=== PATIENT | male | born 1955 | race American Indian/Alaskan Native ===

== ENCOUNTER 2018-03-30 06:02 | Inpatient (IN) | payer OTHER, SELFPAY ==
[2018-03-30] VITALS (16 sets, daily range): BP systolic 109–145; BP diastolic 62–75; PULSE 60–94; RESP 15–18; TEMP 36.6–37.4; O2SAT 94–98; BMI 24.3; BMI 23.8; BMI 23.9
--- NOTE | 2018-03-30 06:03 | ED.RN ---
NO OLD EKGS IN MUSE.
--- NOTE | 2018-03-30 06:11 | RAD_ITS ---
STUDY: X-RAY CHEST REASON FOR EXAM: Male, 62 years old. Chest heaviness TECHNIQUE: 1 view COMPARISON: None. FINDINGS: The lungs are clear and expanded. There is no demonstrated pleural abnormality. Normal size heart. Normal mediastinum and uche. Normal visualized pulmonary arteries. Normal visualized aortic arch and descending thoracic aorta. Degenerative changes of the thoracic spine.. Normal visualized ribs, clavicles, and shoulders. There is no demonstrated abnormality of the visualized soft tissue structures of the upper abdomen. RAD/Chest 1 View (Portable) IMPRESSION: No acute findings in the lungs. Electronically Signed: Rigo Hunter MD at 6:44 EST Tel , Service support ,
--- NOTE | 2018-03-30 06:18 | ED.VISSUMM ---
- ER Visit Summary Date of Service: 03/30/18 Chief Complaint: Chest heaviness with radiation to posterior right and left arm, nausea and vomiting and dyspnea History of Present Illness: The patient is a 62 M who is a smoker of 1.5 packs/day presents because of heaviness mid chest described as a brick on his chest with radiation to the posterior right and left arm associated with nausea and vomiting. There is no radiation to the back. There was dyspnea. He also had cold sweats. First episode occurred on Sunday and lasted approximately 1 hour. Described as chest heaviness with nausea. He apparently had calamari that evening. He denies intolerance to greasy or fried foods and has no history of cholelithiasis nor is her family history cholelithiasis. Patient had 2 episodes on Sunday and one episode this morning and reason he presents. He had calamari on Sunday night as well. The 3 episodes that occurred to the day did not radiate to his back. He denies any ocular, visual or auditory symptoms. He denies black or maroon stool. He denies urologic symptoms. He denies history of trauma. He denies neurologic symptoms. Physical Examination: Vital signs remarkable for an elevated blood pressure 145/75. Head is atraumatic normocephalic. Pupils are equal round reactive. Extraocular muscles are intact. TMs are pearly white with landmarks noted. Nares patent with no drainage. Posterior pharynx without erythema or exudate. Uvula is midline. There is no dysphonia or dysphasia. Trachea is midline. There is no stridor with auscultation of the neck. Heart is regular without murmur, gallop or rub. S1 and S2 are normal. Lungs are clear to auscultation with good movement of air bilaterally. Test Results: EKG reveals a sinus rhythm rate of 75 with normal [place] interval, QRS duration, axis and QT interval. ST segments are normal. Portable chest x-ray reveals no acute process. CBC is normal. Hepatic is normal as well as lipase. First troponin is normal. Emergency Department Course and Treatment: To evaluate patient's chest pain EKG was obtained to evaluate for acute ischemia. Chest x-ray to evaluate cardiac silhouette, mediastinum lung parenchyma. CBC was obtained to assess H&H and white count. Basic metabolic panel to assess electrolytes and renal function. Troponin since he had episode on Sunday less than an hour to evaluate any acute ischemic evidence. Patient was pain-free at time of EKG. Treatment Plan: 23-hour observation PCU to evaluate for cardiac versus noncardiac etiology. Disposition: PCU Impression: 1. Chest pressure 2. Tobacco use This note was generated with [employer] dictation software. It may contain incorrect words, spelling, and punctuation that were not noted in review of the chart prior to signing ED Disposition - Plan for ED Patient: Chief Complaint: Chest Pain Referrals: Ej Day MD [Primary Care Provider] -
[2018-03-30 06:22] LABS: Absolute Lymphocyte Count 2.35 X10^3/ul (0.83-4.51); Absolute Neutrophil Count 5.9 X10^3/uL (2.0-7.7); Basophil# 0.05 X10^3/uL; Basophil% 0.5 % (0-1); Eosinophil# 0.31 X10^3/uL; Eosinophils% 3.4 % (0-5); Hematocrit 45.4 % (40-54); Hemoglobin 15.5 g/dl (13.0-16.5); Lymphocyte # 2.35 X10^3/ul (4.0); Lymphocyte % 25.5 % (19-41); Mean Corp Hgb Conc 34.1 g/gl (32-36); Mean Corpuscular Hgb 30.8 pg (27.0-32.0); Mean Corpuscular Volume 90.1 fL (80-94); Mean Platelet Vol. 11.5 fl (6.2-12.0); Monocyte# 0.63 X10^3/uL; Monocyte% 6.8 % (0-10); Neutrophil # 5.85 X10^3/uL (2.7-7.7); Neutrophil % 63.5 % (47-70); Platelet Count 202 K/mm3 (150-450); RBC Distribution Width CV 14.3 % (11.6-14.6); RBC Distribution Width SD 46.9 fl (35.1-43.9); Red Blood Count 5.04 M/mm3 (4.6-6.2); White Blood Count 9.2 K/mm3 (4.4-11.0)
--- NOTE | 2018-03-30 06:23 | ED.DCSUM_ITS ---
- ER Visit Summary Date of Service: 03/30/18 Chief Complaint: Chest heaviness with radiation to posterior right and left arm, nausea and vomiting and dyspnea History of Present Illness: The patient is a 62 M who is a smoker of 1.5 packs/day presents because of heaviness mid chest described as a brick on his chest with radiation to the posterior right and left arm associated with nausea and vomiting. There is no radiation to the back. There was dyspnea. He also had cold sweats. First episode occurred on Sunday and lasted approximately 1 hour. Described as chest heaviness with nausea. He apparently had calamari that evening. He denies intolerance to greasy or fried foods and has no history of cholelithiasis nor is her family history cholelithiasis. Patient had 2 episodes on Sunday and one episode this morning and reason he presents. He had calamari on Sunday night as well. The 3 episodes that occurred to the day did not radiate to his back. He denies any ocular, visual or auditory symptoms. He denies black or maroon stool. He denies urologic symptoms. He denies history of trauma. He denies neurologic symptoms. Physical Examination: Vital signs remarkable for an elevated blood pressure 145/75. Head is atraumatic normocephalic. Pupils are equal round reactive. Extraocular muscles are intact. TMs are pearly white with landmarks noted. Nares patent with no drainage. Posterior pharynx without erythema or exudate. Uvula is midline. There is no dysphonia or dysphasia. Trachea is midline. There is no stridor with auscultation of the neck. Heart is regular without murmur, gallop or rub. S1 and S2 are normal. Lungs are clear to auscultation w ith good movement of air bilaterally. Test Results: EKG reveals a sinus rhythm rate of 75 with normal [place] interval, QRS duration, axis and QT interval. ST segments are normal. Portable chest x-ray reveals no acute process. CBC is normal. Hepatic is normal as well as lipase. First troponin is normal. Emergency Department Course and Treatment: To evaluate patient's chest pain EKG was obtained to evaluate for acute ischemia. Chest x-ray to evaluate cardiac silhouette, mediastinum lung parenchyma. CBC was obtained to assess H&H and white count. Basic metabolic panel to assess electrolytes and renal function. Troponin since he had episode on Sunday less than an hour to evaluate any acute ischemic evidence. Patient was pain-free at time of EKG. Treatment Plan: 23-hour observation PCU to evaluate for cardiac versus noncardiac etiology. Disposition: PCU Impression: 1. Chest pressure 2. Tobacco use This note was generated with [employer] dictation software. It may contain incorrect words, spelling, and punctuation that were not noted in review of the chart prior to signing ED Disposition - Plan for ED Patient: Chief Complaint: Chest Pain Referrals: Ej Day MD [Primary Care Provider] -
[2018-03-30 06:24] LABS: POSITIVE COUNT NO; POSITIVE DIFFERENTIAL NO; POSITIVE MORPHOLOGY NO
[2018-03-30 06:35] LABS: AST(SGOT) 15 U/L (15-37); Alanine Aminotransfer ALT/SGPT 20 U/L (16-61); Albumin, Serum 3.5 g/dL (3.2-5.0); Alkaline Phosphatase 72 U/L (45-117); Anion Gap 8 (5-15); BUN 15 mg/dL (7-18); BUN/Creat Ratio 13.8 RATIO (10-20); Bilirubin, Direct 0.06 mg/dL (0.00-0.30); Calcium,Total 8.9 mg/dL (8.5-10.1); Chloride 108 mmol/L (98-107); Creatinine, Serum 1.09 mg/dL (0.70-1.30); EST Glomerular Filtration Rate 73 mL/min (>60); Est Glom Filt Rate - Afr Amer 89 mL/min (>60); Estimated Creatinine Clearance 76.76 ml/min; Globulin 3.4 g/dL (2.2-4.2); Glucose 106 mg/dL (74-106); Lipase 200 U/L (73-393); Potassium 4.1 mmol/L (3.5-5.1); Protein, Total 6.9 g/dL (6.4-8.2); Sodium Level 144 mmol/L (136-145)
[2018-03-30] MEDS: Nitroglycerin Oint 1 INCH PACKET TRANSDERM. (06:54)
--- NOTE | 2018-03-30 07:10 | PCM.HP.STD ---
Problem List (1) Chest pain Status: Acute (2) Tobacco dependence Status: Chronic History of Present Illness Date of Admission: 03/30/18 Chief Complaint: Chest pain The patient is a 62 year old M in relatively good health on no chronic medications who presented with chest pain. Patient symptoms started prior to him going to bed. He developed pain which was described as pressure located in the retrosternal region radiating to both arms. He also did experience some nausea and vomited 2 times prior to coming. In view of the persistent nature of his symptoms patient finally presented to the emergency department. Patient pain apparently did resolve prior to patient receiving any nitroglycerin. Initial set of cardiac enzymes came back unremarkable subsequently admitted to a monitored bed for further management Past Medical History Past Medical History (Chronic Problems): Chronic Problems Tobacco dependence (Chronic) Allergies No Known Allergies Allergy (Verified 03/30/18 06:05) Home Medications: Ambulatory Orders Medication Instructions Recorded NK 03/30/18 Smoking Status: Current every day smoker - *Family History Maternal History Items: Stroke Review of Systems Constitutional: Denies: Anorexia, Chills, Fever, Night Sweats, Weight Change HEENT: Denies: Head Aches, Sinus Congestion, Sinus Drainage Cardiovascular: Reports: Chest Pain. Denies: Orthopnea, Palpitations, Paroxysmal Noc. Dyspnea Respiratory: Denies: Cough, Shortness of breath at rest, Shortness of breath upon exertion, Sputum production Gastrointestinal: Reports: Nausea, Vomiting. Denies: Abdominal Pain, Hematemesis, Hematochezia, Melena Genitourinary: Denies: Dysuria, Frequency, Hematuria, Urgency Musculoskeletal: Denies: Joint Pain, Joint Tenderness Skin: Denies: Rash Neurological: Denies: Focal weakness, Numbness, Tingling Psychiatric: Denies: Homicidal Ideations, Suicidal Ideations Hematologic/ Lymphatic: Denies: Easy Bruising, Easy Bleeding VTE Information - Inpt Only VTE Present on Admission: No VTE Mechan Device Prophylaxis: Knee High LAINEY Hose VTE Pharm Prophylaxis ordered?: Yes Patient Problems: Active and Suspected Problems Chest pain (Acute) Objective: GENERAL: cooperative HEENT: Atraumatic; moist oral mucosa EYES; Anicteric, Normal Conjunctiva NECK; supple, normal thyroid, no distended JVD. RESPIRATORY: Diminished to auscultation bilaterally, CARDIOVASCULAR: Regular S1 S2, no audible murmurs GI: soft, non-tender, normoactive bowel sounds, : No Renal angle tenderness; EXTREMITIES: No edema, no clubbing, no cyanosis. MUSCULOSKELETAL: No Joint Tenderness; no muscle waisting NEURO: Awake; no lateralizing signs. SKIN: No Rash PSYCH; Normal affect - Physical Exam Vital Signs Temp Pulse Resp BP Pulse Ox 97.8 F 60 15 109/68 95 03/30/18 07:05 03/30/18 07:07 03/30/18 07:07 03/30/18 07:07 03/30/18 07:07 Oxygen Delivery Method Room Air Weight: 79 kg Body Mass Index (BMI) 24.3 Laboratory Tests Past 24 Hrs 03/30/18 03/30/18 06:12 06:12 WBC 9.2 RBC 5.04 Hgb 15.5 Hct 45.4 MCV 90.1 MCH 30.8 MCHC 34.1 RDW 14.3 RDW Differential 46.9 H Plt Count 202 MPV 11.5 Immature Gran % (Auto) 0.300 Neut % (Auto) 63.5 Lymph % (Auto) 25.5 [place] % (Auto) 6.8 Eos % (Auto) 3.4 Baso % (Auto) 0.5 Absolute Neuts (auto) 5.9 Absolute Lymphs (auto) 2.35 Total Counted Not Reportable Sodium 144 Potassium 4.1 Chloride 108 H Carbon Dioxide 28.0 Anion Gap 8 BUN 15 Creatinine 1.09 Estim Creat Clear Calc 76.76 Est GFR (MDRD) Af Amer 89 Est GFR (MDRD) Non-Af 73 BUN/Creatinine Ratio 13.8 Glucose 106 Calcium 8.9 Total Bilirubin 0.20 Direct Bilirubin 0.06 AST 15 ALT 20 Alkaline Phosphatase 72 Troponin I 0.029 Total Protein 6.9 Albumin 3.5 Globulin 3.4 Lipase 200 Assessment/Plan All Active Problems Chest pain (Acute) Patient is a 62-year-old gentleman in relatively good health presented with chest pain 1. Chest pain patient has been admitted to monitored bed with plans to rule out KS with serial cardiac enzymes patient undergo a stress echo if KS is ruled out 2. Tobacco dependence counseled on cessation, offered nicotine patch for tobacco cravings 3. DVT prophylaxis SC Lovenox Code Visit OBSV E&M: 10952 Initial observation care L2
[2018-03-30] MEDS: Aspirin E.C. 81 MG Tablet PO (10:13)
--- NOTE | 2018-03-30 10:51 | ECHOD_ITS ---
Reason For Study: CHEST PAIN Procedure This was a 2D Doppler, Color Flow transthoracic echocardiogram. Technically difficult parasternal windows. Exam performed portable in patient room. Left Ventricle Normal size and thickness. The estimated ejection fraction is 55 %. Normal diastology for age. Mid- Anterior : Mildly hypokinetic. Mid-anteroseptal : Mildly hypokinetic. Anterior Show Low : Mildly hypokinetic. Right Ventricle Normal size and thickness. Normal systolic function. Atria Normal left atrium. Normal right atrium. Normal atrial septum. Mitral Valve The mitral valve is structurally normal. No prolapse or stenosis seen. Tricuspid Valve Normal tricuspid valve. Trivial tricuspid valve insufficiency. Right ventricular systolic pressure estimated to be 23 mmHg. Aortic Valve Normal aortic valve. Trisinus/trileaflet aortic valve. Pulmonic Valve Normal pulmonic valve. Great Vessels Normal aortic root. Normal arch. Normal inferior vena cava. Inferior vena cava collapse with sniff. Pericardium/Pleural No pericardial effusion. MMode/2D Measurements & Calculations LVIDd: 4.1 cm IVSd: 0.99 cm Ao root diam: 3.1 cm LVIDs: 2.9 cm LVPWd: 0.88 cm RVDd: 3.3 cm FS: 29.3 % LAV(MOD-bp): 39.4 ml EDV(MOD-sp4): 104.1 ml EDV(MOD-sp2): 89.6 ml LAV(MOD-bp) Indexed: 20.0 ml/m2 ESV(MOD-sp4): 44.8 ml EF(MOD-sp2): 55.4 % LAV(MOD-sp2): 46.7 ml EF(MOD-sp4): 57.0 % LAV(MOD-sp4): 33.4 ml SV(MOD-sp4): 59.3 ml SV(MOD-sp2): 49.6 ml LA A4 area: 14.9 cm2 LA dimension(2D): 3.0 cm RA A4 area: 14.8 cm2 Time Measurements MV dec time: 0.21 sec Doppler Measurements & Calculations MV E max jefferson: 78.7 cm/sec Lat Peak E' Jefferson: 12.3 cm/sec Med Peak E' Jefferson: 8.8 cm/sec MV A max jefferson: 56.0 cm/sec E/E' lat: 6.4 E/E' med: 9.0 MV E/A: 1.4 Ao V2 max: 148.2 cm/sec LV V1 max: 124.1 cm/sec TR max jefferson: 210.7 cm/sec Ao max P.8 mmHg LV V1 max P.2 mmHg TR max P.0 mmHg Interpretation Summary The estimated ejection fraction is 55 %. Normal diastology for age. Mid-Anterior : Mildly hypokinetic Mid-anteroseptal : Mildly hypokinetic Anterior Show Low : Mildly hypokinetic Trivial tricuspid valve insufficiency. Right ventricular systolic pressure estimated to be 23 mmHg. There is no comparison study available. Ordering Physician: Cayetano Mata Referring Physician: DINESH RAMOS Performed By: Ruthie Tay, CHINYERE, RVT
--- NOTE | 2018-03-30 11:01 | CON.PCM_ITS ---
Problem List (1) Non-STEMI (non-ST elevated myocardial infarction) Status: Acute (2) Chest pain Status: Acute (3) Tobacco dependence Status: Chronic Reason for Consult Date of Consultation: 03/30/18 Reason for Consultation: Chest pain, tobacco abuse, non-STEMI History of Present Illness: The patient is a 62 year old M, current smoker of about 1-1/2 packs/day, approximately [id number] smoking history, quit for about 15 years and then resumed, nondiabetic, positive family history of coronary disease in his brother, nonhypertensive, no previous known coronary disease in the patient. Patient was admitted with new onset midsternal chest pressure described as a brick on his chest radiating to the inner portions of both arms, with no assoc iated shortness of breath. Initial EKG showed normal sinus rhythm, normal axis, normal intervals, no acute ST segment deviations. His initial troponin was 0.02, then increase to 0.285 on a rapid rule out. He was placed on Lovenox as well as nitroglycerin paste. He has had no recurrent anginal symptoms. A stress test was planned however canceled due to his second elevated troponin. On additional history, the patient noted similar midsternal chest pressure symptoms on Sunday of this past week after he had done excessive lifting and raking of leaves in his yard. He has no associated shortness of breath, presyncope, syncope. He denies any flulike symptoms. He has never had a catheterization or a stress test. [] Past Medical History Allergies/Adverse Reactions: Allergies No Known Allergies Allergy (Verified 03/30/18 06:05) Home Medications: Ambulatory Orders Medication Instructions Recorded NK 03/30/18 Past Medical History (Chronic Problems): Chronic Problems Tobacco dependence (Chronic) - *Family History Maternal History Items: Stroke Smoking Status: Current every day smoker Review of Systems - Review of Systems General: Denies: Fever, Night Sweats, Fatigue Cardiovascular: Reports: Chest Discomfort, Chest Discomfort at Rest, Chest Discomfort with Exertion. Denies: Shortness of Breath, Orthopnea, PND, Peripheral Edema, Palpitations, Lightheadedness, Dizziness, Near Syncope, Syncope Respiratory: Denies: Cough, Sputum Production, Hemoptysis Gastrointestinal: Denies: Hematemesis, Hematochezia, Melena Genitourinary: Denies: Dysuria, Hematuria Skin: Denies: Rash Subjectve: Patient laying in bed, no acute distress. Objective: Vital Signs Temp Pulse Resp BP Pulse Ox 98 F 62 18 110/72 97 03/30/18 08:24 03/30/18 08:24 03/30/18 08:24 03/30/18 08:24 03/30/18 08:24 Oxygen Delivery Method Room Air Weight: 171 lb 1.259 oz Body Mass Index (BMI) 23.8 General: Awake, Alert, Oriented x 3 HEENT: PERRL, EOMI, Sclera Non Icteric Neck: Supple, Good ROM, No Lymph Node Enlargement Lungs: Clear to auscultation Cardiovascular: Regular Rhythm, Normal S1, Normal S2, No Murmurs, No Rubs, No Gallops Vascular: No Carotid Bruits, Normal Femoral Pulses, Normal Radial Pulses, Normal Dorsalis Pedal Pulse, Normal Posterior Tibial Pulses Abdomen: Bowel Sounds Present, Soft, Non Tender, No HSM, No Organomegaly Extremities: No Cyanosis, No Clubbing, No edema Neurological: No Focal Motor or Sensory Deficit 03/30/18 06:12: WBC 9.2, RBC 5.04, Hgb 15.5, Hct 45.4, MCV 90.1, MCH 30.8, MCHC 34.1, RDW 14.3, RDW Differential 46.9 H, Plt Count 202, MPV 11.5, Immature Gran % (Auto) 0.300, Neut % (Auto) 63.5, Lymph % (Auto) 25.5, [place] % (Auto) 6.8, Eos % (Auto) 3.4, Baso % (Auto) 0.5, Absolute Neuts (auto) 5.9, Total Counted Not Reportable 03/30/18 06:12: Sodium 144, Potassium 4.1, Chloride 108 H, Carbon Dioxide 28.0, Anion Gap 8, BUN 15, Creatinine 1.09, Est GFR (MDRD) Af Amer 89, Est GFR (MDRD) Non-Af 73, BUN/Creatinine Ratio 13.8, Glucose 106, Calcium 8.9, Total Bilirubin 0.20, Direct Bilirubin 0.06, Troponin I 0.029 03/30/18 09:34: Troponin I 0.285 H Rhythm: EKG: ECHO: Stress Test: Cardiac Cath: PCI: CT Surgery: Holter monitor: EPS: PPM: CXR: Chest CT Scan: Assessment/Plan 1. Unstable angina: The patient presents with 2 episodes of angina, one after heavy exertional work, and 1 while at rest, both associated with midsternal chest pressure, heaviness, with radiation to the inner surfaces of both upper extremities. Initial troponin was negative, then second troponin was 0.285, indicating the need for stress echocardiogram at this time. I recommended the patient continue baby aspirin, increase his Lovenox to 70 mg subcu twice daily, be loaded with Plavix 300 mg x1 now followed by 75 mg a day, and add Lopressor 12.5 mg p.o. twice daily. I recommended given the patient's signs and symptoms that he undergo a diagnostic left heart catheterization this upcoming Sunday. I would not recommend the patient be discharged home as he has had accelerating angina of new onset since Sunday of this past week superimposed upon abnormal troponins. I recommended the patient discontinue all tobacco products, and the patient has agreed to do that. Would also recommend a 2D echo with Doppler to evaluate his LV function, pulmonary pressures, and valvular status. Highly recommended to the patient is that he remain in the hospital until his catheterization this upcoming Sunday. It is an unfortunate timing issue, but he does not reach criteria for acute catheterization at this time. If however the patient has recurrent chest pain symptoms despite maximal medical therapy, I would have a low threshold for urgent catheterization this . 2. Hyperlipidemia: Recommend obtaining a fasting lipid profile. Recommend s tarting statin based medications to lower his LDL less than 70. 3. All questions answered to the patient and his , and the risks/benefits of the catheterization procedure were thoroughly explained to the patient and his , including specific attention to lack of on-site surgical backup, and they have agreed to proceed. 4. Thank you very much for the opportunity to participate in the cardiac care of your patient. Consultation time took place between 1030 and 11:01 AM. Code Visit Inpatient E&M: 03377 Init Hosp L2
[2018-03-30 12:01] LABS: Cholesterol 179 mg/dL (200); High Density Lipoprotein 40 mg/dL; Triglycerides 50 mg/dL; Very Low Density Lipoprotein 10 mg/dL (5-40)
--- NOTE | 2018-03-30 12:14 | NURSING ---
Patient does not want blood thinners. Mother due to blood thinners. Patient is up independently and walking in the halls.
[2018-03-30] MEDS: Clopidogrel Bisulfate 300 MG Tablet PO (12:24)
--- NOTE | 2018-03-30 14:55 | CM.UR ---
See greenkeeper. Met face to face with patient and his . Introduced myself and my role at [facility]. Gave verbal consent for cm assessment. Denies any needs prior to admission and denies that he'll need anything after discharge. States if he needs anything they can take care of it. Unsure of plan. Awaiting Echo results. States he is not going to quit smoking at this time. I explained Dr. Gutierrez said that he agreed to quit smoking. Patient states that he told Dr. gutierrez, I hear you. Meaning he understood what he was saying but he is not in agreement to quit at this time. States he makes his own cigarettes and they are more natural w/o all the excess chemicals that cigarette companies add. Instructed case management will be available should any needs arise. Verb understanding. JIAN Chan, [facility].
[2018-03-31] VITALS (12 sets, daily range): BP systolic 105–125; BP diastolic 65–79; PULSE 52–71; RESP 16–18; TEMP 36.4–36.8; O2SAT 94–99
--- NOTE | 2018-03-31 07:39 | PCM.PN.HOSP ---
Patient Problems: Active and Suspected Problems Chest pain (Acute) Non-STEMI (non-ST elevated myocardial infarction) (Acute) Subjective: Patient is a 62-year-old gentleman admitted with chest pain. He was placed in a monitored bed subsequent serial cardiac enzymes came back consistent with acute non-STEMI. Patient has been seen by Dr. Mata plan is for patient undergo left heart catheterization on 04/01/2018 Objective: GENERAL: cooperative HEENT: Atraumatic; moist oral mucosa EYES; Anicteric, Normal Conjunctiva NECK; supple, normal thyroid, no distended JVD. RESPIRATORY: Diminished to auscultation bilaterally, CARDIOVASCULAR: Regular S1 S2, no audible murmurs GI: soft, non-tender, normoactive bowel sounds, : No Renal angle tenderness; EXTREMITIES: No edema, no clubbing, no cyanosis. MUSCULOSKELETAL: No Joint Tenderness; no muscle waisting NEURO: Awake; no lateralizing signs. SKIN: No Rash PSYCH; Normal affect Vitals/I&O's: Vital Signs Temp Pulse Resp BP Pulse Ox 97.5 F L 54 L 16 112/75 99 03/31/18 03:55 03/31/18 07:30 03/31/18 03:55 03/31/18 03:55 03/31/18 03:55 Oxygen Delivery Method Room Air Weight: 77.6 kg Body Mass Index (BMI) 23.8 Intake and Output for Last 24 Hours 03/29/18 03/30/18 03/31/18 23:59 23:59 23:59 Intake Total 1080 / 1080 Balance 1080 / 1080 Laboratory Results 03/30/18 06:35: TSH 2.40 03/30/18 09:34: Troponin I 0.285 H 03/30/18 09:34: Triglycerides 50, Cholesterol 179, LDL Cholesterol 129, VLDL Cholesterol 10, HDL Cholesterol 40 03/30/18 12:10: Troponin I 0.358 H Current Medications Al Hydroxide/Mg Hydroxide (Mylanta Ii) 30 ml PO Q6H PRN PRN PRN Reason: Gastric burning Aspirin (Ecotrin) 81 mg PO DAILY@0800 [facility] Last Admin: 03/30/18 10:13 Dose: 81 mg Clopidogrel Bisulfate (Plavix) 75 mg PO DAILY [facility] Enoxaparin Sodium (Lovenox) 70 mg SC Q12@0600,1800 [facility] Last Admin: 03/30/18 22:50 Dose: Not Given Magnesium Hydroxide (Milk Of Magnesia) 30 ml PO DAILY PRN PRN Reason: Constipation Metoprolol Tartrate (Lopressor (Beta Jelly)) 12.5 mg PO BID [facility] Last Admin: 03/30/18 22:00 Dose: Not Given Nitroglycerin (Nitrostat) 0.4 mg SUBLINGUAL Q5M PRN PRN Reason: CHEST PAIN Ondansetron HCl (Zofran) 4 mg IV Q8H PRN PRN PRN Reason: NAUSEA Sodium Chloride () 5 - 15 ml IV UD PRN PRN Reason: SALINE FLUSH Zolpidem Tartrate (Ambien (Generic)) 5 mg PO QHS PRN PRN PRN Reason: INSOMNIA Medical Necessity - Tobacco Use Smoking Status: Current every day smoker Assessment/Plan All Active Problems Chest pain (Acute) Non-STEMI (non-ST elevated myocardial infarction) (Acute) Patient is a 62-year-old gentleman admitted with chest pain. He was placed in a monitored bed subsequent serial cardiac enzymes came back consistent with acute non-STEMI. Patient has been seen by Dr. Mata plan is for patient undergo left heart catheterization on 04/01/2018 1. Acute NSTEMI: Admitted to a monitored bed where patient has been managed per protocol with therapeutic Lovenox, beta-blockers Plavix and aspirin and statin therapy.. Consultation was placed to cardiology patient seen by Dr. Mata plan for patient undergo left heart catheterization on [id number] 2. Tobacco dependence counseled on cessation, offered nicotine patch for tobacco cravings 3. History of right inguinal herniorrhaphy in 1999 and 4. DVT prophylaxis SC Lovenox Active Medications Al Hydroxide/Mg Hydroxide (Mylanta Ii) 30 ml PO Q6H PRN PRN PRN Reason: Gastric burning Aspirin (Ecotrin) 81 mg PO DAILY@0800 [facility] Last Admin: 03/31/18 08:51 Dose: 81 mg Clopidogrel Bisulfate (Plavix) 75 mg PO DAILY [facility] Last Admin: 03/31/18 08:51 Dose: 75 mg Enoxaparin Sodium (Lovenox) 70 mg SC Q12@0600,1800 [facility] Last Admin: 03/30/18 22:50 Dose: Not Given Magnesium Hydroxide (Milk Of Magnesia) 30 ml PO DAILY PRN PRN Reason: Constipation Metoprolol Tartrate (Lopressor (Beta Jelly)) 12.5 mg PO BID [facility] Last Admin: 03/31/18 08:51 Dose: Not Given Nitroglycerin (Nitrostat) 0.4 mg SUBLINGUAL Q5M PRN PRN Reason: CHEST PAIN Ondansetron HCl (Zofran) 4 mg IV Q8H PRN PRN PRN Reason: NAUSEA Sodium Chloride () 5 - 15 ml IV UD PRN PRN Reason: SALINE FLUSH Zolpidem Tartrate (Ambien (Generic)) 5 mg PO QHS PRN PRN PRN Reason: INSOMNIA Code Visit Inpatient E&M: 31243 Subs Hosp L3 OBSV E&M: 30894 Subsequent observation care L3
[2018-03-31] MEDS: Clopidogrel Bisulfate 75 MG Tablet PO (08:51)
[2018-03-31] MEDS: Aspirin E.C. 81 MG Tablet PO (08:51)
--- NOTE | 2018-03-31 09:47 | PN.CARD_ITS ---
Subjectve: Patient doing well this morning, no chest pain or 24-hour events. Telemetry showed normal sinus rhythm, no PVCs. Troponin peak of 0.358. Echo yesterday showed mild anterior hypokinesis with an EF around 50-55%. Objective: Vital Signs Temp Pulse Resp BP Pulse Ox 97.7 F L 67 18 105/67 96 03/31/18 08:57 03/31/18 08:57 03/31/18 08:57 03/31/18 08:57 03/31/18 08:57 Oxygen Delivery Method Room Air Weight: 171 lb 1.259 oz Body Mass Index (BMI) 23.8 Intake and Output for Last 24 Hours 03/29/18 03/30/18 03/31/18 23:59 23:59 23:59 Intake Total 1080 / 1080 Balance 1080 / 1080 General: Awake, Alert, Oriented x 3 HEENT: PERRL, EOMI, Sclera Non Icteric Neck: Supple, Good ROM, No Lymph Node Enlargement Lungs: Clear to auscultation Cardiovascular: Regular Rhythm, Normal S1, Normal S2, No Murmurs, No Rubs, No Gallops Vascular: No Carotid Bruits, Normal Femoral Pulses, Normal Radial Pulses, Normal Dorsalis Pedal Pulse, Normal Posterior Tibial Pulses Abdomen: Bowel Sounds Present, Soft, Non Tender, No HSM, No Organomegaly Extremities: No Cyanosis, No Clubbing, No edema Neurological: No Focal Motor or Sensory Deficit 03/30/18 09:34: Troponin I 0.285 H 03/30/18 09:34: Triglycerides 50, Cholesterol 179, LDL Cholesterol 129, VLDL Cholesterol 10, HDL Cholesterol 40 03/30/18 12:10: Troponin I 0.358 H Rhythm: EKG: ECHO: Stress Test: Cardiac Cath: PCI: CT Surgery: Holter monitor: EPS: PPM: CXR: Chest CT Scan: Medical Necessity - Tobacco Use Smoking Status: Current every day smoker Assessment/Plan 1. Unstable angina: The patient presents with 2 episodes of angina, one after heavy exertional work, and 1 while at rest, both associated with midsternal chest pressure, heaviness, with radiation to the inner surfaces of both upper extremities. Initial troponin was negative, then second troponin was 0.285, indicating the need for stress echocardiogram at this time. I recommended the patient continue baby aspirin, increase his Lovenox to 70 mg subcu twice daily, be loaded with Plavix 300 mg x1 on 03/30/18, followed by 75 mg a day, and add Lopressor 12.5 mg p.o. twice daily. I recommended given the patient's signs and symptoms that he undergo a diagnostic left heart catheterization this upcoming Sunday. I would not recommend the patient be discharged home as he has had accelerating angina of new onset since Sunday of this past week superimposed upon abnormal troponins. I recommended the patient discontinue all tobacco products, and the patient has agreed to do that. His 2D echo demonstrates mild mid anterior hypokinesis possibly suggesting LAD occlusive disease. Continue baby aspirin, Plavix, beta- carlos. Highly recommended to the patient is that he remain in the hospital until his catheterization this upcoming Sunday. It is an unfortunate timing issue, but he does not reach criteria for acute catheterization at this time. If however the patient has recurrent chest pain symptoms despite maximal medical therapy, I would have a low threshold for urgent catheterization this weekend. 2. Hyperlipidemia: LDL is 129, HDL is 40. His LDL should be less than 70 given his risk profile. Continue Lipitor. Repeat lipid profile in 6 weeks time. 3. All questions answered to the patient and his , and the risks/benefits of the catheterization procedure were thoroughly explained to the patient and his , including specific attention to lack of on-site surgical backup, and they have agreed to proceed. 4. Thank you very much for the opportunity to participate in the cardiac care of your patient. Catheterization planned for tomorrow morning. Code Visit Inpatient E&M: 46484 Subs Hosp L2
--- NOTE | 2018-03-31 18:30 | NURSING ---
At around 1400 patient [place] a [place] [employer] [place] . He was just getting stir crazy and wanted to get out of room. He has had no chest pain.
[2018-03-31 23:56] LABS: Bacteria 0 SEEN /hpf (None Seen); Mucous, Urine 0 SEEN /hpf (<or=2+); Red Blood Cells-Urine 0 SEEN /hpf (0-5); Squamous Epithelial Cells - UA 0 SEEN /hpf (0-5); White Blood Cells 0 SEEN /hpf (0-5)
[2018-03-31 23:57] LABS: Color, Urine Yellow (Yellow); Glucose, Dipstick Normal (Normal); Ketone-Dipstick Negative (Negative); Leukocyte Esterase-Dipstick Negative /ul (Negative); Nitrite-Dipstick Negative (Negative); Occult Blood-Urine Negative /ul (Negative); Protein-Dipstick Negative (Negative); Specific Gravity, Urine 1.015 (1.002-1.030); Urine Bilirubin Dipstick Negative (Negative); Urine Clarity Clear (Clear); Urine Urobilinogen Normal (Normal)
[2018-04-01] VITALS (33 sets, daily range): BP systolic 99–132; BP diastolic 52–77; PULSE 51–69; RESP 11–24; TEMP 36.5–37.2; O2SAT 92–98
[2018-04-01] MEDS: Aspirin E.C. 81 MG Tablet PO (06:11)
[2018-04-01] MEDS: Clopidogrel Bisulfate 75 MG Tablet PO (06:11)
[2018-04-01] MEDS: 0.9% Normal Saline 1,000 ML 15 ML IV (06:17)
[2018-04-01] MEDS: 0.9% NaCl Peripheral Flush Adult/Peds IV (06:17)
[2018-04-01 06:38] LABS: Absolute Lymphocyte Count 2.69 X10^3/ul (0.83-4.51); Basophil# 0.02 X10^3/uL; Basophil% 0.1 % (0-1); Eosinophils% 1.2 % (0-5); Hematocrit 45.1 % (40-54); Lymphocyte # 2.69 X10^3/ul (4.0); Lymphocyte % 16.7 % (19-41); Mean Corp Hgb Conc 33.3 g/gl (32-36); Mean Corpuscular Hgb 30.1 pg (27.0-32.0); Mean Corpuscular Volume 90.6 fL (80-94); Mean Platelet Vol. 12.3 fl (6.2-12.0); Monocyte# 1.19 X10^3/uL; Monocyte% 7.4 % (0-10); Neutrophil # 11.95 X10^3/uL (2.7-7.7); Neutrophil % 74.2 % (47-70); Platelet Count 202 K/mm3 (150-450); RBC Distribution Width CV 14.3 % (11.6-14.6); Red Blood Count 4.98 M/mm3 (4.6-6.2); White Blood Count 16.1 K/mm3 (4.4-11.0)
[2018-04-01 06:41] LABS: International Normalized Ratio 0.9; POSITIVE COUNT NO; POSITIVE DIFFERENTIAL NO; POSITIVE MORPHOLOGY NO; Prothrombin Time (Protime)PT. 12.4 SECONDS (11.7-14.9)
[2018-04-01 06:47] LABS: Anion Gap 6 (5-15); BUN 15 mg/dL (7-18); Calcium,Total 8.5 mg/dL (8.5-10.1); Chloride 107 mmol/L (98-107); EST Glomerular Filtration Rate 81 mL/min (>60); Est Glom Filt Rate - Afr Amer 98 mL/min (>60); Estimated Creatinine Clearance 83.67 ml/min; Glucose 96 mg/dL (74-106); Potassium 4.1 mmol/L (3.5-5.1); Sodium Level 139 mmol/L (136-145)
--- NOTE | 2018-04-01 09:27 | CL.I_ITS ---
Patient Name: GREG BREWER Study Date: 04/01/2018 Performing: Cayetano Mata MD Ht: 71 inches 180 cm : 1955 Wt: 172.2 lbs 78 kg Age: 62 Gender: male BSA: 1.98 PROCEDURE(S) PERFORMED NS64-RSL/COR/LV DF43-YNS W OR WO PTCA, SINGLE CORONARY ARTERY CLINICAL PROFILE AND CO-MORBIDITIES Patient presents with NSTEMI for urgent cardiac cath Indications: ACS > 24 hrs, New Onset Angina <= 2 months, Suspected CAD, LV Dysfunction Heart Failure: None Stress/Imaging Stress/Image Study Performed: No Angina Classification Anginal Classification w/in 2 Weeks: CCS IV CAD Presentations: Unstable angina. Non-STEMI. Symptom onset Date/Time: 03/30/2018 Time Not Avail able Comorbidities/Risk Factors: Current/Recent Smoker (< 1year) Hypertension Dyslipidemia CONCLUSIONS Single vessel CAD of the mid LAD Normal LV size, wall motion,and systolic function Normal Left Ventricular systolic function Non obstructive coronary arteries Successful PTCA/ISA mid LAD with a 2.5 x 16 Promus Synergy, post dilated proximally with a 3.0 and 3. 5 x 8 NC balloon; 85%-->0%, no dissection. RECOMMENDATIONS Referred for immediate PCI Highly recommend quitting all tobacco products Follow up with primary quality process engineer Risk factor modification ASA Indefinitley Plavix for at least 12 months Routine post interventional care Refer for Outpatient Cardiac Rehab Manual sheath removal per protocol Follow up with Dr. Mata Stress test in 3 weeks to eval LCX and RCA territories. Manual sheath removal as pt is too thin for Mynx closure. DESCRIPTION OF PROCEDURE The patient arrived to the procedure lab. The risks and benefits of the procedure as well as a full d escription of our services here and lack of surgical backup were fully explained to the patient and/o r their significant other prior to the catheterization. The Timeout was completed, verifying the rodger ect patient and procedure. The patient's procedural site was prepped and draped in the usual fashion. Local anesthetic was given subcutaneously to right groin region with Lidocaine 2%. Using a modified Seldinger technique, arterial access was obtained via the right femoral artery, a 4Fr sheath was inse rted. Left Coronary Artery selective angiography was performed in multiple views using a 4 Fr. JL5 c atheter. Right Coronary Artery selective angiography was then performed in multiple views using a 4 F r. 3DRC catheter. Left Ventriculography was performed in GOODWIN projection using a 4 Fr. Pigtail cathete rThe images were reviewed and options discussed. A decision was then made to proceed with an Intervention, IVUS or other adjunct procedure. Arterial sheath was exchanged for a 6 Fr Sheath. EBU 3.5 Guide catheter was inserted and engaged into the LCA. BMW Mcdermott Guide wire was advanced to the LAD. Emerge 2.0 x 12 Balloon catheter was inserted. Balloon catheter was advanced across lesion in the LAD, mid. Angiogram performed pre balloo n dilatation. PTCA balloon inflated at 6 atms for 7 secs. PTCA balloon inflated at 6 atms for 5 secs. Angiogram performed post balloon dilatation. PTCA balloon inflated at 10 atms for 10 secs. Angiogram performed post balloon dilatation. Synergy 2.50 x 16 Drug Eluting stent was inserted. Drug Eluting s tent was advanced across the lesion in the LAD, mid. Angiogram performed pre stent deployment. Angiog chi performed post stent deployment. NC Emerge 3.0 x 8 Balloon catheter was advanced across lesion in the LAD, mid. Angiogram performed pre balloon deployment. Angiogram performed post balloon dilatatio n. NC Euphora 3.5 x 8 Balloon catheter was inserted. Balloon catheter was advanced across lesion in the LAD, mid. Angiogram performed pre balloon dilatation. Angiogram performed post balloon dilatation. The arterial sheath was sutured in place and capped CORONARY ANGIOGRAPHY DOMINANCE: Right Dominant LEFT HEART ASSESSMENT Left Ventricular Ejection Fraction: by LV Gram 65 % Normal Left Ventricular systolic function Normal LV wall motion LEFT MAIN: Angiographically normal LEFT ANTERIOR DECENDING ARTERY: MID LAD: 85 % Stenosis, Mild calcification CIRCUMFLEX ARTERY: Mild luminal irregularities less than 30% RIGHT CORONARY ARTERY: Moderate luminal irregularities up to 50% INTERVENTION INFORMATION LESION SITE: LAD (Mid) Lesion Complexity: Non-High/Non-C, lesion at bifurcation: No, thrombus present: No, lesion length: 16 mm, culprit lesion: Yes Pre Stenosis: 85 % Pre intervention ALTON flow: 3 Post Stenosis: 0 % Post intervention ALTON flow: 3 Lesion Devices: Medtronic 7 Fr EBU3.5 100cm Guide Catheter Uribe .014 BMW Mcdermott Straight 190cm Ba Sci EMERGE MR 2.00x12 BALLOON Ba Sci Synergy MR ISA 2.50x16 Ba Sci NC EMERGE MR 3.00x08 BALLOON Medtronic NC EUPHORA RX 3.5x08 BALLOON COMPLICATIONS No Complications PROCEDURE MEDICATIONS Versed 1 mg IV Oxygen: 2 L/min via nasal cannula Heparin 6000 unit(s) IV 04/01/2018 08:41:08 Nitro 200 mcg IC 04/01/2018 08:42:44 Nitro 200 mcg IC 04/01/2018 08:42:44 IV Bolus: .9 NaCl 600 ml total 04/01/2018 08:34:41 SUMMARY OF HEMODYNAMIC DATA Time AIR REST ECG 08:07:05 AO 104/52 (72) SA 08:33:12 LV 103/-15, 12 08:38:36 LV 101/-17, 8 08:38:43 LVp 97/-18, 1 08:38:50 AOp 100/47 (68) 08:38:55 Signed By Cayetano Mata MD On 04/01/2018 09:26:36 Cayetano Mata MD
[2018-04-01] MEDS: 0.9% Normal Saline 1,000 ML 150 ML IV (10:00)
[2018-04-01 11:10] LABS: ACT Activated Clotting Time 142 sec (74-137)
--- NOTE | 2018-04-01 12:41 | PCM.PN.HOSP ---
Patient Problems: Active and Suspected Problems Chest pain (Acute) Non-STEMI (non-ST elevated myocardial infarction) (Acute) Subjective: Patient was seen and examined. Denies any chest pain. Had a cardiac cath done today, had a lesion in the mid LAD status post ISA. Denies any dizziness or shortness of breath. Cast with modeling analyst, patient will need repeat stress test in 3 weeks to evaluate the left circumflex and RCA territories. Vitals/I&O's: Vital Signs Temp Pulse Resp BP Pulse Ox 98.2 F 56 L 12 104/72 96 04/01/18 12:03 04/01/18 12:29 04/01/18 12:29 04/01/18 12:29 04/01/18 12:29 Oxygen Delivery Method Room Air Weight: 77.6 kg Body Mass Index (BMI) 23.8 Intake and Output for Last 24 Hours 03/30/18 03/31/18 04/01/18 23:59 23:59 23:59 Intake Total 1080 / 1080 620 / 620 485 / 485 Balance 1080 / 1080 620 / 620 485 / 485 General: Alert, Oriented x3, Cooperative, No apparent distress HEENT: Atraumatic, PERRLA, EOMI, Normocephalic Oral: Moist Mucosa Neck: Supple, No JVD, Negative Carotid Bruits Lungs: Clear to auscultation, Normal air movement Cardiovascular: Regular rate, Regular Rhythm, Normal S1, Normal S2, No murmurs Abdomen: Bowel Sounds Present, Soft, Non Tender, Non-Distended, No Hepato-splenomegaly, - - Right groin is slightly tender, some bag in place, post-cath procedures ongoing Extremities: No edema Skin: No rashes, No breakdown Musculoskeletal: No Tenderness to Palpation of Joints or Extremities Lymphatic: No Cervical, Supraclavicular, or Inguinal Adenopathy Neurological: Cranial nerves II-XII grossly intact, Neuro grossly intact Psych/Mental Status: Normal Affect, Appropriate Laboratory Results 03/31/18 23:53: Urine Color Yellow, Urine Clarity Clear, Urine pH 6.0, Ur Specific [place] 1.015, Urine Protein Negative, Urine Glucose (UA) Normal, Urine Ketones Negative, Urine Occult Blood Negative, Urine Nitrite Negative, Urine Bilirubin Negative, Urine Urobilinogen Normal, Ur Leukocyte Esterase Negative, Urine RBC 0 SEEN, Urine WBC 0 SEEN, Ur Squamous Epith Cells 0 SEEN, Urine Bacteria 0 SEEN, Urine Mucus 0 SEEN 04/01/18 05:08: WBC 16.1 H, RBC 4.98, Hgb 15.0, Hct 45.1, MCV 90.6, MCH 30.1, MCHC 33.3, RDW 14.3, RDW Differential 47.0 H, Plt Count 202, MPV 12.3 H, Immature Gran % (Auto) 0.400, Neut % (Auto) 74.2 H, Lymph % (Auto) 16.7 L, [place] % (Auto) 7.4, Eos % (Auto) 1.2, Baso % (Auto) 0.1, Absolute Neuts (auto) 12.0 H, Absolute Lymphs (auto) 2.69, Total Counted Not Reportable 04/01/18 05:08: PT 12.4, INR 0.9, APTT 29.0 04/01/18 05:08: Sodium 139, Potassium 4.1, Chloride 107, Carbon Dioxide 26.0, Anion Gap 6, BUN 15, Creatinine 1.00, Estim Creat Clear Calc 83.67, Est GFR (MDRD) Af Amer 98, Est GFR (MDRD) Non-Af 81, BUN/Creatinine Ratio 15.0, Glucose 96, Calcium 8.5 04/01/18 10:59: Activated Clotting Time 142 H Current Medications Acetaminophen (Tylenol) 650 mg PO Q6H PRN PRN PRN Reason: Mild Pain (0-2/10) Al Hydroxide/Mg Hydroxide (Mylanta Ii) 30 ml PO Q6H PRN PRN PRN Reason: Gastric burning Aspirin (Ecotrin) 81 mg PO DAILY@0800 [facility] Last Admin: 04/01/18 06:11 Dose: 81 mg Atorvastatin Calcium (Lipitor) 80 mg PO QHS [facility] Last Admin: 03/31/18 20:59 Dose: Not Given Atropine Sulfate () 0.5 mg IV UD PRN PRN Reason: HR <50 bpm Clopidogrel Bisulfate (Plavix) 75 mg PO DAILY [facility] Last Admin: 04/01/18 06:11 Dose: 75 mg Diazepam (Valium) 5 mg PO Q6H PRN PRN PRN Reason: BACK SPASMS/ANXIETY Heparin Sodium (Beef Lung) (Heparin 500 Unit/5 Ml (100/Ml)) 500 unit IV UD PRN PRN Reason: HEPARIN FLUSH Sodium Chloride () 1,000 mls @ 15 mls/hr IV .Q48H [facility] Last Admin: 04/01/18 06:17 Dose: 15 mls/hr Sodium Chloride () 250 mls @ 15 mls/hr IV .[id number] PRN PRN Reason: SALINE FLUSH Sodium Chloride () 250 mls @ 15 mls/hr IV .[id number] PRN PRN Reason: SALINE FLUSH Sodium Chloride () 1,000 mls @ 150 mls/hr IV .Q6H40M [facility] Stop: 04/01/18 16:01 Labetalol HCl (Trandate) 5 mg IV X1 PRN PRN Reason: SBP > 160 when pulling sheath Magnesium Hydroxide (Milk Of Magnesia) 30 ml PO DAILY PRN PRN Reason: Constipation Metoclopramide HCl (Reglan) 5 mg IV Q6 PRN PRN Reason: NAUSEA/VOMITING Metoprolol Tartrate (Lopressor (Beta Jelly)) 12.5 mg PO BID [facility] Last Admin: 04/01/18 06:18 Dose: Not Given Morphine Sulfate () 2 mg IV Q4H PRN PRN PRN Reason: Mild back pain (0-2/10) Nitroglycerin (Nitrostat) 0.4 mg SUBLINGUAL Q5M PRN PRN Reason: CHEST PAIN Ondansetron HCl (Zofran) 4 mg IV Q8H PRN PRN PRN Reason: NAUSEA Sodium Chloride () 5 - 15 ml IV UD PRN PRN Reason: SALINE FLUSH Last Admin: 04/01/18 06:17 Dose: 10 ml Sodium Chloride () 500 ml IV BOLUS PRN PRN Reason: VASO-VAGAL PROTOCOL Zolpidem Tartrate (Ambien (Generic)) 5 mg PO QHS PRN PRN PRN Reason: INSOMNIA Medical Necessity - Tobacco Use Smoking Status: Current every day smoker Assessment/Plan All Active Problems Chest pain (Acute) Non-STEMI (non-ST elevated myocardial infarction) (Acute) 62-year-old male with history of nicotine dependence admitted with chest pain and found to have acute NSTEMI. 1. Acute NSTEMI, newly diagnosed CAD, ALTON score of at least 2, status post left heart cath, status post ISA, stable vitals, being monitored in ICU, will continue on post-cath procedures, continue on aspirin, statin, Plavix, beta-jelly, nitro as needed 2. Nicotine dependence, advised to quit 3. DVT prophylaxis SC Juan Code Visit Inpatient E&M: 07886 Subs Hosp L2
[2018-04-02] VITALS (14 sets, daily range): BP systolic 90–122; BP diastolic 52–64; PULSE 47–72; RESP 13–17; TEMP 36.9; O2SAT 95–97
[2018-04-02 04:04] LABS: Hematocrit 40.5 % (40-54); Hemoglobin 13.3 g/dl (13.0-16.5); Mean Corp Hgb Conc 32.8 g/gl (32-36); Mean Corpuscular Hgb 29.7 pg (27.0-32.0); Mean Corpuscular Volume 90.4 fL (80-94); Mean Platelet Vol. 11.5 fl (6.2-12.0); Platelet Count 175 K/mm3 (150-450); RBC Distribution Width CV 14.2 % (11.6-14.6); RBC Distribution Width SD 46.6 fl (35.1-43.9); Red Blood Count 4.48 M/mm3 (4.6-6.2); Scan Indicated on CBC? Y/N NO; White Blood Count 9.2 K/mm3 (4.4-11.0)
[2018-04-02 04:20] LABS: Anion Gap 8 (5-15); BUN 11 mg/dL (7-18); BUN/Creat Ratio 12.3 RATIO (10-20); Calcium,Total 7.9 mg/dL (8.5-10.1); Chloride 109 mmol/L (98-107); Cholesterol 145 mg/dL (200); EST Glomerular Filtration Rate 92 mL/min (>60); Est Glom Filt Rate - Afr Amer 111 mL/min (>60); Estimated Creatinine Clearance 92.96 ml/min; Glucose 92 mg/dL (74-106); High Density Lipoprotein 32 mg/dL; Sodium Level 145 mmol/L (136-145); Triglycerides 99 mg/dL; Very Low Density Lipoprotein 20 mg/dL (5-40)
--- NOTE | 2018-04-02 07:11 | PCM.PN.HOSP ---
Patient Problems: Active and Suspected Problems Chest pain (Acute) Non-STEMI (non-ST elevated myocardial infarction) (Acute) Vitals/I&O's: Vital Signs Temp Pulse Resp BP Pulse Ox 98.4 F 55 L 14 99/55 L 95 04/02/18 00:00 04/02/18 06:00 04/02/18 06:00 04/02/18 06:00 04/02/18 06:00 Oxygen Delivery Method Room Air Weight: 77.5 kg Body Mass Index (BMI) 23.8 Intake and Output for Last 24 Hours 03/31/18 04/01/18 04/02/18 23:59 23:59 23:59 Intake Total 620 / 620 1700 / 1700 600 / 600 Output Total 400 / 400 Balance 620 / 620 1300 / 1300 600 / 600 Laboratory Results 04/01/18 10:59: Activated Clotting Time 142 H 04/02/18 04:00: WBC 9.2, RBC 4.48 L, Hgb 13.3, Hct 40.5, MCV 90.4, MCH 29.7, MCHC 32.8, RDW 14.2, RDW Differential 46.6 H, Plt Count 175, MPV 11.5 04/02/18 04:00: Sodium 145, Potassium 4.0, Chloride 109 H, Carbon Dioxide 28.0, Anion Gap 8, BUN 11, Creatinine 0.90, Estim Creat Clear Calc 92.96, Est GFR (MDRD) Af Amer 111, Est GFR (MDRD) Non-Af 92, BUN/Creatinine Ratio 12.3, Glucose 92, Calcium 7.9 L, Triglycerides 99, Cholesterol 145, LDL Cholesterol 93, VLDL Cholesterol 20, HDL Cholesterol 32 L Current Medications Acetaminophen (Tylenol) 650 mg PO Q6H PRN PRN PRN Reason: Mild Pain (0-2/10) Al Hydroxide/Mg Hydroxide (Mylanta Ii) 30 ml PO Q6H PRN PRN PRN Reason: Gastric burning Aspirin (Ecotrin) 81 mg PO DAILY@0800 [facility] Last Admin: 04/01/18 06:11 Dose: 81 mg Atorvastatin Calcium (Lipitor) 80 mg PO QHS [facility] Last Admin: 04/01/18 20:48 Dose: Not Given Atropine Sulfate () 0.5 mg IV UD PRN PRN Reason: HR <50 bpm Clopidogrel Bisulfate (Plavix) 75 mg PO DAILY [facility] Last Admin: 04/01/18 06:11 Dose: 75 mg Diazepam (Valium) 5 mg PO Q6H PRN PRN PRN Reason: BACK SPASMS/ANXIETY Heparin Sodium (Beef Lung) (Heparin 500 Unit/5 Ml (100/Ml)) 500 unit IV UD PRN PRN Reason: HEPARIN FLUSH Sodium Chloride () 1,000 mls @ 15 mls/hr IV .Q48H [facility] Last Admin: 04/01/18 06:17 Dose: 15 mls/hr Sodium Chloride () 250 mls @ 15 mls/hr IV .[id number] PRN PRN Reason: SALINE FLUSH Sodium Chloride () 250 mls @ 15 mls/hr IV .[id number] PRN PRN Reason: SALINE FLUSH Labetalol HCl (Trandate) 5 mg IV X1 PRN PRN Reason: SBP > 160 when pulling sheath Magnesium Hydroxide (Milk Of Magnesia) 30 ml PO DAILY PRN PRN Reason: Constipation Metoclopramide HCl (Reglan) 5 mg IV Q6 PRN PRN Reason: NAUSEA/VOMITING Metoprolol Tartrate (Lopressor (Beta Jelly)) 12.5 mg PO BID [facility] Last Admin: 04/01/18 20:49 Dose: Not Given Morphine Sulfate () 2 mg IV Q4H PRN PRN PRN Reason: Mild back pain (0-2/10) Nitroglycerin (Nitrostat) 0.4 mg SUBLINGUAL Q5M PRN PRN Reason: CHEST PAIN Ondansetron HCl (Zofran) 4 mg IV Q8H PRN PRN PRN Reason: NAUSEA Sodium Chloride () 5 - 15 ml IV UD PRN PRN Reason: SALINE FLUSH Last Admin: 04/01/18 06:17 Dose: 10 ml Sodium Chloride () 500 ml IV BOLUS PRN PRN Reason: VASO-VAGAL PROTOCOL Zolpidem Tartrate (Ambien (Generic)) 5 mg PO QHS PRN PRN PRN Reason: INSOMNIA Medical Necessity - Tobacco Use Smoking Status: Current every day smoker Assessment/Plan All Active Problems Chest pain (Acute) Non-STEMI (non-ST elevated myocardial infarction) (Acute)
[2018-04-02] MEDS: Clopidogrel Bisulfate 75 MG Tablet PO (09:04)
[2018-04-02] MEDS: Aspirin E.C. 81 MG Tablet PO (09:04)
--- NOTE | 2018-04-02 09:51 | DCINST_ITS ---
- Discharge Diagnoses Current Active Problems: Current Active and Chronic Problems Chest pain (Acute) Tobacco dependence (Chronic) Non-STEMI (non-ST elevated myocardial infarction) (Acute) Reason(s) for Visit for Discharge Instructions: chest pain You will use the following diet at home:: Cardiac Your food should be the consistency of: Regular Your liquids should be the consistency of: Regular/Thin Discharge Activity: Return to Normal Activity Additional Instructions: Take all your medications as prescribed. You should follow-up with Dr. Mata within 2 weeks. Go back to the ED if you develop fdurther chest pain. You will need a stress test and follow-up with Dr. Mata in 3 weeks. Allergies/Adverse Reactions: Allergies No Known Allergies Allergy (Verified 03/30/18 06:05) Medications to take at Discharge Aspirin E.C. [Ecotrin] 81 mg PO DAILY@0800 #30 tab 04/02/18 Atorvastatin Calcium [Lipitor] 80 mg PO QHS #30 tab 04/02/18 Clopidogrel Bisulfate [Clopidogrel] 75 mg PO DAILY #30 tab 04/02/18 Metoprolol Tartrate [Lopressor (beta carlos)] 12.5 mg PO BID #60 tab 04/02/18 The following prescriptions were given: Aspirin E.C. [Ecotrin] 81 mg PO DAILY@0800 #30 tab Atorvastatin Calcium [Lipitor] 80 mg PO QHS #30 tab Clopidogrel Bisulfate [Clopidogrel] 75 mg PO DAILY #30 tab Metoprolol Tartrate [Lopressor (beta carlos)] 12.5 mg PO BID #60 tab Primary Care Physician: Ej Day MD [Primary Care Provider] - Please follow up with your Primary Care Physician in: within 1-2 weeks Test Results: Test results from this visit will be discussed in further detail at your follow- up appointment, if applicable. Please Follow Up With: Cayetano Mata MD When: within 2 weeks Proposed Discharge Date: 04/02/18
--- NOTE | 2018-04-02 09:51 | DS.PCM_ITS ---
Discharge Date and Diagnosis Date of Admission: 03/30/18 Date of Discharge: 04/02/18 - Primary Discharge Diagnosis Active and Suspected Problems Chest pain (Acute) Non-STEMI (non-ST elevated myocardial infarction) (Acute) Nicotine dependence - Secondary Discharge Diagnosis Chronic Problems Tobacco dependence (Chronic) Hospital Course and Treatment Imaging Results: Clinical Impression(s) from Imaging Studies Chest X-Ray 03/30/18 06:11 IMPRESSION: No acute findings in the lungs. Electronically Signed: Rigo Hunter MD at 6:44 EST Tel , Service support , Cardiology Operations: None Procedures: 2-D Echocardiogram, Cardiac catheterization Summary of Care Provided: 62-year-old male with history of nicotine dependence admitted with chest pain and found to have acute NSTEMI. 1. Acute NSTEMI, newly diagnosed CAD, ALTON score of at least 2, status post left heart cath, status post ISA, on aspirin, statin, Plavix, beta-jelly, nitro as needed Follow-up with cardiology in the outpatient and also with cardiac rehab. 2. Nicotine dependence, advised to quit Subjective: The day of discharge, patient felt improved. No pain or swelling in the groin region. Denied dizziness or chest pain or palpitation. No events on telemetry. Objective: Physical exam: General: Alert, Oriented x3, Cooperative, No apparent distress HEENT: Atraumatic, PERRLA, EOMI, Normocephalic Oral: Moist Mucosa Neck: Supple, No JVD, Negative Carotid Bruits Lungs: Clear to auscultation, Normal air movement Cardiovascular: Regular rate, Regular Rhythm, Normal S1, Normal S2, No murmurs Abdomen: Bowel Sounds Present, Soft, Non Tender, Non-Distended, No Hepato- splenomegaly, - - Right groin is slightly tender, some bag in place, post-cath procedures ongoing Extremities: No edema Skin: No rashes, No breakdown Musculoskeletal: No Tenderness to Palpation of Joints or Extremities Lymphatic: No Cervical, Supraclavicular, or Inguinal Adenopathy Neurological: Cranial nerves II-XII grossly intact, Neuro grossly intact Psych/Mental Status: Normal Affect, Appropriate - Physical Exam Vital Signs Temp Pulse Resp BP Pulse Ox 98.4 F 47 L 16 92/60 95 04/02/18 00:00 04/02/18 08:00 04/02/18 08:00 04/02/18 08:00 04/02/18 08:31 Oxygen Delivery Method Room Air Weight: 77.5 kg Body Mass Index (BMI) 23.8 Intake and Output for Last 24 Hours 03/31/18 04/01/18 04/02/18 23:59 23:59 23:59 Intake Total 620 / 620 1700 / 1700 600 / 600 Output Total 400 / 400 Balance 620 / 620 1300 / 1300 600 / 600 Laboratory Tests Past 24 Hrs 04/01/18 04/02/18 04/02/18 10:59 04:00 04:00 WBC 9.2 RBC 4.48 L Hgb 13.3 Hct 40.5 MCV 90.4 MCH 29.7 MCHC 32.8 RDW 14.2 RDW Differential 46.6 H Plt Count 175 MPV 11.5 Activated Clotting Time 142 H Sodium 145 Potassium 4.0 Chloride 109 H Carbon Dioxide 28.0 Anion Gap 8 BUN 11 Creatinine 0.90 Estim Creat Clear Calc 92.96 Est GFR (MDRD) Af Amer 111 Est GFR (MDRD) Non-Af 92 BUN/Creatinine Ratio 12.3 Glucose 92 Calcium 7.9 L Triglycerides 99 Cholesterol 145 LDL Cholesterol 93 VLDL Cholesterol 20 HDL Cholesterol 32 L Discharge Diet: Low fat/ Low Cholesterol, 2000 mg Sodium Diet Discharge Activity: Return to Normal Activity Home Medications: Medications to take at Discharge Aspirin E.C. [Ecotrin] 81 mg PO DAILY@0800 #30 tab 04/02/18 Atorvastatin Calcium [Lipitor] 80 mg PO QHS #30 tab 04/02/18 Clopidogrel Bisulfate [Clopidogrel] 75 mg PO DAILY #30 tab 04/02/18 Metoprolol Tartrate [Lopressor (beta jelly)] 12.5 mg PO BID #60 tab 04/02/18 Following Prescrptions Were Given to Patient: Aspirin E.C. [Ecotrin] 81 mg PO DAILY@0800 #30 tab Atorvastatin Calcium [Lipitor] 80 mg PO QHS #30 tab Clopidogrel Bisulfate [Clopidogrel] 75 mg PO DAILY #30 tab Metoprolol Tartrate [Lopressor (beta jelly)] 12.5 mg PO BID #60 tab Primary Care Physician: Ej Day MD [Primary Care Provider] - Please follow up with your Primary Care Physician in: within 1-2 weeks Please Follow Up With: Cayetano Mata MD When: within 2 weeks Disposition: Home Minutes spent on discharge:: 40 Patient Condition:: Stable Medical Necessity - Tobacco Use Smoking Status: Current every day smoker Tobacco Use: Cigarettes Meaningful Use Info Meaningful Use Diagnoses (Choose all that apply): AMI - AMI Aspirin given w/in 24hrs of arrival?: Yes ASA at discharge?: Yes Statins at discharge?: Yes Rai/ARB at discharge?: No Reason Rai/ARB not ordered:: Hypotension Beta Jelly at discharge?: Yes Done w/ Acute CO measure.: Yes
--- NOTE | 2018-04-02 10:17 | PCM.PN.CARD ---
Subjectve: Patient doing very well this morning, reports feeling much better. No 24-hour events. No chest pain. Telemetry showed normal sinus rhythm, no arrhythmias. EKG today demonstrates normal sinus rhythm with new anterior T wave inversion. Catheterization yesterday showed critical lesion in his mid LAD and underwent successful angioplasty and drug-eluting stenting. Patient had nonobstructive disease of his left circumflex and RCA which will require stress testing in 3 weeks time. Hemoglobin and creatinine are within nominal limits. Right groin is clean/dry/intact without evidence of tenderness, hematoma. Objective: Vital Signs Temp Pulse Resp BP Pulse Ox 98.4 F 47 L 16 92/60 95 04/02/18 00:00 04/02/18 08:00 04/02/18 08:00 04/02/18 08:00 04/02/18 08:31 Oxygen Delivery Method Room Air Weight: 170 lb 13.732 oz Body Mass Index (BMI) 23.8 Intake and Output for Last 24 Hours 03/31/18 04/01/18 04/02/18 23:59 23:59 23:59 Intake Total 620 / 620 1700 / 1700 600 / 600 Output Total 400 / 400 Balance 620 / 620 1300 / 1300 600 / 600 General: Awake, Alert, Oriented x 3 HEENT: PERRL, EOMI, Sclera Non Icteric Neck: Supple, Good ROM, No Lymph Node Enlargement Lungs: Clear to auscultation Cardiovascular: Regular Rhythm, Normal S1, Normal S2, No Murmurs, No Rubs, No Gallops Vascular: No Carotid Bruits, Normal Femoral Pulses, Normal Radial Pulses, Normal Dorsalis Pedal Pulse, Normal Posterior Tibial Pulses Abdomen: Bowel Sounds Present, Soft, Non Tender, No HSM, No Organomegaly Extremities: No Cyanosis, No Clubbing, No edema Neurological: No Focal Motor or Sensory Deficit 04/02/18 04:00: WBC 9.2, RBC 4.48 L, Hgb 13.3, Hct 40.5, MCV 90.4, MCH 29.7, MCHC 32.8, RDW 14.2, RDW Differential 46.6 H, Plt Count 175, MPV 11.5 04/02/18 04:00: Sodium 145, Potassium 4.0, Chloride 109 H, Carbon Dioxide 28.0, Anion Gap 8, BUN 11, Creatinine 0.90, Est GFR (MDRD) Af Amer 111, Est GFR (MDRD) Non-Af 92, BUN/Creatinine Ratio 12.3, Glucose 92, Calcium 7.9 L, Triglycerides 99, Cholesterol 145, LDL Cholesterol 93, VLDL Cholesterol 20, HDL Cholesterol 32 L Rhythm: EKG: ECHO: Stress Test: Cardiac Cath: PCI: CT Surgery: Holter monitor: EPS: PPM: CXR: Chest CT Scan: Medical Necessity - Tobacco Use Smoking Status: Current every day smoker Assessment/Plan 1. Unstable angina: The patient presents with 2 episodes of angina, one after heavy exertional work, and 1 while at rest, both associated with midsternal chest pressure, heaviness, with radiation to the inner surfaces of both upper extremities. Initial troponin was negative, then second troponin was 0.285, indicating the need for stress echocardiogram at this time. Patient underwent catheterization yesterday which demonstrated critical lesion in his mid LAD consistent with his abnormalities on his echocardiogram. He underwent angioplasty and drug-eluting stenting to his mid LAD with an excellent result. He had minimal disease in his left circumflex and RCA and will undergo a stress test in 3 weeks time to evaluate their patency. If this is grossly abnormal for ischemia in the inferior lateral mendosa, I have a low threshold for repeat catheterization and elective angioplasty. Patient declines taking antihypertensive medications but has at least agreed to baby aspirin and Plavix going forward. I also underscored the importance of taking antilipid therapy as his LDL is greater than 129, and would recommend an LDL less than 70. Patient is agreed to take statin based medications. I recommended the patient discontinue all tobacco products, and the patient has agreed to do that. His 2D echo demonstrates mild mid anterior hypokinesis possibly suggesting LAD occlusive disease. Continue baby aspirin, Plavix. Patient's heart rate and blood pressure were well controlled in the absence of beta-carlos. I agree to DC beta-carlos. Patient may be discharged home today and follow-up with Dr. Mata going forward. 2. Hyperlipidemia: LDL is 129, HDL is 40. His LDL should be less than 70 given his risk profile. Continue Lipitor. Repeat lipid profile in 6 weeks time. 3. All questions answered to the patient and his , and the risks/benefits of the catheterization procedure were thoroughly explained to the patient and his , including specific attention to lack of on-site surgical backup, and they have agreed to proceed. 4. Thank you very much for the opportunity to participate in the cardiac care of your patient. Discussed with primary hospitalist. Code Visit Inpatient E&M: 00193 Subs Hosp L2
[2018-04-03 07:10] LABS: ACT Activated Clotting Time 202 sec (74-137)
--- NOTE | 2018-04-03 09:32 | CRPHASE1 ---
Patient Data/Charges Reason Not Completed:: Patient had been discharged. Attempted to contact patient, no answer. Left message. Cardiac Rehab booklet maield to patient anyway just as backup if he had not received one at discharge. Risk Factors/Lifestyle Laboratory Values: Cardiac Rehab Phase I Labs Triglycerides 99 mg/dL (-199) 04/02/18 04:00 Cholesterol 145 mg/dL (200) 04/02/18 04:00 LDL Cholesterol 93 mg/dL (0-130) 04/02/18 04:00 HDL Cholesterol 32 mg/dL (40-) L 04/02/18 04:00
--- NOTE | 2018-04-03 09:34 | CRPH1.INSTRU ---
General Education CAD and cardiac anatomy and function:: Not instructed - Risk Factors identified in booklet mailed to patient. Explanation of diagnoses and procedures:: Not instructed Sign/Symptoms of IA:: Not instructed Antiplatelet therapy: Not instructed Proper use of NTG-SL: Not instructed Emergency procedures and activation of EMS: Not instructed Compliance of all prescribed medications: Not instructed Smoking Patient Nicotine/Smoking Risk Factors Are:: Cigarettes Recommendations Include:: Smoking cessation strategies/Smoking packet, Second-hand smoke recommendation, Participation in a smoking cessation program Nicotine/Smoking Response Code:: Patient communicates acknowledgment Dyslipidemia Patient Dyslipidemia Risk Factors Are:: Total Cholesterol - 145, Triglycerides - 99, HDL - 32, LDL - 93 Recommendations Include:: Lipid profile provided Dyslipidemia Response Code:: Not instructed
--- NOTE | 2018-04-03 09:39 | CRPH1.INST_ITS ---
General Education CAD and cardiac anatomy and function:: Not instructed - Risk Factors identified in booklet mailed to patient. Explanation of diagnoses and procedures:: Not instructed Sign/Symptoms of GA:: Not instructed Antiplatelet therapy: Not instructed Proper use of NTG-SL: Not instructed Emergency procedures and activation of EMS: Not instructed Compliance of all prescribed medications: Not instructed Smoking Patient Nicotine/Smoking Risk Factors Are:: Cigarettes Recommendations Include:: Smoking cessation strategies/Smoking packet, Second- hand smoke recommendation, Participation in a smoking cessation program Nicotine/Smoking Response Code:: Patient communicates acknowledgment Dyslipidemia Patient Dyslipidemia Risk Factors Are:: Total Cholesterol - 145, Triglycerides - 99, HDL - 32, LDL - 93 Recommendations Include:: Lipid profile provided Dyslipidemia Response Code:: Not instructed
== END 2018-04-02 11:10 | disposition home or self-care (01) | DRG 247 ==
LOC: ED 07:48 → PCU 07:56 → ICU 04-01 08:45
PROVIDERS: Emergency Medicine; Internal Medicine Cardiovascular Disease; Admitting Provider Internal Medicine; Emergency Provider Emergency Medicine; Family Provider Family Medicine; PCP Family Medicine; Visit Provider Internal Medicine
DX: I21.4 Non-ST elevation (NSTEMI) myocardial infarction (principal); E78.5 Hyperlipidemia, unspecified; F17.210 Nicotine dependence, cigarettes, uncomplicated; I25.110 Atherosclerotic heart disease of native coronary artery with unstable angina pectoris
CPT/HCPCS: 36415; 71045; 80048; 80061; 80076; 81001; 83690; 84443; 84484; 85025; 85027; 85347; 85610; 85730; 92928; 93005; 93306; 93458; 99152; 99153; 99285; 99406; J7030; Q9967; A4216; C1725; C1769; C1874; C1887; C1894; C9600

== ENCOUNTER → 2018-04-24 12:30 | Outpatient (CLI) | payer OTHER, SELFPAY ==
[2018-04-16 08:35] VITALS: BMI 25.0
--- NOTE | 2018-04-24 12:31 | STE_ITS ---
Reason For Study: CAD/ASHD Stress Results Protocol: Stress Echocardiogram Maximum Predicted HR: 160 bpm Target HR: 136 bpm % Maximum Predicted HR: 90 % DurationHeart Rate Stage (mm:ss) (bpm) BP BASELINE 68 124/76 SANDRA PROTOCOL- STAGE 1 3:00 106 138/80 SANDRA PROTOCOL- STAGE 2 3:00 120 152/74 SANDRA PROTOCOL- STAGE 3 3:00 136 154/70 SANDRA PROTOCOL- STAGE 4 1:01 144 / RECOVERY 90 126/72 Stress Duration: 10:01 mm:ss Maximum Stress HR: 144 bpm Baseline Echocardiogram Findings The estimated ejection fraction is 65 %. Stress Echo Wall motion Data Resting WM Intermediate WM Stress WM Resting Wall Motion Wall Motion Stress No regional wall motion No regional wall motion abnormalities noted. abnormalities noted. EKG Data Normal intervals are noted. The patient exercised according to the regular Sandra protocol for a total duration of 10:01. The maximum heart rate attained was 144 beats per minute. This was 90% of maximum predicted heart rate. The patient exercised into stage 4 of the Sandra protocol. During stress, there were no ST or T wave changes noted to suggest ischemia. No clinical angina was noted. No arrhythmias noted. Interpretation Summary The estimated ejection fraction is 65 %. Normal, adequate, treadmill echocardiogram. Negative for ischemia by EKG and echocardiographic anterior. No anginal symptoms noted. No arrhythmias noted. Appropriate blood pressure response to exercise. Average exercise capacity for age. Test terminated due to the attainment of target heart rate. Final LVEF is 75%. No complications. Ordering Physician: Cayetano Mata Referring Physician: Cayetano Mata Performed By: Kennedi Ruff RDCS
--- OUTSIDE RECORDS SUMMARY | 2018-06-29 08:28 | XMS RPT_ITS ---
:1955 Author Organization OHIP Support Name Relationship Address Phone POOJA BREWERNDA Unavailable [address] + [place] [address] R Unavailable Unavailable Unavailable BREWER, IGOR Unavailable [address] + [place] [address] R Unavailable Unavailable Unavailable BREWER, IGOR Unavailable [address] + [place] [address] R Unavailable Unavailable Unavailable BREWER, IGOR Unavailable [address] + [place] [address] R Unavailable Unavailable Unavailable BREWER, IGOR Unavailable [address] + [place] [address] R Unavailable Unavailable Unavailable BREWER, IGOR Unavailable [address] + [place] [address] R Unavailable Unavailable Unavailable BREWER, IGOR Unavailable [address] + [place] [address] R Unavailable Unavailable Unavailable BREWER, IGRO Unavailable [address] + [place] [address] R Unavailable Unavailable Unavailable BREWER, IGOR Unavailable [address] + [place] [address] R Unavailable Unavailable Unavailable BREWER, IGOR Unavailable [address] + [place] [address] R Unavailable Unavailable Unavailable BREWER, IGOR Unavailable [address] + [place] [address] R Unavailable Unavailable Unavailable BREWER, IGOR Unavailable [address] + [place] [address] R Unavailable Unavailable Unavailable Care Team Providers Name Role Phone Dinesh Day Primary Care Unavailable Vahid Pang Admitting Unavailable Cayetano Mata Consulting Unavailable Paintsil, Redby Attending Unavailable Kittoe, Vahid Attending Unavailable Barb, [place] Primary Care Unavailable Kittoe, Vahid Admitting Unavailable Cayetano Mata Attending Unavailable Barb, [place] Primary Care Unavailable Cayetano Mata Consulting Unavailable Kittoe, Vahid Consulting Unavailable Kittoe, Vahid Admitting Unavailable Kittoe, Vahid Attending Unavailable Barb, [place] Primary Care Unavailable Cayetano Mata Consulting Unavailable Kitt[place], Vahid Consulting Unavailable Kittoe, Vahid Admitting Unavailable Cayetano Mata Attending Unavailable Barb, [place] Primary Care Unavailable Cayetano Mata Consulting Unavailable Kittoe, Vahid Consulting Unavailable [place], Vahid Admitting Unavailable Paintsil, Redby Attending Unavailable Barb, [place] Primary Care Unavailable Cayetano Mata Consulting Unavailable Paintsil, [place] Consulting Unavailable [place], Vahid Admitting Unavailable Cayetano Mata Attending Unavailable Barb, [facility] Care Unavailable Cayetano Mata Consulting Unavailable Paintsil, [place] Consulting Unavailable Kittoe, Vahid Admitting Unavailable Paintsil, Redby Attending Unavailable Barb, [place] Primary Care Unavailable Cayetano Mata Consulting Unavailable Paintsil, [place] Consulting Unavailable Cayetano Mata Attending Unavailable Barb, Dinesh Referring Unavailable Cayetano Mata Attending Unavailable Kittoe, Vahid Referring Unavailable Cayetano Mata Attending Unavailable Paintsil, Redby Referring Unavailable Cayetano Mata Attending Unavailable Cayetano Mata Referring Unavailable [facility], [facility] Care Unavailable PROBLEMS PROBLEMS DATE TYPE CONDITION / CODE ATTENDING STATUS SOURCE 04/16/2018 Unknown I25.2 - Old myocardial Cayetano Mata Active [place] infarction / Community I25.2(ICD-10) Hospital Repository 04/16/2018 Unknown Z95.5 - Presence of Cayetano Mata Active [place] coronary angioplasty Community implant and graft / Hospital Z95.5(ICD-10) Repository 04/16/2018 Unknown I25.10 - Cayetano Mata Active [place] Atherosclerotic heart Community disease of [place] Hospital coronary artery Repository without angina pectoris / I25.10(ICD-10) 04/16/2018 Unknown E78.5 - Cayetano Mata Active [place] Hyperlipidemia, Community unspecified / Hospital E78.5(ICD-10) Repository 04/16/2018 Unknown F17.200 - Nicotine Cayetano Mata Active [place] dependence, Community unspecified, Hospital uncomplicated / Repository F17.200(ICD-10) 04/23/2018 Unknown R94.31 - Abnormal Cayetano Mata Active [place] electrocardiogram Community [ECG] [EKG] / Hospital R94.31(ICD-10) Repository 04/23/2018 Unknown R07.9 - Chest pain, Cayetano Mata unspecified / Community R07.9(ICD-10) Hospital Repository PROCEDURES PROCEDURES No Procedure Records FoundRESULTS RESULTS STRESS TEST ECHO W/O Observed: 04/24/2018 Status: F Source: [place] CONTRAST 3:46 PM [facility] HOSPITAL REPOSITORY [facility] Cardiovascular Services [address] [place] [address] Stress Test Echo w/o Contrast MR#: [id number] Acct: [id number] Name: GREG BREWER Rep #: [id number] : 1955 62 From: Cayetano Mata MD Primary Care: Dinesh Day MD Status: REG CLI Ordering Dr: Cayetano Mata MD Sex: M N Reason For Study: CAD/ASHD Stress Results Protocol: Stress Echocardiogram Maximum Predicted HR: 160 bpm Target HR: 136 bpm % Maximum Predicted HR: 90 % DurationHeart Rate Stage (mm:ss) (bpm) BP BASELINE 68 124/76 GERONIMO PROTOCOL- STAGE 1 3:00 106 138/80 GERONIMO PROTOCOL- STAGE 2 3:00 120 152/74 GERONIMO PROTOCOL- STAGE 3 3:00 136 154/70 GERONIMO PROTOCOL- STAGE 4 1:01 144 / RECOVERY 90 126/72 Stress Duration: 10:01 mm:ss Maximum Stress HR: 144 bpm Baseline Echocardiogram Findings The estimated ejection fraction is 65 %. Stress Echo Wall motion Data Resting WM Intermediate WM Stress WM Resting Wall Motion Wall Motion Stress No regional wall motion No regional wall motion abnormalities noted. abnormalities noted. EKG Data Normal intervals are noted. The patient exercised according to the regular Geronimo protocol for a total duration of 10:01. The maximum heart rate attained was 144 beats per minute. This was 90% of maximum predicted heart rate. The patient exercised into stage 4 of the Geronimo protocol. During stress, there were no ST or T wave changes noted to suggest ischemia. No clinical angina was noted. No arrhythmias noted. Interpretation Summary The estimated ejection fraction is 65 %. Normal, adequate, treadmill echocardiogram. Negative for ischemia by EKG and echocardiographic anterior. No anginal symptoms noted. No arrhythmias noted. Appropriate blood pressure response to exercise. Average exercise capacity for age. Test terminated due to the attainment of target heart rate. Final LVEF is 75%. No complications. Ordering Physician: Cayetano Mata Referring Physician: Cayetano Mata Performed By: Kennedi Ruff RDCS 04/24/18 1545 Date Cayetano Mata MD CC: Cayetano Mata MD; Dinesh Day MD Date Dictated: 04/24/18 1246 Date Transcribed: 04/24/18 1545 Esthetician Facialist: Signed CARDIOLOGY VISIT Observed: 04/16/2018 Status: F Source: [place] 9:26 AM [facility] [place] [facility] [address] [place] [address]. [address] [place] [address] OFFICE VISIT Date of Service: 04/16/18 MR#: [id number] Acct: [id number] Name: GREG BREWER Rep #: [id number] : 1955 Provider: Cayetano Mata MD Age/Sex: 62/M [place] [facility] [place] Signed HPI HPI Chief Complaint: Routine f/u Details: GREG BREWER, is a 62 M with hypertension, hypercholesterolemia, tobacco dependence, who presents to the office today for follow-up of his chest pain presentation on 03/30/18. At that time the patient presented with chest pain and had a non-ST elevation myocardial infarction. He underwent left heart catheterization on 04/01/18 which demonstrated nonobstructive coronary disease of his left circumflex and RCA but a critical lesion in his mid LAD. He underwent successful angioplasty and drug-eluting stenting receiving a 2.5 ex-16 Promus Synergy drug-eluting stent, postdilated to 3.0 and 3.5 mm proximally. Patient requires a stress echocardiogram to evaluate lesions in his left circumflex and RCA per his EF at that time was 65%. Patient discontinued his metoprolol and Lipitor on his own as he is part , and does not believe in medicines. Patient states that his cholesterol was normal prior to his UT, and does not comprehend why he has to take Lipitor. Also his blood pressure was normal and does not comprehend as to why he needs to take Lopressor. I thoroughly explained the patient the concepts as to why Lipitor metoprolol have markedly decreased recurrent coronary artery issues, and he once again declines. He wishes to try moving T in an attempt to lower his cholesterol. And is willing to do cardiac rehab, presuming he does not require an additional stent In our office today's blood pressure is 110/60, pulse is 72 and regular. Physical exam is as below. His lipids as of 04/02/18 showing LDL of 93 and HDL 32. Repeat lipids are pending Intake Vital Signs04/16/18 Height 5 ft 11 in 04/16/18 Weight: 179 lb 04/16/18 Body Mass Index (BMI) 25.0 04/16/18 Blood Pressure 110/60 04/16/18 Blood Pressure Location Lt brachial Intake Visit Reasons: 2 WK S/P PCI [employer] Dean Required: No Is patient in pain?: No Allergies No Known Allergies Allergy (Verified 04/16/18 08:51) Medications Aspirin E.C. [Ecotrin] 81 mg PO DAILY@0800 #30 tab 04/02/18 [Rx] Clopidogrel Bisulfate [Clopidogrel] 75 mg PO DAILY #30 tab 04/02/18 [Rx] [facility] Medical History History of non-ST elevation myocardial infarction (NSTEMI) (Chronic 04/01/18) Hyperlipidemia (Chronic) Atherosclerotic heart disease of [place] coronary artery without angina pectoris (Chronic) Chest pain (Resolved) Tobacco dependence (Chronic) Non-STEMI (non-ST elevated myocardial infarction) (Resolved) Surgical History Stented coronary artery (Chronic 04/01/18) Family History Brother CAD (coronary artery disease) Social History Smoking Status: Current every day smoker ROS Const Const: Positive for other (No chest pain, feels well. Smokes very little now, trying to quit.); negative for fatigue, weakness, body ache, fever(s), headache(s), chills, frequent falls, night sweats, daytime sleepiness, difficulty sleeping, excessive sweating, weight gain, weight loss, increased appetite, poor appetite or anorexia Eyes Eyes: Negative for blind spots, loss of peripheral vision, transient loss of vision, blurry vision, change in vision, double vision, floaters, tunnel vision or other ENT ENT: Negative for headache(s), dizziness, hearing loss, tinnitus, Nosebleed/epistaxis, balance problems, post nasal drip, lip swelling, tongue swelling, bleeding gums, hoarseness, neck pain, dry mouth or other Cardio Chest Pain: No Palpitations: No Edema: None Muscle aches with walking: None Resp Respiratory: Positive for Cough (right now has a cold); negative for SOB with activity, SOB at rest, SOB orthopnea\SOB lying down, Coughing up blood/hemoptysis, chest congestion, pain on inspiration, snoring, stridor, wheezing, crackles, paroxysmal nocturnal dyspnea or other GI GI: Negative nausea, vomiting, heartburn, constipation, belching, bloating, cramping, vomiting blood/hematemesis, bright, red blood in stools, black,tarry stools, loose stools, Difficulty Swallowing or other : Negative for hematuria, frequent nighttime urination/ nocturia, erectile dysfunction or abnormal vaginal bleeding Musc Musc: Negative for balance problems, muscle aches/ myalgia, muscle weakness or joint pain Skin Skin: Negative redness, non-healing lesions, rash, unusual bruising, skin ulcer, wounds, jaundice or other Neuro Neuro: Negative for weakness, headache(s), frequent falls, blurry vision, double vision, dizziness, lightheadedness, near syncope, syncope, orthostatic symptoms, confusion, memory loss, restless legs, vertigo, seizures, lack of coordination or other [place] Hematologic/Lymphatic: Negative for easy bleeding, easy bruising, enlarged lymph nodes or other Endo Endo: Negative for fatigue, excessive sweating, cold intolerance, heat intolerance, flushing, increased thirst/drinking, increased hunger, hair loss, hair growth or other Psych Psych: Negative for anxiety, depression, thoughts of harming anyone, thoughts of harming yourself, visual hallucinations, panic attacks or audible hallucinations Allergy Allergy/Immunology: Negative for lip swelling, Negative for tongue swelling, Negative for rash, Negative for throat swelling, Negative for hives Cardiology Exam Const Appearance: cooperative, healthy appearing and no acute distress Nutritional Appearance: well nourished Orientation: alert, oriented x3 and oriented to person Head Head: normal to inspection, atraumatic and normocephalic Nose: external nose normal Face and Sinus: face symmetric Mouth: oral mucosae normal Eyes General: appearance normal, both eyes and all related structures Eyelids: eyelids normal Conjunctivae: conjunctivae normal Pupils: PERRL and normal by confrontation EOM: EOM intact bilaterally Neck Neck: normal visual inspection and full ROM Carotids: normal carotid upstroke Chest Chest inspection: normal inspection of the chest Auscultation: Bilateral: Clear to Auscultation Cardio Palpation: normal PMI Rate: regular rate Rhythm: regular rhythm Heart sounds: S1 normal and S2 normal GI GI: normal to inspection, no hepatosplenomegaly and bowel sounds present Neuro General: alert, oriented x3, awake, CN's II-XI intact bilaterally and moves all extremities Skin Skin: no rashes or lesions noted Extremities Pulses: Normal: Right Femoral Pulse, Left Femoral Pulse, Right Dorsalis Pedis Pulse, Left Dorsalis Pedis Pulse, Right Posterior Tibial Pulse, Left Posterior Tibial Pulse, Right Radial Pulse, Left Radial Pulse Lower Extremity Edema: None: Bilateral Psych Psychological: normal affect Assessment AND Plan 1. Atherosclerotic heart disease of [place] coronary artery without angina pectoris I25.10 ISA to mid LAD (2.5 X 16 Promus Synergy) Plan 1. Coronary artery disease: Patient status post angioplasty and drug-eluting stenting to his mid LAD, and is waiting stress echocardiogram to evaluate his left circumflex and RCA. Assuming they do not require intervention, he will then be released for cardiac rehab. I strongly encouraged the patient to continue his baby aspirin and Plavix, and he has agreed. I also strongly encouraged the patient to resume his Lipitor and Lopressor and despite a lengthy discussion, he declines at this time. Patient is willing to try his mood T natural homeo pathic medications and repeat his lipid profile in 3 months time, and is willing to take Lopressor should his blood pressure increase in cardiac rehab. I believe this is reasonable, but my preference would be for medical therapy. Orders Orders: 2. Hyperlipidemia E78.5 Plan 2. Hyperlipidemia: Again the patient declines Lipitor at this time although he had no side effects from it. He is refusing based upon his status and desire to pursue homeopathic therapy. We will pursue homeopathic therapy and repeat lipid profile in 6 months time. If his LDL has not reduced by 50% I would strongly consider resuming Lipitor Orders Orders: 3. Tobacco dependence F17.200 Plan . 3. Tobacco dependence: The patient has reduced his tobacco dependence to about 3 cigarettes a day and is continuing to try and quit. 4. Return office in 6 months This note was generated using a voice recognition system and there may be incorrect words, spelling or punctuation that were not noted when reviewing the office note prior to saving. Plan Detail Other Orders Orders: Follow Up +6M (Adolfo) Coding Level of Care Code Off vis,est,level 3 Diagnoses Atherosclerotic heart disease of [place] coronary artery without angina pectoris I25.10 Hyperlipidemia E78.5 Tobacco dependence F17.200 Coding Level of Care Code Off vis,est,level 3 Diagnoses Atherosclerotic heart disease of [place] coronary artery without angina pectoris I25.10 Hyperlipidemia E78.5 Tobacco dependence F17.200 Supplemental Info Supplemental Information Labs LDL Cholesterol 93 mg/dL (0-130) 04/02/18 HDL Cholesterol 32 mg/dL (40-) L 04/02/18 Triglycerides 99 mg/dL (-199) 04/02/18 VLDL Cholesterol 20 mg/dL (5-40) 04/02/18 Diagnostics Echocardiogram 03/30/18 Chest X-Ray 03/30/18 04/16/18 1821 <Electronically signed by Cayetano Mata MD> Date Cayetano Mata MD Cosigner Signature: Date (if applicable) CC: Dinesh Day MD DISCHARGE SUMMARY Observed: 04/03/2018 Status: F Source: [place] 4:[place] [facility] [place] [facility] Medical Records Department [address] [place] [address] Discharge Summary 04/02/18 0951 MR#: [id number] Acct: [id number] Name: GREG BREWER Rep #: [id number] : 1955 62 From: Yashira Santillan MD PCP: Dinesh Day MD Status: DIS IN Y Location: ICU [id number] Discharge Date and Diagnosis Date of Admission: 03/30/18 Date of Discharge: 04/02/18 - Primary Discharge Diagnosis Active and Suspected Problems Chest pain (Acute) Non-STEMI (non-ST elevated myocardial infarction) (Acute) Nicotine dependence - Secondary Discharge Diagnosis Chronic Problems Tobacco dependence (Chronic) Hospital Course and Treatment Imaging Results: Clinical Impression(s) from Imaging Studies Chest X-Ray 03/30/18 06:11 IMPRESSION: No acute findings in the lungs. Electronically Signed: Rigo Hunter MD at 6:44 EST Tel , Service support , Cardiology Operations: None Procedures: 2-D Echocardiogram, Cardiac catheterization Summary of Care Provided: 62-year-old male with history of nicotine dependence admitted with chest pain and found to have acute NSTEMI. 1. Acute NSTEMI, newly diagnosed CAD, ALTON score of at least 2, status post left heart cath, status post ISA, on aspirin, statin, Plavix, beta-jelly, nitro as needed Follow-up with cardiology in the outpatient and also with cardiac rehab. 2. Nicotine dependence, advised to quit Subjective: The day of discharge, patient felt improved. No pain or swelling in the groin region. Denied dizziness or chest pain or palpitation. No events on telemetry. Objective: Physical exam: General: Alert, Oriented x3, Cooperative, No apparent distress HEENT: Atraumatic, PERRLA, EOMI, Normocephalic Oral: Moist Mucosa Neck: Supple, No JVD, Negative Carotid Bruits Lungs: Clear to auscultation, Normal air movement Cardiovascular: Regular rate, Regular Rhythm, Normal S1, Normal S2, No murmurs Abdomen: Bowel Sounds Present, Soft, Non Tender, Non-Distended, No Hepato-splenomegaly, - - Right groin is slightly tender, some bag in place, post-cath procedures ongoing Extremities: No edema Skin: No rashes, No breakdown Musculoskeletal: No Tenderness to Palpation of Joints or Extremities Lymphatic: No Cervical, Supraclavicular, or Inguinal Adenopathy Neurological: Cranial nerves II-XII grossly intact, Neuro grossly intact Psych/Mental Status: Normal Affect, Appropriate - Physical Exam Vital Signs Temp Pulse Resp BP Pulse Ox 98.4 F 47 L 16 92/60 95 04/02/18 00:00 04/02/18 08:00 04/02/18 08:00 04/02/18 08:00 04/02/18 08:31 Oxygen Delivery Method Room Air Weight: 77.5 kg Body Mass Index (BMI) 23.8 Intake and Output for Last 24 Hours Intake Total 620 / 620 1700 / 1700 600 / 600 Output Total 400 / 400 Balance 620 / 620 1300 / 1300 600 / 600 Laboratory Tests Past 24 Hrs WBC 9.2 RBC 4.48 L Discharge Diet: Low fat/ Low Cholesterol, 2000 mg Sodium Diet Discharge Activity: Return to Normal Activity Home Medications: Medications to take at Discharge Aspirin E.C. [Ecotrin] 81 mg PO DAILY@0800 #30 tab 04/02/18 Atorvastatin Calcium [Lipitor] 80 mg PO QHS #30 tab 04/02/18 Clopidogrel Bisulfate [Clopidogrel] 75 mg PO DAILY #30 tab 04/02/18 Metoprolol Tartrate [Lopressor (beta jelly)] 12.5 mg PO BID #60 tab 04/02/18 Following Prescrptions Were Given to Patient: Aspirin E.C. [Ecotrin] 81 mg PO DAILY@0800 #30 tab Atorvastatin Calcium [Lipitor] 80 mg PO QHS #30 tab Clopidogrel Bisulfate [Clopidogrel] 75 mg PO DAILY #30 tab Metoprolol Tartrate [Lopressor (beta jelly)] 12.5 mg PO BID #60 tab Primary Care Physician: Dinesh Day MD [Primary Care Provider] - Please follow up with your Primary Care Physician in: within 1-2 weeks Please Follow Up With: Cayetano Mata MD When: within 2 weeks Disposition: Home Minutes spent on discharge:: 40 Patient Condition:: Stable Medical Necessity - Tobacco Use Smoking Status: Current every day smoker Tobacco Use: Cigarettes Meaningful Use Info Meaningful Use Diagnoses (Choose all that apply): AMI - AMI Aspirin given w/in 24hrs of arrival?: Yes ASA at discharge?: Yes Statins at discharge?: Yes Rai/ARB at discharge?: No Reason Rai/ARB not ordered:: Hypotension Beta Jelly at discharge?: Yes Done w/ Acute UT measure.: Yes 04/03/18 1608 <Electronically signed by Yashira Santillan MD> Date Yashira Santillan MD Cosigner Signature (if applicable): Date CC: Yashira Santillan MD; Dinesh Day MD Signed DISCHARGE INSTRUCTION Observed: 04/02/2018 Status: F Source: [place] 9:52 [facility] [place] RE[place]IT[place] [facility] Medical Records Department [address] [place] [id number] Instructions for Home/Discharge Instructions 04/02/18 0948 MR#: [id number] Acct: [id number] Name: GREG BREWER Rep #: [id number] : 1955 62 From: Yashira Santillan MD PCP: Dinesh Day MD Status: ADM IN ADDENDUM by Yashira Santillan MD on 04/02/18 at 0952 You are strongly advised to quit smoking. 04/02/18 0952 Date Yashira Santillan MD cc: Cayetano Mata MD; Dinesh Day MD * Signed - Discharge Diagnoses Current Active Problems: Current Active and Chronic Problems Chest pain (Acute) Tobacco dependence (Chronic) Non-STEMI (non-ST elevated myocardial infarction) (Acute) Reason(s) for Visit for Discharge Instructions: chest pain You will use the following diet at home:: Cardiac Your food should be the consistency of: Regular Your liquids should be the consistency of: Regular/Thin Discharge Activity: Return to Normal Activity Additional Instructions: Take all your medications as prescribed. You should follow-up with Dr. Mata within 2 weeks. Go back to the ED if you develop fdurther chest pain. You will need a stress test and follow-up with Dr. Mata in 3 weeks. Allergies/Adverse Reactions: Allergies No Known Allergies Allergy (Verified 03/30/18 06:05) Medications to take at Discharge Aspirin E.C. [Ecotrin] 81 mg PO DAILY@0800 #30 tab 04/02/18 Atorvastatin Calcium [Lipitor] 80 mg PO QHS #30 tab 04/02/18 Clopidogrel Bisulfate [Clopidogrel] 75 mg PO DAILY #30 tab 04/02/18 Metoprolol Tartrate [Lopressor (beta jelly)] 12.5 mg PO BID #60 tab 04/02/18 The following prescriptions were given: Aspirin E.C. [Ecotrin] 81 mg PO DAILY@0800 #30 tab Atorvastatin Calcium [Lipitor] 80 mg PO QHS #30 tab Clopidogrel Bisulfate [Clopidogrel] 75 mg PO DAILY #30 tab Metoprolol Tartrate [Lopressor (beta jelly)] 12.5 mg PO BID #60 tab Primary Care Physician: Dinesh Day MD [Primary Care Provider] - Please follow up with your Primary Care Physician in: within 1-2 weeks Test Results: Test results from this visit will be discussed in further detail at your follow-up appointment, if applicable. Please Follow Up With: Cayetano Mata MD When: within 2 weeks Proposed Discharge Date: 04/02/18 04/02/18 0951 <Electronically signed by Yashira Santillan MD> Date Yashira Santillan MD CC: Cayetano Mata MD; Dinesh Day MD Signed CBC-COMPLETE BLOOD CNT Collected: 04/02/2018 Status: F Source: [place] NO DIFF 4:00 AM [facility] [place] CODE TESTS RESULT OUT OF RANGE REFERENCE UNITS LAB L100.1000 4.4-11.0 K/mm3 Normal WBC 9.2 LAB L100.1200 4.6-6.2 M/mm3 Low RBC 4.48 LAB L100.1300 13.0-16.5 g/dl Normal HGB 13.3 LAB L100.1400 40-54 % Normal HCT 40.5 LAB L100.1500 80-94 fL Normal MCV 90.4 LAB L100.1600 27.0-32.0 pg Normal MCH 29.7 LAB L100.1700 32-36 g/gl Normal MCHC 32.8 LAB L100.1810 11.6-14.6 % Normal RDW CV 14.2 LAB L100.1820 35.1-43.9 fl High RDW SD 46.6 LAB L100.1900 150-450 K/mm3 Normal PLT 175 LAB L100.2000 6.2-12.0 fl Normal MPV 11.5 Performed By: #### L100.0500 #### [facility] [address] [place], [address] BASIC METABOLIC Collected: 04/02/2018 Status: F Source: [place] PROFILE (BMP) 4:00 AM [facility] [place] TYPE CODE TESTS RESULT OUT OF RANGE REFERENCE UNITS LAB L501.0100 74-106 mg/dL Normal GLU 92 Result Comment: Please note revised GLUCOSE reference range effective 2017. LAB L501.1000 7-18 mg/dL Normal BUN 11 LAB L501.1100 0.70-1.30 mg/dL Normal CREAT,SERUM 0.90 Result Comment: The validity of the calculated GFR AND GFRAA in patients over 70 years has not been determined. Clinical correlation is essential. LAB L501.1110 >60 mL/min Normal EST GFR 92 Result Comment: Non- GFR Calc LAB L501.1115 >60 mL/min Normal EST GFR - AA 111 Result Comment: GFR Calc LAB L501.1255 ml/min Normal Estimated CRCL 92.96 LAB L501.1300 10-20 RATIO Normal BUN/CRE 12.3 LAB L501.2200 8.5-10 mg/dL Low .1 CA 7.9 LAB L501.5300 136-14 mmol/L Normal 5 NA 145 LAB L501.5600 3.5-5. mmol/L Normal 1 K 4.0 LAB L501.5900 98-107 mmol/L High CL 109 LAB L501.6100 21.0-3 mmol/L Normal 2.0 CO2 28.0 LAB L501.6200 5-15 Normal GAP 8 Performed By: #### L500.2500, L500.4100 #### [facility] [address] [place], [place], [address] LIPID PROFILE Collected: 04/02/2018 Status: F Source: 4:00 AM [facility] [place] TYPE CODE TESTS RESULT OUT OF RANGE REFERENCE UNITS LAB L501.4900 200 mg/dL Normal CHOL 145 Result Comment: <200 mg/dL Desirable 200-240 mg/dL Borderline >240 mg/dL High Risk LAB L501.5000 mg/dL Normal TRIG 99 Result Comment: The drugs N-Acetylcysteine and Metamizole may falsely depress this assay. Serum Triglycerides Reference Interval Normal <150 mg/dL Borderline high 150 - 199 mg/dL High 200 - 499 mg/dL Very High > or = 500 mg/dL LAB L501.6400 mg/dL Low HDL 32 Result Comment: The drugs N-Acetylcysteine and Metamizole may falsely depress this assay. Reference Range HDL <40 mg/dL Low HDL Cholesterol HDL >or= 60 mg/dL High HDL Cholesterol LAB L501.6500 0-130 mg/dL Normal LDL 93 LAB L501.6600 5-40 mg/dL Normal VLDL 20 Performed By: #### L500.2500, L500.4100 #### [facility] [address], [place], [address] ACT ACTIVATED CLOTTING Collected: 04/01/2018 Status: F Source: TIME 10:59 AM [facility] [place] TYPE CODE TESTS RESULT OUT OF RANGE REFERENCE UNITS LAB L9100.0100 74-137 sec High ACTk CLOT 142 TIME Performed By: #### L9100.0100 #### [facility] Point of Care [address] [place] [address] ACT ACTIVATED CLOTTING Collected: 04/01/2018 Status: F Source: TIME 9:04 AM [facility] TYPE CODE TESTS RESULT OUT OF RANGE REFERENCE UNITS LAB L9100.0100 74-137 sec High ACTk CLOT 202 TIME Performed By: #### L9100.0100 #### [facility] Point [place] [address] CBC W/DIFF, AUTOMATED Collected: 04/01/2018 Status: F Source: [place] 5:08 AM [facility] [place] TYPE CODE TESTS RESULT OUT OF RANGE REFERENCE UNITS LAB L100.1000 4.4-11.0 K/mm3 High WBC 16.1 LAB L100.1200 4.6-6.2 M/mm3 Normal RBC 4.98 LAB L100.1300 13.0-16.5 g/dl Normal HGB 15.0 LAB L100.1400 40-54 % Normal HCT 45.1 LAB L100.1500 80-94 fL Normal MCV 90.6 LAB L100.1600 27.0-32.0 pg Normal MCH 30.1 LAB L100.1700 32-36 g/gl Normal MCHC 33.3 LAB L100.1810 11.6-14.6 % Normal RDW CV 14.3 LAB L100.1820 35.1-43.9 fl High RDW SD 47.0 LAB L100.1900 150-450 K/mm3 Normal PLT 202 LAB L100.2000 6.2-12.0 fl High MPV 12.3 LAB L100.2100 47-70 % High NEUT% 74.2 LAB L100.2200 19-41 % Low LY% 16.7 LAB L100.2300 0-10 % Normal MONO% 7.4 LAB L100.2400 0-5 % Normal EO% 1.2 LAB L100.2500 0-1 % Normal BASO% 0.1 LAB L100.2550 0.0-0.9 % Normal IM GRAN % 0.400 Result Comment: IG% - Immature Granulocytes (promyelocytes, myelocytes and metamyelocytes) > 1% indicates that a LEFT SHIFT is Present. LAB L100.2620 2.0-7.7 X10 3/uL High Absolute Neut 12.0 LAB L100.2720 0.83-4.51 X10 3/ul Normal Absolute Lymph 2.69 Performed By: #### L100.0100 #### [facility] [address] [place], [address] BASIC METABOLIC Collected: 04/01/2018 Status: F Source: [place]PH[place] PROFILE (BMP) 5:08 AM [facility] [place] TYPE CODE TESTS RESULT OUT OF RANGE REFERENCE UNITS LAB L501.0100 74-106 mg/dL Normal GLU 96 Result Comment: Please note revised GLUCOSE reference range effective 2017. LAB L501.1000 7-18 mg/dL Normal BUN 15 LAB L501.1100 0.70-1.30 mg/dL Normal CREAT,SERUM 1.00 Result Comment: The validity of the calculated GFR AND GFRAA in patients over 70 years has not been determined. Clinical correlation is essential. LAB L501.1110 >60 mL/min Normal EST GFR 81 Result Comment: Non- GFR Calc LAB L501.1115 >60 mL/min Normal EST GFR - AA 98 Result Comment: GFR Calc LAB L501.1255 ml/min Normal Estimated CRCL 83.67 LAB L501.1300 10-20 RATIO Normal BUN/CRE 15.0 LAB L501.2200 8.5-10 mg/dL Normal .1 CA 8.5 LAB L501.5300 136-14 mmol/L Normal 5 NA 139 LAB L501.5600 3.5-5. mmol/L Normal 1 K 4.1 LAB L501.5900 98-107 mmol/L Normal CL 107 LAB L501.6100 21.0-3 mmol/L Normal 2.0 CO2 26.0 LAB L501.6200 5-15 Normal GAP 6 Performed By: #### L500.2500, L300.3900, L300.4310 #### [facility] [address] [place], [address] PROTHROMBIN TIME W/INR Collected: 04/01/2018 Status: F Source: [place] 5:08 AM [facility] [place] TYPE CODE TESTS RESULT OUT OF RANGE REFERENCE UNITS LAB L300.4150 11.7-14.9 SECONDS Normal PROTIME 12.4 LAB L300.4200 Normal INR 0.9 Performed By: #### L500.2500, L300.3900, L300.4310 #### [facility] [address] [place], [address] PARTIAL THROMBOPLAST Collected: 04/01/2018 Status: F Source: [place] TIME 5:08 AM [facility] [place] TYPE CODE TESTS RESULT OUT OF RANGE REFERENCE UNITS LAB L300.4310 24.1-36.2 Seconds Normal PTT 29.0 Performed By: #### L500.2500, L300.3900, L300.4310 #### [facility] [address] [place], [address] URINALYSIS, COMPLETE Collected: 03/31/2018 Status: F Source: [place] 11:53 PM [facility] Order Comment: Order Date: 03/31/18 How was Urine Obtained? 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 DIPSTX 1.015 LAB L400.3550 5.0 - 8.0 pH UR Normal 6.0 LAB L400.3600 Negative mg/dl PROT Normal DIPSTX Negative LAB L400.3700 Normal mg/dl Normal UROBILI Normal LAB L400.3750 Negative Normal NITRITE UR Negative LAB L400.3780 Negative /ul Normal OCCULT BLOOD-UR Negative LAB L400.3800 Negative /ul LEUK Normal ESTERASE Negative LAB L400.4050 0-5 /hpf WBC 0 Normal SEEN LAB L400.4100 0-5 /hpf 0 Normal RBC-UA SEEN LAB L400.4150 0-5 /hpf SQUAM 0 Normal EPI SEEN LAB L400.4300 None Seen /hpf 0 Normal BACTERIA SEEN LAB L400.4350 <or=2+ /hpf 0 Normal MUCUS, URINE SEEN Performed By: #### L400.0001 #### [facility] [address] [place], [address] ECHOCARDIOGRAM COMPLETE Observed: 03/30/2018 Status: F Source: [place] 2:02 PM [facility] [place] [facility] Cardiovascular Services [address] [place] [address] Echo Complete 03/30/18 1113 MR#: [id number] Acct: [id number] Name: GREG BREWER Rep #: [id number] : 1955 62 From: Cayetano Mata MD Attending Dr: Vahid Pang MD Status: ADM DANILO Ordering Dr: Cayetano Mata MD Date: 03/30/18 Location: [facility] Sex: M C Admitted: 03/30/18 Reason For Study: CHEST PAIN Procedure This was a 2D Doppler, Color Flow transthoracic echocardiogram. Technically difficult parasternal windows. Exam performed portable in patient room. Left Ventricle Normal size and thickness. The estimated ejection fraction is 55 %. Normal diastology for age. Mid- Anterior : Mildly hypokinetic. Mid-anteroseptal : Mildly hypokinetic. Anterior Sigel : Mildly hypokinetic. Right Ventricle Normal size and thickness. Normal systolic function. Atria Normal left atrium. Normal right atrium. Normal atrial septum. Mitral Valve The mitral valve is structurally normal. No prolapse or stenosis seen. Tricuspid Valve Normal tricuspid valve. Trivial tricuspid valve insufficiency. Right ventricular systolic pressure estimated to be 23 mmHg. Aortic Valve Normal aortic valve. Trisinus/trileaflet aortic valve. Pulmonic Valve Normal pulmonic valve. Great Vessels Normal aortic root. Normal arch. Normal inferior vena cava. Inferior vena cava collapse with sniff. Pericardium/Pleural No pericardial effusion. MMode/2D Measurements AND Calculations LVIDd: 4.1 cm IVSd: 0.99 cm Ao root diam: 3.1 cm LVIDs: 2.9 cm LVPWd: 0.88 cm RVDd: 3.3 cm FS: 29.3 % LAV(MOD-bp): 39.4 ml EDV(MOD-sp4): 104.1 ml EDV(MOD-sp2): 89.6 ml LAV(MOD-bp) Indexed: 20.0 ml/m2 ESV(MOD-sp4): 44.8 ml EF(MOD-sp2): 55.4 % LAV(MOD-sp2): 46.7 ml EF(MOD-sp4): 57.0 % LAV(MOD-sp4): 33.4 ml SV(MOD-sp4): 59.3 ml SV(MOD-sp2): 49.6 ml LA A4 area: 14.9 cm2 LA dimension(2D): 3.0 cm RA A4 area: 14.8 cm2 Time Measurements MV dec time: 0.21 sec Doppler Measurements AND Calculations MV E max jefferson: 78.7 cm/sec Lat Peak E' Jefferson: 12.3 cm/sec Med Peak E' Jefferson: 8.8 cm/sec MV A max jefferson: 56.0 cm/sec E/E' lat: 6.4 E/E' med: 9.0 MV E/A: 1.4 Ao V2 max: 148.2 cm/sec LV V1 max: 124.1 cm/sec TR max jefferson: 210.7 cm/sec Ao max P.8 mmHg LV V1 max P.2 mmHg TR max P.0 mmHg Interpretation Summary The estimated ejection fraction is 55 %. Normal diastology for age. Mid-Anterior : Mildly hypokinetic Mid-anteroseptal : Mildly hypokinetic Anterior Sigel : Mildly hypokinetic Trivial tricuspid valve insufficiency. Right ventricular systolic pressure estimated to be 23 mmHg. There is no comparison study available. Ordering Physician: Cayetano Mata Referring Physician: DINESH DAY Performed By: Ruthie Tay, CHINYERE, RVT 03/30/18 1402 Date Cayetano Mata MD CC: Cayetano Mata MD; Vahid Pang MD; Dinesh Day MD Date Dictated: 03/30/18 1113 Date Transcribed: 03/30/181401 Esthetician Facialist: Signed TROPONIN-I Collected: 03/30/2018 Status: F Source: [place] 12:10 PM [facility] Order Comment: 'TROP' Serial specimen #1, #2 or #3: 3 TYPE CODE TESTS RESULT OUT OF RANGE REFERENCE UNITS LAB L501.4010 <0.045 ng/mL High 0.358 TROPONIN-I Result Comment: TROPONIN-I EXPECTED VALUES <0.045 Negative 0.045 - 0.590 Consistent with Cardiac Damage > OR = 0.600 Critical Value Not every elevated troponin is indicative of UT. These values should be used with clinical judgement in examining the patient's clinical picture for diagnosis. To establish a diagnosis of UT versus myocardial injury, there must be a demonstrated rise and/or fall in the troponin values, in addition to ischemic symptoms, EKG changes, new regional wall motion abnormality, and/or angiographical evidence. PLEASE NOTE: REFERENCE RANGES EDITED 17 Performed By: #### L501.4010 #### [facility] [address] [place], [address] CONSULTATION Observed: 03/30/2018 Status: F Source: [place] 11:02 AM [facility] [place] [facility] Medical Records Department [address] [place] [address] Consultation 03/30/18 1052 MR#: [id number] Acct: [id number] Name: GRGE BREWER Rep #: [id number] : 1955 62 From: Cayetano Mata MD PCP: Dinesh Day MD Status: ADM DANILO Y Location: [place] [address] Problem List (1) Non-STEMI (non-ST elevated myocardial infarction) Status: Acute (2) Chest pain Status: Acute (3) Tobacco dependence Status: Chronic Reason for Consult Date of Consultation: 03/30/18 Reason for Consultation: Chest pain, tobacco abuse, non-STEMI History of Present Illness: The patient is a 62 year old M, current smoker of about 1- 1/2 packs/day, approximately [id number] smoking history, quit for about 15 years and then resumed, nondiabetic, positive family history of coronary disease in his brother, nonhypertensive, no previous known coronary disease in the patient. Patient was admitted with new onset midsternal chest pressure described as a brick on his chest radiating to the inner portions of both arms, with no associated shortness of breath. Initial EKG showed normal sinus rhythm, normal axis, normal intervals, no acute ST segment deviations. His initial troponin was 0.02, then increase to 0.285 on a rapid rule out. He was placed on Lovenox as well as nitroglycerin paste. He has had no recurrent anginal symptoms. A stress test was planned however canceled due to his second elevated troponin. On additional history, the patient noted similar midsternal chest pressure symptoms on Sunday of this past week after he had done excessive lifting and raking of leaves in his yard. He has no associated shortness of breath, presyncope, syncope. He denies any flulike symptoms. He has never had a catheterization or a stress test. [] Past Medical History Allergies/Adverse Reactions: Allergies No Known Allergies Allergy (Verified 03/30/18 06:05) Home Medications: Ambulatory Orders Medication Instructions Recorded NK 03/30/18 Past Medical History (Chronic Problems): Chronic Problems Tobacco dependence (Chronic) - *Family History Maternal History Items: Stroke Smoking Status: Current every day smoker Review of Systems - Review of Systems General: Denies: Fever, Night Sweats, Fatigue Cardiovascular: Reports: Chest Discomfort, Chest Discomfort at Rest, Chest Discomfort with Exertion. Denies: Shortness of Breath, Orthopnea, PND, Peripheral Edema, Palpitations, Lightheadedness, Dizziness, Near Syncope, Syncope Respiratory: Denies: Cough, Sputum Production, Hemoptysis Gastrointestinal: Denies: Hematemesis, Hematochezia, Melena Genitourinary: Denies: Dysuria, Hematuria Skin: Denies: Rash Subjectve: Patient laying in bed, no acute distress. Objective: Vital Signs Temp Pulse Resp BP Pulse Ox 98 F 62 18 110/72 97 03/30/18 08:24 03/30/18 08:24 03/30/18 08:24 03/30/18 08:24 03/30/18 08:24 Oxygen Delivery Method Room Air Weight: 171 lb 1.259 oz Body Mass Index (BMI) 23.8 General: Awake, Alert, Oriented x 3 HEENT: PERRL, EOMI, Sclera Non Icteric Neck: Supple, Good ROM, No Lymph Node Enlargement Lungs: Clear to auscultation Cardiovascular: Regular Rhythm, Normal S1, Normal S2, No Murmurs, No Rubs, No Gallops Vascular: No Carotid Bruits, Normal Femoral Pulses, Normal Radial Pulses, Normal Dorsalis Pedal Pulse, Normal Posterior Tibial Pulses Abdomen: Bowel Sounds Present, Soft, Non Tender, No HSM, No Organomegaly Extremities: No Cyanosis, No Clubbing, No edema Neurological: No Focal Motor or Sensory Deficit 03/30/18 06:12: WBC 9.2, RBC 5.04, Hgb 15.5, Hct 45.4, MCV 90.1, MCH 30.8, MCHC 34.1, RDW 14.3, RDW Differential 46.9 H, Plt Count 202, MPV 11.5, Immature Gran % (Auto) 0.300, Neut % (Auto) 63.5, Lymph % (Auto) 25.5, [place] % (Auto) 6.8, Eos % (Auto) 3.4, Baso % (Auto) 0.5, Absolute Neuts (auto) 5.9, Total Counted Not Reportable 03/30/18 06:12: Sodium 144, Potassium 4.1, Chloride 108 H, Carbon Dioxide 28.0, Anion Gap 8, BUN 15, Creatinine 1.09, Est GFR (MDRD) Af Amer 89, Est GFR (MDRD) Non-Af 73, BUN/Creatinine Ratio 13.8, Glucose 106, Calcium 8.9, Total Bilirubin 0.20, Direct Bilirubin 0.06, Troponin I 0.029 03/30/18 09:34: Troponin I 0.285 H Rhythm: EKG: ECHO: Stress Test: Cardiac Cath: PCI: CT Surgery: Holter monitor: EPS: PPM: CXR: Chest CT Scan: Assessment/Plan 1. Unstable angina: The patient presents with 2 episodes of angina, one after heavy exertional work, and 1 while at rest, both associated with midsternal chest pressure, heaviness, with radiation to the inner surfaces of both upper extremities. Initial troponin was negative, then second troponin was 0.285, indicating the need for stress echocardiogram at this time. I recommended the patient continue baby aspirin, increase his Lovenox to 70 mg subcu twice daily, be loaded with Plavix 300 mg x1 now followed by 75 mg a day, and add Lopressor 12.5 mg p.o. twice daily. I recommended given the patient's signs and symptoms that he undergo a diagnostic left heart catheterization this upcoming Sunday. I would not recommend the patient be discharged home as he has had accelerating angina of new onset since Sunday of this past week superimposed upon abnormal troponins. I recommended the patient discontinue all tobacco products, and the patient has agreed to do that. Would also recommend a 2D echo with Doppler to evaluate his LV function, pulmonary pressures, and valvular status. Highly recommended to the patient is that he remain in the hospital until his catheterization this upcoming Sunday. It is an unfortunate timing issue, but he does not reach criteria for acute catheterization at this time. If however the patient has recurrent chest pain symptoms despite maximal medical therapy, I would have a low threshold for urgent catheterization this weekend. 2. Hyperlipidemia: Recommend obtaining a fasting lipid profile. Recommend starting statin based medications to lower his LDL less than 70. 3. All questions answered to the patient and his , and the risks/benefits of the catheterization procedure were thoroughly explained to the patient and his , including specific attention to lack of on-site surgical backup, and they have agreed to proceed. 4. Thank you very much for the opportunity to participate in the cardiac care of your patient. Consultation time took place between 1030 and 11:01 AM. Code Visit Inpatient E AND M: 18810 Init Hosp L2 03/30/18 1102 <Electronically signed by Cayetano Mata MD> Date Cayetano Mata MD Cosigner Signature (if applicable): Date CC: Cayetano Mata MD; Dinesh Day MD Signed TROPONIN-I Collected: 03/30/2018 Status: F Source: [place] 9:34 AM [facility] Order Comment: 'TROP' Serial specimen #1, #2 or #3: 2 TYPE CODE TESTS RESULT OUT OF RANGE REFERENCE UNITS LAB L501.4010 <0.045 ng/mL High 0.285 TROPONIN-I Result Comment: TROPONIN-I EXPECTED VALUES <0.045 Negative 0.045 - 0.590 Consistent with Cardiac Damage > OR = 0.600 Critical Value Not every elevated troponin is indicative of UT. These values should be used with clinical judgement in examining the patient's clinical picture for diagnosis. To establish a diagnosis of UT versus myocardial injury, there must be a demonstrated rise and/or fall in the troponin values, in addition to ischemic symptoms, EKG changes, new regional wall motion abnormality, and/or angiographical evidence. PLEASE NOTE: REFERENCE RANGES EDITED 17 Performed By: #### L501.4010 #### [facility] [place], [address] LIPID PROFILE Collected: 03/30/2018 Status: F Source: [place] 9:34 AM [facility] [place] TYPE CODE TESTS RESULT OUT OF RANGE REFERENCE UNITS LAB L501.4900 200 mg/dL Normal CHOL 179 Result Comment: <200 mg/dL Desirable 200-240 mg/dL Borderline >240 mg/dL High Risk LAB L501.5000 mg/dL Normal TRIG 50 Result Comment: The drugs N-Acetylcysteine and Metamizole may falsely depress this assay. Serum Triglycerides Reference Interval Normal <150 mg/dL Borderline high 150 - 199 mg/dL High 200 - 499 mg/dL Very High > or = 500 mg/dL LAB L501.6400 mg/dL Normal HDL 40 Result Comment: The drugs N-Acetylcysteine and Metamizole may falsely depress this assay. Reference Range HDL <40 mg/dL Low HDL Cholesterol HDL >or= 60 mg/dL High HDL Cholesterol LAB L501.6500 0-130 mg/dL Normal LDL 129 LAB L501.6600 5-40 mg/dL Normal VLDL 10 Performed By: #### L500.4100 #### [facility] [address] [place], [address] HISTORY AND PHYSICAL Observed: 03/30/2018 Status: F Source: [place] EXAM 7:54 AM [facility] Medical Records Department [address] [facility] [place] [address] History and Physical 03/30/18 0710 MR#: [id number] Acct: [id number] Name: GREG BREWER Rep #: [id number] : 1955 62 From: Vahid Pang MD PCP: Dinesh Day MD Status: REG ER Y Location: ED Problem List (1) Chest pain Status: Acute (2) Tobacco dependence Status: Chronic History of Present Illness Date of Admission: 03/30/18 Chief Complaint: Chest pain The patient is a 62 year old M in relatively good health on no chronic medications who presented with chest pain. Patient symptoms started prior to him going to bed. He developed pain which was described as pressure located in the retrosternal region radiating to both arms. He also did experience some nausea and vomited 2 times prior to coming. In view of the persistent nature of his symptoms patient finally presented to the emergency department. Patient pain apparently did resolve prior to patient receiving any nitroglycerin. Initial set of cardiac enzymes came back unremarkable subsequently admitted to a monitored bed for further management Past Medical History Past Medical History (Chronic Problems): Chronic Problems Tobacco dependence (Chronic) Allergies No Known Allergies Allergy (Verified 03/30/18 06:05) Home Medications: Ambulatory Orders Medication Instructions Recorded NK 03/30/18 Smoking Status: Current every day smoker - *Family History Maternal History Items: Stroke Review of Systems Constitutional: Denies: Anorexia, Chills, Fever, Night Sweats, Weight Change HEENT: Denies: Head Aches, Sinus Congestion, Sinus Drainage Cardiovascular: Reports: Chest Pain. Denies: Orthopnea, Palpitations, Paroxysmal Noc. Dyspnea Respiratory: Denies: Cough, Shortness of breath at rest, Shortness of breath upon exertion, Sputum production Gastrointestinal: Reports: Nausea, Vomiting. Denies: Abdominal Pain, Hematemesis, Hematochezia, Melena Genitourinary: Denies: Dysuria, Frequency, Hematuria, Urgency Musculoskeletal: Denies: Joint Pain, Joint Tenderness Skin: Denies: Rash Neurological: Denies: Focal weakness, Numbness, Tingling Psychiatric: Denies: Homicidal Ideations, Suicidal Ideations Hematologic/ Lymphatic: Denies: Easy Bruising, Easy Bleeding VTE Information - Inpt Only VTE Present on Admission: No VTE Mechan Device Prophylaxis: Knee High LAINEY Hose VTE Pharm Prophylaxis ordered?: Yes Patient Problems: Active and Suspected Problems Chest pain (Acute) Objective: GENERAL: cooperative HEENT: Atraumatic; moist oral mucosa EYES; Anicteric, Normal Conjunctiva NECK; supple, normal thyroid, no distended JVD. RESPIRATORY: Diminished to auscultation bilaterally, CARDIOVASCULAR: Regular S1 S2, no audible murmurs GI: soft, non-tender, normoactive bowel sounds, : No Renal angle tenderness; EXTREMITIES: No edema, no clubbing, no cyanosis. MUSCULOSKELETAL: No Joint Tenderness; no muscle waisting NEURO: Awake; no lateralizing signs. SKIN: No Rash PSYCH; Normal affect - Physical Exam Vital Signs Temp Pulse Resp BP Pulse Ox 97.8 F 60 15 109/68 95 03/30/18 07:05 03/30/18 07:07 03/30/18 07:07 03/30/18 07:07 03/30/18 07:07 Oxygen Delivery Method Room Air Weight: 79 kg Body Mass Index (BMI) 24.3 Laboratory Tests Past 24 Hrs WBC 9.2 RBC 5.04 Hgb 15.5 Hct 45.4 MCV 90.1 MCH 30.8 Assessment/Plan All Active Problems Chest pain (Acute) Patient is a 62-year-old gentleman in relatively good health presented with chest pain 1. Chest pain patient has been admitted to monitored bed with plans to rule out UT with serial cardiac enzymes patient undergo a stress echo if UT is ruled out 2. Tobacco dependence counseled on cessation, offered nicotine patch for tobacco cravings 3. DVT prophylaxis SC Lovenox Code Visit OBSV E AND M: [id number] Initial observation care L2 03/30/18 0754 <Electronically signed by Vahid Pang MD> Date Vahid Pang MD Cosigner Signature: Date (if applicable) CC: Vahid Pang MD; Dinesh Day MD Signed EMERGENCY DEPARTMENT Observed: 03/30/2018 Status: C Source: [place] SUMMARY 7:50 AM [facility] [place] Medical Records Department [address] [place] [address] Emergency Department Summary 03/30/1818 MR#: [id number] Acct: [id number] Name: GREG BREWER Rep #: [id number] : 1955 62 From: Ramirez Carrington MD PCP: Dinesh Day MD Status: REG ER ADDENDUM by Cayetano Turner DO on 03/30/18 at 0750 Patient was seen in the emergency department by Dr. Pang for the hospitalist service. He will be admitted to U for chest pain. Date Cayetano Turner DO cc: Dinesh Day MD * Addendum - ER Visit Summary Date of Service: 03/30/18 Chief Complaint: Chest heaviness with radiation to posterior right and left arm, nausea and vomiting and dyspnea History of Present Illness: The patient is a 62 M who is a smoker of 1.5 packs/day presents because of heaviness mid chest described as a brick on his chest with radiation to the posterior right and left arm associated with nausea and vomiting. There is no radiation to the back. There was dyspnea. He also had cold sweats. First episode occurred on Sunday and lasted approximately 1 hour. Described as chest heaviness with nausea. He apparently had calamari that evening. He denies intolerance to greasy or fried foods and has no history of cholelithiasis nor is her family history cholelithiasis. Patient had 2 episodes on Sunday and one episode this morning and reason he presents. He had calamari on Sunday night as well. The 3 episodes that occurred to the day did not radiate to his back. He denies any ocular, visual or auditory symptoms. He denies black or maroon stool. He denies urologic symptoms. He denies history of trauma. He denies neurologic symptoms. Physical Examination: Vital signs remarkable for an elevated blood pressure 145/75. Head is atraumatic normocephalic. Pupils are equal round reactive. Extraocular muscles are intact. TMs are pearly white with landmarks noted. Nares patent with no drainage. Posterior pharynx without erythema or exudate. Uvula is midline. There is no dysphonia or dysphasia. Trachea is midline. There is no stridor with auscultation of the neck. Heart is regular without murmur, gallop or rub. S1 and S2 are normal. Lungs are clear to auscultation with good movement of air bilaterally. Test Results: EKG reveals a sinus rhythm rate of 75 with normal SC interval, QRS duration, axis and QT interval. ST segments are normal. Portable chest x-ray reveals no acute process. CBC is normal. Hepatic is normal as well as lipase. First troponin is normal. Emergency Department Course and Treatment: To evaluate patient's chest pain EKG was obtained to evaluate for acute ischemia. Chest x-ray to evaluate cardiac silhouette, mediastinum lung parenchyma. CBC was obtained to assess H AND H and white count. Basic metabolic panel to assess electrolytes and renal function. Troponin since he had episode on Sunday less than an hour to evaluate any acute ischemic evidence. Patient was pain-free at time of EKG. Treatment Plan: 23-hour observation PCU to evaluate for cardiac versus noncardiac etiology. Disposition: PCU Impression: 1. Chest pressure 2. Tobacco use This note was generated with [employer] dictation software. It may contain incorrect words, spelling, and punctuation that were not noted in review of the chart prior to signing ED Disposition - Plan for ED Patient: Chief Complaint: Chest Pain Referrals: Dinesh Day MD [Primary Care Provider] - What to do if you have Problems For any increased pain, shortness of breath, bleeding, nausea or vomiting, chest pain, or any unexpected problems, contact your Primary Care Provider. Call [facility] ([phone]) or report to the closest Emergency Room. Call 911 if necessary. 03/30/18 0650 <Electronically signed by Ramirez Carrington MD> Date Ramirez Carrington MD Cosigner Signature (If Indicated): Date CC: Dinesh Day MD THYROID STIM HORMONE Collected: 03/30/2018 Status: F Source: [place] ([facility]) 6:35 [place] [facility] [place] CODE TESTS RESULT OUT OF RANGE REFERENCE UNITS LAB L501.9520 0.358-3.74 uIU/mL Normal TSH 2.40 Performed By: #### L501.9520 #### [facility] [address] [place], [place], [address] CHEST 1 VIEW Observed: 03/30/2018 Status: F Source: [place] (PORTABLE) 6:13 AM [facility] [place] [facility] Imaging Services [address] [place] [address] Chest 1 View (Portable) MR#: [id number] Acct: [id number] Name: GREG BREWER Rep #: [id number] : 1955 M 62 From: Rigo Hunter MD PCP: Dinesh Day MD Status: REG ER Study: Chest 1 View (Portable) Date of Exam: 03/30/18 Exam# [id number] Ordering Dr: Ramirez Carrington MD STUDY: X-RAY CHEST REASON FOR EXAM: Male, 62 years old. Chest heaviness TECHNIQUE: 1 view COMPARISON: None. FINDINGS: The lungs are clear and expanded. There is no demonstrated pleural abnormality. Normal size heart. Normal mediastinum and uche. Normal visualized pulmonary arteries. Normal visualized aortic arch and descending thoracic aorta. Degenerative changes of the thoracic spine.. Normal visualized ribs, clavicles, and shoulders. There is no demonstrated abnormality of the visualized soft tissue structures of the upper abdomen. RAD/Chest 1 View (Portable) IMPRESSION: No acute findings in the lungs. Electronically Signed: Rigo Hunter MD at 6:44 EST Tel , Service support , CC: Dinesh Day MD; Ramirez Carrington MD Esthetician Facialist: Signed CBC W/DIFF, AUTOMATED Collected: 03/30/2018 Status: F Source: [place] 6:12 AM [facility] [place] TYPE CODE TESTS RESULT OUT OF RANGE REFERENCE UNITS LAB L100.1000 4.4-11.0 K/mm3 Normal WBC 9.2 LAB L100.1200 4.6-6.2 M/mm3 Normal RBC 5.04 LAB L100.1300 13.0-16.5 g/dl Normal HGB 15.5 LAB L100.1400 40-54 % Normal HCT 45.4 LAB L100.1500 80-94 fL Normal MCV 90.1 LAB L100.1600 27.0-32.0 pg Normal MCH 30.8 LAB L100.1700 32-36 g/gl Normal MCHC 34.1 LAB L100.1810 11.6-14.6 % Normal RDW CV 14.3 LAB L100.1820 35.1-43.9 fl High RDW SD 46.9 LAB L100.1900 150-450 K/mm3 Normal PLT 202 LAB L100.2000 6.2-12.0 fl Normal MPV 11.5 LAB L100.2100 47-70 % Normal NEUT% 63.5 LAB L100.2200 19-41 % Normal LY% 25.5 LAB L100.2300 0-10 % Normal MONO% 6.8 LAB L100.2400 0-5 % Normal EO% 3.4 LAB L100.2500 0-1 % Normal BASO% 0.5 LAB L100.2550 0.0-0.9 % Normal IM GRAN % 0.300 Result Comment: IG% - Immature Granulocytes (promyelocytes, myelocytes and metamyelocytes) > 1% indicates that a LEFT SHIFT is Present. LAB L100.2620 2.0-7.7 X10 3/uL Normal Absolute Neut 5.9 LAB L100.2720 0.83-4.51 X10 3/ul Normal Absolute Lymph 2.35 Performed By: #### L100.0100 #### [facility] [address] [place], [place], [address] BASIC METABOLIC Collected: 03/30/2018 Status: F Source: [facility] PROFILE ([facility]) 6:12 AM [facility] [place] CODE TESTS RESULT OUT OF RANGE REFERENCE UNITS LAB L501.0100 74-106 mg/dL Normal GLU 106 Result Comment: Fasting Glucose result from 100 to 125 mg/dL suggests IMPAIRED HOMEOSTASIS per A.D.A. criteria. Please note revised GLUCOSE reference range effective 2017. LAB L501.1000 7-18 mg/dL Normal BUN 15 LAB L501.1100 0.70-1.30 mg/dL Normal CREAT,SERUM 1.09 Result Comment: The validity of the calculated GFR AND GFRAA in patients over 70 years has not been determined. Clinical correlation is essential. LAB L501.1110 >60 mL/min Normal EST GFR 73 Result Comment: Non- GFR Calc LAB L501.1115 >60 mL/min Normal EST GFR - AA 89 Result Comment: GFR Calc LAB L501.1255 ml/min Normal Estimated CRCL 76.76 LAB L501.1300 10-20 RATIO Normal BUN/CRE 13.8 LAB L501.2200 8.5-10 mg/dL Normal .1 CA 8.9 LAB L501.5300 136-14 mmol/L Normal 5 NA 144 LAB L501.5600 3.5-5. mmol/L Normal 1 K 4.1 LAB L501.5900 98-107 mmol/L High CL 108 LAB L501.6100 21.0-3 mmol/L Normal 2.0 CO2 28.0 LAB L501.6200 5-15 Normal GAP 8 Performed By: #### L500.2500, L500.3400, L501.2450, L501.4010 #### [facility] [address] [place], [address] LIVER PROFILE Collected: 03/30/2018 Status: F Source: [place] 6:12 AM [facility] [place] TYPE CODE TESTS RESULT OUT OF RANGE REFERENCE UNITS LAB L501.1500 6.4-8.2 g/dL Normal T PROT 6.9 LAB L501.1800 3.2-5.0 g/dL Normal ALB 3.5 LAB L501.1950 2.2-4.2 g/dL Normal GLOB 3.4 LAB L501.4100 15-37 U/L Normal AST 15 LAB L501.4305 45-117 U/L Normal ALK P 72 LAB L501.4405 16-61 U/L Normal ALT 20 LAB L501.4600 0.20-1.00 mg/dL Normal T BILI 0.20 LAB L501.4700 0.00-0.30 mg/dL Normal D BILI 0.06 Performed By: #### L500.2500, L500.3400, L501.2450, L501.4010 #### [facility] [address] [place], [address] LIPASE Collected: 03/30/2018 Status: F Source: [place] 6:12 AM [facility] [place] TYPE CODE TESTS RESULT OUT OF RANGE REFERENCE UNITS LAB L501.2450 73-393 U/L Normal LIPASE 200 Performed By: #### L500.2500, L500.3400, L501.2450, L501.4010 #### [facility] [address] [place], [address] TROPONIN-I Collected: 03/30/2018 Status: F Source: [place] 6:12 AM [facility] [place] TYPE CODE TESTS RESULT OUT OF RANGE REFERENCE UNITS LAB L501.4010 <0.045 ng/mL Normal 0.029 TROPONIN-I Result Comment: TROPONIN-I EXPECTED VALUES <0.045 Negative 0.045 - 0.590 Consistent with Cardiac Damage > OR = 0.600 Critical Value Not every elevated troponin is indicative of UT. These values should be used with clinical judgement in examining the patient's clinical picture for diagnosis. To establish a diagnosis of UT versus myocardial injury, there must be a demonstrated rise and/or fall in the troponin values, in addition to ischemic symptoms, EKG changes, new regional wall motion abnormality, and/or angiographical evidence. PLEASE NOTE: REFERENCE RANGES EDITED 17 Performed By: #### L500.2500, L500.3400, L501.2450, L501.4010 #### [facility] [address] [place], [address] ALLERGIES ALLERGIES DATE TYPE / CODE NAME / CODE REACTION SEVERITY SOURCE 04/16/2018 Drug No Known Unknown [facility] Allergy/4160 Allergies/F00 Hospital 86794(SNOMED 8680386(RXNOR Repository CT) M) ENCOUNTERS ENCOUNTERS ADMIT/DISCHARGE ACCOUNT ADMITTING ENCOUNTER LOCATION SOURCE NUMBER CLASS 04/24/2018 [id number] Ambulatory [place] 8 [facility] ing:[facility] Repository 04/16/2018/ [id number] Ambulatory BMSBuilding:B [place] 9 9 MS.G [facility] [place] [facility] [place], [place] Repository 04/01/2018/ [id number] [facility] ing:ICURoom: Repository [id number]: 1 04/01/2018 [id number] Vahid Pang Ambulatory BMSBuilding:B [place] 9 MS.WIP [facility] [place] [facility] [place] [place] Repository 04/01/2018 [id number] Vahid Pang Ambulatory BMSBuilding:B [place] 8 MS.CF.[facility] Repository 04/01/2018 [id number] Vahid Pang Ambulatory BMSBuilding:B [place] 9 MS.Pending sale to [facility] Repository 04/01/2018/ [id number] Ambulatory BMSBuilding:W [place] [facility] Repository 03/30/2018 [id number] Ambulatory BMSBuilding:W [place] [facility] Repository 03/30/2018 [id number] Ambulatory BMSBuilding:B [place] 8 MS.Pending sale to [facility] Repository 03/30/2018 [id number] Vahid Pang Ambulatory BMSBuilding:B [place] 2 MS.CF.[facility] Repository 03/30/2018 [id number] Vahid Pang Ambulatory BMSBuilding:B [place] 4 MS.Pending sale to [facility] Repository 03/30/2018 [id number] Vahid Pang Ambulatory BMSBuilding:B [place] 0 MS.CF.[facility] Repository PAYERS PAYERS ENCOUNTER GUARANTOR PAYER SUBSCRIBER SOURCE 04/24/2018 GREG Meeks Primary IGOR S [place] [id number] [facility] REJIDDOB: [facility] Number: [id number], [place] [id number] Repository [address]Slv: (330) Date:3475-60-66LE [phone] () [id number] AALIYAH DEAN [address]PS: 04/24/2018 Secondary NOT GIVENUNK [place] Insurance:SELF PAY [facility] Number: Effective Repository Date:2018-04-16 04/16/2018 GREG Meeks Primary IGOR S [place] [id number] [facility] Number: [id number], [place] [id number] Repository [address]Edl: (330) Date:7180-39-14DE [phone] () [id number] AALIYAH DEAN [address]AC: 04/16/2018 Secondary NOT GIVENUNK [place] Insurance:SELF PAY On [facility] Number: Effective Repository Date:2018-04-16 04/01/2018 GREG Meeks Primary IGOR S [place] [id number] Insurance:AETNAPolicy MAYNARDDOB: Community [place] Number: [id number], [place] [id number] Repository [address]Gxt: (330) Date:9813-20-45KQ [phone] (HP) [id number] [address]LW: 04/01/2018 Secondary NOT GIVENUNK [place] Insurance:SELF PAY On License [facility] Number: Effective Repository Date:2018-03-30 04/01/2018 GREG Meeks Primary IGOR S [place] [id number] Insurance:AETNAPolicy MAYNARDDOB: [facility] Number: [id number], [place] [id number] Repository [address]Mff: (330) Date:9920-04-41QK [phone] (HP) [id number] [place] [address]YY: 04/01/2018 Secondary NOT GIVENUNK [place] Insurance:SELF PAY On License [facility] Number: Effective Repository Date:2018-04-01 04/01/2018 GREG Meeks Primary IGOR S [place] [id number] Insurance:AETNAPolicy MAYNARDDOB: [facility] Number: [id number], [place] [id number] Repository [address]Hgc: (330) Date:9344-43-61DS [phone] (HP) [id number] [place] [address]PG: 04/01/2018 Secondary NOT GIVENUNK [place] Insurance:SELF PAY On License [facility] Number: Effective Repository Date:2018-04-01 04/01/2018 GREG Meeks Primary IGOR S [place] [id number] Insurance:AETNAPolicy MAYNARDDOB: [facility] Number: [id number], [place] [id number] Repository [address]Epv: (330) Date:3310-78-34ZF [phone] (HP) [id number] AALIYAH DEAN [address]PB: 04/01/2018 Secondary NOT GIVENUNK [place] Insurance:SELF PAY On License [facility] Number: Effective Repository Date:2018-04-01 04/01/2018 GREG E Primary IGOR S [place] [id number] Insurance:AETNAPolicy MAYNARDDOB: [facility] Number: [id number], [place] [id number] Repository [address]Tdy: (330) Date:5728-74-61KG [phone] (HP) [id number] AALIYAH DEAN [address]DU: 04/01/2018 Secondary NOT GIVENUNK [place] Insurance:SELF PAY On License [facility] Number: Effective Repository Date:2018-04-01 03/30/2018 GREG E Primary IGOR S [place] [id number] Insurance:AETNAPolicy MAYNARDDOB: [facility] [place] Number: [id number], [place] [id number] Repository [address]Fbz: (330) Date:0524-12-72HD [phone] (HP) [id number] AALIYAH DEAN [address]AZ: 03/30/2018 Secondary NOT GIVENUNK [place] Insurance:SELF PAY [facility] Number: Effective Repository Date:2018-03-30 03/30/2018 GREG E Primary IGOR S [place] [id number] Insurance:AETNAPolicy MAYNARDDOB: [facility] Number: [id number], [place] [id number] Repository [address]Clr: (330) Date:4348-75-03GK [phone] (HP) [id number] BLACKMAN [address]XO: 03/30/2018 Secondary NOT GIVENUNK [place] Insurance:SELF PAY On [facility] Number: Effective Repository Date:2018-03-30 03/30/2018 GREG Meeks Primary IGOR S [place] [id number] Insurance:AETNAPolicy MAYNARDDOB: [facility] Number: [id number], [place] [id number] Repository [address]Gxt: (330) Date:8225-92-71ZJ [phone] (HP) [id number] AALIYAH DEAN [address]JV: 03/30/2018 Secondary NOT GIVENUNK [place] Insurance:SELF PAY On [facility] Number: Effective Repository Date:2018-03-30 03/30/2018 GREG Meeks Primary IGOR S [place] [id number] Insurance:AETNAPolicy MAYNARDDOB: [facility] Number: [id number], [place] [id number] Repository [address]Hus: (330) Date:3434-10-52GL [phone] (HP) [id number] AALIYAH DEAN [address]WD: 03/30/2018 Secondary NOT GIVENUNK [place] Insurance:SELF PAY On [facility] Number: Effective Repository Date:2018-03-30 03/30/2018 GREG Meeks Primary IGOR S [place] [id number] Insurance:AETNAPolicy MAYNARDDOB: [facility] Number: [id number], [place] [id number] Repository [address]Mzl: (330) Date:5688-75-55LL [phone] (HP) [id number] AALIYAH DEAN [address]VG: 03/30/2018 Secondary NOT GIVENUNK [place] Insurance:SELF PAY On [facility] Number: Effective Repository Date:2018-03-30
== END ==
PROVIDERS: Family Provider Family Medicine; PCP Family Medicine; Referring Provider Internal Medicine Cardiovascular Disease; Visit Provider Internal Medicine Cardiovascular Disease
DX: I25.10 Atherosclerotic heart disease of native coronary artery without angina pectoris (principal); I25.2 Old myocardial infarction; Z95.5 Presence of coronary angioplasty implant and graft
CPT/HCPCS: 93017; 93350

== ENCOUNTER → 2020-11-26 09:08 | Outpatient (CLI) | payer OTHER, SELFPAY ==
--- NOTE | 2020-11-26 09:11 | CDU_ITS ---
Reason For Study: Transient vision loss right eye Rt. Velocities/BP Lt. Velocities/BP Prox CCA 112.5/20 cm/sec. Prox CCA 120.3/31.7 cm/sec. Mid CCA 95.6/21.3 cm/sec. Mid CCA 94.3/22.6 cm/sec. Dist CCA 65.6/18.6 cm/sec. Dist CCA 77.3/21.2 cm/sec. Prox ICA 61.7/13.4 cm/sec. Prox ICA 63/19.9 cm/sec. Mid ICA 68.2/21.3 cm/sec. Mid ICA 78.6/31.73 cm/sec. Dist ICA 89.1/31.7 cm/sec. Dist ICA 79.9/30.4 cm/sec. Rt. ICA/CCA = 0.9. Lt. ICA/CCA = 0.8. Prox ECA 102.1/20 cm/sec. Prox ECA 86.4/13.4 cm/sec. Rt. Vert. 48.6/13.4 cm/sec. Lt. Vert. 46.6/14.5 cm/sec. Right Extracranial There is intimal thickening but no significant atherosclerotic plaque noted in the right common carotid artery. There is heterogeneous, irregular atherosclerotic plaque noted in the right internal carotid artery. There is intimal thickening but no significant atherosclerotic plaque noted in the right external carotid artery. Antegrade flow is noted in the right vertebral artery. Left Extracranial There is intimal thickening but no significant atherosclerotic plaque noted in the left common carotid artery. There is heterogeneous, irregular atherosclerotic plaque noted in the left internal carotid artery. There is intimal thickening but no significant atherosclerotic plaque noted in the left external carotid artery. Antegrade flow is noted in the left vertebral artery. Procedure Carotid Duplex 90982. This is a Carotid Duplex examination using B-mode, color flow and specral Doppler. Exam performed in department. VL/Carotid Duplex Ultrasound Interpretation Summary Mild (<50%) stenosis right extracranial internal carotid. Mild (<50%) stenosis left extracranial internal carotid. Flow within the vertebral arteries is antegrade bilaterally. Ordering Physician: Haroldo Bright Referring Physician: Ej Day Performed By: Myrna Cary RVT
[2020-11-26 10:17] LABS: Absolute Lymphocyte Count 2.58 X10^3/uL (0.83-4.51); Basophil# 0.07 X10^3/uL; Basophil% 0.8 % (0-1); Eosinophil# 0.32 X10^3/uL; Eosinophils% 3.7 % (0-5); Hematocrit 47.4 % (40-54); Hemoglobin 15.4 g/dL (13.0-16.5); Lymphocyte # 2.58 X10^3/ul (0.83-4.51); Lymphocyte % 29.9 % (19-41); Mean Corp Hgb Conc 32.5 g/dL (32-36); Mean Corpuscular Hgb 29.7 pg (27.0-32.0); Mean Corpuscular Volume 91.5 fL (80-94); Monocyte# 0.61 X10^3/uL; Monocyte% 7.1 % (0-10); NRBC Flagged by Analyzer 0 % (0-5); Platelet Count 215 K/mm3 (150-450); RBC Distribution Width CV 14.3 % (11.6-14.6); Red Blood Count 5.18 M/mm3 (4.6-6.2); White Blood Count 8.6 K/mm3 (4.4-11.0)
== END ==
PROVIDERS: PCP Family Medicine; Referring Provider Ophthalmology; Visit Provider Ophthalmology
DX: H53.121 Transient visual loss, right eye (principal)
CPT/HCPCS: 36415; 85025; 93880

== ENCOUNTER 2024-09-30 18:35 | Inpatient (IN) | payer OTHER, SELFPAY ==
[2024-09-30] VITALS (11 sets, daily range): BP systolic 119–143; BP diastolic 62–91; PULSE 64–88; RESP 14–28; TEMP 36.4–36.9; O2SAT 94–100; BMI 27.0; BMI 23.6
--- NOTE | 2024-09-30 18:39 | EDS_ITS ---
HPI History of Present Illness Chief Complaint: Chest Pain Detail of Chief Complaint: Acute ST elevation PR and heat exhaustion Informant: patient Onset/Context/Timing Onset: Today and Hours Context: Sudden Onset Timing: Continuous Quality: Chest pressure Location: Midsternal Current Severity: Moderate Maximum Severity: Severe Worsened by: Not applicable Relieved by: Nothing Associated Symptoms Associated Symptoms: Patient called squad for heat exposure Narrative Narrative: Patient is 68-year-old male. He has history of atherosclerotic disease per his old records with history of non-ST elevation PR March 2018. He has hyperlipidemia. Is a smoker of 1 pack/day. Squad was called because of the heat cramps heat exhaustion from being out in the hot environment. [place] was [place] the baseball field and this started. He was lifting a trash can when he developed midsternal chest pressure heaviness. He began came sick to his stomach and slight shortness of breath. Prior similar symptoms: No Recent [facility] Medical History (Updated 09/30/24 @ 18:[address] Ramirez Carrington MD) History of non-ST elevation myocardial infarction (NSTEMI) (04/01/18) Hyperlipidemia Atherosclerotic heart disease of hoh coronary artery without angina pectoris Non-STEMI (non-ST elevated myocardial infarction) Tobacco dependence Chest pain Home Medications ?Medication ?Instructions ?Recorded ?Last Taken ?Type aspirin 81 mg tablet,delayed 81 mg PO DAILY@0800 #30 t abs 04/02/18 Unknown Rx release clopidogrel 75 mg tablet 75 mg PO DAILY #30 tabs 04/10 07/26 Unknown Rx Allergy/AdvReac Type Severity Reaction Status Date / Time No Known Allergies Allergy Verified 09/30/24 18:36 Family History Brother CAD (coronary artery disease) Surgical History Stented coronary artery (04/01/18) Social History Smoking Status: Current every day smoker ROS ROS ED Constitutional Constitutional ED: Reports weight loss Cardiovascular Cardiovascular: Reports chest pain Respiratory/Chest Respiratory/Chest: Reports dyspnea Gastrointestinal Gastrointestinal: Reports nausea Integumentary Reports rash Psychiatric Psychiatric: Reports anxiety Hematologic/Lymphatic Hematologic/Lymphatic: Reports systems reviewed and no addt'l complaints, except as documented EXAM Physical Exam Const Vital Signs: 09/30/24 18:36 09/30/24 18:41 09/30/24 18:41 Temperature 97.8 F Temperature Source Oral Respiratory Rate 28 H Respiratory Effort Normal Blood Pressure 143/73 H Blood Pressure Mean 96 Pulse Ox 98 Oxygen Delivery Method Room Air Room Air Positive well nourished and well developed Constitutional Narrative: Patient appears uncomfortable. He is sweating profusely because he was out in the hot weather. General Appearance ED: well developed HEENT Reports dry mucous membranes HEENT Narrative: Poor dentition with multiple missing teeth Mouth ED: Yes dry mucous membranes Mouth: dry mucous membranes Eyes PERRL and EOMs intact bilaterally General Eye ED: Negative for pale conjunctiva or scleral icterus Neck no lymphadenopathy, supple and no JVD Chest Wall inspection of chest normal and palpation of chest normal Resp normal respiratory effort and clear to auscultation bilaterally Cardio regular rate, regular rhythm, S1 normal heart sound, S2 normal heart sound and no murmurs GI normal to inspection, nondistended, normoactive bowel sounds, non-tender, non- distended and no masses; Negative for hepatosplenomegaly Back/Spine no CVA tenderness Extremity normal to inspection General Extremety ED: Negative for edema or tenderness General Extremity: Negative for edema Neuro oriented x3 and CN's II-XII intact bilaterally Sensorium / Orientation: alert Psych mental status grossly normal Skin Skin Narrative: Patient is sweating profusely because of exposure to the hot environment. MDM MDM MDM Narrative Medical decision making narrative: Since Call was related to heat symptoms and patient clinics dehydrated 1 L of normal saline was ordered. He received 4 baby aspirin by squad. He was treated with heparin and Brilinta. STEMI was called based on prehospital EKG. Spoke with Dr. Dia. He was made aware of patient's EKG findings. I was unable to give him any demographic past history since patient had not arrived by the time he called back. Lab Data Labs: Laboratory Results - last 24 hr 09/30/24 18:40 WBC 16.8 H RBC 5.45 Hgb 16.3 Hct 48.1 MCV 88.3 MCH 29.9 MCHC 33.9 RDW Std Deviation 44.2 H RDW Coeff of Farhat 13.9 Plt Count 233 MPV 11.7 Immature Gran % (Auto) 0.800 Neut % (Auto) 74.6 H Lymph % (Auto) 18.0 L Candler % (Auto) 5.8 Eos % (Auto) 0.3 Baso % (Auto) 0.5 Absolute Neuts (auto) 12.5 H Absolute Lymphs (auto) 3.03 Nucleated RBC % 0 EKG Initial EKG: Attestation: I personally reviewed and interpreted this EKG as follows: Comments: Acute ST elevation anterior PR with premature beat and possible lateral involvement. Rate is 73. NJ interval is 130 ms Rickers 301 ms. QT duration 68 ms. Treatment and Re-Evaluation :: Aspirin per squad, heparin and Brilinta in the ED and IV fluids for heat related symptoms. Critical Care Time Critical Care Time: Yes Critical care time (excluding procedures): 30-74 minutes (20), Including time spent: (History, physical, documentation, review of prior records, treatment for acute PR and heat related injury), Discussing w/Patient &/or Family/Contracts Director, Discussing w/Consultants (Dr. Dia), Arranging Admission or Transfer, Performing Direct Patient Care at Bedside and - (Patient left for Drawer Maker at 1900.) Discharge Plan Dx/Rx/DC Orders Clinical Impression: Acute ST elevation myocardial infarction (STEMI) of anterior wall, Tobacco dependence, Hyperlipidemia, Exhaustion, heat, due to water depletion, Heat cramp, initial encounter, History of coronary artery disease Disposition Disposition: Acute Care [facility]
[2024-09-30] MEDS: 0.9% Normal Saline (1000mL) 1,000 ML 999 ML IV (18:44)
[2024-09-30] MEDS: TICAGRELOR 90 MG TABLET 180 MG PO (18:45)
[2024-09-30] MEDS: Morphine 2 MG/ML Syringe IV (18:45)
[2024-09-30] MEDS: Ondansetron 4 MG/2 ML Vial IV (18:46)
[2024-09-30 18:49] LABS: Absolute Lymphocyte Count 3.03 X10^3/uL (0.83-4.51); Absolute Neutrophil Count 12.5 X10^3/uL (2.0-7.7); Basophil# 0.09 X10^3/uL; Basophil% 0.5 % (0-1); Eosinophil# 0.05 X10^3/uL; Eosinophils% 0.3 % (0-5); Hematocrit 48.1 % (40-54); Hemoglobin 16.3 g/dL (13.0-16.5); Lymphocyte # 3.03 X10^3/ul (0.83-4.51); Mean Corp Hgb Conc 33.9 g/dL (32-36); Mean Corpuscular Hgb 29.9 pg (27.0-32.0); Mean Corpuscular Volume 88.3 fL (80-94); Mean Platelet Vol. 11.7 fl (6.2-12.0); Monocyte# 0.98 X10^3/uL; Monocyte% 5.8 % (0-10); NRBC Flagged by Analyzer 0 % (0-5); Neutrophil # 12.51 X10^3/uL (2.7-7.7); Neutrophil % 74.6 % (47-70); Platelet Count 233 K/mm3 (150-450); RBC Distribution Width CV 13.9 % (11.6-14.6); RBC Distribution Width SD 44.2 fl (35.1-43.9); Red Blood Count 5.45 M/mm3 (4.6-6.2); White Blood Count 16.8 K/mm3 (4.4-11.0)
[2024-09-30 19:06] LABS: Anion Gap 16 (5-15); BUN 14 mg/dL (4-19); BUN/Creat Ratio 7.6 RATIO (10-20); Calcium,Total 9.6 mg/dL (7.6-11.0); Carbon Dioxide 18.9 mmol/L (21.0-32.0); Chloride 105 mmol/L (98-108); Creatinine, Serum 1.79 mg/dL (0.70-1.20); EST Glomerular Filtration Rate 41 (>60); Estimated Creatinine Clearance 37.95 ml/min (50-250); Glucose 148 mg/dL (70-99); Potassium 4.9 mmol/L (3.3-5.1); Sodium Level 140 mmol/L (133-145)
[2024-09-30 19:09] LABS: Partial Thromboplast Time 21.7 Seconds (24.1-36.2)
--- NOTE | 2024-09-30 19:15 | HP.PCM.HOS_ITS ---
HPI - General General Date of Admission: 09/30/24 Date of Service: 09/30/24 Chief Complaint: Chest pain HPI Narrative The patient is a 68 y/o M w/ PMHx: Tobacco use, CAD s/p PCI last in 2017 w/ ISA mid LAD, HTN, HLD and from previous cardiology notes at follow-up in 2018 he had discontinued both his statin and metoprolol therapy of note with continued tobacco usage who now Chantelle presents to the [facility] ED on 09/26/2024 with history of onset of midsternal chest discomfort described as a pressure-like sensation/heaviness with nausea and emesis as well as dyspnea and diaphoresis noted to range from moderate to severe with 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 In the ED given presentation with confirmed anterolateral STEMI STEMI alert prehospital initiation with cardiology discussions with Dr. Dia treated with heparin bolus, aspirin per EMS and Brilinta load. Workup in the ED included T97.8, heart rate 73, BP 143/73, respiratory rate 28, 98% on room air, CBC with WBC 16.8, hemoglobin 16.3, platelet 233 with left shift, BMP with carbon oxide 18.9, anion gap 16, BUN/creatinine 14/1.79, GFR 41, glucose 148, EKG with confirmation of anterior lateral STEMI. 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 [facility] Medical History (Updated 09/30/24 @ 22:[address] Sophie Lebron MD) HTN (hypertension) History of non-ST elevation myocardial infarction (NSTEMI) (04/01/18) Hyperlipidemia Atherosclerotic heart disease of [place] coronary artery without angina pectoris Non-STEMI (non-ST elevated myocardial infarction) Tobacco dependence Home Medications ?Medication ?Instructions ?Recorded ?Last Taken ?Type aspirin 81 mg tablet,delayed 81 mg PO DAILY@0800 #30 t abs 04/02/18 Unknown Rx release clopidogrel 75 mg tablet 75 mg PO DAILY #30 tabs 04/10 07/26 Unknown Rx Allergy/AdvReac Type Severity Reaction Status Date / Time No Known Allergies Allergy Verified 09/30/24 18:36 Family History (Updated 09/30/24 @ 22:[address] Sophie Lebron MD) Brother CAD (coronary artery disease) Father Demyelinating disease Mother Heart disease Hypertension Heart failure Surgical History Stented coronary artery (04/01/18) Social History (Updated 09/30/24 @ 22:[address] Sophie Lebron MD) household members: spouse Smoking Status: Current every day smoker tobacco type: cigarettes Smoking packs per day: 1 Smoking cigarettes per day: 20.0 how long ago did patient quit smoking: Smoked since 11 y/o, quit ~ 25 yrs in between. Notes intention to stop. quit status: quit date established alcohol intake: never substance use type: does not use ROS ROS Narrative Admission Review of Systems: CONSTITUTIONAL: No weight loss, fever, chills, + weakness or fatigue. HEENT: Eyes: No visual loss, blurred vision, double vision or yellow sclerae. Ears, Nose, Throat: No hearing loss, sneezing, congestion, runny nose or sore throat. SKIN: No rash or itching, lesions, wounds. CARDIOVASCULAR: + Chest pain. No palpitations, edema, orthopnea, syncopal events. RESPIRATORY: + Dyspnea. No cough or sputum, wheezing, hemoptysis. GASTROINTESTINAL: + anorexia, nausea, vomiting. No diarrhea, abdominal pain, melena, BRBPR. GENITOURINARY: No dysuria, frequency, urgency or retention. NEUROLOGICAL: No headache, dizziness, syncope, paralysis, ataxia, numbness or tingling in the extremities, focal weakness, change in bowel or bladder control, seizure. MUSCULOSKELETAL: + muscle, back pain, joint pain or stiffness. HEMATOLOGIC: No anemia, bleeding or bruising. LYMPHATICS: No enlarged nodes. No history of splenectomy. PSYCHIATRIC: No history of depression or anxiety. ENDOCRINOLOGIC: + History of diaphoresis. No cold or heat intolerance. No polyuria or polydipsia. ALLERGIES: No history of asthma, hives, eczema or rhinitis. Vital Signs Vital Signs Vital Signs: 09/30/24 18:36 09/30/24 18:41 09/30/24 18:41 Temperature 97.8 F Temperature Source Oral Pulse Rate Respiratory Rate 28 H Respiratory Effort Normal Blood Pressure 143/73 H Blood Pressure Mean 96 Pulse Ox 98 Oxygen Delivery Method Room Air Room Air 09/30/24 18:50 Temperature Temperature Source Pulse Rate 73 Respiratory Rate 22 H Respiratory Effort Blood Pressure 125/62 H Blood Pressure Mean 83 Pulse Ox 100 Oxygen Delivery Method Room Air Weight Weight: 172 lb 9.951 oz Body Mass Index (BMI) 27.0 Physical Exam Narrative Physical Examination: General: Awake, alert, oriented x 3 and cooperative, seated upright in the bed, fatigued appearing, currently denies chest pain. Skin: Normal color, normal turgor, no icterus, no cyanosis except occasional stage ecchymoses. HEENT: AT/NC, EOMI, PERRLA, mildly dry MM, no carotid bruits or JVD noted. Lungs: CTA bilaterally, moderate effort, mild decrease BL bases, no rales, ronchi or wheezing. Heart: Regular rate and rhythm; no gallop, rub audible. Abdomen: Soft, NTTP, ND, mildly hyperactive BS, no appreciated HSM. Extremities: No cyanosis, clubbing, or edema. Neurological: Patient awake, alert, oriented as noted, cognitive function intact; pupils equally reactive to light and accommodation, cranial nerves grossly normal, moving all 4 extremities, no focal deficits, strength moderately to severely globally decreased secondary to acute presentation. Psychiatric: Affect appears fatigued otherwise normal, no acute evidence of depressive or anxiety feelings. Results Lab / Micro Data 09/30/24 18:40 09/30/24 18:40 Labs: Laboratory Results - last 24 hr 09/30/24 18:40: WBC 16.8 H, RBC 5.45, Hgb 16.3, Hct 48.1, MCV 88.3, MCH 29.9, MCHC 33.9, RDW Std Deviation 44.2 H, RDW Coeff of Farhat 13.9, Plt Count 233, MPV 11.7, Immature Gran % (Auto) 0.800, Neut % (Auto) 74.6 H, Lymph % (Auto) 18.0 L, [place] % (Auto) 5.8, Eos % (Auto) 0.3, Baso % (Auto) 0.5, Absolute Neuts (auto) 12.5 H, Absolute Lymphs (auto) 3.03, Nucleated RBC % 0, PT 13.0, INR 1.0, APTT 21.7 L, Sodium 140, Potassium 4.9, Chloride 105, Carbon Dioxide 18.9 L, Anion Gap 16 H, BUN 14, Creatinine 1.79 H, Estim Creat Clear Calc 37.95 L, Est GFR (MDRD) Non-Af 41 L, BUN/Creatinine Ratio 7.6 L, Glucose 148 H, Calcium 9.6 Assessment & Plan Assessment/Plan (1) Coronary artery disease: PLAN: Plan The patient is a 68 y/o M w/ PMHx: Tobacco use, CAD s/p PCI last in 2018 w/ ISA mid LAD, HTN, HLD and from previous cardiology notes at follow-up in 2018 he had discontinued both his statin and metoprolol therapy of note with continued tobacco usage who now Chantelle presents to the [facility] ED on 09/26/2024 with history of onset of midsternal chest discomfort described as a pressure-like sensation/heaviness with nausea and emesis as well as dyspnea and diaphoresis noted to range from moderate to severe with been 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 #1. Chest Pain w/ Acute anterolateral STEMI with history of CAD status post previous PCI ISA mid LAD 2017 unfortunately noncompliant with medications: EKG in ED w/ concern for anterolateral STEMI, initial troponin 9. Will admit to the ICU following transition from cardiac catheterization lab, will maintain on a monitored bed, continue serial cardiac enzymes and EKGs. Obtain magnesium level upon admission. Patient bolused with heparin in the ED. Continue medical management w/ asa, add BB with metoprolol versus Coreg per cardiology discretion, add high-dose statin w/ AM FLP. ECHO requested. Cardiology performing cardiac catheterization emergently as noted, will continue to follow. Will judiciously hydrate given contrast usage. #2. Leukocytosis: Admission CBC with WC 16.8 with left shift however suspect significant dehydration given he been working outside all day, will judiciously hydrate, repeat CBC in AM. Low suspicion for infection. #3. Acute kidney injury: Secondary to dehydration as noted above. Admission BUN/Cr 14/1.79, GFR 41, prior baseline creatinine noted to be primarily 0.9-1.0, will judiciously hydrate, hold nephrotoxic medications and repeat chemistry in AM. If cardiology has concerns arise during cardiac catheterization for potential risk for overload then may need to decrease the amount of fluids given. #4. Hypertension: Per cardiology discretion will reinitiate beta-carlos therapy, defer to Coreg versus metoprolol per their discretion, possible low- dose TIFFANIE inhibitor addition but again will defer to cardiology discretion. PRN hydralazine. #5. Hyperlipidemia: Will add high-dose statin therapy, FLP in AM. #6. Tobacco Abuse: Encouraged cessation, inpatient consultation per RT, NR if desired. #7. DVT prophylaxis: Lovenox. #8. CODE status: Patient does not have healthcare power of assistant prosecuting attorney or living will in place but notes his will be his medical decision-maker if necessary. Discussed CODE status at length including difference between FULL code, DNR-CCA and DNR-CC status. Following discussions about the differences in these status, requested Full Code status. Charges/Coding Visit Charges Inpatient E&M: 07784 Init Hosp L3
[2024-09-30 19:23] LABS: Troponin T High Sensitivity 9 ng/L (<=22)
--- NOTE | 2024-09-30 19:29 | EKG12_ITS ---
Test Reason : Blood Pressure : */* mmHG Vent. Rate : 74 BPM Atrial Rate : 74 BPM P-R Int : 182 ms QRS Dur : 78 ms QT Int : 360 ms P-R-T Axes : 49 -33 12 degrees QTcB Int : 399 ms Critical Test Result: STEMI Normal sinus rhythm Left axis deviation Anteroseptal AZ, acute ACUTE AZ / STEMI Abnormal ECG When compared with ECG of 02-Apr-2018 04:33, Significant changes have occurred Confirmed by BRIAN ESTRADA, GEE ([id number]), news copy editor KAROLINA GAMBOA ([id number]) on 10/01/2024 1:23:33 PM Referred By: Presley Dia Confirmed By: GEE TORRES MD
[2024-09-30 20:05] LABS: ACT Activated Clotting Time 228 sec (74-137)
--- NOTE | 2024-09-30 20:13 | CON.PCM.CA_ITS ---
Assessment & Plan Assessment/Plan (1) Acute ST elevation myocardial infarction (STEMI) of anterior wall: PLAN: Patient was taken emergently to the cardiac catheterization lab. Coronary angiography revealed in-stent thrombosis of the previously deployed stent to the mid LAD. Successful percutaneous revascularization was performed with balloon angioplasty and 2 drug-eluting stents. Excellent results were noted with moravian of ALTON-3 flow. Continue aspirin lifelong. Clopidogrel treatment for at least 1 year. Risk factor modification. (2) Coronary artery disease: PLAN: Patient has residual lesions in his left circumflex and RCA. For staged PCI. (3) Left ventricular systolic dysfunction (LVSD): PLAN: Secondary to #1 above. Beta-blockers, ACEI, SGLT2 inhibitors, spironolactone, diuretics. (4) Nicotine dependence: PLAN: Counseled to quit. (5) Non-compliance: PLAN: Patient not compliant with regular medical follow-up or with his medications. Emphasized the need for regular cardiac and and medical follow-up and the necessity of taking his medications regularly. HPI Consult Data Date of Consult: 09/30/24 HPI Narrative Reason for Consultation: Acute anterior ME HPI Narrative: 68-year-old gentleman with past medical history significant for coronary artery disease status post drug-eluting stent to the mid LAD in 2018. Noncompliant with medications. EMS was called with complaints of acute onset anterior chest discomfort earlier this evening. An ECG was done. It showed acute anterior ST elevation myocardial infarction. Subsequently a STEMI alert was called. [facility] Medical History (Updated 09/30/24 @ 20:[address] Presley Dia MD) History of non-ST elevation myocardial infarction (NSTEMI) (04/01/18) Hyperlipidemia Atherosclerotic heart disease of [place] coronary artery without angina pectoris Non-STEMI (non-ST elevated myocardial infarction) Tobacco dependence Chest pain Home Medications ?Medication ?Instructions ?Recorded ?Last Taken ?Type aspirin 81 mg tablet,delayed 81 mg PO DAILY@0800 #30 t abs 04/02/18 Unknown Rx release clopidogrel 75 mg tablet 75 mg PO DAILY #30 tabs 04/10 07/26 Unknown Rx Allergy/AdvReac Type Severity Reaction Status Date / Time No Known Allergies Allergy Verified 09/30/24 18:36 Family History Brother CAD (coronary artery disease) Surgical History Stented coronary artery (04/01/18) Social History Smoking Status: Current every day smoker tobacco type: cigarettes Physical Exam Narrative Appeared anxious, in acute discomfort. Heart sounds 1 and 2 noted. Chest with decreased air entry bilaterally. Alert oriented x 3. No ankle edema. Risk Stratification Risk Stratification Applicable: No Objective Data Vital Signs: Vital Signs Temp Pulse Resp BP Pulse Ox O2 Del Method 97.8 F 64 18 120/72 99 Room Air 09/30/24 19:16 09/30/24 19:16 09/30/24 19:16 09/30/24 19:16 09/30/24 19:16 09/30/24 19:06 Oxygen Delivery Method Room Air Weight: 172 lb 9.951 oz Body Mass Index (BMI) 27.0 Intake & Output: Intake and Output for Last 24 Hours 09/28/24 09/29/24 09/30/24 23:59 23:59 23:59 Intake Total 0 / 0 Balance 0 / 0 Lab / Micro Data Attestation: I reviewed the patient's lab results. 09/30/24 18:40 09/30/24 18:40 Labs: Laboratory Results - last 24 hr 09/30/24 18:40: WBC 16.8 H, RBC 5.45, Hgb 16.3, Hct 48.1, MCV 88.3, MCH 29.9, MCHC 33.9, RDW Std Deviation 44.2 H, RDW Coeff of [place]hat 13.9, Plt Count 233, MPV 11.7, Immature Gran % (Auto) 0.800, Neut % (Auto) 74.6 H, Lymph % (Auto) 18.0 L, [place] % (Auto) 5.8, Eos % (Auto) 0.3, Baso % (Auto) 0.5, Absolute Neuts (auto) 12.5 H, Absolute Lymphs (auto) 3.03, Nucleated RBC % 0, PT 13.0, INR 1.0, APTT 21.7 L, Sodium 140, Potassium 4.9, Chloride 105, Carbon Dioxide 18.9 L, Anion Gap 16 H, BUN 14, Creatinine 1.79 H, Estim Creat Clear Calc 37.95 L, Est GFR (MDRD) Non-Af 41 L, BUN/Creatinine Ratio 7.6 L, Glucose 148 H, Calcium 9.6, Troponin T High Sens 9 09/30/24 18:54: Activated Clotting Time 228 H Cardiology Labs/Tests 09/30/24 18:40: WBC 16.8 H, RBC 5.45, Hgb 16.3, Hct 48.1, MCV 88.3, MCH 29.9, MCHC 33.9, Plt Count 233, MPV 11.7, Immature Gran % (Auto) 0.800, Neut % (Auto) 74.6 H, Lymph % (Auto) 18.0 L, [place] % (Auto) 5.8, Eos % (Auto) 0.3, Baso % (Auto) 0.5, Absolute Neuts (auto) 12.5 H, Nucleated RBC % 0, PT 13.0, INR 1.0, A PTT 21.7 L, Sodium 140, Potassium 4.9, Chloride 105, Carbon Dioxide 18.9 L, A nion Gap 16 H, BUN 14, Creatinine 1.79 H, Est GFR (MDRD) Non-Af 41 L, B UN/Creatinine Ratio 7.6 L, Glucose 148 H, Calcium 9.6 Rhythm: EKG: Changes consistent with acute anterolateral ST elevation myocardial infarction ECHO: Stress Test: Cardiac Cath: PCI: CT Surgery: Holter monitor: EPS: PPM: CXR: Chest CT Scan:
--- NOTE | 2024-09-30 21:27 | ECHOCS_ITS ---
Reason For Study Reason For Study: STEMI Procedure This was a 2D Doppler, Color Flow transthoracic echocardiogram. Contrast injection was performed. Exam performed portable in ICU/CCU. Left Ventricle Normal size and thickness. Anterior, apical and septal akinesis. Estimated LVEF 40%. Stage I diastolic dysfunction. Possible small LV apical thrombus. Right Ventricle Normal right ventricle. Atria The left and right atria are normal. Mitral Valve Trivial mitral valve insufficiency. Tricuspid Valve Trivial tricuspid valve insufficiency. Normal pulmonary artery pressure. Aortic Valve Trisinus/trileaflet aortic valve. Trivial aortic valve insufficiency. Pulmonic Valve The pulmonic valve is not well visualized. Great Vessels Normal sized aortic root. Pericardium/Pleural No pericardial effusion. Medication Diluted definity 1.5ml given slow IV push to enhance endocardial definition. MMode/2D Measurements & Calculations LVIDd: 4.1 cm IVSd: 1.1 cm LVOT diam: 1.9 cm LVIDs: 2.5 cm LVPWd: 1.0 cm RVDd: 3.8 cm FS: 37.5 % LVOT area: 3.0 cm2 asc Aorta Diam: 3.3 cm LAV(MOD-bp): 34.3 ml LVAd ap4: 36.5 cm2 LAV(MOD-bp) Indexed: 17.5 ml/m2 LVLd ap4: 9.0 cm LAV(MOD-sp2): 39.5 ml EDV(MOD-sp4): 119.4 ml LAV(MOD-sp4): 30.1 ml EDV(sp4-el): 126.0 ml LVAs ap4: 26.9 cm2 LVLs ap4: 8.5 cm ESV(MOD-sp4): 70.1 ml ESV(sp4-el): 72.4 ml EF(MOD-sp4): 41.3 % EF(sp4-el): 42.6 % LVAd ap2: 35.5 cm2 SV(MOD-sp4): 49.4 ml SV(MOD-sp2): 38.5 ml LVLd ap2: 8.8 cm SI(MOD-sp4): 25.1 ml/m2 SI(MOD-sp2): 19.6 ml/m2 EDV(MOD-sp2): 114.2 ml EDV(sp2-el): 121.2 ml LVAs ap2: 28.1 cm2 LVLs ap2: 8.4 cm ESV(MOD-sp2): 75.7 ml ESV(sp2-el): 79.3 ml EF(MOD-sp2): 33.7 % SV(sp4-el): 53.6 ml Ao sinus diam: 3.[address] Junction: 2.8 cm LA dimension(2D): 3.7 cm LA A4 area: 13.3 cm2 RA A4 area: 10.0 cm2 TAPSE: 1.8 cm Time Measurements MV dec time: 0.19 sec Doppler Measurements & Calculations MV E max [place]: 81.4 cm/sec Lat Peak E' [place]: 12.5 cm/sec Med Peak E' [place]: 11.3 cm/sec MV A max jefferson: 85.3 cm/sec E/E' lat: 6.5 E/E' med: 7.2 MV E/A: 0.95 MV dec slope: 434.2 cm/sec2 Ao V2 max: 142.7 cm/sec LV V1 max: 126.5 cm/sec Ao max P.1 mmHg LV V1 max P.4 mmHg Ao V2 mean: 110.7 cm/sec LV V1 mean P.3 mmHg Ao mean P.2 mmHg LV V1 mean: 83.7 cm/sec Ao V2 VTI: 27.8 cm LV V1 VTI: 25.3 cm AV (velocity ratio): 0.91 KRISTINA(I,D): 2.7 cm2 KRISTINA(V,D): 2.6 cm2 SV(LVOT): 75.0 ml PA V2 max: 110.2 cm/sec TR max jefferson: 237.5 cm/sec TR max P.6 mmHg ECHO/Echo Complete W/ Contrast Interpretation Summary Anterior, apical and septal akinesis. Estimated LVEF 40%. Stage I diastolic dys function. Possible small LV apical thrombus. Ordering Physician: Sophie Lebron Referring Physician: Noé Kaur Performed By: Tika Sparrow RDCS
[2024-09-30 21:39] LABS: Magnesium 2.1 mg/dL (1.5-2.2)
[2024-09-30 22:19] LABS: Troponin T High Sens 2 HR 2056 ng/L (<=22)
[2024-09-30] MEDS: 0.9% Normal Saline (1000mL) 1,000 ML 75 ML IV (22:36)
[2024-09-30] MEDS: Atorvastatin Calcium 80 MG Tablet PO (22:37)
[2024-09-30] MEDS: Carvedilol 3.125 MG TABLET PO (22:37)
[2024-10-01] VITALS (16 sets, daily range): BP systolic 105–133; BP diastolic 60–99; PULSE 67–86; RESP 13–24; TEMP 36.4–36.9; O2SAT 94–98; BMI 23.3
[2024-10-01 00:36] LABS: Troponin T High Sens 4 HR 3329 ng/L (<=22)
[2024-10-01] MEDS: Clopidogrel Bisulfate 300 MG Tablet PO (02:54)
[2024-10-01] MEDS: Acetaminophen 325 MG Tablet 650 MG PO ×3 (03:03→21:20)
[2024-10-01 05:01] LABS: Absolute Lymphocyte Count 1.81 X10^3/uL (0.83-4.51); Absolute Neutrophil Count 10.2 X10^3/uL (2.0-7.7); Basophil# 0.04 X10^3/uL; Basophil% 0.3 % (0-1); Eosinophil# 0.02 X10^3/uL; Eosinophils% 0.2 % (0-5); Hematocrit 42.9 % (40-54); Hemoglobin 14.7 g/dL (13.0-16.5); Lymphocyte # 1.81 X10^3/ul (0.83-4.51); Lymphocyte % 13.8 % (19-41); Mean Corp Hgb Conc 34.3 g/dL (32-36); Mean Corpuscular Hgb 30.1 pg (27.0-32.0); Mean Corpuscular Volume 87.9 fL (80-94); Mean Platelet Vol. 11.6 fl (6.2-12.0); Monocyte# 0.99 X10^3/uL; Monocyte% 7.5 % (0-10); NRBC Flagged by Analyzer 0 % (0-5); Neutrophil % 77.7 % (47-70); Platelet Count 208 K/mm3 (150-450); RBC Distribution Width CV 13.9 % (11.6-14.6); RBC Distribution Width SD 44.8 fl (35.1-43.9); Red Blood Count 4.88 M/mm3 (4.6-6.2); White Blood Count 13.1 K/mm3 (4.4-11.0)
[2024-10-01 05:42] LABS: ALB/GLOB Ratio 1.6 RATIO (0.9-2.4); AST(SGOT) 265 U/L (<=37); Alanine Aminotransfer ALT/SGPT 48 U/L (<=46); Albumin, Serum 3.8 g/dL (3.4-4.8); Alkaline Phosphatase 77 U/L (40-129); Anion Gap 12 (5-15); BUN 15 mg/dL (4-19); BUN/Creat Ratio 12.4 RATIO (10-20); Calcium,Total 9.2 mg/dL (7.6-11.0); Carbon Dioxide 21.7 mmol/L (21.0-32.0); Chloride 105 mmol/L (98-108); Creatinine, Serum 1.19 mg/dL (0.70-1.20); EST Glomerular Filtration Rate 67 (>60); Estimated Creatinine Clearance 65.04 ml/min (50-250); Globulin 2.4 g/dL (2.2-4.2); Glucose 129 mg/dL (70-99); Potassium 4.1 mmol/L (3.3-5.1); Protein, Total 6.2 g/dL (5.9-8.4); Sodium Level 139 mmol/L (133-145); Total Bilirubin 0.29 mg/dL (0.00-1.30)
[2024-10-01 06:19] LABS: Cholesterol 166 mg/dL (<=200); High Density Lipoprotein 34 mg/dL; Low Density Lipoprotein Calc. 103 mg/dL; Triglycerides 148 mg/dL; Very Low Density Lipoprotein 30 mg/dL (5-40); cholesterol:hdl ratio screen 4.94
[2024-10-01 06:21] LABS: Hemoglobin A1c 5.7 % (<=5.6)
--- NOTE | 2024-10-01 07:00 | EKG12_ITS ---
Test Reason : am ekg Blood Pressure : */* mmHG Vent. Rate : 70 BPM Atrial Rate : 70 BPM P-R Int : 142 ms QRS Dur : 90 ms QT Int : 394 ms P-R-T Axes : 56 -51 59 degrees QTcB Int : 425 ms Normal sinus rhythm Left axis deviation Low voltage QRS Cannot rule out Anteroseptal infarct , age undetermined Abnormal ECG When compared with ECG of 30-Sep-2024 20:14, MANUAL COMPARISON REQUIRED DATA IS UNCONFIRMED Confirmed by BRIAN ESTRADA, GEE ([id number]), subeditor KAROLINA GAMBOA ([id number]) on 10/01/2024 1:21:49 PM Referred By: Presley Dia Confirmed By: GEE TORRES MD
--- NOTE | 2024-10-01 08:46 | PCM.PN.CARD ---
Subjective Subjective Denies any complaint. No chest pain. No shortness of breath. Objective Data Vital Signs: Vital Signs Temp Pulse Resp BP Pulse Ox O2 Del Method 97.6 F L 82 24 H 124/84 H 98 Room Air 10/01/24 04:00 10/01/24 07:00 10/01/24 07:00 10/01/24 07:00 10/01/24 07:00 10/01/24 07:00 Oxygen Delivery Method Room Air Weight: 167 lb 1.766 oz Body Mass Index (BMI) 23.3 Intake & Output: Intake and Output for Last 24 Hours 09/29/24 09/30/24 10/01/24 23:59 23:59 23:59 Intake Total 1000 / 1000 Output Total 350 / 350 Balance 1000 / 1000 -350 / -350 Lab / Micro Data Attestation: I reviewed the patient's lab results. 10/01/24 04:30 10/01/24 04:30 Labs: Laboratory Results - last 24 hr 09/30/24 18:40: WBC 16.8 H, RBC 5.45, Hgb 16.3, Hct 48.1, MCV 88.3, MCH 29.9, MCHC 33.9, RDW Std Deviation 44.2 H, RDW Coeff of [place]hat 13.9, Plt Count 233, MPV 11.7, Immature Gran % (Auto) 0.800, Neut % (Auto) 74.6 H, Lymph % (Auto) 18.0 L, [place] % (Auto) 5.8, Eos % (Auto) 0.3, Baso % (Auto) 0.5, Absolute Neuts (auto) 12.5 H, Absolute Lymphs (auto) 3.03, Nucleated RBC % 0, PT 13.0, INR 1.0, APTT 21.7 L, Sodium 140, Potassium 4.9, Chloride 105, Carbon Dioxide 18.9 L, Anion Gap 16 H, BUN 14, Creatinine 1.79 H, Estim Creat Clear Calc 37.95 L, Est GFR (MDRD) Non-Af 41 L, BUN/Creatinine Ratio 7.6 L, Glucose 148 H, Calcium 9.6, Magnesium 2.1, Troponin T High Sens 9 09/30/24 18:54: Activated Clotting Time 228 H 09/30/24 21:40: Troponin T Hi Sens 2 Hr 2056 H* 09/30/24 23:15: Troponin T Hi Sens 4Hr 3329 H* 10/01/24 04:30: WBC 13.1 H, RBC 4.88, Hgb 14.7, Hct 42.9, MCV 87.9, MCH 30.1, MCHC 34.3, RDW Std Deviation 44.8 H, RDW Coeff of [place]hat 13.9, Plt Count 208, MPV 11.6, Immature Gran % (Auto) 0.500, Neut % (Auto) 77.7 H, Lymph % (Auto) 13.8 L, [place] % (Auto) 7.5, Eos % (Auto) 0.2, Baso % (Auto) 0.3, Absolute Neuts (auto) 10.2 H, Absolute Lymphs (auto) 1.81, Nucleated RBC % 0, Sodium 139, Potassium 4.1, Chloride 105, Carbon Dioxide 21.7, Anion Gap 12, BUN 15, Creatinine 1.19, Estim Creat Clear Calc 65.04, Est GFR (MDRD) Non-Af 67, BUN/Creatinine Ratio 12.4, Glucose 129 H, Hemoglobin A1c 5.7, Calcium 9.2, Total Bilirubin 0.29, AST 265 H, ALT 48 H, Alkaline Phosphatase 77, Total Protein 6.2, Albumin 3.8, Globulin 2.4, Albumin/Globulin Ratio 1.6, Triglycerides 148, Cholesterol 166, LDL Cholesterol, Calc 103, VLDL Cholesterol 30, HDL Cholesterol 34 L, Cholesterol/HDL Ratio 4.94 Rhythm Strip Rhythm Strip: Sinus Rhythm Cardiology Labs/Tests 09/30/24 18:40: WBC 16.8 H, RBC 5.45, Hgb 16.3, Hct 48.1, MCV 88.3, MCH 29.9, MCHC 33.9, Plt Count 233, MPV 11.7, Immature Gran % (Auto) 0.800, Neut % (Auto) 74.6 H, Lymph % (Auto) 18.0 L, [place] % (Auto) 5.8, Eos % (Auto) 0.3, Baso % (Auto) 0.5, Absolute Neuts (auto) 12.5 H, Nucleated RBC % 0, PT 13.0, INR 1.0, APTT 21.7 L, Sodium 140, Potassium 4.9, Chloride 105, Carbon Dioxide 18.9 L, Anion Gap 16 H, BUN 14, Creatinine 1.79 H, Est GFR (MDRD) Non-Af 41 L, BUN/Creatinine Ratio 7.6 L, Glucose 148 H, Calcium 9.6, Magnesium 2.1 10/01/24 04:30: WBC 13.1 H, RBC 4.88, Hgb 14.7, Hct 42.9, MCV 87.9, MCH 30.1, MCHC 34.3, Plt Count 208, MPV 11.6, Immature Gran % (Auto) 0.500, Neut % (Auto) 77.7 H, Lymph % (Auto) 13.8 L, [place] % (Auto) 7.5, Eos % (Auto) 0.2, Baso % (Auto) 0.3, Absolute Neuts (auto) 10.2 H, Nucleated RBC % 0, Sodium 139, Potassium 4.1, Chloride 105, Carbon Dioxide 21.7, Anion Gap 12, BUN 15, Creatinine 1.19, Est GFR (MDRD) Non-Af 67, BUN/Creatinine Ratio 12.4, Glucose 129 H, Hemoglobin A1c 5.7, Calcium 9.2, Total Bilirubin 0.29, Triglycerides 148, Cholesterol 166, VLDL Cholesterol 30, HDL Cholesterol 34 L, Cholesterol/HDL Ratio 4.94 Rhythm: EKG: Sinus rhythm with PACs. STs resolved. ECHO: Stress Test: Cardiac Cath: PCI: CT Surgery: Holter monitor: EPS: PPM: CXR: Chest CT Scan: Physical Exam Narrative Comfortable. No apparent distress. Heart sounds 1 and 2 normal. No murmurs or rubs. Chest clear to auscultation bilaterally. Alert oriented x 3. No ankle edema. Assessment & Plan Assessment/Plan (1) Acute ST elevation myocardial infarction (STEMI) of anterior wall: PLAN: Patient was taken emergently to the cardiac catheterization lab. Coronary angiography revealed in-stent thrombosis of the previously deployed stent to the mid LAD. Successful percutaneous revascularization was performed with balloon angioplasty and 2 drug-eluting stents. Excellent results were noted with denominational of ALTON-3 flow. Continue aspirin lifelong. Clopidogrel treatment for at least 1 year. Risk factor modification. (2) Coronary artery disease: PLAN: For staged PCI to left circumflex and RCA. Will plan on doing PCI to left circumflex tomorrow. (3) Left ventricular systolic dysfunction (LVSD): PLAN: Secondary to #1 above. Beta-blockers, ACEI, SGLT2 inhibitors, spironolactone, diuretics. (4) Nicotine dependence: PLAN: Counseled to quit. (5) Non-compliance: PLAN: Patient assures that he will start taking his medications regularly and also be compliant with regular medical follow-up.
[2024-10-01] MEDS: Empagliflozin 10 MG Tablet PO (09:20)
[2024-10-01] MEDS: Lisinopril 2.5 MG Tablet PO (09:20)
[2024-10-01] MEDS: Enoxaparin 40 MG/0.4 ML Syringe SC (09:21)
[2024-10-01] MEDS: Aspirin 81 MG TAB.CHEW PO (09:21)
[2024-10-01] MEDS: Furosemide 40 MG Tablet PO (09:21)
[2024-10-01] MEDS: Carvedilol 3.125 MG TABLET PO ×2 (09:21→17:58)
[2024-10-01] MEDS: Spironolactone 25 MG Tablet 12.5 MG PO (09:21)
--- NOTE | 2024-10-01 10:53 | CASEMGMT ---
JIAN MÁRQUEZ Assessment Face to Face with patient for initial transition planning/care coordination assessment. JIAN MÁRQUEZ introduced self and role at [facility], pt voices understanding. Pt is A&Ox4 and is resting comfortably in bed and is calm. Care providers, pharmacy, and demographics verified. Admitting dx: STEMI LACE Strata: 1 PCP: Noé Kaur Specialists: TAZ Preferred Pharmacy: [facility]. Pt educated about the potential for an anticoag Rx and using WCP for meds to bed. Pt states that he prefers to go through [facility] Insurance: [employer] Prescription Benefit: Yes LNOK: Bel (W) Living Arrangements: Pt lives with his in a 2 story home with a basement and a FFSU and 3 steps to enter ADLs/IADLs: Indep. 6-click score is 24 Transportation: Self, . Denies concerns DME: [employer]. Denies further uses or needs currently HHC/SNF: Denies hx or needs Pt?s goal: Home Plan: Anticipate home with no additional needs e/f for new anticoag Rx. Pt states that he has plenty of family support around his area and that his also provides great support. Pt denies the need for any HH or OP Tx. Pt states that he feels safe returning home with his once medically ready and denies further questions or concerns at this time. Ivelisse Summers RN, CM
--- NOTE | 2024-10-01 11:01 | ECQM.STEMI ---
STEMI STEMI ED Door Time / Other REG STEMI EKG Time (1) Acute ST elevation myocardial infarction (STEMI) of anterior wall: Acute 09/30/24 18:35 Balloon/Aspiration Date-Time Date of Balloon/Aspiration:: 09/30/24 Time of Balloon/Aspiration:: 19:20
[2024-10-01] MEDS: Rivaroxaban 20 MG Tablet PO (13:16)
--- NOTE | 2024-10-01 14:44 | PN.HOSP_ITS ---
Reason for Visit Reason for Visit: Diagnoses Nicotine dependence, unspecified, uncomplicated (09/30/24) ST elevation (STEMI) myocardial infarction involving other coronary artery of anterior wall (09/30/24) Atherosclerotic heart disease of [place] coronary artery without angina pectoris (09/30/24) Other ill-defined heart diseases (09/30/24) Patient's noncompliance with other medical treatment and regimen due to unspecified reason (09/30/24) Subjective Subjective Patient was seen and examined today, nursing states that he did not want to take Plavix, he also stated he did not believe he had a heart attack. I talked with the patient about this and he has agreed to take Plavix, cardiology called me and told me that there was evidence of thrombus on his echocardiogram and that the recommended patient go on Xarelto. I recommended that the patient's aspirin be stopped. I made these changes, it is presently planned that the patient will not undergo another cardiac catheterization tomorrow. There was concerns about the patient's compliance according to cardiology. Objective Data Objective Data Vital Signs: Vital Signs Temp Pulse Resp BP Pulse Ox O2 Del Method 97.9 F 80 23 H 113/84 H 96 Room Air 10/01/24 08:00 10/01/24 11:00 10/01/24 11:00 10/01/24 11:00 10/01/24 12:12 10/01/24 12:12 Oxygen Delivery Method Room Air Weight: 75.8 kg Body Mass Index (BMI) 23.3 Intake & Output: Intake and Output for Last 24 Hours 09/29/24 09/30/24 10/01/24 23:59 23:59 23:59 Intake Total 1000 / 1000 1000 / 1000 Output Total 600 / 600 Balance 1000 / 1000 400 / 400 Lab / Micro Data 10/01/24 04:30 10/01/24 04:30 Labs: Laboratory Results - last 24 hr 09/30/24 18:40: WBC 16.8 H, RBC 5.45, Hgb 16.3, Hct 48.1, MCV 88.3, MCH 29.9, MCHC 33.9, RDW Std Deviation 44.2 H, RDW Coeff of [place]hat 13.9, Plt Count 233, MPV 11.7, Immature Gran % (Auto) 0.800, Neut % (Auto) 74.6 H, Lymph % (Auto) 18.0 L, [place] % (Auto) 5.8, Eos % (Auto) 0.3, Baso % (Auto) 0.5, Absolute Neuts (auto) 12.5 H, Absolute Lymphs (auto) 3.03, Nucleated RBC % 0, PT 13.0, INR 1.0, APTT 21.7 L, Sodium 140, Potassium 4.9, Chloride 105, Carbon Dioxide 18.9 L, Anion Gap 16 H, BUN 14, Creatinine 1.79 H, Estim Creat Clear Calc 37.95 L, Est GFR (MDRD) Non-Af 41 L, BUN/Creatinine Ratio 7.6 L, Glucose 148 H, Calcium 9.6, Magnesium 2.1, Troponin T High Sens 9 09/30/24 18:54: Activated Clotting Time 228 H 09/30/24 21:40: Troponin T Hi Sens 2 Hr 2056 H* 09/30/24 23:15: Troponin T Hi Sens 4Hr 3329 H* 10/01/24 04:30: WBC 13.1 H, RBC 4.88, Hgb 14.7, Hct 42.9, MCV 87.9, MCH 30.1, MCHC 34.3, RDW Std Deviation 44.8 H, RDW Coeff of Farhat 13.9, Plt Count 208, MPV 11.6, Immature Gran % (Auto) 0.500, Neut % (Auto) 77.7 H, Lymph % (Auto) 13.8 L, Valencia % (Auto) 7.5, Eos % (Auto) 0.2, Baso % (Auto) 0.3, Absolute Neuts (auto) 10.2 H, Absolute Lymphs (auto) 1.81, Nucleated RBC % 0, Sodium 139, Potassium 4.1, Chloride 105, Carbon Dioxide 21.7, Anion Gap 12, BUN 15, Creatinine 1.19, Estim Creat Clear Calc 65.04, Est GFR (MDRD) Non-Af 67, BUN/Creatinine Ratio 12.4, Glucose 129 H, Hemoglobin A1c 5.7, Calcium 9.2, Total Bilirubin 0.29, AST 265 H, ALT 48 H, Alkaline Phosphatase 77, Total Protein 6.2, Albumin 3.8, Globulin 2.4, Albumin/Globulin Ratio 1.6, Triglycerides 148, Cholesterol 166, LDL Cholesterol, Calc 103, VLDL Cholesterol 30, HDL Cholesterol 34 L, Cholesterol/HDL Ratio 4.94 Radiography Diagnostic Testing: Radiology Impression Echocardiogram 09/30/24 21:27 Interpretation Summary Anterior, apical and septal akinesis. Estimated LVEF 40%. Stage I diastolic dysfunction. Possible small LV apical thrombus. Ordering Physician: Sophie Lebron Referring Physician: Noé Kaur Performed By: Tika Sparrow RDCS Rhythm Strip Rhythm Strip: Sinus Rhythm Physical Exam Const alert, oriented x3, no apparent distress, average body habitus and healthy appearing General Appearance: cooperative, well kempt and well developed Orientation / Consciousness: awake, oriented to person, oriented to place and oriented to time HEENT normocephalic, head/scalp atraumatic and moist oral mucous membranes Eyes PERRL, EOMs intact bilaterally and conjunctivae normal Neck supple, no JVD, thyroid normal and no carotid bruits General: trachea midline Resp normal respiratory effort, no retractions, no use of accessory muscles and clear to auscultation bilaterally Auscultation: Negative for rales, rhonchi or wheezes Cardio regular rate, regular rhythm, S1 normal heart sound, S2 normal heart sound, no murmurs, no rub and no gallops GI normal to inspection, nondistended, normoactive bowel sounds, soft to palpation, non-tender and non-distended Extremity no clubbing, cyanosis or edema Skin no rashes or lesions noted General Skin Exam: no breakdown Neuro oriented x3, CN's II-XII intact bilaterally, moves all extremities, no focal motor deficits and no sensory deficits noted Sensorium / Orientation: awake and alert Speech: speech normal Psych affect normal Assessment & Plan Assessment/Plan (1) Acute ST elevation myocardial infarction (STEMI) of anterior wall: PLAN: Plan 1. Acute anterior wall [place] (STEMI)-due to occlusive coronary disease in the LAD- patient is status post ISA placement in the LAD, for now he will take Plavix as an antiplatelet drug, he will take no aspirin due to the fact he will be on Xarelto #2 thrombus of the left ventricle-patient was placed on Xarelto today #3 ischemic cardiomyopathy-patient's ejection fraction is 40%, he will be discharged on a beta-carlos and an TIFFANIE inhibitor. #4 hyperlipidemia-patient is on a statin #5 occlusive coronary disease in the left circumflex and proximal and mid RCA- patient will need to return in the near future for intervention on these areas Total clinical time spent by myself addressing the patient's medical issues, reviewing all of his data, and collaborating with patient's care team: 35 minutes Charges/Coding Visit Charges Inpatient E&M: 15994 Subs Hosp L2
--- NOTE | 2024-10-01 14:46 | CRPHASE1 ---
Patient Communication Patient Information Former Patient:: Phase I and Phase II PHII Cardiac Rehab Discussed with Patient:: Yes Guide to Cardiac Rehab Given to Patient:: Yes Cardiac Rehab Facility Choice List Given to Patient:: Yes Communication to Cardiac Rehab Choice Program [facility] CR PHII:: Communication Given to CR Ruby Software Developer:: Presley Dia Phase II Cardiac Rehab:: Yes Sessions:: 36 sessions - 3 days/wk, 12 weeks Cardiac Rehabilitation Info Program Information Cardiac Rehabilitation Program Information: Cardiac Rehab The cardiac rehab team at [facility] consists of highly skilled exercise physiologists, nurses, respiratory therapists and physicians working together with you. Our purpose is to help you have a full recovery and achieve the goals you set for yourself. Over the years many of our patients have returned to activities they assumed they would never do again! We can help restore your confidence and motivation to make lifestyle changes that can have a significant impact on your health and quality of life! We can help answer questions and concerns you may have about exercise, lifestyle, medications, diet, stress and anxiety which are common following a hospitalization. WE monitor ECG and vital signs during exercise and discuss your progress with you and report to your physician(s). Cardiac Rehab is proven to help reduce readmissions, improve functional capacity and lower recurrence of problems with your heart. Our Cardiac Rehab program is Certified by the [place] [employer]-Vascular and Pulmonary Rehabilitation (AACVPR) and Accredited by the [place] [employer] through our [facility]. You can contact us at . We invite you to call us with your questions or to get started in our program. If you have other questions or concerns be sure to ask your physician/provider during your follow-up visit. WE look forward to seeing you!
--- NOTE | 2024-10-01 14:48 | CRPH1.INSTRU ---
General Education Discussed with Patient CAD and cardiac anatomy and function:: Patient communicates acknowledgment Explanation of diagnoses and procedures:: Patient communicates acknowledgment Sign/Symptoms of NH:: Patient communicates acknowledgment Antiplatelet therapy: Patient communicates acknowledgment Proper use of NTG-SL: Patient communicates acknowledgment Emergency procedures and activation of EMS: Patient communicates acknowledgment Compliance of all prescribed medications: Patient communicates acknowledgment Smoking Risk Factors Patient Nicotine/Smoking Risk Factors Are:: Cigarettes Recommendations Recommendations Include:: Smoking cessation strategies/Smoking packet, Participation in a smoking cessation program and Previous smoker; encourage continued cessation Response Code Nicotine/Smoking Response Code:: Patient communicates acknowledgment Dyslipidemia Risk Factors Patient Dyslipidemia Risk Factors Are:: Total Cholesterol, Triglycerides, HDL and LDL Recommendations Recommendations Include:: Lipid profile provided, Reviewed NCEP/ATP guidelines and Therapeutic Lifestyle Change dietary guidelines Response Code Dyslipidemia Response Code:: Patient communicates acknowledgment Overweight/Obesity Risk Factors Patient Overweight/Obesity Risk Factors Are:: Obesity - > or = 30 Recommendations Recommendations Include:: Weight loss of 5-10%, Reduced calorie diet and Exercise 5-7 times/week Response Code Overweight/Obesity:: Patient communicates acknowledgment, Patient returns demonstration and Family returns demonstration Hypertension Recommendations Recommendations Include:: Maintain BP <130/85, DASH dietary guidelines, Decrease/maintain normal body weight and Moderation of ETOH Response Code Hypertension:: Patient communicates acknowledgment Diabetes Risk Factors Patient Diabetes Risk Factors Are:: No documented hx of diabetes Metabolic Syndrome Risk Factors Patient Metabolic Syndrome Risk Factors Are [3 of 5]:: Fasting blood sugar > 100 mg/dL, Waist circumference > 35 [female] or 40 [male], High triglyceride >150, Hypertension and Low HDL <40 [male] or < 50 [female] Recommendations Recommendations Include:: Reinforce compliance to risk factor modifications and Encouraged follow-up with Primary Care Physician Response Code Metabolic Syndrome Response Code:: Patient communicates acknowledgment Sedentary Risk Factors Patient Sedentary Risk Factors Are:: Lack of regular exercise Recommendations Recommendations Include:: Aerobic exercise 5-7 times/week for 20-30 minutes continuously, Benefits of regular exercise, Discussed home walking program and Monitored Outpatient Cardiac Rehab Response Code Sedentary Response Code:: Patient communicates acknowledgment Stress Risk Factors Patient Stress Risk Factors Are:: Patient denies stress as a risk factor Recommendations Recommendations Include:: Identification of stressors, and assessment of coping skills and Stress management techniques Response Code Stress Response Code:: Patient communicates acknowledgment
[2024-10-01 17:30] LABS: ACT Activated Clotting Time 158 sec (74-137)
[2024-10-01] MEDS: 0.9% Saline Lock 10 ML Syringe IV (21:17)
[2024-10-01] MEDS: Atorvastatin Calcium 80 MG Tablet PO (21:25)
[2024-10-02 03:36] VITALS: BP 100/72; PULSE 71; RESP 18; TEMP 36.7; O2SAT 96
[2024-10-02 05:38] VITALS: BMI 23.0
[2024-10-02 06:20] VITALS: BP 98/68; PULSE 74; RESP 17; TEMP 37.2; O2SAT 96
[2024-10-02] MEDS: Clopidogrel Bisulfate 75 MG Tablet PO (07:37)
--- NOTE | 2024-10-02 08:49 | PCM.PN.CARD ---
Subjective Subjective Denies any complaints. No chest pains. No shortness of breath. Objective Data Vital Signs: Vital Signs Temp Pulse Resp BP Pulse Ox O2 Del Method 98.9 F 74 17 98/68 96 Room Air 10/02/24 06:20 10/02/24 06:20 10/02/24 06:20 10/02/24 06:20 10/02/24 06:20 10/02/24 07:48 Oxygen Delivery Method Room Air Weight: 165 lb 2.02 oz Body Mass Index (BMI) 23.0 Intake & Output: Intake and Output for Last 24 Hours 09/30/24 10/01/24 10/02/24 23:59 23:59 23:59 Intake Total 1000 / 1000 1000 / 1000 Output Total 1300 / 1300 Balance 1000 / 1000 -300 / -300 Lab / Micro Data 10/01/24 04:30 10/01/24 04:30 Labs: Laboratory Results - last 24 hr 09/30/24 18:20: Activated Clotting Time 158 H Rhythm Strip Rhythm Strip: Sinus Rhythm Cardiology Labs/Tests Rhythm: EKG: ECHO: Stress Test: Cardiac Cath: PCI: CT Surgery: Holter monitor: EPS: PPM: CXR: Chest CT Scan: Radiography Diagnostic Testing: Radiology Impression Echocardiogram 09/30/24 21:27 Interpretation Summary Anterior, apical and septal akinesis. Estimated LVEF 40%. Stage I diastolic dysfunction. Possible small LV apical thrombus. Ordering Physician: Sophie Lebron Referring Physician: Noé Kaur Performed By: Tika Sparrow AYSHA Physical Exam Narrative Comfortable. No apparent distress. Heart sounds 1 and 2 normal. No murmurs or rubs. Chest clear to auscultation bilaterally. Alert oriented x 3. No ankle edema. Assessment & Plan Assessment/Plan (1) Acute ST elevation myocardial infarction (STEMI) of anterior wall: PLAN: Status post PCI to the LAD. Continue clopidogrel. Started on rivaroxaban for LV apical thrombus. (2) Coronary artery disease: PLAN: For staged PCI to left circumflex and RCA as outpatient. Patient counseled that he has to prove compliance with his medications. (3) LV (left ventricular) mural thrombus following TX: PLAN: Started on rivaroxaban. Not a good candidate for warfarin because of compliance questions. (4) Left ventricular systolic dysfunction (LVSD): PLAN: Secondary to #1 above. Beta-blockers, ACEI, SGLT2 inhibitors, spironolactone, diuretics. (5) Nicotine dependence: PLAN: Counseled to quit. (6) Non-compliance: PLAN: Per hospitalist, yesterday again the patient expressed that he may not take his clopidogrel. However patient since counseled. Emphasized compliance with medications and regular medical follow-up. PLAN: Plan May discharge home today. Follow-up in the office in 2 weeks.
[2024-10-02 10:19] VITALS: BP 100/63; PULSE 82; RESP 18; TEMP 36.1; O2SAT 94
[2024-10-02] MEDS: Furosemide 40 MG Tablet PO (10:20)
[2024-10-02] MEDS: Spironolactone 25 MG Tablet 12.5 MG PO (10:20)
[2024-10-02] MEDS: Lisinopril 2.5 MG Tablet PO (10:20)
[2024-10-02] MEDS: Carvedilol 3.125 MG TABLET PO (10:20)
[2024-10-02] MEDS: Empagliflozin 10 MG Tablet PO (10:21)
--- NOTE | 2024-10-02 11:08 | DCINST_ITS ---
Discharge Instructions Diet Discharge Diet: No restrictions DC O2, CPAP, BIPAP needs Home O2 Discharge instructions: No Dressing / Incision Discharge Activity: Return to Normal Activity Weight Bearing Status: Full weight bearing Follow Up Care Test Results: Test results from this visit will be discussed in further detail at your follow- up appointment, if applicable. Discharge Plan Admission Admit Date/Time: 09/30/24 19:25 Primary Reason for Your Visit: acute heart attack Attending Provider: Noé Michelle Primary Care Provider: Noé Kaur Consulting Providers: Sophie Lebron; Presley Dia Discharge Orders/Prescriptions Prescriptions: New furosemide 40 mg Tablet 40 mg PO DAILY Qty: 30 0RF clopidogrel 75 mg Tablet 75 mg PO DAILY Qty: 30 0RF spironolactone 25 mg Tablet 12.5 mg PO DAILY Qty: 15 0RF lisinopril 2.5 mg Tablet 2.5 mg PO DAILY Qty: 30 0RF Xarelto 20 mg Tablet 20 mg PO DINNER Qty: 30 0RF Jardiance 10 mg Tablet 10 mg PO DAILY Qty: 30 0RF atorvastatin [Lipitor] 40 mg tablet 40 mg PO DAILY Qty: 30 0RF metoprolol succinate 25 mg tablet extended release 24 hr 25 mg PO DAILY Qty: 30 0RF Discontinued aspirin 81 MG tablet 81 mg PO DAILY@0800 Qty: 30 0RF clopidogrel 75 mg tablet 75 mg PO DAILY Qty: 30 11RF Referrals / Follow Up: Presley Dia MD [Med Staff - Active Staff] - See Referral Note (in three weeks) Noé Kaur DO [Primary Care Provider] - Within 1 Month Ej Day MD [Non-Staff] - Disposition Disposition (needs filled in before D/C Order can be placed): Home, Self Care
--- NOTE | 2024-10-02 11:21 | PCM.DC.SUM ---
Providers Date of Admission: 09/30/24 Date of Discharge: 10/02/24 Primary Care Physician: Dr. Noé Kaur, Consultations 09/30/24 21:27 Consult: Cardiology Routine Consulting Provider: Presley Dia Reason for Consult: STEMI EMERGENT Consult: Yes MD Notified: Yes Date Notified: 09/30/24 Time Notified: 19:27 Method of Notification: ED Physician Initiated Reason For Visit: STEMI Diagnosis Discharge Diagnosis (1) Acute ST elevation myocardial infarction (STEMI) of anterior wall: Status: Acute Code(s): I21.09 - ST elevation (STEMI) myocardial infarction involving other coronary artery of anterior wall (2) Coronary artery disease: Status: Acute Code(s): I25.10 - Atherosclerotic heart disease of [place] coronary artery without angina pectoris (3) LV (left ventricular) mural thrombus following RI: Status: Acute Code(s): I23.6 - Thrombosis of atrium, auricular appendage, and ventricle as current complications following acute myocardial infarction (4) Left ventricular systolic dysfunction (LVSD): Status: Acute Code(s): I51.89 - Other ill-defined heart diseases (5) Nicotine dependence: Status: Acute Code(s): F17.200 - Nicotine dependence, unspecified, uncomplicated (6) Non-compliance: Status: Acute Code(s): Z91.199 - Patient's noncompliance with other medical treatment and regimen due to unspecified reason Plan 1. Acute anterior wall RI (STEMI)-due to occlusive coronary disease in the LAD-patient is status post ISA placement in the LAD, for now he will take Plavix as an antiplatelet drug, he will take no aspirin due to the fact he will be on Xarelto #2 thrombus of the left ventricle-patient was placed on Xarelto today #3 ischemic cardiomyopathy-patient's ejection fraction is 40%, he will be discharged on a beta-jelly and an RAI inhibitor. #4 hyperlipidemia-patient is on a statin #5 occlusive coronary disease in the left circumflex and proximal and mid RCA-patient will need to return in the near future for intervention on these areas #6 noncompliance with medical treatment Total clinical time spent by myself addressing the patient's medical issues, reviewing all of his data, and collaborating with patient's care team: 35 minutes Medications at Discharge Home Medications atorvastatin 40 mg tablet (Lipitor) 40 mg PO DAILY #30 tabs 10/02/24 clopidogrel 75 mg tablet 75 mg PO DAILY #30 tabs 10/02/24 empagliflozin 10 mg tablet (Jardiance) 10 mg PO DAILY #30 tabs 10/02/24 furosemide 40 mg tablet 40 mg PO DAILY #30 tabs 10/02/24 lisinopril 2.5 mg tablet 2.5 mg PO DAILY #30 tabs 10/02/24 metoprolol succinate 25 mg tablet,extended release 24 hr 25 mg PO DAILY #30 tabs 10/02/24 rivaroxaban 20 mg tablet (Xarelto) 20 mg PO DINNER #30 tabs 10/02/24 spironolactone 25 mg tablet 12.5 mg (1/2 x 25 mg) PO DAILY #15 tabs 10/02/24 Hospital Course Operations None Procedures 2-D Echocardiogram and Cardiac catheterization (With ISA placement in the LAD) Summary of Care Provided Minutes Spent on Discharge: 33 Hospital Course: This 68-year-old white male was seen in the emergency room at [facility] with complaints of chest pain, EKG was obtained which showed acute ST elevations and a STEMI was called. Patient was taken to the [facility] and there was noted to be occlusive coronary disease in the LAD which was stented with a ISA, there was also noted to be occlusive disease in the left circumflex and mid and proximal RCA. Patient was admitted to ICU and observed. Echocardiogram was obtained which showed reduced ejection fraction of 40% with a ventricular thrombus. I had a long conversations with the patient concerning medications-he had been noncompliant with medications and office visits previous to this hospitalization. On 10/02/2024, patient was seen and examined: On examination he appeared in good health and spirits. Vital signs as documented. Skin warm and dry and without overt rashes. Neck without JVD, neck was supple, trachea midline, thyroid was normal. Lungs clear bilaterally, normal air movement was noted. Heart exam notable for regular rhythm, normal sounds and absence of murmurs, rubs or gallops. Abdomen unremarkable and without evidence of organomegaly, masses, or abdominal aortic enlargement. Bowel sounds are present, abdomen is not distended. Extremities nonedematous, no cyanosis was noted, no clubbing was noted. Neuro: Cranial nerves II through XII are grossly intact, no focal motor deficits were noted, sensation to light touch and pinprick intact, motor exam 5/5 throughout. Psych: Patient is alert and oriented x3, he does not appear anxious or depressed, he does not appear agitated. Initially a second cardiac catheterization was considered for 10/02/2024, but cardiology decided to bring the patient back at a later date to perform another catheterization after the patient was on medication. There was a question that the patient would not be compliant with taking medications, again I spent some time with the patient and his discussing the need for the medications and why it was important to take them as directed. On 10/02/2024, patient was seen and examined and discharged home in stable condition Weight / BMI Weight Weight: 74.9 kg Body Mass Index (BMI) 23.0 ABG / Lab / Microbiology Data 10/01/24 04:30 10/01/24 04:30 Laboratory: Laboratory Results - last 24 hr 09/30/24 18:20: Activated Clotting Time 158 H Radiography Diagnostic Testing: Radiology Impression Echocardiogram 09/30/24 21:27 Interpretation Summary Anterior, apical and septal akinesis. Estimated LVEF 40%. Stage I diastolic dysfunction. Possible small LV apical thrombus. Ordering Physician: Sophie Lebron Referring Physician: Noé Kaur Performed By: Tika Sparrow RDCS D/C Instructions Discharge Diet: No restrictions Weight Bearing Status: Full weight bearing DC O2, CPAP, BIPAP Needs Home O2 Discharge instructions: No Meaningful Use Info Meaningful Use Meaningful Use Diagnoses (Choose all that apply): AMI AMI/Post PCI/Angioplasty Aspirin given w/in 24hrs of arrival?: Yes ASA at discharge?: No Reason ASA not ordered:: Drug Interaction (Patient was placed on Xarelto and Plavix) Antiplatelet Therapy at Discharge:: Yes Statins at discharge?: Yes Rai/ARB at discharge?: Yes Beta Jelly at discharge?: Yes Done w/ Acute RI measure.: Yes Documented LVEF (%): 40 Ischemic Stroke Statin Dosing Therapy Reference: STATIN DOSE THERAPY REFERENCE: * Patients > 75 years receive moderate or high dose statin therapy. * Patients 75 years or YOUNGER should receive HIGH intensity statin dose unless contraindicated. You will be required to document reason for non-treatment if statin daily dose does not meet guidelines. HIGH DOSE STATIN THERAPY DAILY Atorvastatin > than or = to 40 mg Rosuvastatin > than or = to 20 mg Amlodipine + Atorvastatin > than or = to 2.5/40 mg Ezetimibe + Simvastatin 10/80 mg Simvastatin 80mg Discharge Plan Admission Admit Date/Time: 09/30/24 19:25 Primary Reason for Your Visit: acute heart attack Attending Provider: Noé Michelle Primary Care Provider: Noé Kaur Consulting Providers: Sophie Lebron; Presley Dia Discharge Orders/Prescriptions Prescriptions: New furosemide 40 mg Tablet 40 mg PO DAILY Qty: 30 0RF clopidogrel 75 mg Tablet 75 mg PO DAILY Qty: 30 0RF spironolactone 25 mg Tablet 12.5 mg PO DAILY Qty: 15 0RF lisinopril 2.5 mg Tablet 2.5 mg PO DAILY Qty: 30 0RF Xarelto 20 mg Tablet 20 mg PO DINNER Qty: 30 0RF Jardiance 10 mg Tablet 10 mg PO DAILY Qty: 30 0RF atorvastatin [Lipitor] 40 mg tablet 40 mg PO DAILY Qty: 30 0RF metoprolol succinate 25 mg tablet extended release 24 hr 25 mg PO DAILY Qty: 30 0RF Discontinued aspirin 81 MG tablet 81 mg PO DAILY@0800 Qty: 30 0RF clopidogrel 75 mg tablet 75 mg PO DAILY Qty: 30 11RF Referrals / Follow Up: Presley Dia MD [Med Staff - Active Staff] - 10/21/24 1:00 pm (Appointment is with [facility] Batsheva Lala ) Noé Kaur DO [Primary Care Provider] - Within 1 Month Ej Day MD [Non-Staff] - Disposition Disposition (needs filled in before D/C Order can be placed): Home, Self Care Charges/Coding Visit Charges Inpatient E&M: 82176 Disch Hosp >30min
--- NOTE | 2024-10-02 12:09 | CASEMGMT ---
Patient has order for discharge. Patient discharging on Jardiance and Xarelto, RN CM called [facility] and no copay needed. RN CM in to discuss needs at discharge. Patient denies needs or help at discharge. Patient had no further questions or concerns.
[2024-10-02 14:30] VITALS: BP 94/61; PULSE 79; RESP 18; TEMP 36.8; O2SAT 97
--- NOTE | 2024-11-17 09:45 | CL.I_ITS ---
Patient Name: GREG BREWER Study Date: 09/30/2024 Performing: Presley Dia MD Ht: 67 inches 170.18 cm : 1955 Wt: 174.98 lbs 79.37 kg Age: 68 Gender: male BSA: 1.91 PROCEDURE(S) PERFORMED DC01-(42666)LHC/COR/LV IC16-([id number])AMI, ISA OR PTCA, ARTERY/GRAFT, SINGLE VESSEL CLINICAL PROFILE AND CO-MORBIDITIES Indications: ACS <= 24 hrs Heart Failure: None CAD Presentations: STEMI. Symptom onset Date/Time: 05/13/2024 Time Not Available CONCLUSIONS 100% in-stent thrombosis mid LAD 80-90% Mid LCX LVEF 35% Successful PTCA/ISA Mid LAD using [place] 3.5x8 mm (post-dilated RECOMMENDATIONS ASA Indefinitley P2Y12 inhibitors for atleast 6 months Staged PCI to LCX/RCA DESCRIPTION OF PROCEDURE The patient arrived to the procedure lab. The risks and benefits of the procedure as well as a full description of our services here and lack of surgical backup were fully explained to the patient and/or their significant other prior to the catheterization. The Timeout was completed, verifying the correct patient and procedure. The patient's procedural site was prepped and draped in the usual fashion. Local anesthetic was given subcutaneously to right radial region with Lidocaine 2%. Using a modified Seldinger technique, arterial access was obtained via the right radial artery, a 6Fr sheath was inserted.. Left Coronary Artery selective angiography was performed in multiple views using a 6 Fr.. Right Coronary Artery selective angiography was then performed in multiple views using a 5 Fr. JR 4 catheter. Left Ventriculography was performed in GOODWIN projection using a 5 Fr. Pigtail catheter. LV to AO pullback pressures were then recorded XB3 Guide catheter was inserted and engaged into the LCA. EMERGE 2.5 X 12 Balloon catheter was advanced across lesion in the LAD, mid. RUNTHROUGH Guide wire was advanced to the LAD. PTCA balloon inflated at 6 atms for 10 secs. PTCA balloon inflated at 10 atms for 10 secs. Angiogram performed post balloon dilatation. RAUL 3.0 X 38 Drug Eluting stent was advanced across the lesion in the LAD, mid. Angiogram performed post stent deployment. NC EMERGE 3.0 X 20 Balloon catheter was inserted post stent. Angiogram performed post balloon dilatation. RAUL 3.5 X 8 Drug Eluting stent was advanced across the lesion in the LAD, mid. Angiogram performed post stent deployment. NC EUPHORA 3.75 X 6 Balloon catheter was inserted post stent. Angiogram performed post stent deployment. The arterial sheath was pulled and a TR Band was applied for hemostasis CORONARY ANGIOGRAPHY DOMINANCE: Right Dominant LEFT HEART ASSESSMENT Left Ventricular Ejection Fraction: by LV Gram 35 % LVEDP: 33 mmHg LEFT MAIN: Angiographically normal LEFT ANTERIOR DESCENDING ARTERY: LAD: Thrombus 100% Mid lesion in LAD RIGHT CORONARY ARTERY: RCA: Tubular 80% Proximal lesion in RCA Tubular 70% Mid lesion in RCA INTERVENTION INFORMATION LESION SITE: LAD (Mid) Lesion Complexity: High/C, thrombus present: Yes, lesion length: 44 mm, culprit lesion: Yes, In-stent Thrombosis: Yes Pre Stenosis: 100 % Pre intervention ALTON flow: 3 PROCEDURE: Drug Eluting Stent with pre and post dilatation Post Stenosis: 0 % Post intervention ALTON flow: 3 Lesion Devices: Terumo .014 180cm Runthrough Extra Floppy straight Cordis 6 Fr XB3.0 100cm Guide Catheter Ba Sci EMERGE MR 2.50x12 BALLOON Medtronic 3.0 x 38 RAUL FRONTIER ISA Ba Sci NC EMERGE MR 3.00x20 BALLOON Medtronic 3.5 x 08 RAUL FRONTIER ISA COMPLICATIONS No Complications PROCEDURE MEDICATIONS Versed 2 mg IV Fentanyl 50 mcg IV Fentanyl 50 mcg IV Oxygen: 2 L/min via nasal cannula Heparin 3000 unit(s) IV 09/30/2024 19:22:51 Heparin 5000 unit(s) IV 09/30/2024 19:23:07 Heparin 3000 unit(s) IV 09/30/2024 19:57:44 Lasix 40 mg IV 09/30/2024 20:09:59 Verapamil 2.5mg, Ntg 200mcgs, given IA 09/30/2024 19:15:33 SUMMARY OF HEMODYNAMIC DATA Time AIR REST LV 105/20, 34 19:48:14 LV 110/20, 33 19:48:22 LV 100/25, 49 19:48:46 LVp 107/25, 39 19:48:52 AOp 0/0 (50) 19:48:59 AO 131/72 (98) SA 20:10:40 20:10:40 Signed By Presley Dia MD On 09/30/2024 20:12:13 Signed By Presley Dia MD On 09/30/2024 20:11:39 Presley Dia MD
== END 2024-10-02 15:30 | disposition home or self-care (01) | DRG 322 ==
LOC: ED 18:47 → ICU 18:51 → PCU 10-01 19:00
PROVIDERS: Internal Medicine; Admitting Provider Family Medicine; Emergency Provider Emergency Medicine; PCP Family Medicine; Referring Provider Internal Medicine Cardiovascular Disease; Visit Provider Internal Medicine
DX: I21.09 ST elevation (STEMI) myocardial infarction involving other coronary artery of anterior wall (principal); I23.6 Thrombosis of atrium, auricular appendage, and ventricle as current complications following acute myocardial infarction; N17.9 Acute kidney failure, unspecified; I10 Essential (primary) hypertension; E16.2 Hypoglycemia, unspecified; F17.210 Nicotine dependence, cigarettes, uncomplicated; I25.10 Atherosclerotic heart disease of native coronary artery without angina pectoris; I25.5 Ischemic cardiomyopathy; I25.2 Old myocardial infarction; E78.5 Hyperlipidemia, unspecified; Z82.49 Family history of ischemic heart disease and other diseases of the circulatory system; Z95.5 Presence of coronary angioplasty implant and graft; Z91.199 Patient's noncompliance with other medical treatment and regimen due to unspecified reason
CPT/HCPCS: 80048; 80053; 80061; 83036; 83735; 84484; 85025; 85347; 85610; 85730; 92941; 93005; 93306; 93458; 94668; 97803; 99152; 99153; 99285; C1725; Q9957; Q9967; A4216; C1769; C1874; C1887; C1894; C8929; C9606; J1938; J2405

== ENCOUNTER 2024-10-19 23:34 | Emergency (ER) | payer OTHER, SELFPAY ==
[2024-10-19 23:34] VITALS: BP 111/70; PULSE 77; RESP 16; TEMP 36.9; O2SAT 96; BMI 23.8
[2024-10-20 00:24] LABS: Mucous, Urine 0 SEEN /hpf (<or=2+); Squamous Epithelial Cells - UA 0 SEEN /hpf (0-5)
[2024-10-20 00:45] LABS: Color, Urine Red (Yellow); Glucose, Dipstick Normal (Normal); Ketone-Dipstick Negative (Negative); Leukocyte Esterase-Dipstick Negative /ul (Negative); Nitrite-Dipstick Negative (Negative); Occult Blood-Urine 150 /ul (Negative); Protein-Dipstick 500 mg/dl (Negative); Specific Gravity, Urine 1.015 (1.002-1.030); Urine Bilirubin Dipstick Negative (Negative)
[2024-10-20] MEDS: Lidocaine Jelly 2% 20 ML Syringe (URO-JET) 1 APPLIC TOPICAL (00:49)
[2024-10-20 00:56] LABS: Hematocrit 42.3 % (40-54); Hemoglobin 14.2 g/dL (13.0-16.5); Immature Granulocytes Count 0.110 X10^3/uL (0.0-0.0); Mean Corp Hgb Conc 33.6 g/dL (32-36); Mean Corpuscular Volume 88.9 fL (80-94); Mean Platelet Vol. 10.9 fl (6.2-12.0); NRBC Flagged by Analyzer 0 % (0-5); POSITIVE MORPHOLOGY YES; Platelet Count 266 K/mm3 (150-450); RBC Distribution Width CV 13.0 % (11.6-14.6); RBC Distribution Width SD 42.4 fl (35.1-43.9); Red Blood Count 4.76 M/mm3 (4.6-6.2); White Blood Count 11.3 K/mm3 (4.4-11.0)
[2024-10-20 01:06] LABS: Prothrombin Time (Protime)PT. 17.0 SECONDS (11.7-14.9)
[2024-10-20 01:07] LABS: Partial Thromboplast Time 33.1 Seconds (24.1-36.2)
[2024-10-20 01:13] LABS: Red Blood Cells-Urine > 100 SEEN /hpf (0-5); Transitional Epithelial - Ur 5-10 SEEN /hpf (0-5)
[2024-10-20 01:15] LABS: Differential Indicated SCAN CRITERIA MET
[2024-10-20 01:25] LABS: Anion Gap 11 (5-15); BUN 22 mg/dL (4-19); BUN/Creat Ratio 17.0 RATIO (10-20); Calcium,Total 9.1 mg/dL (7.6-11.0); Carbon Dioxide 25.3 mmol/L (21.0-32.0); Chloride 98 mmol/L (98-108); Estimated Creatinine Clearance 59.53 ml/min (50-250); Glucose 100 mg/dL (70-99); Potassium 4.0 mmol/L (3.3-5.1)
[2024-10-20 01:49] LABS: Differential Comment SCANNED
[2024-10-20 02:03] VITALS: BP 110/60; PULSE 62; RESP 16; O2SAT 99
--- NOTE | 2024-10-20 02:23 | ED.RN ---
3-way catheter insertion done by this RN and multiple attempts made to irrigate bladder. Unable to get return and discomfort noted by patient. Another RN in room to attempt irrigation, same results. Attempted to deflate balloon and advance catheter with no change. Removed previous 22F 3-way catheter and inserted 26F 3-way catheter. Again, difficulty irrigating and getting return. Deflated balloon to 10 ml instead of 30 ml and return noted, patient stating he was finally getting relief. Notified Dr Sagastume and order received for [facility].
--- OUTSIDE RECORDS SUMMARY | 2024-10-20 02:26 | XMS RPT_ITS | CCD ---
Author Organization [facility] Care Team Providers Care Coil Builder Name Role Phone Zeb ESTRADA, Dr. Guzmán Emergency Provider South ESTRADA, Dr. Sherwood Referring Provider Foreign ESTRADA, Dr. Baker Admit Provider Dr. Olivia Carrasquillo MD Attending Provider Dr. Noé Kaur DO Primary Care Provider Dr. Ramirez Carrington MD Emergency Provider South ESTRADA, Dr. Sherwood Referring Provider Dr. Presley Dia MD Other Provider Dr. Noé Kaur DO Primary Care Provider Dr. Sophie Lebron MD Admit Provider Dr. Sophie Lebron MD Other Provider Dr. Noé Michelle DO Attending Provider Dr. Presley Dia MD Attending Provider Dr. Olivia Carrasquillo MD Admit Provider Dr. Olivia Carrasquillo MD Other Provider Dr. Noé Michelle DO Other Provider Néo Kaur Primary Care Unavailable Olivia Carrasquillo Consulting Unavailable Olivia Carrasquillo Admitting Unavailable South, Presley Attending Unavailable South, Presley Referring Unavailable Noé Kaur Primary Care Unavailable Sophie Lebron Admitting Unavailable Sophie Lebron Attending Unavailable South, Presley Consulting Unavailable South, Presley Referring Unavailable Sophie Lebron Consulting Unavailable Presley Dia Attending Unavailable Noé Michelle Consulting Unavailable Noé Michelle Attending Unavailable Noé Kaur Primary Care Unavailable Sophie Lebron Admitting Unavailable Sophie Lebron Consulting Unavailable Noé Michelle Attending Unavailable Presley Dia Referring Unavailable Presley Dia Consulting Unavailable Medications Current Medications Medication Drug Class(es) Dates Sig (Normalized) Sig (Original) atorvastatin 40 mg oral tablet (3 sources) HMG-CoA Reductase Inhibitor Start: 10-02-2024 take 1 tablet by mouth once daily Atorvastatin (Lipitor) 40 mg tablet Active 40 mg PO DAILY October 02, 2024 12:00am Start: 04-02-2018 End: 04-16-2018 take 1 tablet by mouth at bedtime Atorvastatin 80 MG tablet Discontinued 80 mg PO AT BEDTIME April 02, 2018 1:00am April 16, 2018 9:52am clopidogrel 75 mg oral tablet (5 sources) P2Y12 Platelet Inhibitor Start: 04-02-2018 End: 10-02-2024 take 1 tablet by mouth once daily Clopidogrel 75 mg Tablet Active 75 mg PO DAILY October 02, 2024 12:00am empagliflozin 10 mg oral tablet (1 source) Sodium-Glucose Cotransporter 2 Inhibitor Start: 10-02-2024 take 1 tablet by mouth once daily Empagliflozin (Jardiance) 10 mg Tablet Active 10 mg PO DAILY October 02, 2024 12:00am furosemide 40 mg oral tablet (1 source) Loop Diuretic Start: 10-02-2024 take 1 tablet by mouth once daily Furosemide 40 mg Tablet Active 40 mg PO DAILY October 02, 2024 12:00am lisinopril 2.5 mg oral tablet (1 source) Angiotensin Converting Enzyme Inhibitor Start: 10-02-2024 take 1 tablet by mouth once daily Lisinopril 2.5 mg Tablet Active 2.5 mg PO DAILY October 02, 2024 12:00am 24 hr metoprolol succinate 25 mg extended release oral tablet (3 sources) beta-Adrenergic Jelly Start: 10-02-2024 take 1 tablet by mouth once daily Metoprolol Succinate 25 mg tablet extended release 24 hr Active 25 mg PO DAILY October 02, 2024 12:00am Start: 04-02-2018 End: 04-16-2018 Metoprolol Tartrate 25 MG ta blet Discontinued 12.5 mg PO TWICE A DAY 60 April 02, 2018 1:00am April 16, 2018 9:52am rivaroxaban 20 mg oral tablet (1 source) Factor Xa Inhibitor Start: 10-02-2024 take 1 tablet by mouth at dinner Rivaroxaban (Xarelto) 20 mg Tablet Active 20 mg PO WITH DINNER October 02, 2024 12:00am spironolactone 25 mg oral tablet (1 source) Aldosterone Antagonist Start: 10-02-2024 Spironolactone 25 mg Tablet Active 12.5 mg PO DAILY October 02, 2024 12:00am Completed/Discontinued Medications Medication Drug Class(es) Dates Sig (Normalized) Sig (Original) aspirin 81 mg delayed release oral tablet (2 sources) Platelet Aggregation Inhibitor, Nonsteroidal Anti-inflammatory Drug Start: 04-02-2018 End: 10-02-2024 take 1 tablet by mouth once daily Aspirin 81 MG tablet Discontinued 81 mg PO DAILY@0800 30 April 02, 2018 1:00am October 02, 2024 11:09am Problems Active Problems Problem Classification Problem Date Documented Da te Episodic/Chronic Acute myocardial infarction (8 sources) Myocardial infarction; Translations: [Non-ST elevation (NSTEMI) myocardial infarction] Onset: 09-30-2024 04-11-2018 Chronic Coronary atherosclerosis and other heart disease (7 sources) History of non-ST segment elevation myocardial infarction; Translations: [Old myocardial infarction] Onset: 04-01-2018 04-11-2018 Chronic Comment on above: ISA to mid LAD (2.5 X 16 [employer]) Disorders of lipid metabolism (4 sources) Hyperlipidemia; Translations: [Hyperlipidemia, unspecified] 04-03-2018 Chronic Nonspecific chest pain (2 sources) Chest pain; Translations: [Chest pain, unspecified] 04-03-2018 Episodic Other and ill-defined heart disease (2 sources) Left ventricular systolic dysfunction; Translations: [Other ill-defined heart diseases] 09-30-2024 Chronic Other and ill-defined heart disease (2 sources) Mural thrombus of left ventricle; Translations: [Thrombosis of atrium, auricular appendage, and ventricle as current complications following acute myocardial infarction] 10-02-2024 Chronic Other and ill-defined heart disease (1 source) Other ill-defined heart diseases; Translations: [Other ill-defined heart diseases] Onset: 10-15-2024 Chronic Other and ill-defined heart disease (1 source) Thrombosis of atrium, auricular appendage, and ventricle as current complications following acute myocardial infarction; Translations: [Thrombosis of atrium, auricular appendage, and ventricle as current complications following acute myocardial infarction] Onset: 10-15-2024 Chronic Other circulatory disease (4 sources) H/O: heart disorder; Translations: [Personal history of other diseases of the circulatory system] 09-30-2024 Episodic Other injuries and conditions due to external causes (4 sources) Heat cramp; Translations: [Heat cramp, initial encounter] 09-30-2024 Episodic Other injuries and conditions due to external causes (4 sources) Heat exhaustion co-occurrent and due to anhidrosis; Translations: [Heat exhaustion, anhydrotic, initial encounter] 09-30-2024 Episodic Residual codes; unclassified (2 sources) Noncompliance with treatment; Translations: [Noncompliance] 09-30-2024 Episodic Substance-related disorders (7 sources) Tobacco dependence syndrome; Translations: [Nicotine dependence, unspecified, uncomplicated] Onset: 10-15-2024 04-03-2018 Chronic Unclassified (1 source) Appointment is with SAVINGS TELLER Batsheva Lala Unclassified (1 source) Patient's noncompliance with other medical treatment and regimen due to unspecified reason; Translations: [Patient's noncompliance with other medical treatment and regimen due to unspecified reason] Onset: 10-15-2024 Past or Other Problems Problem Classification Problem Date Documented Da te Episodic/Chronic Coronary atherosclerosis and other heart disease (2 sources) Stented coronary artery; Translations: [Presence of coronary angioplasty implant and graft] Onset: 04-01-2018 04-03-2018 Episodic Comment on above: ISA to mid LAD (2.5 X 16 Prom[employer]) Results Test Name Value Interpretation Reference Range Facility Discharge Instructionon 09-08 Discharge Instruction [facility] Medical Records Department [address] [place] [address] Instructions for Home/Discharge Instructions 10/02/24 1108 MR#: [id number] Acct: [id number] Name: GREG BREWER Rep #: [id number] : 1955 68 From: Noé Michelle DO PCP: Dr. Noé Kaur DO Status:ADM IN Discharge Instructions Diet Discharge Diet: No restrictions DC O2, CPAP, BIPAP needs Home O2 Discharge instructions: No Dressing / Incision Discharge Activity: Return to Normal Activity Weight Bearing Status: Full weight bearing Follow Up Care Test Results: Test results from this visit will be discussed in further detail at your follow-up appointment, if applicable. Discharge Plan Admission Admit Date/Time: 09/30/24 19:25 Primary Reason for Your Visit: acute heart attack Attending Provider: Noé Michelle Primary Care Provider: Noé Kaur Consulting Providers: Sophie Lebron; Presley Dia Discharge Orders/Prescriptions Prescriptions: New furosemide 40 mg Tablet 40 mg PO DAILY Qty: 30 0RF clopidogrel 75 mg Tablet 75 mg PO DAILY Qty: 30 0RF spironolactone 25 mg Tablet 12.5 mg PO DAILY Qty: 15 0RF lisinopril 2.5 mg Tablet 2.5 mg PO DAILY Qty: 30 0RF Xarelto 20 mg Tablet 20 mg PO DINNER Qty: 30 0RF Jardiance 10 mg Tablet 10 mg PO DAILY Qty: 30 0RF atorvastatin [Lipitor] 40 mg tablet 40 mg PO DAILY Qty: 30 0RF metoprolol succinate 25 mg tablet extended release 24 hr 25 mg PO DAILY Qty: 30 0RF Discontinued aspirin 81 MG tablet 81 mg PO DAILY@0800 Qty: 30 0RF clopidogrel 75 mg tablet 75 mg PO DAILY Qty: 30 11RF Referrals / Follow Up: Presley Dia MD [Med Staff - Active Staff] - See Referral Note (in three weeks) Noé Kaur DO [Primary Care Provider] - Within 1 Month Ej Day MD [Non-Staff] - Disposition Disposition (needs filled in before D/C Order can be placed): Home, Self Care 10/02/24 1121 Noé Michelle DO CC: Dr. Presley Dia MD; Dr. Sophie Lebron MD; Dr. Noé Kaur DO Signed Normal [facility] 12 Lead EKGon 10-01-2024 12 Lead EKG [facility] [address] [place] [address] 12 Lead EKG 10/01/24 0515 MR#: [id number] Acct: [id number] Name: GREG BREWER Rep #: [id number] : 1955 68 From: Matt Cody MD Attending Dr: Dr. Noé Michelle DO Status: A DM IN Ordering Dr: Sophie Lebron MD Date: 10/01/24 Location: ICU Sex: M N Admitted: 09/30/24 Test Reason : am ekg Blood Pressure : */* mmHG Vent. Rate : 70 BPM Atrial Rate : 70 BPM P-R Int : 142 ms QRS Dur : 90 ms QT Int : 394 ms P-R-T Axes : 56 -51 59 degrees QTcB Int : 425 ms Normal sinus rhythm Left axis deviation Low voltage QRS Cannot rule out Anteroseptal infarct , age undetermined Abnormal ECG When compared with ECG of 30-Sep-2024 20:14, MANUAL COMPARISON REQUIRED DATA IS UNCONFIRMED Confirmed by BRIAN ESTRADA, MATT ([id number]), photograph editor KAROLINA GAMBOA ([id number]) on 10/01/2024 1:21:49 PM Referred By: Presley Dia Confirmed By: MATT CODY MD 10/01/24 1321 Date Matt Cody MD CC: Dr. Presley Dia MD; Dr. Sophie Lebron MD; Dr. Noé Kaur DO; Dr. Noé Michelle DO Signed Normal [facility] ACT Activated Clotting Timeo n 10-01-2024 ACTk CLOT TIME 158 sec High 74-137 [facility] Comment on above: Performed By: #### L [id number] #### [facility] Laboratory [address] [place], [address] Absolute lymphocyte countOrd ered By: Sophie Lebron on 10-01-2024 Lymphocytes Auto (Unsp spec) [#/Vol] 1.81 10*3/uL 0.83-4.51 [facility] Absolute neutrophil countOrd ered By: Sophie Lebron on 10-01-2024 Neutrophils (Bld) [#/Vol] 10.2 10*3/uL High 2.0-7.7 [facility] Anion gap in Serum or Plasma Ordered By: Sophie Lebron on 10-01-2024 Anion gap [Moles/Vol] 12 mmol/L 5- [facility] Automated lymphocyte count a s percentage of total leukocytesOrdered By: Sophie Bernardino on 10-01-2024 Lymphocytes/100 WBC Auto (Unsp spec) 13.8 % Low - [facility] BUN/creatinine ratioOrdered By: Sophie Bernardino on 10-01-2024 Urea nitrogen/Creatinine [Mass ratio] 12.4 mg/mg 10- [facility] Basophil percentageOrdered B y: Bernardino on 10-01-2024 Basophils/100 WBC (Bld) 0.3 % 0-1 [facility] Bilirubin, totalOrdered By: Sophie Bernardino on 10-01-2024 Bilirubin [Mass/Vol] 0.29 mg/dL 0.00-1.30 [facility] CBC W/Diff, Automatedon 09-08 Absolute Lymph 1.81 X10 3/uL Normal 0.83-4.51 [facility] Comment on above: Performed By: #### L [id number] #### [facility] Laboratory [address] [place], [address] Absolute Neut 10.2 X10 3/uL High 2.0-7.7 [facility] Comment on above: Performed By: #### L [id number] #### [facility] [address] [place], [address] Basophils/100 WBC (Bld) 0.3 % Normal 0-1 [facility] Comment on above: Performed By: #### L [id number] #### [facility] [address] [place], [address] Eosinophils/100 WBC (Bld) 0.2 % Normal 0-5 [facility] Comment on above: Performed By: #### L [id number] #### [facility] Laboratory [address] [place], [address] Erythrocyte distribution width (RBC) [Ratio] 13.9 % Normal 11.6-14.6 [facility] Comment on above: Performed By: #### L [id number] #### [facility] Laboratory [address] [place], [address] Hematocrit (Bld) [Volume fraction] 42.9 % Normal 40-54 [facility] Comment on above: Performed By: #### L [id number] #### [facility] [address] [place], [address] Hemoglobin (Bld) [Mass/Vol] 14.7 g/dL Normal 13.0-16.5 [facility] Comment on above: Performed By: #### L [id number] #### [facility] [address] [place], [address] IG% 0.500 Normal 0.0-0.9 [facility] Comment on above: Result Comment: IG% - Immature Granulocytes (promyelocytes, myelocytes and metamyelocytes) > 1% indicates that a LEFT SHIFT is Present. Performed By: #### L [id number] #### [facility] Laboratory [address] [place], [address] Lymphocytes/100 WBC (Bld) 13.8 % Low 19-41 [facility] Comment on above: Performed By: #### L [id number] #### [facility] Laboratory [address] [place], [address] MCH (RBC) [Entitic mass] 30.1 pg Normal 27.0-32.0 [facility] Comment on above: Performed By: #### L [id number] #### [facility] [address] [place], [address] MCHC (RBC) [Mass/Vol] 34.3 g/dL Normal 32-36 [facility] Comment on above: Performed By: #### L [id number] #### [facility] [address] [place], [address] MCV (RBC) [Entitic vol] 87.9 fL Normal 80-94 [facility] Comment on above: Performed By: #### L [id number] #### [facility] Laboratory [address] [place], [address] Monocytes/100 WBC (Bld) 7.5 % Normal 0-10 [facility] Comment on above: Performed By: #### L [id number] #### [facility] [address] [place], [address] Neutrophils/100 WBC (Bld) 77.7 % High 47-70 [facility] Comment on above: Performed By: #### L 499.0043 #### [facility] Laboratory [address] [place], [address] Nucleated RBC (Bld) [#/Vol] 0 10*3/uL Normal 0-5 [facility] Comment on above: Performed By: #### L [id number] #### [facility] Laboratory [address] [place], [address] Platelet mean volume (Bld) [Entitic vol] 11.6 fL Normal 6.2-12.0 [facility] Comment on above: Performed By: #### L [id number] #### [facility] Laboratory [address] [place], [address] Platelets (Bld) [#/Vol] 208 10*3/uL Normal 150-450 [facility] Comment on above: Performed By: #### L [id number] #### [facility] Laboratory [address] [place], [address] RBC (Bld) [#/Vol] 4.88 10*6/uL Normal 4.6-6.2 [facility] Comment on above: Performed By: #### L [id number] #### [facility] Laboratory [address] [place], [place], [address] RDW SD 44.8 fl High 35.1-43.9 [facility] Comment on above: Performed By: #### L [id number] #### [facility] Laboratory [address] [place], [place], [address] WBC (Bld) [#/Vol] 13.1 10*3/uL High 4.4-11.0 [facility] Comment on above: Performed By: #### L [id number] #### [facility] Laboratory [address] [place], [place], [address] Calculated very low density lipoprotein (VLDL) cholesterol measurementOrdered By: Sophie Lebron on 10-01-2024 Calculated very low density lipoprotein (VLDL) cholesterol measurement 30 mg/dL 5-40 [facility] Carbon dioxide, total [Moles /volume] in Central venous bloodOrdered By: Sophie Lebron on 10-01-2024 CO2 [Moles/Vol] 21.7 mmol/L 21.0-32.0 [facility] Cardiac rehabilitation repor tOrdered By: Lianne Luna on 10-01-2024 Study report [facility] Card[facility] [address] [place] [address] CR: Phase I Assessment MR#: [id number] Acct: [id number] Name: GREG BREWER Rep #:[id number] : 1955 68 From: Lianne Luna PCP: Dr. Noé Kaur, DO DOS: 09/30 Patient Communication Patient Information Former Patient:: Phase I and Phase II PHII Cardiac Rehab Discussed with Patient:: Yes Guide to Cardiac Rehab Given to Patient:: Yes Cardiac Rehab Facility Choice List Given to Patient:: Yes Communication to Cardiac Rehab Choice Program [facility] CR PHII:: Communication Given to CR Pen Maker:: Presley Dia Phase II Cardiac Rehab:: Yes Sessions:: 36 sessions - 3 days/wk, 12 weeks Cardiac Rehabilitation Info Program Information Cardiac Rehabilitation Program Information: Cardiac Rehab The cardiac rehab team at [facility] consists of highly skilled exercise physiologists, nurses, respiratory therapists and physicians working together with you. Our purpose is to help you have a full recovery and achieve the goals you set for yourself. Over the years many of our patients have returned to activities they assumed they would never do again! We can help restore your confidence and motivation to make lifestyle changes that can have a significant impact on your health and quality of life! We can help answer questions and concerns you may have about exercise, lifestyle, medications, diet, stress and anxiety which are common following a hospitalization. WE monitor ECG and vital signs during exercise and discuss your progress with you and report toyour physician(s). Cardiac Rehab is proven to help reduce readmissions, improve functional capacityand lower recurrence of problems with your heart. Our Cardiac Rehab program is Certified by the [place] [employer] Pulmonary [employer] (AACVPR) and Accredited by the [place] [employer] through our [facility]. You can contact us at . We invite you to call us with your questions or to get started in our program. If you have other questions or concerns be sure to ask your physician/provider during your follow-up visit. WE look forward to seeing you! 10/01/24 1448 Date Lianne Luna Outcome assessment reviewed. Exercise plan approved as documented. Treatment plan and goals support patient needs/abilities. Continue with current plan. I certify the patient demonstrates improvement and remains willing and capable of participation. the patient continues to benefit from cardiac rehab services/training. The patient may continue at current intensity, endurance andmodality and progress per protocol. Cosigner Signature: Date CC: ~ Signed [facility] Chloride assayOrdered By: Bridgette Lebron on 10-01-2024 Chloride [Moles/Vol] 105 mmol/L 98-108 [facility] Comprehensive Metabolic Prof ilon 10-01-2024 Albumin [Mass/Vol] 3.8 g/dL Normal 3.4-4.8 [facility] Comment on above: Performed By: #### L 500.4100, L500.4050 #### [facility] Laboratory [address] [place], [address] Albumin/Globulin [Mass ratio] 1.6 {ratio} Normal 0.9-2.4 [facility] Comment on above: Performed By: #### L 500.4100, L500.4050 #### [facility] Laboratory [address] [place], [address] ALK PHOS 77 U/L Normal 40-129 [facility] Comment on above: Performed By: #### L 500.4100, [id number] #### [facility] Laboratory [address] [place], [address] ALT [Catalytic activity/Vol] 48 U/L High <=46 [facility] Comment on above: Performed By: #### L 500.4100, [id number] #### [facility] Laboratory [address] [place], [address] AST [Catalytic activity/Vol] 265 U/L High <=37 [facility] Comment on above: Performed By: #### L 500.4100, [id number] #### [facility] Laboratory [address] [place], [address] Bilirubin [Mass/Vol] 0.29 mg/dL Normal 0.00-1.30 [facility] Comment on above: Performed By: #### L 500.4100, [id number] #### [facility] Laboratory [address] [place], [address] BUN/CRE 12.4 RATIO Normal 10-20 [facility] Comment on above: Performed By: #### L 500.4100, [id number] #### [facility] Laboratory [address] [place], [address] Calcium [Mass/Vol] 9.2 mg/dL Normal 7.6-11.0 [facility] Comment on above: Performed By: #### L 500.4100, [id number] #### [facility] Laboratory [address] [place], [address] Chloride [Moles/Vol] 105 mmol/L Normal 98-108 [facility] Comment on above: Performed By: #### L 500.4100, [id number] #### [facility] Laboratory [address] [place], [address] CO2 [Moles/Vol] 21.7 mmol/L Normal 21.0-32.0 [facility] Comment on above: Performed By: #### L 500.4100, [id number] #### [facility] Laboratory [address] [place], [address] Creatinine [Mass/Vol] 1.19 mg/dL Normal 0.70-1.20 [facility] Comment on above: Performed By: #### L 500.4100, [id number] #### [facility] [address] [place], [address] ECRCL 65.04 ml/min Normal 50-250 [facility] Comment on above: Performed By: #### L 500.4100, [id number] #### [facility] [address] [place], [address] GAP 12 Normal 5-15 [facility] Comment on above: Performed By: #### L 500.4100, [id number] #### [facility] Laboratory [address] [place], [address] GFR/1.73 sq M.predicted among non-blacks MDRD (S/P/Bld) [Vol rate/Area] 67 mL/min/{1.73_m2} Normal >60 [facility] Comment on above: Result Comment: mL/m in/1.73m2 CKD-EPI Creatinine Equation (2020) Performed By: #### L 500.4100, [id number] #### [facility] Laboratory [address] [place], [address] Globulin (S) [Mass/Vol] 2.4 g/dL Normal 2.2-4.2 [facility] Comment on above: Performed By: #### L 500.4100, [id number] #### [facility] Laboratory [address] [place], [address] Glucose [Mass/Vol] 129 mg/dL High 70-99 [facility] Comment on above: Performed By: #### L 500.4100, L500.4050 #### [facility] [address] [place], [address] Potassium [Moles/Vol] 4.1 mmol/L Normal 3.3-5.1 [facility] Comment on above: Performed By: #### L 500.4100, L500.4050 #### [facility] [address] [place], [address] Sodium [Moles/Vol] 139 mmol/L Normal 133-145 [facility] Comment on above: Performed By: #### L 500.4100, L500.4050 #### [facility] [address] [place], [address] T PROT 6.2 g/dL Normal 5.9-8.4 [facility] Comment on above: Performed By: #### L 500.4100, L500.4050 #### [facility] [address] [place], [address] Urea nitrogen [Mass/Vol] 15 mg/dL Normal 4-19 [facility] Comment on above: Performed By: #### L 500.4100, L500.4050 #### [facility] [address] [place], [address] Echocardiogram study reportO rdered By: Presley Dia on 10-01-2024 Study report [facility] [place] [address] Echo Complete W/ Contrast 10/01/24 0832 MR#: [id number] Acct: [id number] Name: GREG BREWER Rep #:[id number] : 1955 68 From: Presley Dia MD Attending Dr: Dr. Noé Michelle, DO Status: ADM IN Ordering Dr: Sophie Lebron MD Date: 09/30/24 Location: ICU Sex: M N Admitted: 09/30/24 Reason For Study Reason For Study: STEMI Procedure This was a 2D Doppler, Color Flow transthoracic echocardiogram. Contrast injection was performed. Exam performed portable in ICU/CCU. Left Ventricle Normal size and thickness. Anterior, apical and septal akinesis. Estimated LVEF 40%. Stage I diastolic dysfunction. Possible small LV apical thrombus. Right Ventricle Normal right ventricle. Atria The left and right atria are normal. Mitral Valve Trivial mitral valve insufficiency. Tricuspid Valve Trivial tricuspid valve insufficiency. Normal pulmonary artery pressure. Aortic Valve Trisinus/trileaflet aortic valve. Trivial aortic valve insufficiency. Pulmonic Valve The pulmonic valve is not well visualized. Great Vessels Normal sized aortic root. Pericardium/Pleural No pericardial effusion. Medication Diluted definity 1.5ml given slow IV push to enhance endocardial definition. MMode/2D Measurements & Calculations LVIDd: 4.1 cm IVSd: 1.1 cm LVOT diam: 1.9 cm LVIDs: 2.5 cm LVPWd: 1.0 cm RVDd: 3.8 cm FS: 37.5 % LVOT area: 3.0 cm2 asc Aorta Diam: 3.3 cm LAV(MOD-bp): 34.3 ml LVAd ap4: 36.5 cm2 LAV(MOD-bp) Indexed: 17.5 ml/m2 LVLd ap4: 9.0 cm LAV(MOD-sp2): 39.5 ml EDV(MOD-sp4): 119.4 ml LAV(MOD-sp4): 30.1 ml EDV(sp4-el): 126.0 ml LVAs ap4: 26.9 cm2 LVLs ap4: 8.5 cm ESV(MOD-sp4): 70.1 ml ESV(sp4-el): 72.4 ml EF(MOD-sp4): 41.3 % EF(sp4-el): 42.6 % LVAd ap2: 35.5 cm2 SV(MOD-sp4): 49.4 ml SV(MOD-sp2): 38.5 ml LVLd ap2: 8.8 cm SI(MOD-sp4): 25.1 ml/m2 SI(MOD-sp2): 19.6 ml/m2 EDV(MOD-sp2): 114.2 ml EDV(sp2-el): 121.2 ml LVAs ap2: 28.1 cm2 LVLs ap2: 8.4 cm ESV(MOD-sp2): 75.7 ml ESV(sp2-el): 79.3 ml EF(MOD-sp2): 33.7 % SV(sp4-el): 53.6 ml Ao sinus diam: 3.[address] Junction: 2.8 cm LA dimension(2D): 3.7 cm LA A4 area: 13.3 cm2 RA A4 area: 10.0 cm2 TAPSE: 1.8 cm Time Measurements MV dec time: 0.19 sec Doppler Measurements & Calculations MV E max jefferson: 81.4 cm/sec Lat Peak E' Jefferson: 12.5 cm/sec Med Peak E' Jefferson: 11.3 cm/sec MV A max jefferson: 85.3 cm/sec E/E' lat: 6.5 E/E' med: 7.2 MV E/A: 0.95 MV dec slope: 434.2 cm/sec2 Ao V2 max: 142.7 cm/sec LV V1 max: 126.5 cm/sec Ao max P.1 mmHg LV V1 max P.4 mmHg Ao V2 mean: 110.7 cm/sec LV V1 mean P.3 mmHg Ao mean P.2 mmHg LV V1 mean: 83.7 cm/sec Ao V2 VTI: 27.8 cm LV V1 VTI: 25.3 cm AV (velocity ratio): 0.91 KRISTINA(I,D): 2.7 cm2 KRISTINA(V,D): 2.6 cm2 SV(LVOT): 75.0 ml PA V2 max: 110.2 cm/sec TR max jefferson: 237.5 cm/sec TR max P.6 mmHg ECHO/Echo Complete W/ Contrast Interpretation Summary Anterior, apical and septal akinesis. Estimated LVEF 40%. Stage I diastolic dysfunction. Possible small LV apical thrombus. Ordering Physician: Sophie Lebron Referring Physician: Noé Kaur Performed By: Tika Sparrow, [facility] 10/01/24 1132 Date _ Presley Dia MD CC: Dr. Presley Dia MD; Dr. Sophie Lebron MD; Dr. Noé Kaur DO; Dr. Noé Michelle DO ~ Date Dictated: 10/01/24 0832 Date Transcribed: 10/01/24 113 Manufacturing Baker: James [facility] Work Phone: Electrocardiogram reportOrde red By: Matt Cody on 10-01-2024 EKG study [facility] [address] [place] [address] 12 Lead EKG 09/30/242013 MR#: [id number] Acct: [id number] Name: GREG BREWER Rep #:[id number] : 1955 68 From: Matt Cody MD Attending Dr: Dr. Noé Michelle DO Status: ADM IN Ordering Dr: Sophie Lebron MD Date: 09/30/24 Location: ICU Sex: M N Admitted: 09/30/24 Test Reason : Blood Pressure : */* mmHG Vent. Rate : 74 BPM Atrial Rate : 74 BPM P-R Int : 182 ms QRS Dur : 78 ms QT Int : 360 ms P-R-T Axes : 49 -33 12 degrees QTcB Int : 399 ms Critical Test Result: STEMI Normal sinus rhythm Left axis deviation Anteroseptal VA, acute ACUTE VA / STEMI Abnormal ECG When compared with ECG of 02-Apr-2018 04:33, Significant changes have occurred Confirmed by BRIAN ESTRADA, MATT ([id number]), photograph editor KAROLINA GAMBOA ([id number]) on 51:23:33 PM Referred By: Presley Dia Confirmed By: MATT CODY MD 10/01/24 1323 Date _ Matt Cody MD CC: Dr. Presley Dia MD; Dr. Sophie Lebron MD; Dr. Noé Kaur DO; Dr. Noé Michelle DO ~ Signed [facility] Other Phone: EKG study [facility] [address] [place] [address] 12 Lead EKG 10/01/24514 MR#: [id number] Acct: [id number] Name: GREG BREWER Rep #:[id number] : 1955 68 From: Matt Cody MD Attending Dr: Dr. Noé Michelle DO Status: ADM IN Ordering Dr: Sophie Lebron MD Date: 10/01/24 Location: ICU Sex: M N Admitted: 09/30/24 Test Reason : am ekg Blood Pressure : */* mmHG Vent. Rate : 70 BPM Atrial Rate : 70 BPM P-R Int : 142 ms QRS Dur : 90 ms QT Int : 394 ms P-R-T Axes : 56 -51 59 degrees QTcB Int : 425 ms Normal sinus rhythm Left axis deviation Low voltage QRS Cannot rule out Anteroseptal infarct , age undetermined Abnormal ECG When compared with ECG of 30-Sep-2024 20:14, MANUAL COMPARISON REQUIRED DATA IS UNCONFIRMED Confirmed by BRIAN ESTRADA, MATT ([id number]), photograph editor KAROLINA GAMBOA ([id number]) on 51:21:49 PM Referred By: Presley Dia Confirmed By: MATT CODY MD 10/01/24 1321 Date _ Matt Cody MD CC: Dr. Presley Dia MD; Dr. Sophie Lebron MD; Dr. Noé Kaur DO; Dr. Noé Michelle DO ~ Signed [facility] Other Phone: Eosinophil percentageOrdered By: Sophie Lebron on 10-01-2024 Eosinophils/100 WBC (Bld) 0.2 % 0-5 [facility] Erythrocyte distribution wid th ratioOrdered By: Sophie Lebron on 10-01-2024 Erythrocyte distribution width (RBC) [Ratio] 13.9 % 11.6-14.6 [facility] Erythrocyte distribution wid th standard deviationOrdered By: Sophie Bernardino on 10-01-2024 Erythrocyte distribution width (RBC) [Ratio] 44.8 fl High 35.1-43.9 [facility] Glomerular filtration rate ( GFR) estimation/1.73 sq m using serum, plasma, or whole bOrdered By: Sophie Lebron on 10-01-2024 GFR/1.73 sq M.predicted among non-blacks MDRD (S/P/Bld) [Vol rate/Area] 67 mL/min/{1.73_m2} >60 [facility] Comment on above: mL/min/1.73m2 CKD-EP I Creatinine Equation (2020) Hematocrit Auto (Bld) [Volum e fraction]Ordered By: Sophie Lebron on 10-01-2024 Hematocrit (Bld) [Volume fraction] 42.9 % 40-54 [facility] Hemoglobin A1con 10-01-2024 HbA1c (Bld) [Mass fraction] 5.7 % Normal <=5.6 [facility] Comment on above: Result Comment: Norm al < 5.7 % Prediabetic 5.7 - 6.4 % Diabetic >or= 6.5 % Please note range changes. Performed By: #### L 501.9985 #### [facility] [address] [place], [place], [id number] Hemoglobin A1c percentageOrd ered By: Sophie Bernardino on 10-01-2024 HbA1c (Bld) [Mass fraction] 5.7 % <5.7 [facility] Comment on above: Normal < 5.7 % Predi abetic 5.7 - 6.4 % Diabetic >or= 6.5 % Please note range changes. Hemoglobin measurementOrdere d By: Sophie Bernardino on 10-01-2024 Hemoglobin (Bld) [Mass/Vol] 14.7 g/dL 13.0-16.5 [facility] Immature granulocytes/100 WB C Auto (Bld)Ordered By: Sophie Bernardino on 10-01-2024 Immature granulocytes/100 WBC (Bld) 0.500 % 0.0-0.9 [facility] Comment on above: IG% - Immature Granu locytes (promyelocytes, myelocytes and metamyelocytes) > 1% indicates that a LEFT SHIFT is Present. L499.0043on 10-01-2024 Trop T High Sen 3329 ng/L Invalid Interpretation Code <=22 [facility] Comment on above: Result Comment: Crit ical Result(s) Called at: 0035 by:??PHILIPPE MG TO JIAN NAILS. Results read back by same. Performed By: #### L 499.0043 #### [facility] [address] [place], [address] LDL calc ser/plasOrdered By: Sophie Lebron on 10-01-2024 Cholesterol in LDL [Mass/Vol] 103 mg/dL [facility] Comment on above: Dtrvohunfx=452-349 m g/dL & Higher Lsxg=241 mg/dL or greater Laboratory - Chemistry and C hemistry - challengeOrdered By: Sophie Lebron on 10-01-2024 AST [Catalytic activity/Vol] 265 U/L High <38 [facility] Lipid Profileon 10-01-2024 CHOL:HDL 4.94 Normal [facility] Comment on above: Performed By: #### L 500.4100, L500.4050 #### [facility] [address] [place], [place], [id number] (463) Cholesterol [Mass/Vol] 166 mg/dL Normal <=200 [facility] Comment on above: Result Comment: Chol esterol level, Desirable <200 mg/dL Borderline high cholesterol 200-239 mg/dL High cholesterol >=240 mg/dL Recommendations of the NCEP Adult Treatment Panel for the following risk-cutoff thresholds for the [place] population. Performed By: #### L 500.4100, L500.4050 #### [facility] [address] [place], [address] Cholesterol in HDL [Mass/Vol] 34 mg/dL Low [facility] Comment on above: Result Comment: Dorothy onal Cholesterol Education Program (NCEP) guidelines: <40 mg/dL: Low HDL-cholesterol (major risk factor for CHD) >= 60 mg/dL: High HDL-cholesterol (negative risk factor for CHD) HDL-cholesterol is affected by a number of factors, e.g. smoking, exercise, hormones, sex and age. Performed By: #### L 500.4100, L500.4050 #### [facility] [address] [place], [address] Cholesterol in LDL [Mass/Vol] 103 mg/dL Normal [facility] Comment on above: Result Comment: Bord zhpewg=989-920 mg/dL Higher Iopm=246 mg/dL or greater Performed By: #### L 500.4100, L500.4050 #### [facility] [address] [place], [address] Cholesterol in VLDL [Mass/Vol] 30 mg/dL Normal 5-40 [facility] Comment on above: Performed By: #### L 500.4100, L500.4050 #### [facility] [address] [place], [address] Triglyceride [Mass/Vol] 148 mg/dL Normal [facility] Comment on above: Result Comment: The drugs N-Acetylcysteine and Metamizole may falsely depress this assay. Normal range: <150 mg/dL Borderline High: 150-199 mg/dL High: 200-499 mg/dL Very High: >500 mg/dL Performed By: #### L 500.4100, L500.4050 #### [facility] [address] [place], [address] MCV (mean corpuscular volume ) determinationOrdered By: Sophie Lebron on 10-01-2024 MCV (RBC) [Entitic vol] 87.9 fL 80-94 [facility] MR/QUALITYon 10-01-2024 MR/QUALITY [facility] Medical Records Department [address] [place] [address] Quality Report 10/01/24 1101 MR#: [id number] Acct: [id number] Name: GREG BREWER Rep #: [id number] : 1955 68 From: Eliazar Bynum PCP: Dr. Noé Kaur, DO Status:ADM IN Y Location: ICU ICU08-1 STEMI STEMI ED Door Time / Other REG STEMI EKG Time (1) Acute ST elevation myocardial infarction (STEMI) of anterior wall: Acute 09/30/24 18:35 Balloon/Aspiration Date-Time Date of Balloon/Aspiration:: 09/30/24 Time of Balloon/Aspiration:: 19:20 10/01/24 1102 Date Eliazar Roberts Signature (if applicable): Date CC: Signed Normal [facility] Mean corpuscular hemoglobin (MCH) determinationOrdered By: Sophie Bernardino on 10-01-2024 MCH (RBC) [Entitic mass] 30.1 pg 27.0-32.0 [facility] Mean corpuscular hemoglobin concentration (MCHC) determinationOrdered By: White on 10-01-2024 MCHC (RBC) [Mass/Vol] 34.3 g/dL 32-36 [facility] Mean platelet volume determi nationOrdered By: White on 10-01-2024 Platelet mean volume (Bld) [Entitic vol] 11.6 fL 6.2-12.0 [facility] Monocyte percentageOrdered B y: White on 10-01-2024 Monocytes/100 WBC (Bld) 7.5 % 0-10 [facility] Neutrophil percentageOrdered By: White on 10-01-2024 Neutrophils/100 WBC (Bld) 77.7 % High 47-70 [facility] Nucleated red blood cell per centageOrdered By: White on 10-01-2024 Nucleated RBC/100 WBC (Bld) [Ratio] 0 % 0-5 [facility] Platelet countOrdered By: Bridgette Lebron on 10-01-2024 Platelets (Bld) [#/Vol] 208 10*3/uL 150-450 [facility] Potassium measurement (mass/ volume)Ordered By: Bernardino on 10-01-2024 Potassium (Unsp spec) [Mass/Vol] 4.1 mmol/L 3.3-5.1 [facility] RBC Auto (Bld) [#/Vol]Ordere d By: White on 10-01-2024 RBC (Bld) [#/Vol] 4.88 10*6/uL 4.6-6.2 [facility] Screening total cholesterol/ high density lipoprotein (HDL) cholesterol ratioOrdered By: Sophie Lebron on 10-01-2024 Cholesterol.total/Monica sterol in HDL [Mass ratio] 4.94 {ratio} [facility] Serum creatinine measurement (mass/volume)Ordered By: Sophie Lebron on 10-01-2024 Creatinine [Mass/Vol] 1.19 mg/dL 0.70-1.20 [facility] Serum globulin measurementOr dered By: Sophie Lebron on 10-01-2024 Globulin (S) [Mass/Vol] 2.4 g/dL 2.2-4.2 [facility] Serum glucose measurement (m ass/volume)Ordered By: Sophie Lebron on 10-01-2024 Glucose [Mass/Vol] 129 mg/dL High 70-99 [facility] Serum or plasma alanine moreno otransferase (ALT) measurementOrdered By: Sophie Lebron on 10-01-2024 ALT [Catalytic activity/Vol] 48 U/L High <47 [facility] Serum or plasma albumin milagro urement (mass/volume)Ordered By: Sophie Lebron on 10-01-2024 Albumin [Mass/Vol] 3.8 g/dL 3.4-4.8 [facility] Serum or plasma albumin/glob ulin mass ratioOrdered By: Sophie Lebron on 10-01-2024 Albumin/Globulin [Mass ratio] 1.6 {ratio} 0.9-2.4 [facility] Serum or plasma alkaline jerad sphatase measurementOrdered By: Sophie Lebron 10-01-2024 ALP [Catalytic activity/Vol] 77 U/L 40-129 [facility] Serum or plasma calcium milagro urement (mass/volume)Ordered By: Sophie Lebron 10-01-2024 Calcium [Mass/Vol] 9.2 mg/dL 7.6-11.0 [facility] Serum or plasma cholesterol in HDL measurement (mass/volume)Ordered By: Sophie Lebron on 10-01-2024 Cholesterol in HDL [Mass/Vol] 34 mg/dL Low >40 [facility] Comment on above: National Cholesterol Education Program (NCEP) guidelines:<40 mg/dL: Low HDL-cholesterol (major risk factor for CHD)>= 60 mg/dL: High HDL-cholesterol (negative risk factor for CHD)HDL-cholesterol is affected by a number of factors, e.g. smoking, exercise, hormones, sex and age. Serum or plasma cholesterol measurement (mass/volume)Ordered By: Sophie Lebron on 10-01-2024 Cholesterol [Mass/Vol] 166 mg/dL <201 [facility] Comment on above: Cholesterol level, D esirable <200 mg/dLBorderline high cholesterol 200-239 mg/dLHigh cholesterol >=240 mg/dLRecommendations of the NCEP Adult Treatment Panel for the following risk-cutoff thresholds for the [place] population. Serum or plasma urea nitroge n measurement (mass/volume)Ordered By: Sophie Lebron on 10-01-2024 Urea nitrogen [Mass/Vol] 15 mg/dL 4-19 [facility] Sodium levelOrdered By: Arletteu mn Bernardino on 10-01-2024 Sodium [Moles/Vol] 139 mmol/L 133-145 [facility] Total proteinOrdered By: Arlette umn Bernardino on 10-01-2024 Protein [Mass/Vol] 6.2 g/dL 5.9-8.4 [facility] Triglycerides measurementOrd ered By: oSphie Lebron on 10-01-2024 Triglyceride [Mass/Vol] 148 mg/dL <199 [facility] Comment on above: The drugs N-Acetylcy steine and Metamizole may falsely depress this assay. Normal range: <150 mg/dLBorderline High: 150-199 mg/dLHigh: 200-499 mg/dLVery High: >500 mg/dL White blood cell (WBC) count Ordered By: Sophie Lebron on 10-01-2024 WBC (Bld) [#/Vol] 13.1 10*3/uL High 4.4-11.0 [facility] 12 Lead EKGon 09-30-2024 12 Lead EKG [facility] [address] [place] [address] 12 Lead EKG 09/30/242013 MR#: [id number] Acct: [id number] Name: GREG BREWER Rep #: [id number] : 1955 68 From: Matt Cody MD Attending Dr: Dr. Noé Michelle, DO Status: A DM IN Ordering Dr: Sophie Lebron MD Date: 09/30/24 Location: ICU Sex: M N Admitted: 09/30/24 Test Reason : Blood Pressure : */* mmHG Vent. Rate : 74 BPM Atrial Rate : 74 BPM P-R Int : 182 ms QRS Dur : 78 ms QT Int : 360 ms P-R-T Axes : 49 -33 12 degrees QTcB Int : 399 ms Critical Test Result: STEMI Normal sinus rhythm Left axis deviation Anteroseptal VA, acute ACUTE VA / STEMI Abnormal ECG When compared with ECG of 02-Apr-2018 04:33, Significant changes have occurred Confirmed by MATT CODY MD ([id number]), photograph editor KAROLINA GAMBOA ([id number]) on 10/01/2024 1:23:33 PM Referred By: Presley Dia Confirmed By: MATT CODY MD 10/01/24 1323 Date Matt Cody MD CC: Dr. Presley Dia MD; Dr. Sophie Lebron MD; Dr. Noé Kaur DO; Dr. Noé Michelle DO Signed Normal [facility] ACT Activated Clotting Timeo n 09-30-2024 ACTk CLOT TIME 228 sec High 74-137 [facility] Comment on above: Performed By: #### L 499.0043 #### [facility] [address] [place], [address] Absolute lymphocyte countOrd ered By: Ramirez Carrington on 09-30-2024 Lymphocytes Auto (Unsp spec) [#/Vol] 3.03 10*3/uL 0.83-4.51 [facility] Absolute neutrophil countOrd ered By: Ramirezkerrie Carrington on 09-30-2024 Neutrophils (Bld) [#/Vol] 12.5 10*3/uL High 2.0-7.7 [facility] Activated partial thrombopla stin time (aPTT) in platelet poor plasma by coagulation aOrdered By: Ramirez Carrington on 09-30-2024 aPTT Coag (PPP) [Time] 21.7 s Low 24.1-36.2 [facility] Anion gap in Serum or Plasma Ordered By: Ramirezkerrie Carrington on 09-30-2024 Anion gap [Moles/Vol] 16 mmol/L High 5-15 [facility] Automated lymphocyte count a s percentage of total leukocytesOrdered By: Ramirez Carrington on 09-30-2024 Lymphocytes/100 WBC Auto (Unsp spec) 18.0 % Low 19-41 [facility] BUN/creatinine ratioOrdered By: Ramirez Carrington on 09-30-2024 Urea nitrogen/Creatinine [Mass ratio] 7.6 mg/mg Low 10-20 [facility] Basic Metabolic Profile (BMP )on 09-30-2024 BUN/CRE 7.6 RATIO Low 10-20 [facility] Comment on above: Performed By: #### L 501.5200 #### [facility] [address] [place], [address] Calcium [Mass/Vol] 9.6 mg/dL Normal 7.6-11.0 [facility] Comment on above: Performed By: #### L 501.5200 #### [facility] [address] [place], [address] Chloride [Moles/Vol] 105 mmol/L Normal 98-108 [facility] Comment on above: Performed By: #### L 501.5200 #### [facility] [address] [place], [address] CO2 [Moles/Vol] 18.9 mmol/L Low 21.0-32.0 [facility] Comment on above: Performed By: #### L 501.5200 #### [facility] [address] [place], [address] Creatinine [Mass/Vol] 1.79 mg/dL High 0.70-1.20 [facility] Comment on above: Performed By: #### L 501.5200 #### [facility] [address] [place], [address] ECRCL 37.95 ml/min Low 50-250 [facility] Comment on above: Performed By: #### L 501.5200 #### [facility] [address] [place], [address] GAP 16 High 5-15 [facility] Comment on above: Performed By: #### L 501.5200 #### [facility] [address] [place], [address] GFR/1.73 sq M.predicted among non-blacks MDRD (S/P/Bld) [Vol rate/Area] 41 mL/min/{1.73_m2} Low >60 [facility] Comment on above: Result Comment: mL/m in/1.73m2 CKD-EPI Creatinine Equation (2020) Performed By: #### L 501.5200 #### [facility] [address] [place], [address] Glucose [Mass/Vol] 148 mg/dL High 70-99 [facility] Comment on above: Performed By: #### L 501.5200 #### [facility] [address] [place], [address] Potassium [Moles/Vol] 4.9 mmol/L Normal 3.3-5.1 [facility] Comment on above: Performed By: #### L 501.5200 #### [facility] [address] [place], [address] Sodium [Moles/Vol] 140 mmol/L Normal 133-145 [facility] Comment on above: Performed By: #### L 501.5200 #### [facility] [address] [place], [address] Urea nitrogen [Mass/Vol] 14 mg/dL Normal 4-19 [facility] Comment on above: Performed By: #### L 501.5200 #### [facility] [address] [place], [address] Basophil percentageOrdered B y: Ramirez Carrington on 09-30-2024 Basophils/100 WBC (Bld) 0.5 % 0-1 [facility] CBC W/Diff, Automatedon 09-08 Absolute Lymph 3.03 X10 3/uL Normal 0.83-4.51 [facility] Comment on above: Performed By: #### L 501.5200 #### [facility] [address] [place], [address] Absolute Neut 12.5 X10 3/uL High 2.0-7.7 [facility] Comment on above: Performed By: #### L 501.5200 #### [facility] [address] [place], [address] Basophils/100 WBC (Bld) 0.5 % Normal 0-1 [facility] Comment on above: Performed By: #### L 501.5200 #### [facility] [address] [place], [address] Eosinophils/100 WBC (Bld) 0.3 % Normal 0-5 [facility] Comment on above: Performed By: #### L [id number] #### [facility] Laboratory [address] [place], [address] Erythrocyte distribution width (RBC) [Ratio] 13.9 % Normal 11.6-14.6 [facility] Comment on above: Performed By: #### L [id number] #### [facility] [address] [place], [address] Hematocrit (Bld) [Volume fraction] 48.1 % Normal 40-54 [facility] Comment on above: Performed By: #### L [id number] #### [facility] [address] [place], [address] Hemoglobin (Bld) [Mass/Vol] 16.3 g/dL Normal 13.0-16.5 [facility] Comment on above: Performed By: #### L 501.5200 #### [facility] [address] [place], [address] IG% 0.800 Normal 0.0-0.9 [facility] Comment on above: Result Comment: IG% - Immature Granulocytes (promyelocytes, myelocytes and metamyelocytes) > 1% indicates that a LEFT SHIFT is Present. Performed By: #### L [id number] #### [facility] [address] [place], [address] Lymphocytes/100 WBC (Bld) 18.0 % Low 19-41 [facility] Comment on above: Performed By: #### L [id number] #### [facility] [address] [place], [address] MCH (RBC) [Entitic mass] 29.9 pg Normal 27.0-32.0 [facility] Comment on above: Performed By: #### L 501.0 #### [facility] [address] [place], [address] MCHC (RBC) [Mass/Vol] 33.9 g/dL Normal 32-36 [facility] Comment on above: Performed By: #### L [id number] #### [facility] [address] [place], [address] MCV (RBC) [Entitic vol] 88.3 fL Normal 80-94 [facility] Comment on above: Performed By: #### L [id number] #### [facility] [address] [place], [address] Monocytes/100 WBC (Bld) 5.8 % Normal 0-10 [facility] Comment on above: Performed By: #### L [id number] #### [facility] [address] [place], [address] Neutrophils/100 WBC (Bld) 74.6 % High 47-70 [facility] Comment on above: Performed By: #### L [id number] #### [facility] [address] [place], [address] Nucleated RBC (Bld) [#/Vol] 0 10*3/uL Normal 0-5 [facility] Comment on above: Performed By: #### L [id number] #### [facility] [address] [place], [address] Platelet mean volume (Bld) [Entitic vol] 11.7 fL Normal 6.2-12.0 [facility] Comment on above: Performed By: #### L [id number] #### [facility] [address] [place], [address] Platelets (Bld) [#/Vol] 233 10*3/uL Normal 150-450 [facility] Comment on above: Performed By: #### L [id number] #### [facility] [address] [place], [address] RBC (Bld) [#/Vol] 5.45 10*6/uL Normal 4.6-6.2 [facility] Comment on above: Performed By: #### L [id number] #### [facility] [address] [place], [address] RDW SD 44.2 fl High 35.1-43.9 [facility] Comment on above: Performed By: #### L [id number] #### [facility] [address] [place], [address] WBC (Bld) [#/Vol] 16.8 10*3/uL High 4.4-11.0 [facility] Comment on above: Performed By: #### L [id number] #### [facility] [address] [place], [address] Carbon dioxide, total [Moles /volume] in Central venous bloodOrdered By: Ramirez Carrington on 09-30-2024 CO2 [Moles/Vol] 18.9 mmol/L Low 21.0-32.0 [facility] Chloride assayOrdered By: Ug o Carrington on 09-30-2024 Chloride [Moles/Vol] 105 mmol/L 98-108 [facility] Consultation - Cardiologyon 09-30-2024 Consultation - Cardiology [facility] Medical Records Department [address] [place] [address] Consultation - Cardiology 09/30/242012 MR#: [id number] Acct: [id number] Name: GREG BREWER Rep #: [id number] : 1955 68 From: Presley Dia MD PCP: Dr. Noé Kaur, DO Status:ADM IN Location: ICU ICU08-1 Assessment Plan Assessment/Plan (1) Acute ST elevation myocardial infarction (STEMI) of anterior wall: PLAN: Patient was taken emergently to the cardiac catheterization lab. Coronary angiography revealed in-stent thrombosis of the previously deployed stent to the mid LAD. Successful percutaneous revascularization was performed with balloon angioplasty and 2 drug-eluting stents. Excellent results were noted with pentecostal of ALTON-3 flow. Continue aspirin lifelong. Clopidogrel treatment for at least 1 year. Risk factor modification. (2) Coronary artery disease: PLAN: Patient has residual lesions in his left circumflex and RCA. For staged PCI. (3) Left ventricular systolic dysfunction (LVSD): PLAN: Secondary to #1 above. Beta-blockers, ACEI, SGLT2 inhibitors, spironolactone, diuretics. (4) Nicotine dependence: PLAN: Counseled to quit. (5) Non-compliance: PLAN: Patient not compliant with regular medical follow-up or with his medications. Emphasized the need for regular cardiac and and medical follow-up and the necessity of taking his medications regularly. HPI Consult Data Date of Consult: 09/30/24 HPI Narrative Reason for Consultation: Acute anterior VA HPI Narrative: 68-year-old gentleman with past medical history significant for coronary artery disease status post drug-eluting stent to the mid LAD in 2018. Noncompliant with medications. EMS was called with complaints of acute onset anterior chest discomfort earlier this evening. An ECG was done. It showed acute anterior ST elevation myocardial infarction. Subsequently a STEMI alert was called. [facility] Medical History (Updated 09/30/24 @ 20:[address] Presley Dia MD) History of non-ST elevation myocardial infarction (NSTEMI) (04/01/18) Hyperlipidemia Atherosclerotic heart disease of pechanga coronary artery without angina pectoris Non-STEMI (non-ST elevated myocardial infarction) Tobacco dependence Chest pain Home Medications ???Medication ???Instructions ???Recorded ???Last Taken ???Type aspirin 81 mg tablet,delayed 81 mg PO DAILY@0800 #30 tabs 04/02 Unknown Rx release clopidogrel 75 mg tablet 75 mg PO DAILY #30 tabs 05/02/18 U nknown Rx Allergy/AdvReac Type Severity Reaction Status Date / Time No Known Allergies Allergy Verified 09/30/24 18:36 Family History Brother CAD (coronary artery disease) Surgical History Stented coronary artery (04/01/18) Social History Smoking Status: Current every day smoker tobacco type: cigarettes Physical Exam Narrative Appeared anxious, in acute discomfort. Heart sounds 1 and 2 noted. Chest with decreased air entry bilaterally. Alert oriented x 3. No ankle edema. Risk Stratification Risk Stratification Applicable: No Objective Data Vital Signs: Vital Signs Temp Pulse Resp BP Pulse Ox O2 Del Method 97.8 F 64 18 120/72 99 Room Air 09/30/24 19:16 09/30/24 19:16 09/30/24 19:16 09/30/24 19:16 09/30/24 19:16 09/30/24 19:06 Oxygen Delivery Method Room Air Weight: 172 lb 9.951 oz Body Mass Index (BMI) 27.0 Intake Output: Intake and Output for Last 24 Hours 09/28/24 09/29/24 09/30/24 23:59 23:59 23:59 Intake Total 0 / 0 Balance 0 / 0 Lab / Micro Data Attestation: I reviewed the patient's lab results. 09/30/24 18:40 09/30/24 18:40 Labs: Laboratory Results - last 24 hr 09/30/24 18:40: WBC 16.8 H, RBC 5.45, Hgb 16.3, Hct 48.1, MCV 88.3, MCH 29.9, MCHC 33.9, RDW Std Deviation 44.2 H, RDW Coeff of Farhat 13.9, Plt Count 233, MPV 11.7, Immature Gran % (Auto) 0.800, Neut % (Auto) 74.6 H, Lymph % (Auto) 18.0 L, Ware % (Auto) 5.8, Eos % (Auto) 0.3, Baso % (Auto) 0.5, A bsolute Neuts (auto) 12.5 H, Absolute Lymphs (auto) 3.03, Nucleated RBC % 0, PT 13.0, INR 1.0, APTT 21.7 L, Sodium 140, Potassium 4.9, Chloride 105, Carbon Dioxide 18.9 L, Anion Gap 16 H, BUN 14, C reatinine 1.79 H, Estim Creat Clear Calc 37.95 L, Est GFR (MDRD) Non-Af 41 L, BUN/Creatinine Ratio 7.6 L, Glucose 148 H, Calcium 9.6, Troponin T High Sens 9 09/30/24 18:54: Activated Clotting Time 228 H Cardiology Labs/Tests 09/30/24 18:40: WBC 16.8 H, RBC 5.45, Hgb 16.3, Hct 48.1, MCV 88.3, MCH 29.9, MCHC 33.9, Plt Count 233, MPV 11.7, Immature Gran % (Auto) 0.800, Neut % (Auto) 74.6 H, Lymph % (Auto) 18.0 L, Ware % (Auto) 5.8, Eos % (Auto) 0.3, Baso % (Auto) 0.5, Absolute Neuts (auto) 12.5 H, Nucleat (more content not included)... Normal [facility] Echo Complete W/ Contraston 09-30-2024 Echo Complete W/ Contrast [facility] Cardi[facility] Services [address] [place] [address] Echo Complete W/ Contrast 10/01/24 0832 MR#: [id number] Acct: [id number] Name: GREG BREWER Ab Rep #: [id number] : 1955 68 From: Presley Dia MD Attending Dr: Dr. Noé Michelle, DO Status: A DM IN Ordering Dr: Sophie Lebron MD Date: 09/30/24 Location: ICU Sex: M N Admitted: 09/30/24 Reason For Study Reason For Study: STEMI Procedure This was a 2D Doppler, Color Flow transthoracic echocardiogram. Contrast injection was performed. Exam performed portable in ICU/CCU. Left Ventricle Normal size and thickness. Anterior, apical and septal akinesis. Estimated LVEF 40%. Stage I diastolic dysfunction. Possible small LV apical thrombus. Right Ventricle Normal right ventricle. Atria The left and right atria are normal. Mitral Valve Trivial mitral valve insufficiency. Tricuspid Valve Trivial tricuspid valve insufficiency. Normal pulmonary artery pressure. Aortic Valve Trisinus/trileaflet aortic valve. Trivial aortic valve insufficiency. Pulmonic Valve The pulmonic valve is not well visualized. Great Vessels Normal sized aortic root. Pericardium/Pleural No pericardial effusion. Medication Diluted definity 1.5ml given slow IV push to enhance endocardial definition. MMode/2D Measurements Calculations LVIDd: 4.1 cm IVSd: 1.1 cm LVOT diam: 1.9 cm LVIDs: 2.5 cm LVPWd: 1.0 cm RVDd: 3.8 cm FS: 37.5 % LVOT area: 3.0 cm2 asc Aorta Diam: 3.3 cm LAV(MOD-bp): 34.3 ml LVAd ap4: 36.5 cm2 LAV(MOD-bp) Indexed: 17.5 ml/m2 LVLd ap4: 9.0 cm LAV(MOD-sp2): 39.5 ml EDV(MOD-sp4): 119.4 ml LAV(MOD-sp4): 30.1 ml EDV(sp4-el): 126.0 ml LVAs ap4: 26.9 cm2 LVLs ap4: 8.5 cm ESV(MOD-sp4): 70.1 ml ESV(sp4-el): 72.4 ml EF(MOD-sp4): 41.3 % EF(sp4-el): 42.6 % LVAd ap2: 35.5 cm2 SV(MOD-sp4): 49.4 ml SV(MOD-sp2): 38.5 ml LVLd ap2: 8.8 cm SI(MOD-sp4): 25.1 ml/m2 SI(MOD-sp2): 19.6 ml/m2 EDV(MOD-sp2): 114.2 ml EDV(sp2-el): 121.2 ml LVAs ap2: 28.1 cm2 LVLs ap2: 8.4 cm ESV(MOD-sp2): 75.7 ml ESV(sp2-el): 79.3 ml EF(MOD-sp2): 33.7 % SV(sp4-el): 53.6 ml Ao sinus diam: 3.[address] Junction: 2.8 cm LA dimension(2D): 3.7 cm LA A4 area: 13.3 cm2 RA A4 area: 10.0 cm2 TAPSE: 1.8 cm Time Measurements MV dec time: 0.19 sec Doppler Measurements Calculations MV E max jefferson: 81.4 cm/sec Lat Peak E' Jefferson: 12.5 cm/sec Med Peak E' Jefferson: 11.3 cm/sec MV A max jefferson: 85.3 cm/sec E/E' lat: 6.5 E/E' med: 7.2 MV E/A: 0.95 MV dec slope: 434.2 cm/sec2 Ao V2 max: 142.7 cm/sec LV V1 max: 126.5 cm/sec Ao max P.1 mmHg LV V1 max P.4 mmHg Ao V2 mean: 110.7 cm/sec LV V1 mean P.3 mmHg Ao mean P.2 mmHg LV V1 mean: 83.7 cm/sec Ao V2 VTI: 27.8 cm LV V1 VTI: 25.3 cm AV (velocity ratio): 0.91 KRISTINA(I,D): 2.7 cm2 KRISTINA(V,D): 2.6 cm2 SV(LVOT): 75.0 ml PA V2 max: 110.2 cm/sec TR max jefferson: 237.5 cm/sec TR max P.6 mmHg ECHO/Echo Complete W/ Contrast Interpretation Summary Anterior, apical and septal akinesis. Estimated LVEF 40%. Stage I diastolic dysfunction. Possible small LV apical thrombus. Ordering Physician: Sophie Lebron Referring Physician: Noé Kaur Performed By: Tika Sparrow RDCS 10/01/24 1132 Date Presley Dia MD CC: Dr. Presley Dia MD; Dr. Sophie Lebron MD; Dr. Noé Kaur DO; Dr. Noé Michelle DO Date Dictated: 10/01/24 0832 Date Transcribed: 10/01/24 1132 Manufacturing Baker: Signed Normal [facility] Emergency Department Summary on 09-30-2024 Emergency Department Summary [facility] Medical Records Department [address] [place] [address] Emergency Department Summary 09/30/24 MR#: [id number] Acct: [id number] Name: GREG BREWER Rep #: [id number] : 1955 68 From: Ramirez Carrington MD PCP: Dr. Ej Day MD Status:ADM IN Location: ICU ICU08-1 HPI History of Present Illness Chief Complaint: Chest Pain Detail of Chief Complaint: Acute ST elevation VA and heat exhaustion Informant: patient Onset/Context/Timing Onset: Today and Hours Context: Sudden Onset Timing: Continuous Quality: Chest pressure Location: Midsternal Current Severity: Moderate Maximum Severity: Severe Worsened by: Not applicable Relieved by: Nothing Associated Symptoms Associated Symptoms: Patient called squad for heat exposure Narrative Narrative: Patient is 68-year-old male. He has history of atherosclerotic disease per his old records with history of non-ST elevation VA March 2018. He has hyperlipidemia. Is a smoker of 1 pack/day. Squad was called because of the heat cramps heat exhaustion from being out in the hot environment. He was at the baseball field and this started. He was lifting a trash can when he developed midsternal chest pressure heaviness. He began came sick to his stomach and slight shortness of breath. Prior similar symptoms: No Recent Illness/Hospitalizati on: No [facility] Medical History (Updated 09/30/24 @ 18:[address] 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 Non-STEMI (non-ST elevated myocardial infarction) Tobacco dependence Chest pain Home Medications ???Medication ???Instructions ???Recorded ???Last Taken ???Type aspirin 81 mg tablet,delayed 81 mg PO DAILY@0800 #30 tabs 04/02 Unknown Rx release clopidogrel 75 mg tablet 75 mg PO DAILY #30 tabs 05/02/18 U nknown Rx Allergy/AdvReac Type Severity Reaction Status Date / Time No Known Allergies Allergy Verified 09/30/24 18:36 Family History Brother CAD (coronary artery disease) Surgical History Stented coronary artery (04/01/18) Social History Smoking Status: Current every day smoker ROS ROS ED Constitutional Constitutional ED: Reports weight loss Cardiovascular Cardiovascular: Reports chest pain Respiratory/Chest Respiratory/Chest: Reports dyspnea Gastrointestinal Gastrointestinal: Reports nausea Integumentary Reports rash Psychiatric Psychiatric: Reports anxiety Hematologic/Lymphatic Hematologic/Lymphatic : Reports systems reviewed and no addt'l complaints, except as documented EXAM Physical Exam Const Vital Signs: 09/30/24 18:36 09/30/24 18:41 09/30/24 18:41 Temperature 97.8 F Temperature Source Oral Respiratory Rate 28 H Respiratory Effort Normal Blood Pressure 143/73 H Blood Pressure Mean 96 Pulse Ox 98 Oxygen Delivery Method Room Air Room Air Positive well nourished and well developed Constitutional Narrative: Patient appears uncomfortable. He is sweating profusely because he was out in the hot weather. General Appearance ED: well developed HEENT Reports dry mucous membranes HEENT Narrative: Poor dentition with multiple missing teeth Mouth ED: Yes dry mucous membranes Mouth: dry mucous membranes Eyes PERRL and EOMs intact bilaterally General Eye ED: Negative for pale conjunctiva or scleral icterus Neck no lymphadenopathy, supple and no JVD Chest Wall inspection of chest normal and palpation of chest normal Resp normal respiratory effort and clear to auscultation bilaterally Cardio regular rate, regular rhythm, S1 normal heart sound, S2 normal heart sound and no murmurs GI normal to inspection, nondistended, normoactive bowel sounds, non-tender, non-distended and no masses; Negative for hepatosplenomegaly Back/Spine no CVA tenderness Extremity normal to inspection General Extremety ED: Negative for edema or tenderness General Extremity: Negative for edema Neuro oriented x3 and CN's II-XII intact bilaterally Sensorium / Orientation: alert Psych mental status grossly normal Skin Skin Narrative: Patient is sweating profusely because of exposure to the hot environment. MDM MDM MDM Narrative Medical decision making narrative: Since Call was related to heat symptoms and patient clinics dehydrated 1 L of normal saline was ordered. He received 4 baby aspirin by squad. He was treated with heparin and Brilinta. STEMI was called based on prehospital EKG. Spoke with Dr. Dia. He was made aware of patient's EKG findings. I was unable to give him any (more content not included)... Normal [facility] Eosinophil percentageOrdered By: Ramirez Carrington on 09-30-2024 Eosinophils/100 WBC (Bld) 0.3 % 0-5 [facility] Erythrocyte distribution wid th ratioOrdered By: Ramirez Carrington on 09-30-2024 Erythrocyte distribution width (RBC) [Ratio] 13.9 % 11.6-14.6 [facility] Erythrocyte distribution wid th standard deviationOrdered By: Ramirez Carrington on 09-30-2024 Erythrocyte distribution width (RBC) [Ratio] 44.2 fl High 35.1-43.9 [facility] Glomerular filtration rate ( GFR) estimation/1.73 sq m using serum, plasma, or whole bOrdered By: Ramirez Carrington on 09-30-2024 GFR/1.73 sq M.predicted among non-blacks MDRD (S/P/Bld) [Vol rate/Area] 41 mL/min/{1.73_m2} Low >60 [facility] Comment on above: mL/min/1.73m2 CKD-EP I Creatinine Equation (2020) H AND P Exam - Hospitaliston 09-30-2024 H&P Exam - Hospitalist [facility] Medical Records Department [address] [place] [address] H P Exam - Hospitalist 09/30/241914 MR#: [id number] Acct: [id number] Name: GREG BREWER Rep #: [id number] : 1955 68 From: Sophie Lebron MD PCP: Dr. Noé Kaur, DO Status:ADM IN [facility] - General General Date of Admission: 09/30/24 Date of Service: 09/30/24 Chief Complaint: Chest pain HPI Narrative The patient is a 68 y/o M w/ PMHx: Tobacco use, CAD s/p PCI last in 2018 w/ ISA mid LAD, HTN, HLD and from previous cardiology notes at follow-up in 2018 he had discontinued both his statin and metoprolol therapy of note with continued tobacco usage who now Chantelle presents to the [facility] ED on 09/26/2024 with history of onset of midsternal chest discomfort described as a pressure-like sensation/heaviness with nausea and emesis as well as dyspnea and diaphoresis noted to range from moderate to severe with 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 In the ED given presentation with confirmed anterolateral STEMI STEMI alert prehospital initiation with cardiology discussions with Dr. Dia treated with heparin bolus, aspirin per EMS and Brilinta load. Workup in the ED included T97.8, heart rate 73, BP 143/73, respiratory rate 28, 98% on room air, CBC with WBC 16.8, hemoglobin 16.3, platelet 233 with left shift, BMP with carbon oxide 18.9, anion gap 16, BUN/creatinine 14/1.79, GFR 41, glucose 148, EKG with confirmation of anterior lateral STEMI. Patient transition once cardiac catheterization lab ready to the cardiac mobile home laborer for intervention per cardiology. [facility] Medical History (Updated 09/30/24 @ 22:[address] 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 Sophie Lebron MD) Brother CAD (coronary artery disease) Father Demyelinating disease Mother Heart disease Hypertension Heart failure Surgical History Stented coronary artery (04/01/18) Social History (Updated 09/30/24 @ 22:[address] Sophie Lebron MD) household members: spouse Smoking Status: Current every day smoker tobacco type: cigarettes Smoking packs per day: 1 Smoking cigarettes per day: 20.0 how long ago did patient quit smoking: Smoked since 11 y/o, quit 25 yrs in between. Notes intention to stop. quit status: quit date established alcohol intake: never substance use type: does not use ROS ROS Narrative Admission Review of Systems: CONSTITUTIONAL: No weight loss, fever, chills, + weakness or fatigue. HEENT: Eyes: No visual loss, blurred vision, double vision or yellow sclerae. Ears, Nose, Throat: No hearing loss, sneezing, congestion, runny nose or sore throat. SKIN: No rash or itching, lesions, wounds. CARDIOVASCULAR: + Chest pain. No palpitations, edema, orthopnea, syncopal events. RESPIRATORY: + Dyspnea. No cough or sputum, wheezing, hemoptysis. GASTROINTESTINAL: + anorexia, nausea, vomiting. No diarrhea, abdominal pain, melena, BRBPR. GENITOURINARY: No dysuria, frequency, urgency or retention. NEUROLOGICAL: No headache, dizziness, syncope, paralysis, ataxia, numbness or tingling in the extremities, focal weakness, change in bowel or bladder control, seizure. MUSCULOSKELETAL: + muscle, back pain, joint pain or stiffness. HEMATOLOGIC: No anemia, bleeding or bruising. LYMPHATICS: No enlarged nodes. No history of splenectomy. PSYCHIATRIC: No history of depression or anxiety. ENDOCRINOLOGIC: + History of diaphoresis. No cold or heat intolerance. No polyuria or polydipsia. ALLERGIES: No history of asthma, hives, eczema or rhinitis. Vital Signs Vital Signs Vital Signs: 09/30/24 18:36 09/30/24 18:41 09/30/24 18:41 Temperature 97.8 F Temperature Source Oral Pulse Rate Respiratory Rate 28 H Respiratory Effort Normal Blood Pressure 143/73 H Blood Pressure Mean 96 Pulse Ox 98 Oxygen Delivery Method Room Air Room Air 09/30/24 18:50 Temperature (more content not included)... Normal [facility] Hematocrit Auto (Bld) [Volum e fraction]Ordered By: Ramirez Carrington on 09-30-2024 Hematocrit (Bld) [Volume fraction] 48.1 % 40-54 [facility] Hemoglobin measurementOrdere d By: Ramirezkerrie Carrington on 09-30-2024 Hemoglobin (Bld) [Mass/Vol] 16.3 g/dL 13.0-16.5 [facility] Immature granulocytes/100 WB C Auto (Bld)Ordered By: Ramirez Carrington on 09-30-2024 Immature granulocytes/100 WBC (Bld) 0.800 % 0.0-0.9 [facility] Comment on above: IG% - Immature Granu locytes (promyelocytes, myelocytes and metamyelocytes) > 1% indicates that a LEFT SHIFT is Present. International normalized rat io (INR) calculationOrdered By: Ramirez Carrington on 09-30-2024 INR Coag (Bld) [Relative time] 1.0 {INR} [facility] [id number] 09-30-2024 Trop T High Sen 2056 ng/L Invalid Interpretation Code <=22 [facility] Comment on above: Result Comment: Crit ical Result(s) Called ANGEL PAL at: 2218 by: MAURILIO??Results read back by same. Performed By: #### L 499.0042 #### [facility] [address] [place], [address] L501.4021on 09-30-2024 Trop T High Sen 9 ng/L Normal <=22 [facility] Comment on above: Performed By: #### L 499.0043 #### [facility] [address] [place], [address] MCV (mean corpuscular volume ) determinationOrdered By: Ramirez Carrington on 09-30-2024 MCV (RBC) [Entitic vol] 88.3 fL 80-94 [facility] Magnesiumon 09-30-2024 Magnesium [Mass/Vol] 2.1 mg/dL Normal 1.5-2.2 [facility] Comment on above: Order Comment: Comme nts: may add to ED labs Performed By: #### L 501.5200 #### [facility] [address] [place], [address] Magnesium measurement (mass/ volume)Ordered By: Sophie Lebron on 09-30-2024 Magnesium (Unsp spec) [Mass/Vol] 2.1 mg/dL 1.5-2.2 [facility] Mean corpuscular hemoglobin (MCH) determinationOrdered By: Ramirez Carrington on 09-30-2024 MCH (RBC) [Entitic mass] 29.9 pg 27.0-32.0 [facility] Mean corpuscular hemoglobin concentration (MCHC) determinationOrdered By: Ramirez Carrington on 09-30-2024 MCHC (RBC) [Mass/Vol] 33.9 g/dL 32-36 [facility] Mean platelet volume determi nationOrdered By: Ramirez Carrington on 09-30-2024 Platelet mean volume (Bld) [Entitic vol] 11.7 fL 6.2-12.0 [facility] Monocyte percentageOrdered B y: Ramirez Carrington on 09-30-2024 Monocytes/100 WBC (Bld) 5.8 % 0-10 [facility] Neutrophil percentageOrdered By: Ramirezkerrie Carrington on 09-30-2024 Neutrophils/100 WBC (Bld) 74.6 % High 47-70 [facility] Nucleated red blood cell per centageOrdered By: Ramirezkerrie Carrington on 09-30-2024 Nucleated RBC/100 WBC (Bld) [Ratio] 0 % 0-5 [facility] Partial Thromboplast Timeon 09-30-2024 aPTT Coag (Bld) [Time] 21.7 s Low 24.1-36.2 [facility] Comment on above: Performed By: #### L 622.8068 #### [facility] [address], [place], [id number] Platelet countOrdered By: kerrie Carrington on 09-30-2024 Platelets (Bld) [#/Vol] 233 10*3/uL 150-450 [facility] Potassium measurement (mass/ volume)Ordered By: Ramirezkerrie Fryo on 09-30-2024 Potassium (Unsp spec) [Mass/Vol] 4.9 mmol/L 3.3-5.1 [facility] Prothrombin Time w/INRon INR Coag (PPP) [Relative time] 1.0 {INR} Normal [facility] Comment on above: Performed By: #### L 703.0307 #### [facility] [address] [place], [place], [id number] PT Coag (PPP) [Time] 13.0 s Normal 11.7-14.9 [facility] Comment on above: Performed By: #### L 512.5078 #### [facility] [address] [place], [address] Prothrombin timeOrdered By: Ramirez Carrington on 09-30-2024 PT Coag (PPP) [Time] 13.0 s 11.7-14.9 [facility] RBC Auto (Bld) [#/Vol]Ordere d By: Ramirez Carrington on 09-30-2024 RBC (Bld) [#/Vol] 5.45 10*6/uL 4.6-6.2 [facility] Serum creatinine measurement (mass/volume)Ordered By: Ramirezkerrie Carrington on 09-30-2024 Creatinine [Mass/Vol] 1.79 mg/dL High 0.70-1.20 [facility] Serum glucose measurement (m ass/volume)Ordered By: Ramirezkerrie Carrington on 09-30-2024 Glucose [Mass/Vol] 148 mg/dL High 70-99 [facility] Serum or plasma calcium milagro urement (mass/volume)Ordered By: Ramirez Carrington on 09-30-2024 Calcium [Mass/Vol] 9.6 mg/dL 7.6-11.0 [facility] Serum or plasma urea nitroge n measurement (mass/volume)Ordered By: Ramirezkerrie Carrington on 09-30-2024 Urea nitrogen [Mass/Vol] 14 mg/dL 4-19 [facility] S[facility]Or[facility]24 Sodium [Moles/Vol] 140 mmol/L 133-145 [facility] Troponin T.cardiac [Mass/vol ume] in Serum or Plasma by High sensitivity methodOrdered By: Ramirez Carrington on 09-30-2024 Troponin T.cardiac High sensitivity method [Mass/Vol] 3329 ng/L High <22 [facility] Comment on above: Critical Result(s) C alled at: 0035 by: PHILIPPE MG TO JIAN NAILS. Results read back by same. Troponin T.cardiac High sensitivity method [Mass/Vol] 2056 ng/L High <22 [facility] Comment on above: Critical Result(s) C alled ANGEL PAL at: 2218 by: MAURILIO Results read back by same. Troponin T.cardiac High sensitivity method [Mass/Vol] 9 ng/L <22 [facility] White blood cell (WBC) count Ordered By: Ramirez Carrington on 09-30-2024 WBC (Bld) [#/Vol] 16.8 10*3/uL High 4.4-11.0 [facility] Vital Signs Date Time Vital Sign Value Performing Clinician Hei lity 10-02-2024 14:30-0400 Body temperature 98.2 [degF] Dr. Ramirez Carrington MD Work Phone: 4(902)108-657588 [place] [address] 10-02-2024 14:30-0400 Diastolic blood pressure 61 mm[Hg] Dr. Ramirez Carrington MD Work Phone: 5(290)687-607688 [place] [address] 10-02-2024 14:30-0400 Heart rate 79 /min Dr. Ramirez Carrington MD Work Phone: 5(425)178-962088 [place] [address] 10-02-2024 14:30-0400 Respiratory rate 18 /min Dr. Ramirez Carrington MD Work Phone: 2(596)991-985388 [place] [address] 10-02-2024 14:30-0400 SaO2% (BldA) [Mass fraction] 97 % Dr. Ramirez Carrington MD Work Phone: 8(865)518-157888 [place] [address] 10-02-2024 14:30-0400 Systolic blood pressure 94 mm[Hg] Dr. Ramirez Carrington MD Work Phone: 4(127)015-378188 [place] [address] 10-02-2024 14:13-0400 Body height 180.[address] Ramirez Carrington MD Work Phone: 5(779)367-763588 [place] [address] 10-02-2024 14:13-0400 Body weight 74.[address] Ramirez Carrington MD Work Phone: 6(467)162-044788 [place] [address] 10-02-2024 05:38-0400 Body mass index (BMI) [Ratio] 23 kg/m2 Dr. Ramirez Carrington MD Work Phone: 6(188)759-912788 [place] [address] 09-30-2024 19:16-0400 Body temperature 97.8 [degF] Dr. Ramirez Carrington MD Work Phone: 7(031)959-280788 [place] [address] 09-30-2024 19:16-0400 Diastolic blood pressure 72 mm[Hg] Dr. Ramirez Carrington MD Work Phone: 8(660)435-793088 [place] [address] 09-30-2024 19:16-0400 Heart rate 64 /min Dr. Ramirez Carrington MD Work Phone: 4(201)163-158088 [place] [address] 09-30-2024 19:16-0400 Respiratory rate 18 /min Dr. Ramirez Carrington MD Work Phone: 2(536)043-593088 [place] [address] 09-30-2024 19:16-0400 SaO2% (BldA) [Mass fraction] 99 % Dr. Ramirez Carrington MD Work Phone: 1(759)244-621288 [place] [address] 09-30-2024 19:16-0400 Systolic blood pressure 120 mm[Hg] Dr. Ramirez Carrington MD Work Phone: 1(045)869-738988 [place] [address] 09-30-2024 18:36-0400 Body height 170.[address] Ramirez Carrington MD Work Phone: 0(187)424-674388 [place] [address] 09-30-2024 18:36-0400 Body mass index (BMI) [Ratio] 27 kg/m2 Dr. Ramirez Carrington MD Work Phone: 2([phone])809-608188 [place] [address] 09-30-2024 18:36-0400 Body weight 78.[address] Ramirez Carrington MD Work Phone: 9(497)211-056088 [place] [address] Encounters Encounter Date Encounter Type Care Provider Facility Start: 10-02-2024 Non-patient / Non-visit Dr. Presley alexander MD -[facility] Start: 10-01-2024 Non-patient / Non-visit Dr. Noé Jose DO [facility] Work Phone: Start: 10-01-2024 Non-patient / Non-visit Dr. Presley alexander MD -[facility] Start: 09-30-2024 Non-patient / Non-visit Dr. Presley alexander MD -[facility] Start: 09-30-2024 End: 10-02-2024 Evaluation and management of inpatient Dr. Olivia Carrasquillo MD -Intensive Care Unit Work Phone: Start: 09-30-2024 ambulatory [facility] Facility: [facility] Procedures Date Procedure Procedure Detail Performing Clinician Start: 10-01-[address] Ramirez Carrington MD Work Phone: Start: 09-30-2024 Coagulation time, activated Dr. Ramirez Carrington MD Work Phone: Start: 09-30-[address] Ramirez Carrington MD Work Phone: Plan of Treatment Date Care Activity Detail Author Start: 10-02-2024 Patient discharge [facility] Start: 10-01-2024 [facility] Start: 10-01-2024 Catheterization of vein [facility] Start: 10-01-2024 Notification of physician [facility] Start: 10-01-2024 Preoperative care [facility] Start: 10-01-2024 [facility] Start: 09-30-2024 Ambulation without limitation [facility] Start: 09-30-2024 Assessment of risk o f venous thromboembolism [facility] Start: 09-30-2024 Cardiac monitoring [facility] Start: 09-30-2024 Cardiac rehabilitation - phase 1 [facility] Start: 09-30-2024 Cardiac rehabilitation - phase 2 [facility] Start: 09-30-2024 Continuous pulse oximetry [facility] Start: 09-30-2024 Dietary regime [facility] Start: 09-30-2024 Incentive spirometry [facility] Start: 09-30-2024 Insertion of cathete r into peripheral vein [facility] Start: 09-30-2024 Introduction of urinary catheter [facility] Start: 09-30-2024 Measuring intake and output [facility] Start: 09-30-2024 Notification of physician [facility] Start: 09-30-2024 Patient discharge [facility] Start: 09-30-2024 Patient education [facility] Start: 09-30-2024 Patient referral to dietitian [facility] Start: 09-30-2024 Providing care accor ding to standard [facility] Start: 09-30-2024 Provision of activity privileges [facility] Start: 09-30-2024 Pulse taking [facility] Start: 09-30-2024 Referral to remelt furnace expediter [facility] Start: 09-30-2024 Tobacco use cessation education [facility] Start: 09-30-2024 Vital signs measurements [facility] Start: 09-30-2024 Following clinical p athway protocol [facility] Start: 09-30-2024 End: 09-30-2024 [facility] Start: 09-30-2024 Admission procedure [facility] Start: 09-30-2024 Catheterization of left heart [facility] Start: 09-30-2024 Hospital admission, emergency, from emergency room, medical nature [facility] Start: 09-30-2024 [facility] Patient referral [facility] Work Phone: Troponin T.cardiac [ Mass/volume] in Serum or Plasma by High sensitivity method [facility] Troponin T.cardiac [ Mass/volume] in Serum or Plasma by High sensitivity method [facility] Troponin T.cardiac [ Mass/volume] in Serum or Plasma by High sensitivity method [facility] Payers Date Payer Category Payer Private Health Insurance [id number] 2024 Self-pay Unknown [id number] Unknown [id number] 2.16.8 [id number] Unknown [id number] 2.16.8 [id number] Unknown [id number] 2.16.8 [id number] Unknown [id number] 2.16.8 [id number] Unknown [id number] 2.16.8 [id number] Unknown [id number] 2.16.8 [id number] Unknown [id number] 2.16.8 [id number] Social History Date Type Detail Facility Start: 09-30-2024 End: 09-30-2024 Tobacco smoking status NHIS Smokes tobacco daily (finding) [facility] Start: 04-03-2018 Tobacco Use Tobacco Use [facility] Start: 1955 Sex Assigned At Male [facility] Medical Equipment Procedure Code Equipment Code Equipment Origin al Text Equipment Identifier Dates Drug-eluting coronary artery stent, [id number] lymer-coated ()[id number] FDA Start: 10-01-2024 Drug-eluting coronary artery stent, [id number] lymer-coated ()[id number] FDA Start: 10-01-2024 Goals Date Patient Goal Desired Activity /State Functional Status Date Assessment Result Facility 10-02-2024 Functional status Ambulates [facility] Work Phone: Mental Status Date Assessment Result Facility 10-02-2024 Cognitive function Voice/Name [facility] Work Phone: 09-30-2024 Cognitive function Voice/Name [facility] Work Phone: Clinical Notes 09-30-2024 to 10-02-2024 Note Date & Type Note Facility 10-02-2024 Discharge summary Note Date/Time October 02, 2024 11:21am [facility] Medical Records Department [address] [place] [address] Instructions for Home/Discharge Instructions 10/02/24 1108 MR#: [id number] Acct: [id number] Name: GREG BREWER Rep #:[id number] : 1955 68 From: Noé Michelle DO PCP: Dr. Noé Kaur, DO Status:ADM IN Discharge Instructions Diet Discharge Diet: No restrictions DC O2, CPAP, BIPAP needs Home O2 Discharge instructions: No Dressing / Incision Discharge Activity: Return to Normal Activity Weight Bearing Status: Full weight bearing Follow Up Care Test Results: Test results from this visit will be discussed in further detail at your follow-up appointment, if applicable. Discharge Plan Admission Admit Date/Time: 09/30/24 19:25 Primary Reason for Your Visit: acute heart attack Attending Provider: Noé Michelle Primary Care Provider: Noé Kaur Consulting Providers: Sophie Lebron; Presley Dai Discharge Orders/Prescriptions Prescriptions: New furosemide 40 mg Tablet 40 mg PO DAILY Qty: 30 0RF clopidogrel 75 mg Tablet 75 mg PO DAILY Qty: 30 0RF spironolactone 25 mg Tablet 12.5 mg PO DAILY Qty: 15 0RF lisinopril 2.5 mg Tablet 2.5 mg PO DAILY Qty: 30 0RF Xarelto 20 mg Tablet 20 mg PO DINNER Qty: 30 0RF Jardiance 10 mg Tablet 10 mg PO DAILY Qty: 30 0RF atorvastatin [Lipitor] 40 mg tablet 40 mg PO DAILY Qty: 30 0RF metoprolol succinate 25 mg tablet extended release 24 hr 25 mg PO DAILY Qty: 30 0RF Discontinued aspirin 81 MG tablet 81 mg PO DAILY@0800 Qty: 30 0RF clopidogrel 75 mg tablet 75 mg PO DAILY Qty: 30 11RF Referrals / Follow Up: Presley Dia MD [Med Staff - Active Staff] - See Referral Note (in three weeks) Noé Kaur DO [Primary Care Provider] - Within 1 Month Ej Day MD [Non-Staff] - Disposition Disposition (needs filled in before D/C Order can be placed): Home, Self Care 10/02/24 1121<Electronically signed by Noé Michelle DO>Noé Michelle DO CC: Dr. Presley Dia MD; Dr. Sophie Lebron MD; Dr. Noé Kaur DO ~ Signed [facility] Work Phone: 1(833) 268-858806-26-2025 Discharge summary [facility] Medical Records Department [address] [place] [address] Instructions for Home/Discharge Instructions 10/02/24 1108 MR#: [id number] Acct: [id number] Name: GREG BREWER Rep #:[id number] : 1955 68 From: Noé Michelle DO PCP: Dr. Noé Vincent, DO Status:ADM IN Discharge Instructions Diet Discharge Diet: No restrictions DC O2, CPAP, BIPAP needs Home O2 Discharge instructions: No Dressing / Incision Discharge Activity: Return to Normal Activity Weight Bearing Status: Full weight bearing Follow Up Care Test Results: Test results from this visit will be discussed in further detail at your follow- up appointment, if applicable. Discharge Plan Admission Admit Date/Time: 09/30/24 19:25 Primary Reason for Your Visit: acute heart attack Attending Provider: Noé Michelle Primary Care Provider: Noé Kaur Consulting Providers: Sophie Lebron; Presley Dia Discharge Orders/Prescriptions Prescriptions: New furosemide 40 mg Tablet 40 mg PO DAILY Qty: 30 0RF clopidogrel 75 mg Tablet 75 mg PO DAILY Qty: 30 0RF spironolactone 25 mg Tablet 12.5 mg PO DAILY Qty: 15 0RF lisinopril 2.5 mg Tablet 2.5 mg PO DAILY Qty: 30 0RF Xarelto 20 mg Tablet 20 mg PO DINNER Qty: 30 0RF Jardiance 10 mg Tablet 10 mg PO DAILY Qty: 30 0RF atorvastatin [Lipitor] 40 mg tablet 40 mg PO DAILY Qty: 30 0RF metoprolol succinate 25 mg tablet extended release 24 hr 25 mg PO DAILY Qty: 30 0RF Discontinued aspirin 81 MG tablet 81 mg PO DAILY@0800 Qty: 30 0RF clopidogrel 75 mg tablet 75 mg PO DAILY Qty: 30 11RF Referrals / Follow Up: Presley Dia MD [Med Staff - Active Staff] - See Referral Note (in three weeks) Noé Kaur DO [Primary Care Provider] - Within 1 Month Ej Day MD [Non-Staff] - Disposition Disposition (needs filled in before D/C Order can be placed): Home, Self Care 10/02/24 1121Mark Miguel Angel SOLO CC: Dr. Presley Dia MD; Dr. Sophie Lebron MD; Dr. Noé Kaur DO ~ Signed [facility]06-26-2025 [facility] Medical Records Department [address] [place] [address] Discharge Summary 10/02/24 1121 MR#: [id number] Acct: [id number] Name: GREG BREWER Ab Rep #: [id number] : 1955 68 From: Noé Michelle DO PCP: Dr. Noé Kaur DO Status:DIS IN [id number] Prov[facility] Date of Admission: 09/30/24 Date of Discharge: 10/02/24 Primary Care Physician: Dr. Noé Kaur DO Consultations 09/30/24 21:27 Consult: Cardiology Routine Consulting Provider: Presley Dia Reason for Consult: STEMI EMERGENT Consult: Yes MD Notified: Yes Date Notified: 09/30/24 Time Notified: 19:27 Method of Notification: ED Physician Initiated Reason For Visit: STEMI Diagnosis Discharge Diagnosis (1) Acute ST elevation myocardial infarction (STEMI) of anterior wall: Status: Acute Code(s): I21.09 - ST elevation (STEMI) myocardial infarction involving other coronary artery of anterior wall (2) Coronary artery disease: Status: Acute Code(s): I25.10 - Atherosclerotic heart disease of [place] coronary artery without angina pectoris (3) LV (left ventricular) mural thrombus following VA: Status: Acute Code(s): I23.6 - Thrombosis of atrium, auricular appendage, and ventricle as current complications following acute myocardial infarction (4) Left ventricular systolic dysfunction (LVSD): Status: Acute Code(s): I51.89 - Other ill-defined heart diseases (5) Nicotine dependence: Status: Acute Code(s): F17.200 - Nicotine dependence, unspecified, uncomplicated (6) Non-compliance: Status: Acute Code(s): Z91.199 - Patient's noncompliance with other medical treatment and regimen due to unspecified reason Plan 1. Acute anterior wall VA (STEMI)-due to occlusive coronary disease in the LAD- patient is status post ISA placement in the LAD, for now he will take Plavix as an antiplatelet drug, he will take no aspirin due to the fact he will be on Xarelto #2 thrombus of the left ventricle-patient was placed on Xarelto today #3 ischemic cardiomyopathy-patient's ejection fraction is 40%, he will be discharged on a beta- jelly and an TIFFANIE inhibitor. #4 hyperlipidemia-patient is on a statin #5 occlusive coronary disease in the left circumflex and proximal and mid RCA- patient will need to return in the near future for intervention on these areas #6 noncompliance with medical treatment Total clinical time spent by myself addressing the patient's medical issues, reviewing all of his data, and collaborating with patient's care team: 35 minutes Medications at Discharge Home Medications atorvastatin 40 mg tablet (Lipitor) 40 mg PO DAILY #30 tabs 10/02/24 clopidogrel 75 mg tablet 75 mg PO DAILY #30 tabs 10/02/24 empagliflozin 10 mg tablet (Jardiance) 10 mg PO DAILY #30 tabs 10/02/24 furosemide 40 mg tablet 40 mg PO DAILY #30 tabs 10/02/24 lisinopril 2.5 mg tablet 2.5 mg PO DAILY #30 tabs 10/02/24 metoprolol succinate 25 mg tablet,extended release 24 hr 25 mg PO DAILY #30 tabs 10/02/24 rivaroxaban 20 mg tablet (Xarelto) 20 mg PO DINNER #30 tabs 10/02/24 spironolactone 25 mg tablet 12.5 mg (1/2 x 25 mg) PO DAILY #15 tabs 10/02/24 Hospital Course Operations None Procedures 2-D Echocardiogram and Cardiac catheterization (With ISA placement in the LAD) Summary of Care Provided Minutes Spent on Discharge: 33 Hospital Course: This 68-year-old white male was seen in the emergency room at [facility] with complaints of chest pain, EKG was obtained which showed acute ST elevations and a STEMI was called. Patient was taken to the Filing Clerk and there was noted to be occlusive coronary disease in the LAD which was stented with a ISA, there was also noted to be occlusive disease in the left circumflex and mid and proximal RCA. Patient was admitted to ICU and observed. Echocardiogram was obtained which showed reduced ejection fraction of 40% with a ventricular thrombus. I had a long conversations with the patient concerning medications-he had been noncompliant with medications and office visits previous to this hospitalization. On 10/02/2024, patient was seen and examined: On examination he appeared in good health and spirits. Vital signs as documented. Skin warm and dry and without overt rashes. Neck without JVD, neck was supple, trachea midline, thyroid was normal. Lungs clear bilaterally, normal air movement was noted. Heart exam notable for regular rhythm, normal sounds and absence of murmurs, rubs or gallops. Abdomen unremarkable and without evidence of organomegaly, masses, or abdominal aortic enlargement. Bowel sounds are present, abdomen is not distended. Extremities nonedematous, no cyanosis was noted, no clubbing was noted. Neuro: Cranial nerves II through XII are grossly intact, no focal motor deficits were noted, sensation to light touch and pinprick intact, motor (more content not included)...[facility] 10-02-2024 Progress note Author Presley Dia [facility] Note Date/Time October 02, 2024 8:53 am [facility] Medical Records Department [address] [place] [address] Progress Note - Cardiology 10/02/24 0849 MR#: [id number] Acct: [id number] Name: GREG BREWER Rep #:[id number] : 1955 68 From: Presley Dia MD PCP: Dr. Noé Kaur, DO Status:ADM IN Location: [place] [address] Subjective Subjective Denies any complaints. No chest pains. No shortness of breath. Objective Data Vital Signs: Vital Signs Temp Pulse Resp BP Pulse Ox O2 Del Method 98.9 F 74 17 98/68 96 Room Air 10/02/24 06:20 10/02/24 06:20 10/02/24 06:20 10/02/24 06:20 10/02/24 06:20 10/02/24 07:48 Oxygen Delivery Method Room Air Weight: 165 lb 2.02 oz Body Mass Index (BMI) 23.0 Intake & Output: Intake and Output for Last 24 Hours 09/30/24 10/01/24 10/02/24 23:59 23:59 23:59 Intake Total 1000 / 1000 1000 / 1000 Output Total 1300 / 1300 Balance 1000 / 1000 -300 / -300 Lab / Micro Data 10/01/24 04:30 10/01/24 04:30 Labs: Laboratory Results - last 24 hr 09/30/24 18:20: Activated Clotting Time 158 H Rhythm Strip Rhythm Strip: Sinus Rhythm Cardiology Labs/Tests Rhythm: EKG: ECHO: Stress Test: Cardiac Cath: PCI: CT Surgery: Holter monitor: EPS: PPM: CXR: Chest CT Scan: Radiography Diagnostic Testing: Radiology Impression Echocardiogram 09/30/24 21:27 Interpretation Summary Anterior, apical and septal akinesis. Estimated LVEF 40%. Stage I diastolic dysfunction. Possible small LV apical thrombus. Ordering Physician: Sophie Lebron Referring Physician: Noé Kaur Performed By: Tika Sparrow RDCS Physical Exam Narrative Comfortable. No apparent distress. Heart sounds 1 and 2 normal. No murmurs orrubs. Chest clear to auscultation bilaterally. Alert oriented x 3. No ankle edema. Assessment & Plan Assessment/Plan (1) Acute ST elevation myocardial infarction (STEMI) of anterior wall: PLAN: Status post PCI to the LAD. Continue clopidogrel. Started on rivaroxabanfor LV apical thrombus. (2) Coronary artery disease: PLAN: For staged PCI to left circumflex and RCA as outpatient. Patient counseled that he has to prove compliance with his medications. (3) LV (left ventricular) mural thrombus following VA: PLAN: Started on rivaroxaban. Not a good candidate for warfarin because of compliance questions. (4) Left ventricular systolic dysfunction (LVSD): PLAN: Secondary to #1 above. Beta-blockers, ACEI, SGLT2 inhibitors, spironolactone, diuretics. (5) Nicotine dependence: PLAN: Counseled to quit. (6) Non-compliance: PLAN: Per hospitalist, yesterday again the patient expressed that he may not take his clopidogrel. However patient since counseled. Emphasized compliance with medications and regular medical follow-up. PLAN: Plan May discharge home today. Follow-up in the office in 2 weeks. 10/02/24 0853 <Electronically signed by Presley Dia MD> Cosigner Signature (if applicable): CC: ~ Signed [facility] Work Phone: 1(442) 859-253106-26-2025 Progress note [facility] Medical Records Department [address] [place] [address] Progress Note - Cardiology 10/02/24 0849 MR#: [id number] Acct: [id number] Name: GREG BREWER Rep #:[id number] : 1955 68 From: Presley Dia MD PCP: Dr. Noé Kaur, Status:ADM IN Location: [place] [address] Subjective Subjective Denies any complaints. No chest pains. No shortness of breath. Objective Data Vital Signs: Vital Signs Temp Pulse Resp BP Pulse Ox O2 Del Method 98.9 F 74 17 98/68 96 Room Air 10/02/24 06:20 10/02/24 06:20 10/02/24 06:20 10/02/24 06:20 10/02/24 06:20 10/02/24 07:48 Oxygen Delivery Method Room Air Weight: 165 lb 2.02 oz Body Mass Index (BMI) 23.0 Intake & Output: Intake and Output for Last 24 Hours 09/30/24 10/01/24 10/02/24 23:59 23:59 23:59 Intake Total 1000 / 1000 1000 / 1000 Output Total 1300 / 1300 Balance 1000 / 1000 -300 / -300 Lab / Micro Data 10/01/24 04:30 10/01/24 04:30 Labs: Laboratory Results - last 24 hr 09/30/24 18:20: Activated Clotting Time 158 H Rhythm Strip Rhythm Strip: Sinus Rhythm Cardiology Labs/Tests Rhythm: EKG: ECHO: Stress Test: Cardiac Cath: PCI: CT Surgery: Holter monitor: EPS: PPM: CXR: Chest CT Scan: Radiography Diagnostic Testing: Radiology Impression Echocardiogram 09/30/24 21:27 Interpretation Summary Anterior, apical and septal akinesis. Estimated LVEF 40%. Stage I diastolic dysfunction. Possible small LV apical thrombus. Ordering Physician: Sophie Lebron Referring Physician: Noé Kaur Performed By: Tika Sparrow, AYSHA Physical Exam Narrative Comfortable. No apparent distress. Heart sounds 1 and 2 normal. No murmurs orrubs. Chest clear to auscultation bilaterally. Alert oriented x 3. No ankle edema. Assessment & Plan Assessment/Plan (1) Acute ST elevation myocardial infarction (STEMI) of anterior wall: PLAN: Status post PCI to the LAD. Continue clopidogrel. Started on rivaroxabanfor LV apical thrombus. (2) Coronary artery disease: PLAN: For staged PCI to left circumflex and RCA as outpatient. Patient counseled that he has to prove compliance with his medications. (3) LV (left ventricular) mural thrombus following VA: PLAN: Started on rivaroxaban. Not a good candidate for warfarin because of compliance questions. (4) Left ventricular systolic dysfunction (LVSD): PLAN: Secondary to #1 above. Beta-blockers, ACEI, SGLT2 inhibitors, spironolactone, diuretics. (5) Nicotine dependence: PLAN: Counseled to quit. (6) Non-compliance: PLAN: Per hospitalist, yesterday again the patient expressed that he may not take his clopidogrel. However patient since counseled. Emphasized compliance with medications and regular medical follow-up. PLAN: Plan May discharge home today. Follow-up in the office in 2 weeks. 10/02/24 0853 Cosigner Signature (if applicable): CC: ~ Signed [facility]06-25-2025 Progress note Author Noé [facility] Note Date/Time October 01, 2024 2:54 pm [facility] Medical Records Department [address] [place] [address] Progress Note - Hospitalist 10/01/24 1444 MR#: [id number] Acct: [id number] Name: GREG BREWER Rep #:[id number] : 1955 68 From: Noé Michelle DO PCP: Dr. Noé Kaur DO Status:ADM IN Location: ICU ICU08-1 Reason for Visit Reason for Visit: Diagnoses Nicotine dependence, unspecified, uncomplicated (09/30/24) ST elevation (STEMI) myocardial infarction involving other coronary artery of anterior wall (09/30/24) Atherosclerotic heart disease of pechanga coronary artery without angina pectoris (09/30/24) Other ill-defined heart diseases (09/30/24) Patient's noncompliance with other medical treatment and regimen due to unspecified reason (09/30/24) Subjective Subjective Patient was seen and examined today, nursing states that he did not want to takePlavix, he also stated he did not believe he had a heart attack. I talked with the patient about this and he has agreed to take Plavix, cardiology called me and told me that there was evidence of thrombus on his echocardiogram and that the recommended patient go on Xarelto. I recommended that the patient's aspirinbe stopped. I made these changes, it is presently planned that the patient willnot undergo another cardiac catheterization tomorrow. There was concerns about the patient's compliance according to cardiology. Objective Data Objective Data Vital Signs: Vital Signs Temp Pulse Resp BP Pulse Ox O2 Del Method 97.9 F 80 23 H 113/84 H 96 Room Air 10/01/24 08:00 10/01/24 11:00 10/01/24 11:00 10/01/24 11:00 10/01/24 12:12 10/01/24 12:12 Oxygen Delivery Method Room Air Weight: 75.8 kg Body Mass Index (BMI) 23.3 Intake & Output: Intake and Output for Last 24 Hours 09/29/24 09/30/24 10/01/24 23:59 23:59 23:59 Intake Total 1000 / 1000 1000 / 1000 Output Total 600 / 600 Balance 1000 / 1000 400 / 400 Lab / Micro Data 10/01/24 04:30 10/01/24 04:30 Labs: Laboratory Results - last 24 hr 09/30/24 18:40: WBC 16.8 H, RBC 5.45, Hgb 16.3, Hct 48.1, MCV 88.3, MCH 29.9, MCHC 33.9, RDW Std Deviation 44.2 H, RDW Coeff of Farhat 13.9, Plt Count 233, MPV 11.7, Immature Gran % (Auto) 0.800, Neut % (Auto) 74.6 H, Lymph % (Auto) 18.0 L,Ware % (Auto) 5.8, Eos % (Auto) 0.3, Baso % (Auto) 0.5, Absolute Neuts (auto) 12.5 H, Absolute Lymphs (auto) 3.03, Nucleated RBC % 0, PT 13.0, INR 1.0, APTT 21.7 L, Sodium 140, Potassium 4.9, Chloride 105, Carbon Dioxide 18.9 L, Anion Gap 16 H, BUN 14, Creatinine 1.79 H, Estim Creat Clear Calc 37.95 L, Est GFR (MDRD) Non-Af 41 L, BUN/Creatinine Ratio 7.6 L, Glucose 148 H, Calcium 9.6, Magnesium 2.1, Troponin T High Sens 9 09/30/24 18:54: Activated Clotting Time 228 H 09/30/24 21:40: Troponin T Hi Sens 2 Hr 2056 H* 09/30/24 23:15: Troponin T Hi Sens 4Hr 3329 H* 10/01/24 04:30: WBC 13.1 H, RBC 4.88, Hgb 14.7, Hct 42.9, MCV 87.9, MCH 30.1, MCHC 34.3, RDW Std Deviation 44.8 H, RDW Coeff of Farhat 13.9, Plt Count 208, MPV 11.6, Immature Gran % (Auto) 0.500, Neut % (Auto) 77.7 H, Lymph % (Auto) 13.8 L,Ware % (Auto) 7.5, Eos % (Auto) 0.2, Baso % (Auto) 0.3, Absolute Neuts (auto) 10.2 H, Absolute Lymphs (auto) 1.81, Nucleated RBC % 0, Sodium 139, Potassium 4.1, Chloride 105, Carbon Dioxide 21.7, Anion Gap 12, BUN 15, Creatinine 1.19, Estim Creat Clear Calc 65.04, Est GFR (MDRD) Non-Af 67, BUN/Creatinine Ratio 12.4, Glucose 129 H, Hemoglobin A1c 5.7, Calcium 9.2, Total Bilirubin 0.29, AST 265 H, ALT 48 H, Alkaline Phosphatase 77, Total Protein 6.2, Albumin 3.8, Globulin 2.4, Albumin/Globulin Ratio 1.6, Triglycerides 148, Cholesterol 166, LDL Cholesterol, Calc 103, VLDL Cholesterol 30, HDL Cholesterol 34 L, Cholesterol/HDL Ratio 4.94 Radiography Diagnostic Testing: Radiology Impression Echocardiogram 09/30/24 21:27 Interpretation Summary Anterior, apical and septal akinesis. Estimated LVEF 40%. Stage I diastolic dysfunction. Possible small LV apical thrombus. Ordering Physician: Sophie Lebron Referring Physician: Noé Kaur Performed By: Tika Sparrow RDCS Rhythm Strip Rhythm Strip: Sinus Rhythm Physical Exam Const alert, oriented x3, no apparent distress, average body habitus and healthy appearing General Appearance: cooperative, well kempt and well developed Orientation / Consciousness: awake, oriented to person, oriented to place and oriented to time HEENT normocephalic, head/scalp atraumatic and moist oral mucous membranes Eyes PERRL, EOMs intact bilaterally and conjunctivae normal Neck supple, no JVD, thyroid normal and no carotid bruits General: trachea midline Resp normal respiratory effort, no retractions, no use of accessory muscles and clearto auscultation bilaterally Auscultation: Negative for rales, rhonchi or wheezes Cardio regular rate, regular rhythm, S1 normal heart sound, S2 normal heart sound, no murmurs, no rub and no gallops GI normal to inspection, nondistended, normoactive bowel sounds, soft to palpation,non-tender and non-distended Extremity no clubbing, cyanosis or edema Skin no rashes or lesions noted General Skin Exam: no breakdown Neuro oriented x3, CN's II-XII intact bilaterally, moves all extremities, no focal motor deficits and no sensory deficits noted Sensorium / Orientation: awake and alert Speech: speech normal Psych affect normal Assessment & Plan Assessment/Plan (1) Acute ST elevation myocardial infarction (STEMI) of anterior wall: PLAN: Plan 1. Acute anterior wall VA (STEMI)-due to occlusive coronary disease in the LAD-patient is status post ISA placement in the LAD, for now he will take Plavix as an antiplatelet drug, he will take no aspirin due to the fact he will be on Xarelto #2 thrombus of the left ventricle-patient was placed on Xarelto today #3 ischemic cardiomyopathy-patient's ejection fraction is 40%, he will be discharged on a beta-jelly and an TIFFANIE inhibitor. #4 hyperlipidemia-patient is on a statin #5 occlusive coronary disease in the left circumflex and proximal and mid RCA- patient will need to return in the near future for intervention on these areas Total clinical time spent by myself addressing the patient's medical issues, reviewing all of his data, and collaborating with patient's care team: 35 minutes Charges/Coding Visit Charges Inpatient E&M: 27830 Subs Hosp L2 10/01/24 1454 <Electronically signed by Noé Michelle DO> Cosigner Signature (if applicable): CC: ~ Signed [facility] Work Phone: 1([phone]) 238-858306-25-2025 Study report [facility] Cardiac Rehab [address] [place] [address] CR: Phase I Education Summary MR#: [id number] Acct: [id number] Name: GREG BREWER Rep #:[id number] : 1955 68 From: Lianne Luna PCP: Dr. Noé Kaur, DOS: 09/30 General Education Discussed with Patient CAD and cardiac anatomy and function:: Patient communicates acknowledgment Explanation of diagnoses and procedures:: Patient communicates acknowledgment Sign/Symptoms of VA:: Patient communicates acknowledgment Antiplatelet therapy: Patient communicates acknowledgment Proper use of NTG-SL: Patient communicates acknowledgment Emergency procedures and activation of EMS: Patient communicates acknowledgment Compliance of all prescribed medications: Patient communicates acknowledgment Smoking Risk Factors Patient Nicotine/Smoking Risk Factors Are:: Cigarettes Recommendations Recommendations Include:: Smoking cessation strategies/Smoking packet, Participation in a smoking cessation program and Previous smoker; encourage continued cessation Response Code Nicotine/Smoking Response Code:: Patient communicates acknowledgment Dyslipidemia Risk Factors Patient Dyslipidemia Risk Factors Are:: Total Cholesterol, Triglycerides, HDL and LDL Recommendations Recommendations Include:: Lipid profile provided, Reviewed NCEP/ATP guidelines and Therapeutic Lifestyle Change dietary guidelines Response Code Dyslipidemia Response Code:: Patient communicates acknowledgment Overweight/Obesity Risk Factors Patient Overweight/Obesity Risk Factors Are:: Obesity - > or = 30 Recommendations Recommendations Include:: Weight loss of 5-10%, Reduced calorie diet and Exercise 5-7 times/week Response Code Overweight/Obesity:: Patient communicates acknowledgment, Patient returns demonstration and Family returns demonstration Hypertension Recommendations Recommendations Include:: Maintain BP <130/85, DASH dietary guidelines, Decrease/maintain normalbody weight and Moderation of ETOH Response Code Hypertension:: Patient communicates acknowledgment Diabetes Risk Factors Patient Diabetes Risk Factors Are:: No documented hx of diabetes Metabolic Syndrome Risk Factors Patient Metabolic Syndrome Risk Factors Are [3 of 5]:: Fasting blood sugar > 100mg/dL, Waist circumference > 35 [female] or 40 [male], High triglyceride >150, Hypertension and Low HDL <40 [male] or < 50 [female] Recommendations Recommendations Include:: Reinforce compliance to risk factor modifications and Encouraged follow-up with Primary Care Physician Response Code Metabolic Syndrome Response Code:: Patient communicates acknowledgment Sedentary Risk Factors Patient Sedentary Risk Factors Are:: Lack of regular exercise Recommendations Recommendations Include:: Aerobic exercise 5-7 times/week for 20-30 minutes continuously, Benefits of regular exercise, Discussed home walking program and Monitored Outpatient Cardiac Rehab Response Code Sedentary Response Code:: Patient communicates acknowledgment Stress Risk Factors Patient Stress Risk Factors Are:: Patient denies stress as a risk factor Recommendations Recommendations Include:: Identification of stressors, and assessment of coping skills and Stress management techniques Response Code Stress Response Code:: Patient communicates acknowledgment 10/01/24 7716 Date Lianne Luna Outcome assessment reviewed. Exercise plan approved as documented. Treatment plan and goals support patient needs/abilities. Continue with current plan. I certify the patient demonstrates improvement and remains willing and capable of participation. the patient continues to benefit from cardiac rehab services/training. The patient may continue at current intensity, endurance and modality and progress per protocol. Cosigner Signature: Date CC: ~ Signed [facility]06-25-2025 Progress note [facility] Medical Records Department [address] [place] [address] Progress Note - Hospitalist 10/01/24 0850 MR#: [id number] Acct: [id number] Name: GREG BREWER Rep #:[id number] : 1955 68 From: Noé Michelle DO PCP: Dr. 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 I talked with the patient about this and he has agreedto take Plavix, cardiology called me and told me that there was evidence of thrombus on his echocardiogram and that the recommended patient go on Xarelto. I recommended that the patient's aspirinbe stopped. I made these changes, it is presently planned that the patient willnot undergo another cardiac catheterization tomorrow. There was concerns about the patient's compliance according to cardiology. Objective Data Objective Data Vital Signs: Vital Signs Temp Pulse Resp BP Pulse Ox O2 Del Method 97.9 F 80 23 H 113/84 H 96 Room Air 10/01/24 08:00 10/01/24 11:00 10/01/24 11:00 10/01/24 11:00 10/01/24 12:12 10/01/24 12:12 Oxygen Delivery Method Room Air Weight: 75.8 kg Body Mass Index (BMI) 23.3 Intake & Output: Intake and Output for Last 24 Hours 09/29/24 09/30/24 10/01/24 23:59 23:59 23:59 Intake Total 1000 / 1000 1000 / 1000 Output Total 600 / 600 Balance 1000 / 1000 400 / 400 Lab / Micro Data 10/01/24 04:30 10/01/24 04:30 Labs: Laboratory Results - last 24 hr 09/30/24 18:40: WBC 16.8 H, RBC 5.45, Hgb 16.3, Hct 48.1, MCV 88.3, MCH 29.9, MCHC 33.9, RDW Std Deviation 44.2 H, RDW Coeff of Farhat 13.9, Plt Count 233, MPV 11.7, Immature Gran % (Auto) 0.800, Neut %(Auto) 74.6 H, Lymph % (Auto) 18.0 L,Ware % (Auto) 5.8, Eos % (Auto) 0.3, Baso % (Auto) 0.5, Absolute Neuts (auto) 12.5 H, Absolute Lymphs (auto) 3.03, Nucleated RBC % 0, PT 13.0, INR 1.0, APTT 21.7 L, Sodium 140, Potassium 4.9, Chloride 105, Carbon Dioxide 18.9 L, Anion Gap 16 H, BUN 14, Creatinine 1.79 H, Estim Creat Clear Calc 37.95 L, Est GFR (MDRD) Non-Af 41 L, BUN/Creatinine Ratio 7.6 L, Glucose 148 H, Calcium 9.6, Magnesium 2.1, Troponin T High Sens 9 09/30/24 18:54: Activated Clotting Time 228 H 09/30/24 21:40: Troponin T Hi Sens 2 Hr 2056 H* 09/30/24 23:15: Troponin T Hi Sens 4Hr 3329 H* 10/01/24 04:30: WBC 13.1 H, RBC 4.88, Hgb 14.7, Hct 42.9, MCV 87.9, MCH 30.1, MCHC 34.3, RDW Std Deviation 44.8 H, RDW Coeff of Farhat 13.9, Plt Count 208, MPV 11.6, Immature Gran % (Auto) 0.500, Neut %(Auto) 77.7 H, Lymph % (Auto) 13.8 L,Ware % (Auto) 7.5, Eos % (Auto) 0.2, Baso % (Auto) 0.3, Absolute Neuts (auto) 10.2 H, Absolute Lymphs (auto) 1.81, Nucleated RBC % 0, Sodium 139, Potassium 4.1, Chloride 105, Carbon Dioxide 21.7, Anion Gap 12, BUN 15, Creatinine 1.19, Estim Creat Clear Calc 65.04, Est GFR (MDRD) Non-Af 67, BUN/Creatinine Ratio 12.4, Glucose 129 H, Hemoglobin A1c 5.7, Calcium 9.2, Total Bilirubin 0.29, AST 265 H, ALT 48 H, Alkaline Phosphatase 77, Total Protein 6.2, Albumin 3.8, Globulin 2.4, Albumin/Globulin Ratio 1.6, Triglycerides 148, Cholesterol 166, LDL Cholesterol, Calc 103, VLDL Cholesterol 30, HDL Cholesterol 34 L, Cholesterol/HDL Ratio 4.94 Radiography Diagnostic Testing: Radiology Impression Echocardiogram 09/30/24 21:27 Interpretation Summary Anterior, apical and septal akinesis. Estimated LVEF 40%. Stage I diastolic dysfunction. Possible small LV apical thrombus. Ordering Physician: Sophie Lebron Referring Physician: Noé Kaur Performed By: Tika Sparrow RDCS Rhythm Strip Rhythm Strip: Sinus Rhythm Physical Exam Const alert, oriented x3, no apparent distress, average body habitus and healthy appearing General Appearance: cooperative, well kempt and well developed Orientation / Consciousness: awake, oriented to person, oriented to place and oriented to time HEENT normocephalic, head/scalp atraumatic and moist oral mucous membranes Eyes PERRL, EOMs intact bilaterally and conjunctivae normal Neck supple, no JVD, thyroid normal and no carotid bruits General: trachea midline Resp normal respiratory effort, no retractions, no use of accessory muscles and clearto auscultation bilaterally Auscultation: Negative for rales, rhonchi or wheezes Cardio regular rate, regular rhythm, S1 normal heart sound, S2 normal heart sound, no murmurs, no rub and no gallops GI normal to inspection, nondistended, normoactive bowel sounds, soft to palpation,non-tender and non-distended Extremity no clubbing, cyanosis or edema Skin no rashes or lesions noted General Skin Exam: no breakdown Neuro oriented x3, CN's II-XII intact bilaterally, moves all extremities, no focal motor deficits and no sensory deficits noted Sensorium / Orientation: awake and alert Speech: speech normal Psych affect normal Assessment & Plan Assessment/Plan (1) Acute ST elevation myocardial infarction (STEMI) of anterior wall: PLAN: Plan 1. Acute anterior wall VA (STEMI)-due to occlusive coronary disease in the LAD- patient is status post ISA placement in the LAD, for now he will take Plavix as an antiplatelet drug, he will take no aspirin due to the fact he will be on Xarelto #2 thrombus of the left ventricle-patient was placed on Xarelto today #3 ischemic cardiomyopathy-patient's ejection fraction is 40%, he will be discharged on a beta-jelly and an TIFFANIE inhibitor. #4 hyperlipidemia-patient is on a statin #5 occlusive coronary disease in the left circumflex and proximal and mid RCA- patient will need to return in the near future for intervention on these areas Total clinical time spent by myself addressing the patient's medical issues, reviewing all of his data, and collaborating with patient's care team: 35 minutes Charges/Coding Visit Charges Inpatient E&M: 99412 Subs Hosp L2 10/01/24 7714 Cosigner Signature (if applicable): CC: ~ Signed [facility]06-25-2025 Progress note Author Eliazar Bynum [facility] Note Date/Time October 01, 2024 11:0 2am [facility] Medical Records Department [address] [place] [address] Quality Report 10/01/24 1101 MR#: [id number] Acct: [id number] Name: GREG BREWER Rep #:[id number] : 1955 68 From: Eliazar Bynum PCP: Dr. Noé Kaur, DO Status:ADM IN Y Location: ICU ICU08-1 STEMI STEMI ED Door Time / Other REG STEMI EKG Time (1) Acute ST elevation myocardial infarction (STEMI) of anterior wall: Acute 09/30/24 18:35 Balloon/Aspiration Date-Time Date of Balloon/Aspiration:: 09/30/24 Time of Balloon/Aspiration:: 19:20 10/01/24 1102 <Electronically signed by Eliazar Bynum > Date _ Eliazar Bynum Cosigner Signature (if applicable): Date CC: ~ Signed [facility] Work Phone: 1(879) 540-622206-25-2025 Progress note [facility] Medical Records Department [address] [facility] [place] [address] Quality Report 10/01/24 110 MR#: [id number] Acct: [id number] Name: BREWERGREG LOPEZ Ab Rep #:[id number] : 1955 68 From: Eliazar Bynum PCP: Dr. Noé Kaur, DO Status:[facility] / Other REG STEMI EKG Time (1) Acute ST elevation myocardial infarction (STEMI) of anterior wall: Acute 09/30/24 18:35 Balloon/Aspiration Date-Time Date of Balloon/Aspiration:: 09/30/24 Time of Balloon/Aspiration:: 19:20 10/01/24 1102 > Date _ Eliazar Bynum Cosigner Signature (if applicable): Date CC: ~ [facility]06-25-2025 Progress note Author Presley Dia [facility] Note Date/Time October 01, 2024 8:48 am [facility] Medical Records Department [address] [facility] [place] [address] Progress Note - Cardiology 10/01/24 0846 MR#: [id number] Acct: [id number] Name: GREG BREWER Rep #:[id number] : 1955 68 From: Presley Dia MD PCP: Dr. Noé Kaur, DO Status:ADM IN Location: ICU ICU08-1 Subjective Subjective Denies any complaint. No chest pain. No shortness of breath. Objective Data Vital Signs: Vital Signs Temp Pulse Resp BP Pulse Ox O2 Del Method 97.6 F L 82 24 H 124/84 H 98 Room Air 10/01/24 04:00 10/01/24 07:00 10/01/24 07:00 10/01/24 07:00 10/01/24 07:00 10/01/24 07:00 Oxygen Delivery Method Room Air Weight: 167 lb 1.766 oz Body Mass Index (BMI) 23.3 Intake & Output: Intake and Output for Last 24 Hours 09/29/24 09/30/24 10/01/24 23:59 23:59 23:59 Intake Total 1000 / 1000 Output Total 350 / 350 Balance 1000 / 1000 -350 / -350 Lab / Micro Data Attestation: I reviewed the patient's lab results. 10/01/24 04:30 10/01/24 04:30 Labs: Laboratory Results - last 24 hr 09/30/24 18:40: WBC 16.8 H, RBC 5.45, Hgb 16.3, Hct 48.1, MCV 88.3, MCH 29.9, MCHC 33.9, RDW Std Deviation 44.2 H, RDW Coeff of Farhat 13.9, Plt Count 233, MPV 11.7, Immature Gran % (Auto) 0.800, Neut % (Auto) 74.6 H, Lymph % (Auto) 18.0 L,Ware % (Auto) 5.8, Eos % (Auto) 0.3, Baso % (Auto) 0.5, Absolute Neuts (auto) 12.5 H, Absolute Lymphs (auto) 3.03, Nucleated RBC % 0, PT 13.0, INR 1.0, APTT 21.7 L, Sodium 140, Potassium 4.9, Chloride 105, Carbon Dioxide 18.9 L, Anion Gap 16 H, BUN 14, Creatinine 1.79 H, Estim Creat Clear Calc 37.95 L, Est GFR (MDRD) Non-Af 41 L, BUN/Creatinine Ratio 7.6 L, Glucose 148 H, Calcium 9.6, Magnesium 2.1, Troponin T High Sens 9 09/30/24 18:54: Activated Clotting Time 228 H 09/30/24 21:40: Troponin T Hi Sens 2 Hr 2056 H* 09/30/24 23:15: Troponin T Hi Sens 4Hr 3329 H* 10/01/24 04:30: WBC 13.1 H, RBC 4.88, Hgb 14.7, Hct 42.9, MCV 87.9, MCH 30.1, MCHC 34.3, RDW Std Deviation 44.8 H, RDW Coeff of Farhat 13.9, Plt Count 208, MPV 11.6, Immature Gran % (Auto) 0.500, Neut % (Auto) 77.7 H, Lymph % (Auto) 13.8 L,Ware % (Auto) 7.5, Eos % (Auto) 0.2, Baso % (Auto) 0.3, Absolute Neuts (auto) 10.2 H, Absolute Lymphs (auto) 1.81, Nucleated RBC % 0, Sodium 139, Potassium 4.1, Chloride 105, Carbon Dioxide 21.7, Anion Gap 12, BUN 15, Creatinine 1.19, Estim Creat Clear Calc 65.04, Est GFR (MDRD) Non-Af 67, BUN/Creatinine Ratio 12.4, Glucose 129 H, Hemoglobin A1c 5.7, Calcium 9.2, Total Bilirubin 0.29, AST 265 H, ALT 48 H, Alkaline Phosphatase 77, Total Protein 6.2, Albumin 3.8, Globulin 2.4, Albumin/Globulin Ratio 1.6, Triglycerides 148, Cholesterol 166, LDL Cholesterol, Calc 103, VLDL Cholesterol 30, HDL Cholesterol 34 L, Cholesterol/HDL Ratio 4.94 Rhythm Strip Rhythm Strip: Sinus Rhythm Cardiology Labs/Tests 09/30/24 18:40: WBC 16.8 H, RBC 5.45, Hgb 16.3, Hct 48.1, MCV 88.3, MCH 29.9, MCHC 33.9, Plt Count 233, MPV 11.7, Immature Gran % (Auto) 0.800, Neut % (Auto) 74.6 H, Lymph % (Auto) 18.0 L, Ware % (Auto) 5.8, Eos % (Auto) 0.3, Baso % (Auto) 0.5, Absolute Neuts (auto) 12.5 H, Nucleated RBC % 0, PT 13.0, INR 1.0, APTT 21.7 L, Sodium 140, Potassium 4.9, Chloride 105, Carbon Dioxide 18.9 L, Anion Gap 16 H, BUN 14, Creatinine 1.79 H, Est GFR (MDRD) Non-Af 41 L, BUN/Creatinine Ratio 7.6 L, Glucose 148 H, Calcium 9.6, Magnesium 2.1 10/01/24 04:30: WBC 13.1 H, RBC 4.88, Hgb 14.7, Hct 42.9, MCV 87.9, MCH 30.1, MCHC 34.3, Plt Count 208, MPV 11.6, Immature Gran % (Auto) 0.500, Neut % (Auto) 77.7 H, Lymph % (Auto) 13.8 L, Ware % (Auto) 7.5, Eos % (Auto) 0.2, Baso % (Auto) 0.3, Absolute Neuts (auto) 10.2 H, Nucleated RBC % 0, Sodium 139, Potassium 4.1, Chloride 105, Carbon Dioxide 21.7, Anion Gap 12, BUN 15, Creatinine 1.19, Est GFR (MDRD) Non-Af 67, BUN/Creatinine Ratio 12.4, Glucose 129 H, Hemoglobin A1c 5.7, Calcium 9.2, Total Bilirubin 0.29, Triglycerides 148,Cholesterol 166, VLDL Cholesterol 30, HDL Cholesterol 34 L, Cholesterol/HDL Ratio 4.94 Rhythm: EKG: Sinus rhythm with PACs. STs resolved. ECHO: Stress Test: Cardiac Cath: PCI: CT Surgery: Holter monitor: EPS: PPM: CXR: Chest CT Scan: Physical Exam Narrative Comfortable. No apparent distress. Heart sounds 1 and 2 normal. No murmurs orrubs. Chest clear to auscultation bilaterally. Alert oriented x 3. No ankle edema. Assessment & Plan Assessment/Plan (1) Acute ST elevation myocardial infarction (STEMI) of anterior wall: PLAN: Patient was taken emergently to the cardiac catheterization lab. Coronaryangiography revealed in-stent thrombosis of the previously deployed stent to themid LAD. Successful percutaneous revascularization was performed with balloon angioplasty and 2 drug-eluting stents. Excellent results were noted with pentecostal of ALTON-3 flow. Continue aspirin lifelong. Clopidogrel treatment for at least 1 year. Risk factor modification. (2) Coronary artery disease: PLAN: For staged PCI to left circumflex and RCA. Will plan on doing PCI to leftcircumflex tomorrow. (3) Left ventricular systolic dysfunction (LVSD): PLAN: Secondary to #1 above. Beta-blockers, ACEI, SGLT2 inhibitors, spironolactone, diuretics. (4) Nicotine dependence: PLAN: Counseled to quit. (5) Non-compliance: PLAN: Patient assures that he will start taking his medications regularly and also be compliant with regular medical follow-up. 10/01/24 0848 <Electronically signed by Presley Dia MD> Cosigner Signature (if applicable): CC: ~ Signed [facility] Work Phone: [phone]) [phone] Progress note [facility] Medical Records Department [address] [place] [address] Progress Note - Cardiology 10/01/24845 MR#: [id number] Acct: [id number] Name: GREG BREWER Rep #:[id number] : 1955 68 From: Presley Dia MD PCP: Dr. Noé Kaur, Status:ADM IN Location: ICU ICU08-1 Subjective Subjective Denies any complaint. No chest pain. No shortness of breath. Objective Data Vital Signs: Vital Signs Temp Pulse Resp BP Pulse Ox O2 Del Method 97.6 F L 82 24 H 124/84 H 98 Room Air 10/01/24 04:00 10/01/24 07:00 10/01/24 07:00 10/01/24 07:00 10/01/24 07:00 10/01/24 07:00 Oxygen Delivery Method Room Air Weight: 167 lb 1.766 oz Body Mass Index (BMI) 23.3 Intake & Output: Intake and Output for Last 24 Hours 09/29/24 09/30/24 10/01/24 23:59 23:59 23:59 Intake Total 1000 / 1000 Output Total 350 / 350 Balance 1000 / 1000 -350 / -350 Lab / Micro Data Attestation: I reviewed the patient's lab results. 10/01/24 04:30 10/01/24 04:30 Labs: Laboratory Results - last 24 hr 09/30/24 18:40: WBC 16.8 H, RBC 5.45, Hgb 16.3, Hct 48.1, MCV 88.3, MCH 29.9, MCHC 33.9, RDW Std Deviation 44.2 H, RDW Coeff of Farhat 13.9, Plt Count 233, MPV 11.7, Immature Gran % (Auto) 0.800, Neut %(Auto) 74.6 H, Lymph % (Auto) 18.0 L,Ware % (Auto) 5.8, Eos % (Auto) 0.3, Baso % (Auto) 0.5, Absolute Neuts (auto) 12.5 H, Absolute Lymphs (auto) 3.03, Nucleated RBC % 0, PT 13.0, INR 1.0, APTT 21.7 L, Sodium 140, Potassium 4.9, Chloride 105, Carbon Dioxide 18.9 L, Anion Gap 16 H, BUN 14, Creatinine 1.79 H, Estim Creat Clear Calc 37.95 L, Est GFR (MDRD) Non-Af 41 L, BUN/Creatinine Ratio 7.6 L, Glucose 148 H, Calcium 9.6, Magnesium 2.1, Troponin T High Sens 9 09/30/24 18:54: Activated Clotting Time 228 H 09/30/24 21:40: Troponin T Hi Sens 2 Hr 2056 H* 09/30/24 23:15: Troponin T Hi Sens 4Hr 3329 H* 10/01/24 04:30: WBC 13.1 H, RBC 4.88, Hgb 14.7, Hct 42.9, MCV 87.9, MCH 30.1, MCHC 34.3, RDW Std Deviation 44.8 H, RDW Coeff of Farhat 13.9, Plt Count 208, MPV 11.6, Immature Gran % (Auto) 0.500, Neut %(Auto) 77.7 H, Lymph % (Auto) 13.8 L,Ware % (Auto) 7.5, Eos % (Auto) 0.2, Baso % (Auto) 0.3, Absolute Neuts (auto) 10.2 H, Absolute Lymphs (auto) 1.81, Nucleated RBC % 0, Sodium 139, Potassium 4.1, Chloride 105, Carbon Dioxide 21.7, Anion Gap 12, BUN 15, Creatinine 1.19, Estim Creat Clear Calc 65.04, Est GFR (MDRD) Non-Af 67, BUN/Creatinine Ratio 12.4, Glucose 129 H, Hemoglobin A1c 5.7, Calcium 9.2, Total Bilirubin 0.29, AST 265 H, ALT 48 H, Alkaline Phosphatase 77, Total Protein 6.2, Albumin 3.8, Globulin 2.4, Albumin/Globulin Ratio 1.6, Triglycerides 148, Cholesterol 166, LDL Cholesterol, Calc 103, VLDL Cholesterol 30, HDL Cholesterol 34 L, Cholesterol/HDL Ratio 4.94 Rhythm Strip Rhythm Strip: Sinus Rhythm Cardiology Labs/Tests 09/30/24 18:40: WBC 16.8 H, RBC 5.45, Hgb 16.3, Hct 48.1, MCV 88.3, MCH 29.9, MCHC 33.9, Plt Count 233, MPV 11.7, Immature Gran % (Auto) 0.800, Neut % (Auto) 74.6 H, Lymph % (Auto) 18.0 L, Ware % (Auto) 5.8, Eos % (Auto) 0.3, Baso % (Auto) 0.5, Absolute Neuts (auto) 12.5 H, Nucleated RBC % 0, PT 13.0, INR 1.0, APTT 21.7 L, Sodium 140, Potassium 4.9, Chloride 105, Carbon Dioxide 18.9 L, Anion Gap 16 H, BUN 14, Creatinine 1.79 H, Est GFR (MDRD) Non-Af 41 L, BUN/Creatinine Ratio 7.6 L, Glucose 148H, Calcium 9.6, Magnesium 2.1 10/01/24 04:30: WBC 13.1 H, RBC 4.88, Hgb 14.7, Hct 42.9, MCV 87.9, MCH 30.1, MCHC 34.3, Plt Count 208, MPV 11.6, Immature Gran % (Auto) 0.500, Neut % (Auto) 77.7 H, Lymph % (Auto) 13.8 L, Ware % (Auto) 7.5, Eos % (Auto) 0.2, Baso % (Auto) 0.3, Absolute Neuts (auto) 10.2 H, Nucleated RBC % 0, Sodium 139, Potassium 4.1, Chloride 105, Carbon Dioxide 21.7, Anion Gap 12, BUN 15, Creatinine 1.19, Est GFR (MDRD) Non-Af 67, BUN/Creatinine Ratio 12.4, Glucose 129 H, Hemoglobin A1c 5.7, Calcium 9.2, Total Bilirubin 0.29, Triglycerides 148,Cholesterol 166, VLDL Cholesterol 30, HDL Cholesterol 34 L, Cholesterol/HDL Ratio 4.94 Rhythm: EKG: Sinus rhythm with PACs. STs resolved. ECHO: Stress Test: Cardiac Cath: PCI: CT Surgery: Holter monitor: EPS: PPM: CXR: Chest CT Scan: Physical Exam Narrative Comfortable. No apparent distress. Heart sounds 1 and 2 normal. No murmurs orrubs. Chest clear to auscultation bilaterally. Alert oriented x 3. No ankle edema. Assessment & Plan Assessment/Plan (1) Acute ST elevation myocardial infarction (STEMI) of anterior wall: PLAN: Patient was taken emergently to the cardiac catheterization lab. Coronaryangiography revealedin-stent thrombosis of the previously deployed stent to themid LAD. Successful percutaneous revascularization was performed with balloon angioplasty and 2 drug-eluting stents. Excellent results were noted with pentecostal of ALTON-3 flow. Continue aspirin lifelong. Clopidogrel treatment for at least 1 year. Risk factor modification. (2) Coronary artery disease: PLAN: For staged PCI to left circumflex and RCA. Will plan on doing PCI to leftcircumflex tomorrow. (3) Left ventricular systolic dysfunction (LVSD): PLAN: Secondary to #1 above. Beta-blockers, ACEI, SGLT2 inhibitors, spironolactone, diuretics. (4) Nicotine dependence: PLAN: Counseled to quit. (5) Non-compliance: PLAN: Patient assures that he will start taking his medications regularly and also be compliant with regular medical follow-up. 10/01/24 0848 Cosigner Signature (if applicable): CC: ~ Signed [facility]06-25-2025 History and physical note Author Sophie Lebron [facility] Note Date/Time September 30, 2024 10:2 0pm [facility] Medical Records Department [address] [place] [address] H&P Exam - Hospitalist 09/30/241914 MR#: [id number] Acct: [id number] Name: GREG BREWER Rep #:[id number] : 1955 68 From: Sophie Lebron MD PCP: Dr. Noé Kaur, DO Status:ADM IN Location: ICU ICU08-1 HPI - General General Date of Admission: 09/30/24 Date of Service: 09/30/24 Chief Complaint: Chest pain HPI Narrative The patient is a 68 y/o M w/ PMHx: Tobacco use, CAD s/p PCI last in 2017 w/ ISA mid LAD, HTN, HLD and from previous cardiology notes at follow-up in 2018 he haddiscontinued both his statin and metoprolol therapy of note with continued tobacco usage who now Chantelle presents to the [facility] ED on 09/26/2024 with history of onset of midsternal chest discomfort described as a pressure-like sensation/heaviness with nausea and emesis as well as dyspnea and diaphoresis noted to range from moderate to severe with 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 In the EDgiven presentation with confirmed anterolateral STEMI STEMI alert prehospital initiation with cardiology discussions with Dr. Dia treated with heparin bolus, aspirin per EMS and Brilinta load. Workup in the ED included T97.8, heart rate 73, BP 143/73, respiratory rate 28, 98% on room air, CBC with WBC 16.8, hemoglobin 16.3, platelet 233 with left shift, BMP with carbon oxide 18.9,anion gap 16, BUN/creatinine 14/1.79, GFR 41, glucose 148, EKG with confirmationof anterior lateral STEMI. Patient transition once cardiac catheterization lab ready to the cardiac mobile home laborer for intervention per cardiology. [facility] Medical History (Updated 09/30/24 @ 22:[address] Sophie Lebron MD) HTN (hypertension) History of non-ST elevation myocardial infarction (NSTEMI) (04/01/18) Hyperlipidemia Atherosclerotic heart disease of pechanga coronary artery without angina pectoris Non-STEMI (non-ST elevated myocardial infarction) Tobacco dependence Home Medications ?Medication ?Instructions ?Recorded ?Last Taken ?Type aspirin 81 mg tablet,delayed 81 mg PO DAILY@0800 #30 t abs 04/02/18 Unknown Rx release clopidogrel 75 mg tablet 75 mg PO DAILY #30 tabs 04/10 07/26 Unknown Rx Allergy/AdvReac Type Severity Reaction Status Date / Time No Known Allergies Allergy Verified 09/30/24 18:36 Family History (Updated 09/30/24 @ 22:[address] Sophie Lebron MD) Brother CAD (coronary artery disease) Father Demyelinating disease Mother Heart disease Hypertension Heart failure Surgical History Stented coronary artery (04/01/18) Social History (Updated 09/30/24 @ 22:[address] Sophie Lebron MD) household members: spouse Smoking Status: Current every day smoker tobacco type: cigarettes Smoking packsper day: 1 Smoking cigarettes per day: 20.0 how long ago did patient quit smoking: Smoked since 11 y/o, quit ~ 25 yrs in between. Notes intention to stop. quit status: quit date established alcohol intake: never substance use type: does not use ROS ROS Narrative Admission Review of Systems: CONSTITUTIONAL: No weight loss, fever, chills, + weakness or fatigue. HEENT: Eyes: No visual loss, blurred vision, double vision or yellow sclerae. Ears, Nose, Throat: No hearing loss, sneezing, congestion, runny nose or sore throat. SKIN: No rash or itching, lesions, wounds. CARDIOVASCULAR: + Chest pain. No palpitations, edema, orthopnea, syncopal events. RESPIRATORY: + Dyspnea. No cough or sputum, wheezing, hemoptysis. GASTROINTESTINAL: + anorexia, nausea, vomiting. No diarrhea, abdominal pain, melena, BRBPR. GENITOURINARY: No dysuria, frequency, urgency or retention. NEUROLOGICAL: No headache, dizziness, syncope, paralysis, ataxia, numbness or tingling in the extremities, focal weakness, change in bowel or bladder control,seizure. MUSCULOSKELETAL: + muscle, back pain, joint pain or stiffness. HEMATOLOGIC: No anemia, bleeding or bruising. LYMPHATICS: No enlarged nodes. No history of splenectomy. PSYCHIATRIC: No history of depression or anxiety. ENDOCRINOLOGIC: + History of diaphoresis. No cold or heat intolerance. No polyuria or polydipsia. ALLERGIES: No history of asthma, hives, eczema or rhinitis. Vital Signs Vital Signs Vital Signs: 09/30/24 18:36 09/30/24 18:41 09/30/24 18:41 Temperature 97.8 F Temperature Source Oral Pulse Rate Respiratory Rate 28 H Respiratory Effort Normal Blood Pressure 143/73 H Blood Pressure Mean 96 Pulse Ox 98 Oxygen Delivery Method Room Air Room Air 09/30/24 18:50 Temperature Temperature Source Pulse Rate 73 Respiratory Rate 22 H Respiratory Effort Blood Pressure 125/62 H Blood Pressure Mean 83 Pulse Ox 100 Oxygen Delivery Method Room Air Weight Weight: 172 lb 9.951 oz Body Mass Index (BMI) 27.0 Physical Exam Narrative Physical Examination: General: Awake, alert, oriented x 3 and cooperative, seated upright in the bed, fatigued appearing, currently denies chest pain. Skin: Normal color, normal turgor, no icterus, no cyanosis except occasional stage ecchymoses. HEENT: AT/NC, EOMI, PERRLA, mildly dry MM, no carotid bruits or JVD noted. Lungs: CTA bilaterally, moderate effort, mild decrease BL bases, no rales, ronchi or wheezing. Heart: Regular rate and rhythm; no gallop, rub audible. Abdomen: Soft, NTTP, ND, mildly hyperactive BS, no appreciated HSM. Extremities: No cyanosis, clubbing, or edema. Neurological: Patient awake, alert, oriented as noted, cognitive function intact; pupils equally reactive to light and accommodation, cranial nerves grossly normal, moving all 4 extremities, no focal deficits, strength moderatelyto severely globally decreased secondary to acute presentation. Psychiatric: Affect appears fatigued otherwise normal, no acute evidence of depressive or anxiety feelings. Results Lab / Micro Data 09/30/24 18:40 09/30/24 18:40 Labs: Laboratory Results - last 24 hr 09/30/24 18:40: WBC 16.8 H, RBC 5.45, Hgb 16.3, Hct 48.1, MCV 88.3, MCH 29.9, MCHC 33.9, RDW Std Deviation 44.2 H, RDW Coeff of Farhat 13.9, Plt Count 233, MPV 11.7, Immature Gran % (Auto) 0.800, Neut % (Auto) 74.6 H, Lymph % (Auto) 18.0 L,Ware % (Auto) 5.8, Eos % (Auto) 0.3, Baso % (Auto) 0.5, Absolute Neuts (auto) 12.5 H, Absolute Lymphs (auto) 3.03, Nucleated RBC % 0, PT 13.0, INR 1.0, APTT 21.7 L, Sodium 140, Potassium 4.9, Chloride 105, Carbon Dioxide 18.9 L, Anion Gap 16 H, BUN 14, Creatinine 1.79 H, Estim Creat Clear Calc 37.95 L, Est GFR (MDRD) Non-Af 41 L, BUN/Creatinine Ratio 7.6 L, Glucose 148 H, Calcium 9.6 Assessment & Plan Assessment/Plan (1) Coronary artery disease: PLAN: Plan The patient is a 68 y/o M w/ PMHx: Tobacco use, CAD s/p PCI last in 2018 w/ ISA mid LAD, HTN, HLD and from previous cardiology notes at follow-up in 2018 he haddiscontinued both his statin and metoprolol therapy of note with continued tobacco usage who now Chantelle presents to the [facility] ED on 09/26/2024 with history of onset of midsternal chest discomfort described as a pressure-like sensation/heaviness with nausea and emesis as well as dyspnea and diaphoresis noted to range from moderate to severe with been [place] the [employer] [place] EMS call. #1. Chest Pain w/ Acute anterolateral STEMI with history of CAD status post previous PCI ISA mid LAD 2017 unfortunately noncompliant with medications: EKG in ED w/ concern for anterolateral STEMI, initial troponin 9. Will admit to theICU following transition from cardiac catheterization lab, will maintain on a monitored bed, continue serial cardiac enzymes and EKGs. Obtain magnesium level upon admission. Patient bolused with heparin in the ED. Continue medical management w/ asa, add BB with metoprolol versus Coreg per cardiology discretion, add high-dose statin w/ AM FLP. ECHO requested. Cardiology performing cardiac catheterization emergently as noted, will continue to follow. Will judiciously hydrate given contrast usage. #2. Leukocytosis: Admission CBC with WC 16.8 with left shift however suspect significant dehydration given he been working outside all day, will judiciously hydrate, repeat CBC in AM. Low suspicion for infection. #3. Acute kidney injury: Secondary to dehydration as noted above. Admission BUN/Cr 14/1.79, GFR 41, prior baseline creatinine noted to be primarily 0.9-1.0,will judiciously hydrate, hold nephrotoxic medications and repeat chemistry in AM. If cardiology has concerns arise during cardiac catheterization for potential risk for overload then may need to decrease the amount of fluids given. #4. Hypertension: Per cardiology discretion will reinitiate beta-jelly therapy, defer to Coreg versus metoprolol per their discretion, possible low-dose TIFFANIE inhibitor addition but again will defer to cardiology discretion. PRN hydralazine. #5. Hyperlipidemia: Will add high-dose statin therapy, FLP in AM. #6. Tobacco Abuse: Encouraged cessation, inpatient consultation per RT, NR if desired. #7. DVT prophylaxis: Lovenox. #8. CODE status: Patient does not have healthcare power of attorney recruiter or living will in place but notes his will be his medical decision-maker if necessary. Discussed CODE status at length including difference between FULL code, DNR-CCA and DNR-CC status. Following discussions about the differences in these status, requested Full Code status. Charges/Coding Visit Charges Inpatient E&M: 28716 Init Hosp L3 09/30/242213 <Electronically signed by Sophie Lebron MD> Cosigner Signature (if applicable): CC: Dr. Sophie Lebron MD; Dr. Noé Kaur, ~ Signed ADDENDUM by Dr. Sophie Lebron MD on 09/30/24 at 2215 Addendum Cardiac catheterization with noted in-stent thrombosis of the previously deployed stent to the mid LAD with successful percutaneous revascularization performed with balloon angioplasty and 2 drug-eluting stents. Cardiology did add Coreg 3.125 p.o. twice daily, Lasix 40 mg p.o. daily, lisinopril 2.5 mg p.o.daily, spironolactone 12.5 mg p.o. daily and empagliflozin. 09/30/242214<Electronically signed by Sophie Lebron MD> Cosigner Signature (if applicable): cc: Dr. Sophie Lebron MD; Dr. Noé Kaur DO ~* Signed ADDENDUM by Dr. Sophie Lebron MD on 09/30/24 at 2220 Addendum Additional diagnosis: Hypoglycemia, no diabetic history, possibly stress response: Admission glucose 148, will obtain hemoglobin A1c to be cautious. 09/30/242219<Electronically signed by Sophie Lebron MD> Cosigner Signature (if applicable): cc: Dr. Sophie Lebron MD; Dr. Noé Kaur DO ~* Signed [facility] Work Phone: [phone]) 900-510006-24-2025 History and physical note [facility] Medical Records Department [address] [place] [id number] H&P Exam - Hospitalist 09/30/241914 MR#: [id number] Acct: [id number] Name: GREG BREWER Rep #:[id number] : 1955 68 From: Sophie Lebron MD PCP: Dr. Noé Kaur, DO Status:ADM IN [facility]PI - General General Date of Admission: 09/30/24 Date of Service: 09/30/24 Chief Complaint: Chest pain HPI Narrative The patient is a 68 y/o M w/ PMHx: Tobacco use, CAD s/p PCI last in 2017 w/ ISA mid LAD, HTN, HLD and from previous cardiology notes at follow-up in 2018 he haddiscontinued both his statin and metoprolol therapy of note with continued tobacco usage who now Chantelle presents to the [facility] ED on 09/26/2024 with history of onset of midsternal chest discomfort described as a pressure-like sensation/heaviness with nausea and emesis as well as dyspnea and diaphoresis noted to range from moderate to severe with 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 In the EDgiven presentationwith confirmed anterolateral STEMI STEMI alert prehospital initiation with cardiology discussions with Dr. Dia treated with heparin bolus, aspirin per EMS and Brilinta load. Workup in the ED included T97.8, heart rate 73, BP 143/73, respiratory rate 28, 98% on room air, CBC with WBC 16.8, hemoglobin 16.3, platelet 233 with left shift, BMP with carbon oxide 18.9,anion gap 16, BUN/creatinine 14/1.79, GFR 41, glucose 148, EKG with confirmationof anterior lateral STEMI. Patient transition once cardiac catheterization lab ready to the cardiac mobile home laborer for intervention per cardiology. [facility] Medical History (Updated 09/30/24 @ 22:[address] Sophie Lebron MD) HTN (hypertension) History of non-ST elevation myocardial infarction (NSTEMI) (04/01/18) Hyperlipidemia Atherosclerotic heart disease of pechanga coronary artery without angina pectoris Non-STEMI (non-ST elevated myocardial infarction) Tobacco dependence Home Medications ?Medication ?Instructions ?Recorded ?Last Taken ?Type aspirin 81 mg tablet,delayed 81 mg PO DAILY@0800 #30 t abs 04/02/18 Unknown Rx release clopidogrel 75 mg tablet 75 mg PO DAILY #30 tabs 04/10 07/26 Unknown Rx Allergy/AdvReac Type Severity Reaction Status Date / Time No Known Allergies Allergy Verified 09/30/24 18:36 Family History (Updated 09/30/24 @ 22:[address] Sophie Lebron MD) Brother CAD (coronary artery disease) Father Demyelinating disease Mother Heart disease Hypertension Heart failure Surgical History Stented coronary artery (04/01/18) Social History (Updated 09/30/24 @ 22:[address] Sophie Lebron MD) household members: spouse Smoking Status: Current every day smoker tobacco type: cigarettes Smoking packsper day: 1 Smoking cigarettes per day: 20.0 how long ago did patient quit smoking: Smoked since 11 y/o, quit ~ 25 yrs in between. Notes intention to stop. quit status: quit date established alcohol intake: never substance use type: does not use ROS ROS Narrative Admission Review of Systems: CONSTITUTIONAL: No weight loss, fever, chills, + weakness or fatigue. HEENT: Eyes: No visual loss, blurred vision, double vision or yellow sclerae. Ears, Nose, Throat: No hearing loss, sneezing, congestion, runny nose or sore throat. SKIN: No rash or itching, lesions, wounds. CARDIOVASCULAR: + Chest pain. No palpitations, edema, orthopnea, syncopal events. RESPIRATORY: + Dyspnea. No cough or sputum, wheezing, hemoptysis. GASTROINTESTINAL: + anorexia, nausea, vomiting. No diarrhea, abdominal pain, melena, BRBPR. GENITOURINARY: No dysuria, frequency, urgency or retention. NEUROLOGICAL: No headache, dizziness, syncope, paralysis, ataxia, numbness or tingling in the extremities, focal weakness, change in bowel or bladder control,seizure. MUSCULOSKELETAL: + muscle, back pain, joint pain or stiffness. HEMATOLOGIC: No anemia, bleeding or bruising. LYMPHATICS: No enlarged nodes. No history of splenectomy. PSYCHIATRIC: No history of depression or anxiety. ENDOCRINOLOGIC: + History of diaphoresis. No cold or heat intolerance. No polyuria or polydipsia. ALLERGIES: No history of asthma, hives, eczema or rhinitis. Vital Signs Vital Signs Vital Signs: 09/30/24 18:36 09/30/24 18:41 09/30/24 18:41 Temperature 97.8 F Temperature Source Oral Pulse Rate Respiratory Rate 28 H Respiratory Effort Normal Blood Pressure 143/73 H Blood Pressure Mean 96 Pulse Ox 98 Oxygen Delivery Method Room Air Room Air 09/30/24 18:50 Temperature Temperature Source Pulse Rate 73 Respiratory Rate 22 H Respiratory Effort Blood Pressure 125/62 H Blood Pressure Mean 83 Pulse Ox 100 Oxygen Delivery Method Room Air Weight Weight: 172 lb 9.951 oz Body Mass Index (BMI) 27.0 Physical Exam Narrative Physical Examination: General: Awake, alert, oriented x 3 and cooperative, seated upright in the bed, fatigued appearing,currently denies chest pain. Skin: Normal color, normal turgor, no icterus, no cyanosis except occasional stage ecchymoses. HEENT: AT/NC, EOMI, PERRLA, mildly dry MM, no carotid bruits or JVD noted. Lungs: CTA bilaterally, moderate effort, mild decrease BL bases, no rales, ronchi or wheezing. Heart: Regular rate and rhythm; no gallop, rub audible. Abdomen: Soft, NTTP, ND, mildly hyperactive BS, no appreciated HSM. Extremities: No cyanosis, clubbing, or edema. Neurological: Patient awake, alert, oriented as noted, cognitive function intact; pupils equally reactive to light and accommodation, cranial nerves grossly normal, moving all 4 extremities, no focaldeficits, strength moderatelyto severely globally decreased secondary to acute presentation. Psychiatric: Affect appears fatigued otherwise normal, no acute evidence of depressive or anxiety feelings. Results Lab / Micro Data 09/30/24 18:40 09/30/24 18:40 Labs: Laboratory Results - last 24 hr 09/30/24 18:40: WBC 16.8 H, RBC 5.45, Hgb 16.3, Hct 48.1, MCV 88.3, MCH 29.9, MCHC 33.9, RDW Std Deviation 44.2 H, RDW Coeff of Farhat 13.9, Plt Count 233, MPV 11.7, Immature Gran % (Auto) 0.800, Neut %(Auto) 74.6 H, Lymph % (Auto) 18.0 L,Ware % (Auto) 5.8, Eos % (Auto) 0.3, Baso % (Auto) 0.5, Absolute Neuts (auto) 12.5 H, Absolute Lymphs (auto) 3.03, Nucleated RBC % 0, PT 13.0, INR 1.0, APTT 21.7 L, Sodium 140, Potassium 4.9, Chloride 105, Carbon Dioxide 18.9 L, Anion Gap 16 H, BUN 14, Creatinine 1.79 H, Estim Creat Clear Calc 37.95 L, Est GFR (MDRD) Non-Af 41 L, BUN/Creatinine Ratio 7.6 L, Glucose 148 H, Calcium 9.6 Assessment & Plan Assessment/Plan (1) Coronary artery disease: PLAN: Plan The patient is a 68 y/o M w/ PMHx: Tobacco use, CAD s/p PCI last in 2017 w/ ISA mid LAD, HTN, HLD and from previous cardiology notes at follow-up in 2018 he haddiscontinued both his statin and metoprolol therapy of note with continued tobacco usage who now Chantelle presents to the [facility] ED on 09/26/2024 with history of onset of midsternal chest discomfort described as a pressure-like sensation/heaviness with nausea and emesis as well as dyspnea and diaphoresis noted to range from moderate to severe with been 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 #1. Chest Pain w/ Acute anterolateral STEMI with history of CAD status post previous PCI ISA mid LAD 2017 unfortunately noncompliant with medications: EKG in ED w/ concern for anterolateral STEMI, initial troponin 9. Will admit to theICU following transition from cardiac catheterization lab, will maintain on a monitored bed, continue serial cardiac enzymes and EKGs. Obtain magnesium level upon admission. Patient bolused with heparin in the ED. Continue medical management w/ asa, add BB with metoprolol versus Coreg per cardiology discretion, add high-dose statin w/ AM FLP. ECHO requested. Cardiology performing cardiac catheterization emergently as noted, will continue to follow. Will judiciously hydrate given contrast usage. #2. Leukocytosis: Admission CBC with WC 16.8 with left shift however suspect significant dehydration given he been working outside all day, will judiciously hydrate, repeat CBC in AM. Low suspicion for infection. #3. Acute kidney injury: Secondary to dehydration as noted above. Admission BUN/Cr 14/1.79, GFR 41,prior baseline creatinine noted to be primarily 0.9- 1.0,will judiciously hydrate, hold nephrotoxic medications and repeat chemistry in AM. If cardiology has concerns arise during cardiac catheterization for potential risk for overload then may need to decrease the amount of fluids given. #4. Hypertension: Per cardiology discretion will reinitiate beta-jelly therapy, defer to Coreg versus metoprolol per their discretion, possible low- dose TIFFANIE inhibitor addition but again will defer to cardiology discretion. PRN hydralazine. #5. Hyperlipidemia: Will add high-dose statin therapy, FLP in AM. #6. Tobacco Abuse: Encouraged cessation, inpatient consultation per RT, NR if desired. #7. DVT prophylaxis: Lovenox. #8. CODE status: Patient does not have healthcare power of attorney recruiter or living will in place but notes his will be his medical decision-maker if necessary. Discussed CODE status at length including difference between FULL code, DNR-CCA and DNR-CC status. Following discussions about the differences in these status, requested Full Code status. Charges/Coding Visit Charges Inpatient E&M: 50036 Init Hosp L3 09/30/242213 Cosigner Signature (if applicable): CC: Dr. Spohie Lebron MD; Dr. Noé Kaur, ~ Signed ADDENDUM by Dr. Sophie Lebron MD on 09/30/24 at 2215 Addendum Cardiac catheterization with noted in-stent thrombosis of the previously deployed stent to the mid LAD with successful percutaneous revascularization performed with balloon angioplasty and 2 drug-eluting stents. Cardiology did add Coreg 3.125 p.o. twice daily, Lasix 40 mg p.o. daily, lisinopril 2.5mg p.o.daily, spironolactone 12.5 mg p.o. daily and empagliflozin. 09/30/242214 Cosigner Signature (if applicable): cc: Dr. Sophie Lebron MD; Dr. Noé Kaur DO ~* Signed ADDENDUM by Dr. Sophie Lebron MD on 09/30/24 at 2220 Addendum Additional diagnosis: Hypoglycemia, no diabetic history, possibly stress response: Admission glucose 148, will obtain hemoglobin A1c to be cautious. 09/30/242219 Cosigner Signature (if applicable): cc: Dr. Sophie Lebron MD; Dr. Noé Kaur, DO ~* Signed [facility]06-24-2025 Consult note Author Presley Dia [facility] Note Date/Time September 30, 2024 8:18 pm [facility] Medical Records Department [address] [place] [address] Consultation - Cardiology 09/30/242012 MR#: [id number] Acct: [id number] Name: GREG BREWER Rep #:[id number] : 1955 68 From: Presley Dia MD PCP: Dr. Noé Kaur, DO Status:ADM IN Location: ICU ICU08-1 Assessment & Plan Assessment/Plan (1) Acute ST elevation myocardial infarction (STEMI) of anterior wall: PLAN: Patient was taken emergently to the cardiac catheterization lab. Coronaryangiography revealed in-stent thrombosis of the previously deployed stent to themid LAD. Successful percutaneous revascularization was performed with balloon angioplasty and 2 drug-eluting stents. Excellent results were noted with pentecostal of ALTON-3 flow. Continue aspirin lifelong. Clopidogrel treatment for at least 1 year. Risk factor modification. (2) Coronary artery disease: PLAN: Patient has residual lesions in his left circumflex and RCA. For staged PCI. (3) Left ventricular systolic dysfunction (LVSD): PLAN: Secondary to #1 above. Beta-blockers, ACEI, SGLT2 inhibitors, spironolactone, diuretics. (4) Nicotine dependence: PLAN: Counseled to quit. (5) Non-compliance: PLAN: Patient not compliant with regular medical follow-up or with his medications. Emphasized the need for regular cardiac and and medical follow-up and the necessity of taking his medications regularly. HPI Consult Data Date of Consult: 09/30/24 HPI Narrative Reason for Consultation: Acute anterior VA HPI Narrative: 68-year-old gentleman with past medical history significant for coronary artery disease status post drug-eluting stent to the mid LAD in 2018. Noncompliant with medications. EMS was called with complaints of acute onset anterior chest discomfort earlier this evening. An ECG was done. It showed acute anterior ST elevation myocardial infarction. Subsequently a STEMI alert was called. [facility] Medical History (Updated 09/30/24 @ 20:[address] Presley Dia MD) History of non-ST elevation myocardial infarction (NSTEMI) (04/01/18) Hyperlipidemia Atherosclerotic heart disease of pechanga coronary artery without angina pectoris Non-STEMI (non-ST elevated myocardial infarction) Tobacco dependence Chest pain Home Medications ?Medication ?Instructions ?Recorded ?Last Taken ?Type aspirin 81 mg tablet,delayed 81 mg PO DAILY@0800 #30 t abs 04/02/18 Unknown Rx release clopidogrel 75 mg tablet 75 mg PO DAILY #30 tabs 04/10 07/26 Unknown Rx Allergy/AdvReac Type Severity Reaction Status Date / Time No Known Allergies Allergy Verified 09/30/24 18:36 Family History Brother CAD (coronary artery disease) Surgical History Stented coronary artery (04/01/18) Social History Smoking Status: Current every day smoker tobacco type: cigarettes Physical Exam Narrative Appeared anxious, in acute discomfort. Heart sounds 1 and 2 noted. Chest with decreased air entry bilaterally. Alert oriented x 3. No ankle edema. Risk Stratification Risk Stratification Applicable: No Objective Data Vital Signs: Vital Signs Temp Pulse Resp BP Pulse Ox O2 Del Method 97.8 F 64 18 120/72 99 Room Air 09/30/24 19:16 09/30/24 19:16 09/30/24 19:16 09/30/24 19:16 09/30/24 19:16 09/30/24 19:06 Oxygen Delivery Method Room Air Weight: 172 lb 9.951 oz Body Mass Index (BMI) 27.0 Intake & Output: Intake and Output for Last 24 Hours 09/28/24 09/29/24 09/30/24 23:59 23:59 23:59 Intake Total 0 / 0 Balance 0 / 0 Lab / Micro Data Attestation: I reviewed the patient's lab results. 09/30/24 18:40 09/30/24 18:40 Labs: Laboratory Results - last 24 hr 09/30/24 18:40: WBC 16.8 H, RBC 5.45, Hgb 16.3, Hct 48.1, MCV 88.3, MCH 29.9, MCHC 33.9, RDW Std Deviation 44.2 H, RDW Coeff of Farhat 13.9, Plt Count 233, MPV 11.7, Immature Gran % (Auto) 0.800, Neut % (Auto) 74.6 H, Lymph % (Auto) 18.0 L,Ware % (Auto) 5.8, Eos % (Auto) 0.3, Baso % (Auto) 0.5, Absolute Neuts (auto) 12.5 H, Absolute Lymphs (auto) 3.03, Nucleated RBC % 0, PT 13.0, INR 1.0, APTT 21.7 L, Sodium 140, Potassium 4.9, Chloride 105, Carbon Dioxide 18.9 L, Anion Gap 16 H, BUN 14, Creatinine 1.79 H, Estim Creat Clear Calc 37.95 L, Est GFR (MDRD) Non-Af 41 L, BUN/Creatinine Ratio 7.6 L, Glucose 148 H, Calcium 9.6, Troponin T High Sens 9 09/30/24 18:54: Activated Clotting Time 228 H Cardiology Labs/Tests 09/30/24 18:40: WBC 16.8 H, RBC 5.45, Hgb 16.3, Hct 48.1, MCV 88.3, MCH 29.9, MCHC 33.9, Plt Count 233, MPV 11.7, Immature Gran % (Auto) 0.800, Neut % (Auto) 74.6 H, Lymph % (Auto) 18.0 L, Ware % (Auto) 5.8, Eos % (Auto) 0.3, Baso % (Auto) 0.5, Absolute Neuts (auto) 12.5 H, Nucleated RBC % 0, PT 13.0, INR 1.0, APTT 21.7 L, Sodium 140, Potassium 4.9, Chloride 105, Carbon Dioxide 18.9 L, Anion Gap 16 H, BUN 14, Creatinine 1.79 H, Est GFR (MDRD) Non-Af 41 L, BUN/Creatinine Ratio 7.6 L, Glucose 148 H, Calcium 9.6 Rhythm: EKG: Changes consistent with acute anterolateral ST elevation myocardial infarction ECHO: Stress Test: Cardiac Cath: PCI: CT Surgery: Holter monitor: EPS: PPM: CXR: Chest CT Scan: 09/30/24 2018 <Electronically signed by Presley Dia MD> Cosigner Signature (if applicable): CC: Dr. Presley Dia MD; Dr. Noé Kaur, DO~ Signed [facility] Work Phone: [phone] Discharge summary Author Ramirez Carrington [facility] Note Date/Time September 30, 2024 7:01 pm [facility] Medical Records Department [address] [place] [address] Emergency Department Summary 09/30/24 MR#: [id number] Acct: [id number] Name: GREG BREWER Rep #:[id number] : 1955 68 From: Ramirez Carrington MD PCP: Dr. Ej Day MD Status:ADM I N Location: ICU [address] [place] [address] History of Present Illness Chief Complaint: Chest Pain Detail of Chief Complaint: Acute ST elevation VA and heat exhaustion Informant: patient Onset/Context/Timing Onset: Today and Hours Context: Sudden Onset Timing: Continuous Quality: Chest pressure Location: Midsternal Current Severity: Moderate Maximum Severity: Severe Worsened by: Not applicable Relieved by: Nothing Associated Symptoms Associated Symptoms: Patient called [employer] for heat exposure Narrative Narrative: Patient is 68-year-old male. He has history of atherosclerotic disease per his old records with history of non-ST elevation VA March 2018. He has hyperlipidemia. Is a smoker of 1 pack/day. [facility] was called because of the heat cramps heat exhaustion from being out in the hot environment. He was at the baseball field and this started. He was lifting a trash can when he developed midsternal chest pressure heaviness. He began came sick to his stomach and slight shortness of breath. Prior similar symptoms: No Recent Illness/[facility]ospital[facility]: [facility] Medical History (Updated 09/30/24 @ 18:[address] 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 Non-STEMI (non-ST elevated myocardial infarction) Tobacco dependence Chest pain Home Medications ?Medication ?Instructions ?Recorded ?Last Taken ?Type aspirin 81 mg tablet,delayed 81 mg PO DAILY@0800 #30 t abs 04/02/18 Unknown Rx release clopidogrel 75 mg tablet 75 mg PO DAILY #30 tabs 04/10 07/26 Unknown Rx Allergy/AdvReac Type Severity Reaction Status Date / Time No Known Allergies Allergy Verified 09/30/24 18:36 Family History Brother CAD (coronary artery disease) Surgical History Stented coronary artery (04/01/18) Social History Smoking Status: Current every day smoker ROS ROS ED Constitutional Constitutional ED: Reports weight loss Cardiovascular Cardiovascular: Reports chest pain Respiratory/Chest Respiratory/Chest: Reports dyspnea Gastrointestinal Gastrointestinal: Reports nausea Integumentary Reports rash Psychiatric Psychiatric: Reports anxiety Hematologic/Lymphatic Hematologic/Lymphatic: Reports systems reviewed and no addt'l complaints, exceptas documented EXAM Physical Exam Const Vital Signs: 09/30/24 18:36 09/30/24 18:41 09/30/24 18:41 Temperature 97.8 F Temperature Source Oral Respiratory Rate 28 H Respiratory Effort Normal Blood Pressure 143/73 H Blood Pressure Mean 96 Pulse Ox 98 Oxygen Delivery Method Room Air Room Air Positive well nourished and well developed Constitutional Narrative: Patient appears uncomfortable. He is sweating profusely because he was out in the hot weather. General Appearance ED: well developed HEENT Reports dry mucous membranes HEENT Narrative: Poor dentition with multiple missing teeth Mouth ED: Yes dry mucous membranes Mouth: dry mucous membranes Eyes PERRL and EOMs intact bilaterally General Eye ED: Negative for pale conjunctiva or scleral icterus Neck no lymphadenopathy, supple and no JVD Chest Wall inspection of chest normal and palpation of chest normal Resp normal respiratory effort and clear to auscultation bilaterally Cardio regular rate, regular rhythm, S1 normal heart sound, S2 normal heart sound and no murmurs GI normal to inspection, nondistended, normoactive bowel sounds, non-tender, non-distended and no masses; Negative for hepatosplenomegaly Back/Spine no CVA tenderness Extremity normal to inspection General Extremety ED: Negative for edema or tenderness General Extremity: Negative for edema Neuro oriented x3 and CN's II-XII intact bilaterally Sensorium / Orientation: alert Psych mental status grossly normal Skin Skin Narrative: Patient is sweating profusely because of exposure to the hot environment. MDM MDM MDM Narrative Medical decision making narrative: Since Call was related to heat symptoms and patient clinics dehydrated 1 L of normal saline was ordered. He received 4 baby aspirin by squad. He was treatedwith heparin and Brilinta. STEMI was called based on prehospital EKG. Spoke with Dr. Dia. He was made aware of patient's EKG findings. I was unable to give him any demographic past history since patient had not arrived by the time he called back. Lab Data Labs: Laboratory Results - last 24 hr 09/30/24 18:40 WBC 16.8 H RBC 5.45 Hgb 16.3 Hct 48.1 MCV 88.3 MCH 29.9 MCHC 33.9 RDW Std Deviation 44.2 H RDW Coeff of Farhat 13.9 Plt Count 233 MPV 11.7 Immature Gran % (Auto) 0.800 Neut % (Auto) 74.6 H Lymph % (Auto) 18.0 L Ware % (Auto) 5.8 Eos % (Auto) 0.3 Baso % (Auto) 0.5 Absolute Neuts (auto) 12.5 H Absolute Lymphs (auto) 3.03 Nucleated RBC % 0 EKG Initial EKG: Attestation: I personally reviewed and interpreted this EKG as follows: Comments: Acute ST elevation anterior VA with premature beat and possible lateral involvement. Rate is 73. GA interval is 130 ms Rickers 301 ms. QT duration 68 ms. Treatment and Re-Evaluation :: Aspirin per squad, heparin and Brilinta in the ED and IV fluids for heat relatedsymptoms. Critical Care Time Critical Care Time: Yes Critical care time (excluding procedures): 30-74 minutes (20), Including time spent: (History, physical, documentation, review of prior records, treatment foracute VA and heat related injury), Discussing w/Patient &/or Family/Toxicology Teacher, Discussing w/Consultants (Dr. Dia), Arranging Admission or Transfer, Performing Direct Patient Care at Bedside and - (Patient left for Filing Clerk at 1900.) Discharge Plan Dx/Rx/DC Orders Clinical Impression: Acute ST elevation myocardial infarction (STEMI) of anterior wall, Tobacco dependence, Hyperlipidemia, Exhaustion, heat, due to water depletion, Heat cramp, initial encounter, History of coronary artery disease Disposition Disposition: Acute Care [facility] What to do if you have Problems For any increased pain, shortness of breath, bleeding, nausea or vomiting, chestpain, or any unexpected problems, contact your Primary Care Provider. Call [facility] ([phone]) or report to the closest Emergency Room. Call 911 if necessary. 09/30/24 190 <Electronically signed by Ramirez Carrington MD> Cosigner Signature (if applicable): CC: Dr. Ej Day MD ~ Signed [facility] Work Phone: [phone] Consult note [facility] Medical Records Department [address] [place] [address] Consultation - Cardiology 09/30/242012 MR#: [id number] Acct: [id number] Name: GREG BREWER Rep #:[id number] : 1955 68 From: Presley Dia MD PCP: Dr. Noé Kaur, DO Status:ADM IN Location: ICU ICU-1 Assessment & Plan Assessment/Plan (1) Acute ST elevation myocardial infarction (STEMI) of anterior wall: PLAN: Patient was taken emergently to the cardiac catheterization lab. Coronaryangiography revealedin-stent thrombosis of the previously deployed stent to themid LAD. Successful percutaneous revascularization was performed with balloon angioplasty and 2 drug-eluting stents. Excellent results were noted with pentecostal of ALTON-3 flow. Continue aspirin lifelong. Clopidogrel treatment for at least 1 year. Risk factor modification. (2) Coronary artery disease: PLAN: Patient has residual lesions in his left circumflex and RCA. For staged PCI. (3) Left ventricular systolic dysfunction (LVSD): PLAN: Secondary to #1 above. Beta-blockers, ACEI, SGLT2 inhibitors, spironolactone, diuretics. (4) Nicotine dependence: PLAN: Counseled to quit. (5) Non-compliance: PLAN: Patient not compliant with regular medical follow-up or with his medications. Emphasized the need for regular cardiac and and medical follow-up and the necessity of taking his medications regularly. HPI Consult Data Date of Consult: 09/30/24 HPI Narrative Reason for Consultation: Acute anterior VA HPI Narrative: 68-year-old gentleman with past medical history significant for coronary artery disease status postdrug-eluting stent to the mid LAD in 2018. Noncompliant with medications. EMS was called with complaints of acute onset anterior chest discomfort earlier this evening. An ECG was done. It showed acute anterior ST elevation myocardial infarction. Subsequently a STEMI alert was called. [facility] Medical History (Updated 09/30/24 @ 20:[address] Presley Dia MD) History of non-ST elevation myocardial infarction (NSTEMI) (04/01/18) Hyperlipidemia Atherosclerotic heart disease of pechanga coronary artery without angina pectoris Non-STEMI (non-ST elevated myocardial infarction) Tobacco dependence Chest pain Home Medications ?Medication ?Instructions ?Recorded ?Last Taken ?Type aspirin 81 mg tablet,delayed 81 mg PO DAILY@0800 #30 t abs 04/02/18 Unknown Rx release clopidogrel 75 mg tablet 75 mg PO DAILY #30 tabs 04/10 07/26 Unknown Rx Allergy/AdvReac Type Severity Reaction Status Date / Time No Known Allergies Allergy Verified 09/30/24 18:36 Family History Brother CAD (coronary artery disease) Surgical History Stented coronary artery (04/01/18) Social History Smoking Status: Current every day smoker tobacco type: cigarettes Physical Exam Narrative Appeared anxious, in acute discomfort. Heart sounds 1 and 2 noted. Chest with decreased air entry bilaterally. Alert oriented x 3. No ankle edema. Risk Stratification Risk Stratification Applicable: No Objective Data Vital Signs: Vital Signs Temp Pulse Resp BP Pulse Ox O2 Del Method 97.8 F 64 18 120/72 99 Room Air 09/30/24 19:16 09/30/24 19:16 09/30/24 19:16 09/30/24 19:16 09/30/24 19:16 09/30/24 19:06 Oxygen Delivery Method Room Air Weight: 172 lb 9.951 oz Body Mass Index (BMI) 27.0 Intake & Output: Intake and Output for Last 24 Hours 09/28/24 09/29/24 09/30/24 23:59 23:59 23:59 Intake Total 0 / 0 Balance 0 / 0 Lab / Micro Data Attestation: I reviewed the patient's lab results. 09/30/24 18:40 09/30/24 18:40 Labs: Laboratory Results - last 24 hr 09/30/24 18:40: WBC 16.8 H, RBC 5.45, Hgb 16.3, Hct 48.1, MCV 88.3, MCH 29.9, MCHC 33.9, RDW Std Deviation 44.2 H, RDW Coeff of Farhat 13.9, Plt Count 233, MPV 11.7, Immature Gran % (Auto) 0.800, Neut %(Auto) 74.6 H, Lymph % (Auto) 18.0 L,Ware % (Auto) 5.8, Eos % (Auto) 0.3, Baso % (Auto) 0.5, Absolute Neuts (auto) 12.5 H, Absolute Lymphs (auto) 3.03, Nucleated RBC % 0, PT 13.0, INR 1.0, APTT 21.7 L, Sodium 140, Potassium 4.9, Chloride 105, Carbon Dioxide 18.9 L, Anion Gap 16 H, BUN 14, Creatinine 1.79 H, Estim Creat Clear Calc 37.95 L, Est GFR (MDRD) Non-Af 41 L, BUN/Creatinine Ratio 7.6 L, Glucose 148 H, Calcium 9.6, Troponin T High Sens 9 09/30/24 18:54: Activated Clotting Time 228 H Cardiology Labs/Tests 09/30/24 18:40: WBC 16.8 H, RBC 5.45, Hgb 16.3, Hct 48.1, MCV 88.3, MCH 29.9, MCHC 33.9, Plt Count 233, MPV 11.7, Immature Gran % (Auto) 0.800, Neut % (Auto) 74.6 H, Lymph % (Auto) 18.0 L, Ware % (Auto) 5.8, Eos % (Auto) 0.3, Baso % (Auto) 0.5, Absolute Neuts (auto) 12.5 H, Nucleated RBC % 0, PT 13.0, INR 1.0, APTT 21.7 L, Sodium 140, Potassium 4.9, Chloride 105, Carbon Dioxide 18.9 L, Anion Gap 16 H, BUN 14, Creatinine 1.79 H, Est GFR (MDRD) Non-Af 41 L, BUN/Creatinine Ratio 7.6 L, Glucose 148H, Calcium 9.6 Rhythm: EKG: Changes consistent with acute anterolateral ST elevation myocardial infarction ECHO: Stress Test: Cardiac Cath: PCI: CT Surgery: Holter monitor: EPS: PPM: CXR: Chest CT Scan: 09/30/242017 Cosigner Signature (if applicable): CC: Dr. Presley Dia MD; Dr. Noé Kaur, DO~ Signed [facility]06-24-2025 Discharge summary [facility] Medical Records Department [address] [place] [address] Emergency Department Summary 09/30/24 MR#: [id number] Acct: [id number] Name: GREG BREWER Rep #:[id number] : [id number] 68 From: Ramirez Carrington MD PCP: Dr. Ej Day MD Status:ADM I N [facility] History of Present Illness Chief Complaint: Chest Pain Detail of Chief Complaint: Acute ST elevation VA and heat exhaustion Informant: patient Onset/Context/Timing Onset: Today and Hours Context: Sudden Onset Timing: Continuous Quality: Chest pressure Location: Midsternal Current Severity: Moderate Maximum Severity: Severe Worsened by: Not applicable Relieved by: Nothing Associated Symptoms Associated Symptoms: Patient called squad for heat exposure Narrative Narrative: Patient is 68-year-old male. He has history of atherosclerotic disease per his old records with history of non-ST elevation VA March 2018. He has hyperlipidemia. Is a smoker of 1 pack/day. [place] was called because of the heat cramps heat exhaustion from being out in the hot environment. [place] was at the baseball field and this started. He was lifting a trash can when he developed midsternal chestpressure heaviness. He began came sick to his stomach and slight shortness of breath. Prior similar symptoms: No Recent Illness/Hospitalization: No [facility] Medical History (Updated 09/30/24 @ 18:[address] 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 Non-STEMI (non-ST elevated myocardial infarction) Tobacco dependence Chest pain Home Medications ?Medication ?Instructions ?Recorded ?Last Taken ?Type aspirin 81 mg tablet,delayed 81 mg PO DAILY@0800 #30 t abs 04/02/18 Unknown Rx release clopidogrel 75 mg tablet 75 mg PO DAILY #30 tabs 04/10 07/26 Unknown Rx Allergy/AdvReac Type Severity Reaction Status Date / Time No Known Allergies Allergy Verified 09/30/24 18:36 Family History Brother CAD (coronary artery disease) Surgical History Stented coronary artery (04/01/18) Social History Smoking Status: Current every day smoker ROS ROS ED Constitutional Constitutional ED: Reports weight loss Cardiovascular Cardiovascular: Reports chest pain Respiratory/Chest Respiratory/Chest: Reports dyspnea Gastrointestinal Gastrointestinal: Reports nausea Integumentary Reports rash Psychiatric Psychiatric: Reports anxiety Hematologic/Lymphatic Hematologic/Lymphatic: Reports systems reviewed and no addt'l complaints, exceptas documented EXAM Physical Exam Const Vital Signs: 09/30/24 18:36 09/30/24 18:41 09/30/24 18:41 Temperature 97.8 F Temperature Source Oral Respiratory Rate 28 H Respiratory Effort Normal Blood Pressure 143/73 H Blood Pressure Mean 96 Pulse Ox 98 Oxygen Delivery Method Room Air Room Air Positive well nourished and well developed Constitutional Narrative: Patient appears uncomfortable. He is sweating profusely because he was out in the hot weather. General Appearance ED: well developed HEENT Reports dry mucous membranes HEENT Narrative: Poor dentition with multiple missing teeth Mouth ED: Yes dry mucous membranes Mouth: dry mucous membranes Eyes PERRL and EOMs intact bilaterally General Eye ED: Negative for pale conjunctiva or scleral icterus Neck no lymphadenopathy, supple and no JVD Chest Wall inspection of chest normal and palpation of chest normal Resp normal respiratory effort and clear to auscultation bilaterally Cardio regular rate, regular rhythm, S1 normal heart sound, S2 normal heart sound and no murmurs GI normal to inspection, nondistended, normoactive bowel sounds, non-tender, non- distended and no masses; Negative for hepatosplenomegaly Back/Spine no CVA tenderness Extremity normal to inspection General Extremety ED: Negative for edema or tenderness General Extremity: Negative for edema Neuro oriented x3 and CN's II-XII intact bilaterally Sensorium / Orientation: alert Psych mental status grossly normal Skin Skin Narrative: Patient is sweating profusely because of exposure to the hot environment. MDM MDM MDM Narrative Medical decision making narrative: Since Call was related to heat symptoms and patient clinics dehydrated 1 L of normal saline was ordered. He received 4 baby aspirin by squad. He was treatedwith heparin and Brilinta. STEMI was calledbased on prehospital EKG. Spoke with Dr. Dia. He was made aware of patient's EKG findings. I was unable to give him any demographic past history since patient had not arrived by the time he called back. Lab Data Labs: Laboratory Results - last 24 hr 09/30/24 18:40 WBC 16.8 H RBC 5.45 Hgb 16.3 Hct 48.1 MCV 88.3 MCH 29.9 MCHC 33.9 RDW Std Deviation 44.2 H RDW Coeff of Farhat 13.9 Plt Count 233 MPV 11.7 Immature Gran % (Auto) 0.800 Neut % (Auto) 74.6 H Lymph % (Auto) 18.0 L Ware % (Auto) 5.8 Eos % (Auto) 0.3 Baso % (Auto) 0.5 Absolute Neuts (auto) 12.5 H Absolute Lymphs (auto) 3.03 Nucleated RBC % 0 EKG Initial EKG: Attestation: I personally reviewed and interpreted this EKG as follows: Comments: Acute ST elevation anterior VA with premature beat and possible lateral involvement. Rateis 73. GA interval is 130 ms Rickers 301 ms. QT duration 68 ms. Treatment and Re-Evaluation :: Aspirin per squad, heparin and Brilinta in the ED and IV fluids for heat relatedsymptoms. Critical Care Time Critical Care Time: Yes Critical care time (excluding procedures): 30-74 minutes (20), Including time spent: (History, physical, documentation, review of prior records, treatment foracute VA and heat related injury), Discussing w/Patient &/or Family/Toxicology Teacher, Discussing w/Consultants (Dr. Dia), Arranging Admissionor Transfer, Performing Direct Patient Care at Bedside and - (Patient left for Filing Clerk at 1900.) Discharge Plan Dx/Rx/DC Orders Clinical Impression: Acute ST elevation myocardial infarction (STEMI) of anterior wall, Tobacco dependence, Hyperlipidemia, Exhaustion, heat, due to water depletion, Heat cramp, initial encounter, History of coronary artery disease Disposition Disposition: Acute Care [facility] What to do if you have Problems For any increased pain, shortness of breath, bleeding, nausea or vomiting, chestpain, or any unexpected problems, contact your Primary Care Provider. Call [facility] ([phone]) or report tothe closest Emergency Room. Call 911 if necessary. 09/30/24 1901 Cosigner Signature (if applicable): CC: Dr. Ej Day MD ~ Signed [facility]06-24-2025 Discharge summary Author Ramirez Carrington [facility] Note Date/Time September 30, 2024 7:01 pm [facility] Medical Records Department [address] [place] [address] Emergency Department Summary 09/30/24 MR#: [id number] Acct: [id number] Name: GREG BREWER Rep #:[id number] : 1955 68 From: Ramirez Carrington MD PCP: Dr. Ej Day MD Status:ADM I N Location: ICU ICU08-1 HPI History of Present Illness Chief Complaint: Chest Pain Detail of Chief Complaint: Acute ST elevation VA and heat exhaustion Informant: patient Onset/Context/Timing Onset: Today and Hours Context: Sudden Onset Timing: Continuous Quality: Chest pressure Location: Midsternal Current Severity: Moderate Maximum Severity: Severe Worsened by: Not applicable Relieved by: Nothing Associated Symptoms Associated Symptoms: Patient called squad for heat exposure Narrative Narrative: Patient is 68-year-old male. He has history of atherosclerotic disease per his old records with history of non-ST elevation VA March 2018. He has hyperlipidemia. Is a smoker of 1 pack/day. Squad was called because of the heat cramps heat exhaustion from being out in the hot environment. He was at the baseball field and this started. He was lifting a trash can when he developed midsternal chest pressure heaviness. He began came sick to his stomach and slight shortness of breath. Prior similar symptoms: No Recent Illness/Hospitalization: No [facility] Medical History (Updated 09/30/24 @ 18:[address] 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 Non-STEMI (non-ST elevated myocardial infarction) Tobacco dependence Chest pain Home Medications ?Medication ?Instructions ?Recorded ?Last Taken ?Type aspirin 81 mg tablet,delayed 81 mg PO DAILY@0800 #30 t abs 04/02/18 Unknown Rx release clopidogrel 75 mg tablet 75 mg PO DAILY #30 tabs 04/10 07/26 Unknown Rx Allergy/AdvReac Type Severity Reaction Status Date / Time No Known Allergies Allergy Verified 09/30/24 18:36 Family History Brother CAD (coronary artery disease) Surgical History Stented coronary artery (04/01/18) Social History Smoking Status: Current every day smoker ROS ROS ED Constitutional Constitutional ED: Reports weight loss Cardiovascular Cardiovascular: Reports chest pain Respiratory/Chest Respiratory/Chest: Reports dyspnea Gastrointestinal Gastrointestinal: Reports nausea Integumentary Reports rash Psychiatric Psychiatric: Reports anxiety Hematologic/Lymphatic Hematologic/Lymphatic: Reports systems reviewed and no addt'l complaints, exceptas documented EXAM Physical Exam Const Vital Signs: 09/30/24 18:36 09/30/24 18:41 09/30/24 18:41 Temperature 97.8 F Temperature Source Oral Respiratory Rate 28 H Respiratory Effort Normal Blood Pressure 143/73 H Blood Pressure Mean 96 Pulse Ox 98 Oxygen Delivery Method Room Air Room Air Positive well nourished and well developed Constitutional Narrative: Patient appears uncomfortable. He is sweating profusely because he was out in the hot weather. General Appearance ED: well developed HEENT Reports dry mucous membranes HEENT Narrative: Poor dentition with multiple missing teeth Mouth ED: Yes dry mucous membranes Mouth: dry mucous membranes Eyes PERRL and EOMs intact bilaterally General Eye ED: Negative for pale conjunctiva or scleral icterus Neck no lymphadenopathy, supple and no JVD Chest Wall inspection of chest normal and palpation of chest normal Resp normal respiratory effort and clear to auscultation bilaterally Cardio regular rate, regular rhythm, S1 normal heart sound, S2 normal heart sound and no murmurs GI normal to inspection, nondistended, normoactive bowel sounds, non-tender, non-distended and no masses; Negative for hepatosplenomegaly Back/Spine no CVA tenderness Extremity normal to inspection General Extremety ED: Negative for edema or tenderness General Extremity: Negative for edema Neuro oriented x3 and CN's II-XII intact bilaterally Sensorium / Orientation: alert Psych mental status grossly normal Skin Skin Narrative: Patient is sweating profusely because of exposure to the hot environment. MDM MDM MDM Narrative Medical decision making narrative: Since Call was related to heat symptoms and patient clinics dehydrated 1 L of normal saline was ordered. He received 4 baby aspirin by squad. He was treatedwith heparin and Brilinta. STEMI was called based on prehospital EKG. Spoke with Dr. Dia. He was made aware of patient's EKG findings. I was unable to give him any demographic past history since patient had not arrived by the time he called back. Lab Data Labs: Laboratory Results - last 24 hr 09/30/24 18:40 WBC 16.8 H RBC 5.45 Hgb 16.3 Hct 48.1 MCV 88.3 MCH 29.9 MCHC 33.9 RDW Std Deviation 44.2 H RDW Coeff of Farhat 13.9 Plt Count 233 MPV 11.7 Immature Gran % (Auto) 0.800 Neut % (Auto) 74.6 H Lymph % (Auto) 18.0 L Ware % (Auto) 5.8 Eos % (Auto) 0.3 Baso % (Auto) 0.5 Absolute Neuts (auto) 12.5 H Absolute Lymphs (auto) 3.03 Nucleated RBC % 0 EKG Initial EKG: Attestation: I personally reviewed and interpreted this EKG as follows: Comments: Acute ST elevation anterior VA with premature beat and possible lateral involvement. Rate is 73. GA interval is 130 ms Rickers 301 ms. QT duration 68 ms. Treatment and Re-Evaluation :: Aspirin per squad, heparin and Brilinta in the ED and IV fluids for heat relatedsymptoms. Critical Care Time Critical Care Time: Yes Critical care time (excluding procedures): 30-74 minutes (20), Including time spent: (History, physical, documentation, review of prior records, treatment foracute VA and heat related injury), Discussing w/Patient &/or Family/Toxicology Teacher, Discussing w/Consultants (Dr. Dia), Arranging Admission or Transfer, Performing Direct Patient Care at Bedside and - (Patient left for Filing Clerk at 1900.) Discharge Plan Dx/Rx/DC Orders Clinical Impression: Acute ST elevation myocardial infarction (STEMI) of anterior wall, Tobacco dependence, Hyperlipidemia, Exhaustion, heat, due to water depletion, Heat cramp, initial encounter, History of coronary artery disease Disposition Disposition: Acute Care Hospital [facility] What to do if you have Problems For any increased pain, shortness of breath, bleeding, nausea or vomiting, chestpain, or any unexpected problems, contact your Primary Care Provider. Call [facility] ([phone]) or report to the closest Emergency Room. Call 911 if necessary. 09/30/241900 <Electronically signed by Ramirez Carrington MD> Cosigner Signature (if applicable): CC: Dr. Ej Day MD ~ Signed [facility] Work Phone: [phone] 505-115906-24-2025 Evaluation note* Diagnosis Onset Date Resolution Status Admit Date Acute ST elevation myocardia l infarction (STEMI) of anterior wall September 30, 2024 acute September 30, 2024 7:25pm Coronary artery disease acute J 2024 7:25pm Exhaustion, heat, due to david er depletion acute September 30, 2024 7:25pm Heat cramp, initial encounter acute September 30, 2024 7:25pm History of coronary artery disease acute September 30, 2024 7:25pm Left ventricular systolic dysfunction (LVSD) acute September 30 7:25pm LV (left ventricular) mural thrombus following VA acute September 30, 2024 7:25pm Nicotine dependence acute September 30, 2024 7:25pm Non-compliance acute September 30, 2024 7:25pm Hyperlipidemia chronic September 30, 2024 7:25pm Tobacco dependence chronic September 082024 7:25pm [facility] Work Phone: Evaluation note* Diagnosis Onset Date Resolution Status Admit Date Acute ST elevation myocardia l infarction (STEMI) of anterior wall acute September 30, 2024 6:49pm Exhaustion, heat, due to david er depletion acute September 30, 2024 6:49pm Heat cramp, initial encounter acute September 30, 2024 6:49pm History of coronary artery disease acute September 30, 2024 6:49pm Hyperlipidemia chronic September 30, 2024 6:49pm Tobacco dependence chronic September 082024 6:49pm [facility] Work Phone: Reason for referral (narrative)No reason for referral information availableWPro[facility] Work Phone: Chief Complaint and Reason for Visit Chief Complaint Admit Date STEMI September 30, 2024 6:49 pm Reason for Visit Admit Date Acute ST elevation myocardia l infarction (STEMI) of anterior wall September 30, 2024 6:49pm Exhaustion, heat, due to water depletion September 30, 2024 6:49pm Heat cramp, initial encounter September 30, 2024 6:49pm History of coronary artery disease September 30, 2024 6:49pm Hyperlipidemia September 30, 2024 6:49 pm Tobacco dependence September 30, 2024 6:49 pm Chief Complaint Admit Date STEMI September 30, 2024 7:25 pm STEMI September 30, 2024 8:13 pm STEMI October 01, 2024 8:46 am STEMI October 01, 2024 2:44 pm STEMI October 02, 2024 8:49 am Reason for Visit Admit Date Acute ST elevation myocardia l infarction (STEMI) of anterior wall September 30, 2024 7:25pm Coronary artery disease September 30, 2024 7:25pm Exhaustion, heat, due to water depletion September 30, 2024 7:25pm Heat cramp, initial encounter September 30, 2024 7:25pm History of coronary artery disease September 30, 2024 7:25pm Left ventricular systolic dysfunction (L VSD) September 30, 2024 7:25pm LV (left ventricular) mural thrombus fol lowing VA September 30, 2024 7:25pm Nicotine dependence September 30, 2024 7:25 pm Non-compliance September 30, 2024 7:25 pm Hyperlipidemia September 30, 2024 7:25 pm Tobacco dependence September 30, 2024 7:25 pm Advance Directives No Advanced Directives Records Found Advance Directive Response Recorded Date/ Time Do you have a Healthcare Power of Pool Lifeguard? No September 30, 2024 6:41pm Advance Directive Response Recorded Date/ Time Do you have a Healthcare Power of Pool Lifeguard? No September 30, 2024 8:18pm Family History No Family History Records Found Relationship Condition Age at Onset Recorded Date/T max brother Coronary artery disease Unknown father Demyelinating disorder Unknown mother Cardiac disease Unknown Hypertension Unknown Heart failure Unknown Summary Purpose Additional Source Comments Care Teams (unrecognized sec tion and content) Team Status: Active Member Role Status Dates Dr. Noé Kaur DO Primary Care Provider Active Team Status: Inactive Member Role Status Dates Dr. Ramirez Carrington MD Emergency Provider Active Sta rt: September 30, 2024 End: October 02, 2024 Dr. Presley Dia MD Referring Provider Active Start: September 30, 2024 End: October 02, 2024 Dr. Presley Dia MD Other Provider Active Star t: September 30, 2024 End: October 02, 2024 Dr. Noé Kaur DO Primary Care Provider Active Start: September 30, 2024 End: October 02, 2024 Dr. Sophie Lebron MD Admit Provider Active St art: September 30, 2024 End: October 02, 2024 Dr. Sophie Lebron MD Other Provider Active St art: September 30, 2024 End: October 02, 2024 Dr. Noé Michelle DO Attending Provider Active Start: September 30, 2024 End: October 02, 2024 Team Status: Active Member Role Status Dates Dr. Ramirez Carrington MD Emergency Provider Active Sta rt: September 30, 2024 Dr. Presley Dia MD Attending Provider Active Start: September 30, 2024 Dr. Presley Dia MD Referring Provider Active Start: September 30, 2024 Dr. Olivia Carrasquillo MD Admit Provider Active Star t: September 30, 2024 Dr. Olivia Carrasquillo MD Other Provider Active Star t: September 30, 2024 Dr. Noé Kaur DO Primary Care Provider Active Start: September 30, 2024 Team Status: Active Member Role Status Dates Dr. Ramirez Carrington MD Emergency Provider Active Sta rt: October 01, 2024 Dr. Presley Dia MD Attending Provider Active Start: October 01, 2024 Dr. Presley Dia MD Referring Provider Active Start: October 01, 2024 Dr. Presley Dia MD Other Provider Active Star t: October 01, 2024 Dr. Noé Kaur DO Primary Care Provider Active Start: October 01, 2024 Dr. Sophie Lebron MD Admit Provider Active St art: October 01, 2024 Dr. Sophie Lebron MD Other Provider Active St art: October 01, 2024 Dr. Noé Michelle DO Other Provider Active S tart: October 01, 2024 Team Status: Active Member Role Status Dates Dr. Ramirez Carrington MD Emergency Provider Active Sta rt: October 01, 2024 Dr. Presley Dia MD Referring Provider Active Start: October 01, 2024 Dr. Presley Dia MD Other Provider Active Star t: October 01, 2024 Dr. Noé Kaur DO Primary Care Provider Active Start: October 01, 2024 Dr. Sophie Lebron MD Admit Provider Active St art: October 01, 2024 Dr. Sophie Lebron MD Other Provider Active St art: October 01, 2024 Dr. Noé Michelle DO Attending Provider Active Start: October 01, 2024 Dr. Noé Michelle DO Other Provider Active S tart: October 01, 2024 Team Status: Active Member Role Status Dates Dr. Ramirez Carrington MD Emergency Provider Active Sta rt: October 02, 2024 Dr. Presley Dia MD Attending Provider Active Start: October 02, 2024 Dr. Presley Dia MD Referring Provider Active Start: October 02, 2024 Dr. Presley Dia MD Other Provider Active Star t: October 02, 2024 Dr. Noé Kaur DO Primary Care Provider Active Start: October 02, 2024 Dr. Sophie Lebron MD Admit Provider Active St art: October 02, 2024 Dr. Sophie Lebron MD Other Provider Active St art: October 02, 2024 Dr. Noé Michelle DO Other Provider Active S tart: October 02, 2024 Team Status: Active Member Role Status Dates Dr. Ramirez Carrington MD Emergency Provider Active Sta rt: September 30, 2024 Dr. Presley Dia MD Referring Provider Active Start: September 30, 2024 Dr. Olivia Carrasquillo MD Admit Provider Active Star t: September 30, 2024 Dr. Olivia Carrasquillo MD Attending Provider Active Start: September 30, 2024 Dr. Noé Kaur DO Primary Care Provider Active Start: September 30, 2024 Goals (unrecognized section and content) Goals may be documented in a n alternate section (unrecognized sect ion and content) No Status Records Found INFORMATION SOURCE (unrecogn ized section and content) DATE CREATED AUTHOR 10/16/2024 [facility] FOR RECORDS PERTAINING TO PATIENTS WHO ARE OR HAVE BEEN ENROLLED IN A CHEMICAL DEPENDENCY/SUBSTANCEABUSE PROGRAM, SOME INFORMATION MAY BE OMITTED. This clinical summary was aggregated from multiple sources. Caution should be exercised in using it in the provision of clinical care. This summary normalizes information from multiple sources, and as a consequence, information in this document may materially change the coding, format and clinical context of patient data. In addition, data may be omitted in some cases. CLINICAL DECISIONS SHOULD BE BASED ON THE PRIMARY CLINICAL RECORDS. [employer] provides no warranty or guarantee of the accuracy or completeness of information in this document.
[2024-10-20 04:00] VITALS: BP 86/61; PULSE 74; RESP 16; O2SAT 97
[2024-10-20] MEDS: 0.9% Normal Saline (1000mL) 1,000 ML 999 ML IV ×2 (04:34→05:22)
--- NOTE | 2024-10-20 04:49 | PCA ---
CALLED [facility] SPOKE WITH SURE, NO ICU BEDS AVAILABLE. CALLED [facility], NO ICU BEDS AVAILABLE. CALLED [facility], WAITING DR CALL BACK.
[2024-10-20 05:15] VITALS: BP 48/38; PULSE 65; RESP 14; O2SAT 99
--- NOTE | 2024-10-20 05:15 | ED.RN ---
This RN in room with patient, irrigating morrow. Pt stating that he feels like he is going to pass out. Patient became diaphoretic, pale and shaking. Alerted furnace charger and MD, both in room. Additional orders received for additional labs, fluids, TXA and blood.
[2024-10-20] MEDS: TRANEXAMIC ACID 2,000 MG in 0.9% Normal Saline (100mL Bag) 100 ML 280 MG IV (05:22)
--- NOTE | 2024-10-20 05:23 | EDS_ITS ---
HPI History of Present Illness Chief Complaint: Complaint Informant: patient and spouse/S.O. Narrative Narrative: Patient is a 68-year-old male with past medical history of CAD who was seen on October 02 secondary to chest pain and had an acute WI. He had 2 stents placed at that time and also reportedly had a clot in the left ventricle. Secondary to this he was placed on Xarelto and Plavix. Patient states has been taking all of his medications as directed. This evening he went to the bathroom around 11 PM and had gross blood in his urine. He states that there has been no trauma. But because he is on a blood thinner and now having blood in his urine he presents for evaluation [facility] Medical History (Updated 10/20/24 @ 06:[address] Eber Sagastume, DO) LV (left ventricular) mural thrombus following WI Non-compliance Nicotine dependence Left ventricular systolic dysfunction (LVSD) Coronary artery disease History of coronary artery disease Heat cramp, initial encounter Exhaustion, heat, due to water depletion Acute ST elevation myocardial infarction (STEMI) of anterior wall (09/30/24) HTN (hypertension) History of non-ST elevation myocardial infarction (NSTEMI) (04/01/18) Hyperlipidemia Atherosclerotic heart disease of [place] coronary artery without angina pectoris Non-STEMI (non-ST elevated myocardial infarction) Tobacco dependence Home Medications ?Medication ?Instructions ?Recorded ?Last Taken ?Type atorvastatin 40 mg tablet (Lipitor) 40 mg PO DAILY #30 tabs 10/02/24 Unknown Rx clopidogrel 75 mg tablet 75 mg PO DAILY #30 tabs 09/08 10/01 Unknown Rx empagliflozin 10 mg tablet 10 mg PO DAILY #30 tabs Unknown Rx (Jardiance) furosemide 40 mg tablet 40 mg PO DAILY #30 tabs 09/08 10/01 Unknown Rx lisinopril 2.5 mg tablet 2.5 mg PO DAILY #30 tabs Unknown Rx metoprolol succinate 25 mg 25 mg PO DAILY #30 tabs Unknown Rx tablet,extended release 24 hr rivaroxaban 20 mg tablet (Xarelto) 20 mg PO DINNER #30 tabs 10/02/24 Unknown Rx spironolactone 25 mg tablet 12.5 mg (1/2 x 25 mg) PO D AILY #15 10/02/24 Unknown Rx tabs Allergy/AdvReac Type Severity Reaction Status Date / Time No Known Allergies Allergy Verified 10/19/24 23:35 Family History (Updated 09/30/24 @ 22:[address] Sophie Lebron MD) Brother CAD (coronary artery disease) Father Demyelinating disease Mother Heart disease Hypertension Heart failure Surgical History Stented coronary artery (04/01/18) Social History (Updated 09/30/24 @ 22:[address] Sophie Lebron MD) household members: spouse Smoking Status: Current every day smoker tobacco type: cigarettes how long ago did patient quit smoking: Smoked since 11 y/o, quit ~ 25 yrs in between. Notes intention to stop. quit status: quit date established alcohol intake: never substance use type: does not use ROS ROS ED Constitutional Constitutional ED: Denies chills or fever(s) Eyes Eyes: Denies change in vision Cardiovascular Cardiovascular: Denies chest pain Respiratory/Chest Respiratory/Chest: Denies cough or dyspnea Gastrointestinal Gastrointestinal: Denies abdominal pain, diarrhea, nausea or vomiting Genitourinary Genitourinary ED: Reports hematuria; Denies dysuria Musculoskeletal Musculoskeletal: Denies back pain Integumentary Denies rash Neurologic Neurologic: Denies headache(s) Hematologic/Lymphatic Hematologic/Lymphatic: Reports easy bleeding and easy bruising EXAM Physical Exam Const Vital Signs: 10/19/24 23:34 10/20/24 02:03 10/20/24 04:00 Temperature 98.5 F Temperature Source Oral Pulse Rate 77 62 74 Respiratory Rate 16 16 16 Blood Pressure 111/70 110/60 86/61 L Blood Pressure Mean 83 76 69 Blood Pressure Source Blood Pressure Position Blood Pressure Location Pulse Ox 96 99 97 Oxygen Delivery Method Room Air Room Air Room Air 10/20/24 05:30 10/20/24 05:45 Temperature 97.7 F L 97.7 F L Temperature Source Oral Oral Pulse Rate 58 L 68 Respiratory Rate 18 18 Blood Pressure 83/53 L 92/73 Blood Pressure Mean 63 79 Blood Pressure Source Monitor Monitor Blood Pressure Position Supine Supine Blood Pressure Location Left Arm Left Arm Pulse Ox 97 100 Oxygen Delivery Method Room Air Room Air Positive well nourished and well developed General Appearance ED: well developed; Negative for pallor HEENT HEENT Narrative: Normocephalic atraumatic Eyes PERRL and EOMs intact bilaterally General Eye ED: Negative for scleral icterus Neck supple Neck Narrative: No nuchal rigidity or meningeal signs Resp normal respiratory effort Resp Narrative: Breath sounds are diminished throughout with faint rhonchi and wheezes in the bilateral lower lobes consistent with history of nicotine use but no signs of respiratory distress Cardio regular rate and regular rhythm Rate: other Other Details: Heart is regular rate and rhythm Radial and carotid pulses are equal and symmetric GI non-distended and no masses GI Narrative: No organomegaly in the suprapubic region to suggest acute urinary retention Auscultation: normoactive bowel sounds Palpation: soft Narrative: Normal circumcised male. There is dark red blood at the urethral meatus. No testicular swelling or masses. No secondary findings to suggest Jackie's gangrene. Back/Spine no CVA tenderness Extremity normal to inspection Neuro oriented x3, CN's II-XII intact bilaterally and no sensory deficits noted Sensorium / Orientation: alert Motor Exam: strength 5/5 throughout Psych mental status grossly normal Skin no rashes or lesions noted Skin Narrative: Capillary refill is less than 3 seconds General Skin Exam: Negative for jaundice or pallor MDM MDM MDM Narrative Medical decision making narrative: Patient arrived to the ER hemodynamically stable. He reported the sudden onset of blood in his urine without trauma. He is on Xarelto and Plavix. There is high likelihood that the medication is driving the blood in his urine. With concern he has acute kidney injury or acute blood loss anemia or UTI basic labs were obtained. Urine showed +1 bacteria but no white blood cells and was nitrite negative and there is contamination with epithelial cells so therefore there is most likely contamination and I do not feel the need for antibiotics. Kidney function is normal at 1.3 indicating no KAM. Blood volume is stable at 14. On physical exam the patient has gross hematuria without signs of obvious infection or trauma. With the most likely reason being his blood thinner use a three-way Jefferson catheter was placed and continuous irrigation was obtained while labs were ordered. Despite receiving multiple bags of continuous bladder irrigation his blood remained opaque indicating continuous/active bleeding. The patient's blood pressure which was initially normal tensive slowly began to downtrend. Eventually he had an episode of near syncope and his blood pressure dropped to approximately 40/20. At this time trauma blood was ordered with concern for acute blood loss anemia driving the patient's worsening symptoms. This was given in addition to 2 L of normal saline. With the blood in saline his blood pressure did improve which would correlate with blood loss/hypovolemia. Urology is not present in the hospital at this time. As the patient will most likely need a uroscopy to identify the cause of his bleeding and we do not have the specialty available at our institution he will need transferred. I contacted [facility] and discussed the case with ICU director music Dr. Arellano. She agrees with transfer at this time based on his persistent bleeding and hypotension. The patient was given 2 g of TXA because of the bleeding but she does not want to reverse his Xarelto with Kcentra based on the report of his recent stents and ventricular clot. The plan of care for transfer and need for admission to ICU was discussed with patient and and they are agreeable to it and therefore he will be sent to [facility] for continued care. Based on the patient's persistent decline and now need for acute blood transfusion the decision was made to transfer by [facility] as ground transport is going to take multiple hours and I have concern that the patient will decompensate during this time. History & Record Review Discussion w/independent historian: Patient and Significant other Lab Data Attestation: I reviewed the patient's lab results. Labs: Laboratory Results - last 24 hr 10/20/24 10/20/24 10/20/24 00:16 00:42 04:30 WBC 11.3 H RBC 4.76 Hgb 14.2 12.2 L Hct 42.3 35.9 L MCV 88.9 MCH 29.8 MCHC 33.6 RDW Std Deviation 42.4 RDW Coeff of [place]hat 13.0 Plt Count 266 MPV 10.9 Immature Gran % (Auto) 1.000 H Neut % (Auto) 66.0 Lymph % (Auto) 22.4 Drew % (Auto) 7.6 Eos % (Auto) 2.2 Baso % (Auto) 0.8 Absolute Neuts (auto) 7.4 Absolute Lymphs (auto) 2.52 Nucleated RBC % 0 Differential Comment SCANNED PT 17.0 H INR 1.4 APTT 33.1 Sodium 135 Potassium 4.0 Chloride 98 Carbon Dioxide 25.3 Anion Gap 11 BUN 22 H Creatinine 1.30 H Estim Creat Clear Calc 59.53 Est GFR (MDRD) Non-Af 61 BUN/Creatinine Ratio 17.0 Glucose 100 H Calcium 9.1 Urine Color Red Urine Clarity Turbid Urine pH 7.0 Ur Specific [place] 1.015 Urine Protein 500 H Urine Glucose (UA) Normal Urine Ketones Negative Urine Occult Blood 150 H Urine Nitrite Negative Urine Bilirubin Negative Urine Urobilinogen Normal Ur Leukocyte Esterase Negative Urine RBC > 100 SEEN Urine WBC 0 SEEN Ur Squamous Epith Cells 0 SEEN Ur Transition Epith Cell 5-10 SEEN Urine Bacteria 1+ Urine Mucus 0 SEEN Management Discussion w/another healthcare provider: Senior Application Security Consultant Critical Care Time Critical Care Time: Yes Critical care time (excluding procedures): Discussing w/Patient &/or Family/Applications Manager, Discussing w/Consultants, Arranging Admission or Transfer and - (Please note critical care time of 41 minutes) Discharge Plan Triage Chief Complaint: Complaint ED Provider: Eber Sagastume Dx/Rx/DC Orders Clinical Impression: Hematuria, gross, Current use of assisted anticoagulation, Coronary artery disease, Acute hypotension Prescriptions: No Action furosemide 40 mg Tablet 40 mg PO DAILY Qty: 30 0RF clopidogrel 75 mg Tablet 75 mg PO DAILY Qty: 30 0RF spironolactone 25 mg Tablet 12.5 mg PO DAILY Qty: 15 0RF lisinopril 2.5 mg Tablet 2.5 mg PO DAILY Qty: 30 0RF Xarelto 20 mg Tablet 20 mg PO DINNER Qty: 30 0RF Jardiance 10 mg Tablet 10 mg PO DAILY Qty: 30 0RF atorvastatin [Lipitor] 40 mg tablet 40 mg PO DAILY Qty: 30 0RF metoprolol succinate 25 mg tablet extended release 24 hr 25 mg PO DAILY Qty: 30 0RF Primary Care Provider: Noé Kaur Referrals: Noé Kaur DO [Primary Care Provider] - Print Language: Croatian Disposition Disposition: Acute Care Hospital Discharge Location: [facility]
--- NOTE | 2024-10-20 05:26 | PCA ---
PT ACCEPTED AT [place] [id number] DELAROSA [phone]. LOCAL [place] ETA PAST 8 AM, [facility] WAS CALLED, GROUND UNAVAILABLE. 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
--- NOTE | 2024-10-20 05:27 | EKG12_ITS ---
Test Reason : DYSRHYTHMIA Blood Pressure : */* mmHG Vent. Rate : 65 BPM Atrial Rate : 65 BPM P-R Int : 176 ms QRS Dur : 86 ms QT Int : 456 ms P-R-T Axes : 55 -16 105 degrees QTcB Int : 474 ms Normal sinus rhythm Low voltage QRS Septal infarct (cited on or before 30-Sep-2024) ST & Marked T wave abnormality, consider anterolateral ischemia Abnormal ECG Confirmed by Shon Duff ([id number]), editor in chief DEBBIE LÓPEZ ([id number]) on 10/20/2024 1:11:48 PM Referred By: Confirmed By: Shon Duff
[2024-10-20 05:30] VITALS: BP 83/53; PULSE 58; RESP 18; TEMP 36.5; O2SAT 97
[2024-10-20 05:31] LABS: Hemoglobin 12.2 g/dL (13.0-16.5)
[2024-10-20 05:32] LABS: Hematocrit 35.9 % (40-54)
[2024-10-20 05:45] VITALS: BP 92/73; PULSE 68; RESP 18; TEMP 36.5; O2SAT 100
[2024-10-20 06:43] VITALS: BP 101/68; PULSE 67; RESP 14; TEMP 36.5; O2SAT 100
--- NOTE | 2024-10-20 06:44 | ED.RN ---
2nd unit of trauma PRBC infusing when patient left with [facility] transport.
== END 2024-10-20 06:47 | disposition short-term general hospital (02) ==
PROVIDERS: Emergency Provider Emergency Medicine; PCP Family Medicine; Visit Provider Emergency Medicine
DX: R31.9 Hematuria, unspecified (principal); I25.10 Atherosclerotic heart disease of native coronary artery without angina pectoris; F17.210 Nicotine dependence, cigarettes, uncomplicated; I95.9 Hypotension, unspecified; I10 Essential (primary) hypertension; E78.5 Hyperlipidemia, unspecified; I25.2 Old myocardial infarction; Z79.02 Long term (current) use of antithrombotics/antiplatelets; Z79.01 Long term (current) use of anticoagulants; Z79.899 Other long term (current) drug therapy
CPT/HCPCS: 80048; 81001; 85014; 85018; 85025; 85610; 85730; 86850; 86900; 86901; 93005; 96365; 96366; 96375; 96376; 99284; P9016; A4216; J2405